=== PATIENT | female | born 1965 | race Caucasian/White ===

== ENCOUNTER → 2016-09-22 | Outpatient (CLI) | payer OTHER ==
[~2016-09-22] MED LIST: ALBU1AER9 INH; AMT50 PO; ARXIS25 SQ; ASPITAB71 PO; ATOR-54 PO; ATR25 PO; BACL20TA PO; BUSP-8 PO; CHOL100027 PO; ESCI10TA17 PO; ESCI1TAB10 PO; FERR1TAB61 PO; GARL1CAP6 PO; GLC/500 PO; GLIP2.5T11 PO; HYDC25 PO; HYDR-3126 PO; LEVO50TA PO; LEVO75TA PO; LORA-741 PO; METF1000 PO; MORP-158 PO; MULT-1027 PO; NICO2GUM7 MT; OMEG10007 PO; OMEP20CA59 PO; PANT40TA PO; PIRO20CA PO; PRED10TA PO; RISP3TAB3 PO; RISP4TAB2 PO; RXC5 PO; SENNTAB23 PO; TRIA37.5 PO; TRMO2580 TOP; ZNTT/150 PO
[2016-09-22 11:17] LABS: HEMATOCRIT 35.6 % (37-47); MEAN CELL VOLUME 83.6 fL (80-100); MEAN CORPUSCULAR HGB CONC 32.3 g/dl (32-36); PLATELET COUNT 318 K/uL (130-400); RED BLOOD COUNT 4.26 M/uL (4.2-5.4); WHITE BLOOD COUNT 6.67 K/uL (4.8-10.8)
[2016-09-22 11:19] LABS: ESTIMATED AVERAGE GLUCOSE 137 mg/dl; HA1C FLAG Normal (Normal)
[2016-09-22 11:41] LABS: BLOOD UREA NITROGEN 11 mg/dl (7-18); GLUCOSE 97 mg/dl (70-99)
[2016-09-22 11:42] LABS: ALT/SGPT 24 U/L (12-78); AST/SGOT 15 U/L (15-37); BUN/CREATININE RATIO 11.4 (10-20); CALCIUM 9.5 mg/dl (8.5-10.1); CARBON DIOXIDE 29 mmol/L (21-32); CHLORIDE 102 mmol/L (98-107); POTASSIUM 3.7 mmol/L (3.5-5.1); SODIUM 140 mmol/L (136-145)
[2016-09-22 11:52] LABS: CHOLESTEROL 147 mg/dl (0-200); CHOLESTEROL/HDL RATIO 2.8; HDL CHOLESTEROL 53 mg/dl; LDL CHOLESTEROL CALCULATED 52 mg/dl; THYROID STIMULATING HORMONE 0.815 uIu/ml (0.300-4.500); TRIGLYCERIDES 209 mg/dl (0-150); VERY LOW DENSITY LIPOPROT CALC 42 mg/dl
[2016-09-22 11:54] LABS: RATIO 6.2 mcg/mg (0-30.0)
== END | disposition home or self-care (01) ==
LOC: C.LAB1850 10:28
PROVIDERS: ATTEND Internal Medicine
DX: E11.40 Type 2 diabetes mellitus with diabetic neuropathy, unspecified (principal); E78.00 Pure hypercholesterolemia, unspecified; E55.9 Vitamin D deficiency, unspecified; R53.83 Other fatigue; E03.9 Hypothyroidism, unspecified

== ENCOUNTER → 2016-10-20 | Outpatient (CLI) | payer OTHER ==
[~2016-10-20] MED LIST changes: +AMINOPHYLLINE 25 MG/ML 20ML VIAL IV ONE; +REGADENOSON 0.4 MG/5 ML SYR ONE
--- NOTE | 2016-10-21 16:14 | MYOCARDIAL PERFUSION SCAN ---
ONE-DAY NUCLEAR MEDICINE TECHNETIUM-99M CARDIOLITE MYOCARDIAL PERFUSION SCAN CLINICAL HISTORY: The patient is experiencing exertional dyspnea and chest discomfort and has an abnormal baseline EKG. COMPARISON: None. TECHNIQUE: For the stress portion of the study, 31.7 mCi of Technetium 99 m Cardiolite IV was injected at 11:50 a.m. on 10/20/2016. Thirty minutes following the injection, imaging of the heart was performed in multiple projections. For the rest portion of the study, 10.6 mCi of Technetium 99 m Cardiolite was injected IV at 9:30 a.m. One hour following the injection, imaging of the heart was performed in the same projections. For the stress portion of the study, 0.4 mg of Lexiscan was injected intravenously as per protocol. The patient tolerated the infusion well. She did receive 125 mg of intravenous aminophylline to reverse her complaints of a headache. Following the study, the patient was hemodynamically stable without complaints. FINDINGS: The short axis, vertical long axis, and horizontal long axis images were reviewed in detail. There is uniform tracer uptake at both stress and rest. This excludes a prior myocardial infarction and stress induced myocardial ischemia. The left ventricle demonstrates hyperdynamic systolic function without wall motion abnormalities. An estimated left ventricular ejection fraction is greater than 70%. IMPRESSION: 1. No scintigraphic evidence of a myocardial infarction or stress induced myocardial ischemia. 2. No Lexiscan induced chest discomfort. 3. No Lexiscan induced EKG changes. 4. Hyperdynamic left ventricular systolic function with an ejection fraction of greater than 70%. There are no wall motion abnormalities.
== END | disposition home or self-care (01) ==
LOC: C.NUCL 08:59
PROVIDERS: ATTEND Internal Medicine
DX: R06.09 Other forms of dyspnea (principal); R07.9 Chest pain, unspecified; R94.31 Abnormal electrocardiogram [ECG] [EKG]

== ENCOUNTER → 2016-11-17 | Day surgery (SDC) | payer OTHER ==
[2016-10-28 10:51] VITALS: Ht 167.6 cm; Wt 86.4 kg
[~2016-11-17] VITALS: Ht 167.6 cm; Wt 86.4 kg
[~2016-11-17] MED LIST changes: -AMINOPHYLLINE 25 MG/ML 20ML VIAL IV ONE; -AMT50 PO; -ARXIS25 SQ; -ESCI10TA17 PO; -GLIP2.5T11 PO; -HYDC25 PO; +IOPAMIDOL INJ 61% 15 ML VIAL ONE; -LEVO50TA PO; +LIDOCAINE HCL 1% MPF 5 ML VIAL ONE; -LORA-741 PO; -METF1000 PO; -MORP-158 PO; -NICO2GUM7 MT; -OMEG10007 PO; -OMEP20CA59 PO; -REGADENOSON 0.4 MG/5 ML SYR ONE; +SODIUM CHLORIDE 0.9% INJ 10 ML VIAL ONE; -TRMO2580 TOP
--- NOTE | 2016-11-17 13:51 | History & Physical Bridge - SC ---
H&P Re-Evaluation Bridge Note: I have examined the patient, reviewed the History & Physical and in the interval since the performance of the History & Physical I have noted the following changes of clinical significance: No changes noted
--- NOTE | 2016-11-17 14:24 | Discharge Instructions ---
Discharge Instructions Date of Service Nov 17, 2016. Visit Reason for Visit: Lumbar Radiculopathy Discharge Discharge Diagnosis / Problem: Bilateral leg pain Discharge Goals Goal(s): Decrease discomfort, Improve function Activity Recommendations Activity Limitations: resume your previous activity Anesthesia . Post Anesthesia Instructions: If you have had General Anesthesia or IV Sedation: * Do not drive today. * Resume driving when surgeon permits. * Do not make important decisions or sign legal documents today. * Call surgeon for: 1. Temperature elevations greater than 101 degrees F. 2. Uncontrollable pain. 3. Excessive bleeding. 4. Persistent nausea and vomiting. 5. Medication intolerance (nausea, vomiting or rash). * For nausea and vomiting use only clear liquids such as: tea, soda, bouillon until nausea subsides, then gradually increase diet as tolerated. * If you have any concerns or questions, call your surgeon's office. If physician is unavailable and it is an emergency, call 911 or go to the nearest emergency room. . Diet Recommendations Recommended Home Diet: resume previous diet Procedures Procedures Performed: Lumbar Epidural Steroid Injection Pending Studies Studies pending at discharge: no Medical Emergencies . Who to Call and When: Medical Emergencies: If at any time you feel your situation is an emergency, please call 911 immediately. . Non-Emergent Contact Non-Emergency issues call your: Specialist . . "Provider Documentation" section prepared by Scott Rodas.
[2016-11-17 14:27] VITALS: TEMP 36.6
[2016-11-17 14:32] VITALS: BP 125/81; PULSE 75; O2SAT 95
--- NOTE | 2016-11-17 15:34 | OPERATIVE REPORT ---
DATE OF OPERATION: 11/17/2016 PREOPERATIVE DIAGNOSIS: Chronic low back pain with lumbar disk disease and chronic bilateral lower extremity radicular pain. POSTOPERATIVE DIAGNOSIS: Same. PROCEDURE: Right paramedian L5-S1 interlaminar epidural steroid injection under fluoroscopic guidance. INDICATIONS: The patient is a 51-year-old white female who returns today for an epidural steroid injection. She has received them in the distant past, more than a few years ago with very good relief; however, she has had increasing radicular pain that was related to a slip injury in which she injured both her back and her neck. She is scheduled for neck surgery Next month and presents today for an epidural injection to provide her with relief of the back and radicular complaints down the legs. PHYSICAL EXAMINATION: Pleasant female seated comfortably. She has some tenderness to palpation of her lower lumbar spine. She has no focal weakness, intact sensation. She has some pain inhibition with straight leg testing of the lower extremities. CONSENT: Verbal and written consent was obtained from the patient. Risks and benefits were reviewed. Risks include but are not limited to epidural abscess, epidural hematoma, allergic reaction, dural puncture. The patient wishes to proceed. DESCRIPTION OF PROCEDURE: The patient was taken back to the special procedures room of the [facility] where she was maintained in a prone position. Betadine x3 was then applied to the back, a dry sterile dressing was then applied. Fluoroscope was then used to identify the L5-S1 interlaminar space and overlying skin was anesthetized with 4 mL of lidocaine 1% with a 25 gauge 1.5-inch needle on the right L5-S1 paraspinal space. She then underwent placement of a 22 gauge 4-1/4 inch Tuohy needle, which was directed down towards the interlaminar space. It was advanced under lateral fluoroscopic guidance and loss of resistance was noted at a depth of 10 cm. Isovue-300 contrast 1 mL was injected and which demonstrated epidural uptake pattern which was confirmed with both AP and lateral views. She then underwent injection of 40 mg of Depo-Medrol, 4 mL of preservative-free sodium chloride which reproduced a transient pressure and a radicular sensation down the right leg. DISPOSITION: 1. The patient is taken out into the discharge recovery area where she will be discharged home once discharge criteria have been met. 2. Follow up in the [facility] office in 2-4 weeks. I attest to the content of the Intraoperative Record and any orders documented therein. Any exceptio ns are noted below.
== END | disposition home or self-care (01) ==
LOC: X.SURG 13:05
PROVIDERS: ATTEND Physical Medicine & Rehabilitation
DX: M54.16 Radiculopathy, lumbar region (principal); M50.122 Cervical disc disorder at C5-C6 level with radiculopathy

== ENCOUNTER → 2016-12-20 | Outpatient (CLI) | payer OTHER ==
[~2016-12-20] MED LIST changes: -ASPITAB71 PO; -ATR25 PO; -IOPAMIDOL INJ 61% 15 ML VIAL ONE; -LIDOCAINE HCL 1% MPF 5 ML VIAL ONE; -PIRO20CA PO; -PRED10TA PO; -SODIUM CHLORIDE 0.9% INJ 10 ML VIAL ONE
[2016-12-20 12:48] LABS: BLOOD UREA NITROGEN 12 mg/dl (7-18); BUN/CREATININE RATIO 12.2 (10-20); CALCIUM 9.6 mg/dl (8.5-10.1); CARBON DIOXIDE 27 mmol/L (21-32); CHLORIDE 97 mmol/L (98-107); CREATININE 0.98 mg/dl (0.60-1.20); GLUCOSE 96 mg/dl (70-99); POTASSIUM 4.4 mmol/L (3.5-5.1); SODIUM 132 mmol/L (136-145)
== END | disposition home or self-care (01) ==
LOC: C.LAB1850 10:40
PROVIDERS: ATTEND Internal Medicine
DX: E87.1 Hypo-osmolality and hyponatremia (principal)

== ENCOUNTER 2016-12-28 05:53 | Inpatient (IN) | payer OTHER ==
--- NOTE | 2016-12-05 14:27 | PAT Medication Instructions ---
Service Date Dec 05, 2016. Current Home Medication List Albuterol (Proair Hfa), 2 PUFFS INH Q4-6H PRN for Shortness of Breath Atorvastatin (Lipitor), 20 MG PO HS Baclofen (Lioresal), 20 MG PO TID Buspirone Hcl (Buspirone Hcl), 2 TABS PO BID Cholecalciferol (Vitamin D 1000 Unit), 1,000 INTER.UNIT PO BID Escitalopram Oxalate (Lexapro), 2 TABS PO QAM Ferrous Sulfate (Iron), 65 MG PO NOON Garlic (Garlic), 1 TAB PO HS Hydroxyzine Hcl (Atarax), 50 MG PO BID Levothyroxine Sodium (Synthroid), 75 MCG PO QAM Metformin Hcl (Glucophage), 2 TABS PO BID Multiple Vitamin (Multi Vitamin), 1 TAB PO QAM Pantoprazole (Protonix), 40 MG PO BID Ranitidine (Zantac), 150 MG PO BID Risperidone (Risperdal), 3 MG PO HS Risperidone (Risperdal), 4 MG PO QAM Triamterene/Hctz (Dyazide 37.5MG/25MG), 1 TAB PO QAM Medication Instructions For Your Scheduled Surgery - Hold the following medications 2 weeks prior to surgery: Garlic (Garlic), 1 TAB PO HS - Hold the following medications 48 hours prior to surgery: Metformin Hcl (Glucophage), 2 TABS PO BID - Hold the following medications the morning of surgery: Triamterene/Hctz (Dyazide 37.5MG/25MG), 1 TAB PO QAM Multiple Vitamin (Multi Vitamin), 1 TAB PO QAM Ferrous Sulfate (Iron), 65 MG PO NOON Cholecalciferol (Vitamin D 1000 Unit), 1,000 INTER.UNIT PO BID Baclofen (Lioresal), 20 MG PO TID - Take the following medications the morning of surgery with a sip of water: Risperidone (Risperdal), 4 MG PO QAM Pantoprazole (Protonix), 40 MG PO BID Ranitidine (Zantac), 150 MG PO BID Levothyroxine Sodium (Synthroid), 75 MCG PO QAM Hydroxyzine Hcl (Atarax), 50 MG PO BID Escitalopram Oxalate (Lexapro), 2 TABS PO QAM Buspirone Hcl (Buspirone Hcl), 2 TABS PO BID Albuterol (Proair Hfa), 2 PUFFS INH Q4-6H PRN for Shortness of Breath (bring with you to hospital on day of surgery) - Take the following medications as scheduled the night before surgery: Risperidone (Risperdal), 3 MG PO HS Pantoprazole (Protonix), 40 MG PO BID Ranitidine (Zantac), 150 MG PO BID Hydroxyzine Hcl (Atarax), 50 MG PO BID Cholecalciferol (Vitamin D 1000 Unit), 1,000 INTER.UNIT PO BID Buspirone Hcl (Buspirone Hcl), 2 TABS PO BID Baclofen (Lioresal), 20 MG PO TID Albuterol (Proair Hfa), 2 PUFFS INH Q4-6H PRN for Shortness of Breath Atorvastatin (Lipitor), 20 MG PO HS If you have any questions please call us at [phone] or [phone] ( [place]) or [phone]
[2016-12-05 14:42] LABS: BASO % 0.5 %; BASO ABS # 0.04 K/uL (0-0.2); COMPLETE YES; EOS % 1.1 %; HEMATOCRIT 32.2 % (37-47); IG% 0.2 %; LYMPH % 24.1 %; LYMPH ABS # 1.93 K/uL (1.2-3.4); MEAN CELL VOLUME 82.8 fL (80-100); MEAN CORPUSCULAR HGB CONC 33.9 g/dl (32-36); MEAN PLATELET VOLUME 9.1 fL (7.4-10.4); MONO % 6.5 %; NEUT % 67.6 %; PLATELET COUNT 327 K/uL (130-400); RED BLOOD COUNT 3.89 M/uL (4.2-5.4); WHITE BLOOD COUNT 8.01 K/uL (4.8-10.8)
--- NOTE | 2016-12-05 15:02 | DIAGNOSTIC IMAGING REPORT ---
CHEST 2 VIEWS ROUTINE CLINICAL HISTORY: Preoperative evaluation. COMPARISON STUDY: Chest radiograph November 17, 2013. FINDINGS: Lung volumes are normal. There is no pneumothorax or pleural effusion. There is no evidence of pulmonary edema. Cardiomediastinal silhouette is normal. There are left upper quadrant surgical clips. IMPRESSION: No acute cardiopulmonary findings. Electronically signed by: Mik Howard M.D. 12/05/2016 3:00 PM Dictated Date/Time: 12/05/2016 3:00 PM
[2016-12-05 15:05] LABS: URINE APPEARANCE CLEAR (CLEAR); URINE BILIRUBIN NEG (NEG); URINE COLOR YELLOW; URINE EPITHELIAL CELL AUTO 20-30 /lpf (0-5); URINE NITRITE NEG (NEG); URINE SPECIFIC GRAVITY 1.008 (1.000-1.030); UROBILINOGEN NEG (NEG)
[2016-12-05 15:19] LABS: MANUAL MICROSCOPIC REQUIRED? NO; REVIEW REQ? NO
[2016-12-05 15:36] LABS: CALCIUM 9.8 mg/dl (8.5-10.1); CREATININE 0.97 mg/dl (0.60-1.20); POTASSIUM 4.4 mmol/L (3.5-5.1)
[2016-12-28] VITALS (16 sets, daily range): BP systolic 108–130; BP diastolic 72–88; PULSE 74–89; TEMP 36.3–37.2; O2SAT 94–99; Ht 167.6 cm; Wt 84.0 kg
[~2016-12-28] VITALS: Ht 167.6 cm; Wt 84.0 kg
[~2016-12-28 05:53] MED LIST changes: -RXC5 PO; -SENNTAB23 PO
[2016-12-28] MEDS ORDERED: LACTATED RINGER'S 1000ML 1,000 ML IV SCH (06:00)
[2016-12-28] MEDS ORDERED: CEFAZOLIN 2000 MG/60 ML D5W 60 ML IV SCH (06:00)
[2016-12-28] MEDS ORDERED: BACITRACIN 50000 UNIT VIAL ONE (06:56)
[2016-12-28] MEDS ORDERED: SODIUM CHLORIDE 0.9% PF 50 ML VIAL ONE (06:56)
[2016-12-28] MEDS ORDERED: FENTANYL CITRATE INJ 50 MCG/1 ML 2 ML VIAL ONE ×3 (06:57→09:48)
[2016-12-28] MEDS ORDERED: PROPOFOL IV EMULSION 10 MG/ML 20 ML VIAL IV ONE (06:57)
[2016-12-28] MEDS ORDERED: MIDAZOLAM HCL 1 MG/ML 2ML VIAL ONE (06:57)
[2016-12-28] MEDS ORDERED: LIDOCAINE HCL 2% 2 ML VIAL (20MG/ML) ONE (06:57)
[2016-12-28] MEDS ORDERED: ROCURONIUM BROMIDE 10 MG/ML 5 ML VIAL ONE (06:57)
[2016-12-28] MEDS ORDERED: SENNTAB23 PO (07:09)
[2016-12-28] MEDS ORDERED: CLINDAMYCIN 600 MG/54 ML D5W IV ONE ×2 (07:13→08:00)
--- NOTE | 2016-12-28 07:29 | History and Physical ---
History & Physical Date December 28, 2016. Chief Complaint neck and arm pain History of Present Illness The patient is a 51 year old female with complaints of Additional History Hepatic Disease: No Endocrine Disorder: No Kidney Disease: No Hypertension: No Heart Disease: No Bleeding Tendencies: No Infectious Diseases: No Allergies Coded Allergies: Salt (Verified Allergy, Unknown, SWELLING, 12/28/16) Amoxicillin (Verified Adverse Reaction, Mild, GI UPSET, 12/28/16) Aspirin (Verified Adverse Reaction, Unknown, GI DISTRESS, 12/28/16) ALLERGIC TO ASPIRIN TABLETS, THINGS THAT CONTAIN ASPIRIN ARE OKAY Niacin (Verified Adverse Reaction, Unknown, HOT FLUSHES, 12/28/16) Home Medications Scheduled Atorvastatin (Lipitor), 20 MG PO HS Baclofen (Lioresal), 20 MG PO TID Buspirone Hcl (Buspirone Hcl), 2 TABS PO BID Cholecalciferol (Vitamin D 1000 Unit), 1,000 INTER.UNIT PO BID Escitalopram Oxalate (Lexapro), 2 TABS PO QAM Ferrous Sulfate (Iron), 65 MG PO NOON Garlic (Garlic), 1 TAB PO HS Hydroxyzine Hcl (Atarax), 50 MG PO BID Levothyroxine Sodium (Synthroid), 75 MCG PO QAM Metformin Hcl (Glucophage), 2 TABS PO BID Multiple Vitamin (Multi Vitamin), 1 TAB PO QAM Pantoprazole (Protonix), 40 MG PO BID Ranitidine (Zantac), 150 MG PO BID Risperidone (Risperdal), 3 MG PO HS Risperidone (Risperdal), 4 MG PO QAM Sennosides-Docusate Sodium (Stool Softener), PO DAILY Triamterene/Hctz (Dyazide 37.5MG/25MG), 1 TAB PO QAM Scheduled PRN Albuterol (Proair Hfa), 2 PUFFS INH Q4-6H PRN for Shortness of Breath Physical Examination Skin: warm/dry, no rash Eyes: normal inspection, EOMI, sclerae normal ENT: normal ENT inspection, pharynx normal Head: normocephalic, atraumatic Neck: supple, no adenopathy, trachea midline Respiratory/Chest: lungs clear, normal breath sounds, no respiratory distress Cardiovascular: regular rate, rhythm, no edema, no murmur Abdomen / GI: normal bowel sounds, non tender Back: normal inspection Extremities: normal inspection, normal range of motion Neurologic/Psych: no motor/sensory deficits, alert, normal reflexes, oriented x 3 Diagnosis cervical stenosis Plan of Treatment acdf c-6-7 corpectomy c5 with fusion c4-7
[2016-12-28] MEDS ORDERED: EpHEDrine SULFATE INJ 50 MG/ML AMP IV PRN (07:30)
[2016-12-28] MEDS ORDERED: PROMETHAZINE HCL INJ 6.25 MG in SODIUM CHLORIDE 0.9% 50ML 50 ML IV PRN (07:30)
[2016-12-28] MEDS ORDERED: ATROPINE SULFATE 0.1 MG/ML 5ML SYR IV PRN (07:30)
[2016-12-28] MEDS ORDERED: NURSING VERBAL MED ORDER ONE ×3 (07:30→20:15)
[2016-12-28] MEDS ORDERED: ONDANSETRON INJ 2 MG/ML 2 ML VIAL IV PRN ×2 (07:30→10:15)
[2016-12-28] MEDS ORDERED: ONDANSETRON INJ 2 MG/ML 2 ML VIAL ONE ×2 (08:32→09:48)
[2016-12-28] MEDS ORDERED: DEXAMETHASONE SOD INJ 4 MG/ML VIAL ONE (08:32)
[2016-12-28] MEDS ORDERED: GLYCOPYRROLATE INJ 0.2 MG/ML VIAL ONE ×2 (08:41→09:48)
[2016-12-28] MEDS ORDERED: NEOSTIGMINE METHYLSULFATE 1 MG/ML 10ML VIAL ONE (09:48)
[2016-12-28] MEDS ORDERED: FLOSEAL HEMOSTATIC MATRIX 5ML TOP ONE (09:51)
[2016-12-28] MEDS ORDERED: BACITRACIN 50,000 UNITS IR ONE (09:54)
--- NOTE | 2016-12-28 10:01 | [facility] Post Operative Brief Note ---
Immediate Operative Summary Operative Date December 28, 2016. Pre-Operative Diagnosis Cervical Stenosis Post-Operative Diagnosis Cervical Stenosis Procedure(s) Performed C6-C7 Anterior Cervical Discectomy and Fusion; C5 Corpectomy with use of [place] Surgeon Dr. Lua Associate Research Scientist Surgeon(s) Albina Orellana PA-C Estimated Blood Loss 100 mL Findings stenosis Specimens None per Surgeon
[2016-12-28] MEDS ORDERED: LORAZEPAM INJ 0.5 MG in SYRINGE 0.75 ML IV PRN (10:15)
[2016-12-28] MEDS ORDERED: DO NOT ADMINISTER PNEUMOCOCCAL VACCINE PRN ×2 (10:15)
[2016-12-28] MEDS ORDERED: DEXAMETHASONE INJ 8 MG in SYRINGE 0 ML IV PRN (10:15)
[2016-12-28] MEDS ORDERED: DiphenhydrAMINE HCL 50 MG/ML VIAL IV PRN (10:15)
[2016-12-28] MEDS ORDERED: NALOXONE HCL 0.4 MG/1 ML VIAL/CARP IV PRN (10:15)
[2016-12-28] MEDS ORDERED: HYDROmorphone INJ 1 MG/ML SYR IV PRN (10:15)
[2016-12-28] MEDS ORDERED: RACEPINEPHRINE 2.25% NEBU SOLN 0.5 ML VIAL INH PRN (10:15)
[2016-12-28] MEDS ORDERED: LORAZEPAM 0.5 MG TAB PO PRN (10:15)
[2016-12-28] MEDS ORDERED: DO NOT ADMINISTER FLU VACCINE PRN ×3 (10:15)
[2016-12-28] MEDS ORDERED: MAGNESIUM HYDROXIDE SUSP 30 ML UDC PO PRN (10:15)
[2016-12-28] MEDS ORDERED: ALBUTEROL HFA 8 GM INHALER INH PRN (10:15)
[2016-12-28] MEDS ORDERED: OXYCODONE HCL IR 5 MG TAB (IMMEDIATE RELEASE) PO PRN (10:15)
--- NOTE | 2016-12-28 10:16 | DIAGNOSTIC IMAGING REPORT ---
Cervical SPINE, INTRAOPERATIVE FLUOROSCOPY HISTORY: ACDF C4-C7. FLUOROSCOPY TIME: 8 seconds. FINDINGS: Intraoperative fluoroscopy was provided for the cervical spine. 2 fluoroscopic spot images were obtained. ACDF from C4 through C7 with a C5 corpectomy. The hardware is intact. IMPRESSION: Fluoroscopy provided for a C4-C7 ACDF. Electronically signed by: Montrell Solis M.D. 12/28/2016 10:15 AM Dictated Date/Time: 12/28/2016 10:14 AM
[2016-12-28] MEDS: FENTANYL CITRATE INJ 50 MCG/1 ML 2 ML VIAL IV PRN ×4 (10:28→11:09)
[2016-12-28] MEDS ORDERED: NURSING VERBAL MED ORDER SCH (11:15)
--- NOTE | 2016-12-28 11:22 | OPERATIVE REPORT ---
DATE OF OPERATION: 12/28/2016 PREOPERATIVE DIAGNOSIS: Cervical spinal stenosis with myeloradiculopathy. POSTOPERATIVE DIAGNOSIS: Same. PROCEDURE PERFORMED: 1. Anterior cervical corpectomy C5. 2. Anterior cervical discectomy C6-C7. 3. Anterior cervical arthrodesis C4-C6 and C6-C7. 4. Placement of PEEK cage 23 mm in height at C4-C6 and 8 mm in height at C6-C7. 5. Placement of locally harvested morcellized autograft combined with Ratna bone graft in interbody cages. 6. Application of Mary plate and screws from C4-C7. SURGEON: Dr. Scott Lua. PASTA PRESS OPERATOR: Due to the complex nature of the procedure, the entire surgery was performed with the information services assistant of Albina Orellana PA-C. The hair assistant, under direct supervision, was involved in the actual performance of all aspects of the surgical procedure including hemostasis, tissue retraction and incision, instrument management, patient positioning, and wound closure. ANESTHESIA: General. DISPOSITION: The patient awakened and taken to PACU in stable condition. HISTORY OF PATIENT'S PROBLEMS: This is a 51-year-old female that presents with above-mentioned diagnosis. After failing an extensive course of nonoperative care, elected to undergo the above-mentioned procedure. Risks, benefits, pros, cons, and alternatives were outlined in detail preoperatively. DESCRIPTION OF PROCEDURE: The patient was met with preoperatively, case discussed and all questions were addressed. At that point the patient was taken back to operative suite and after undergoing successful general intubation by the department of anesthesia was placed in supine position on Bean table with head in [place] automatic head sawyer. All bony prominences were well padded and the eyes were inspected to ensure there was no external pressure placed upon them. At this point the anterior cervical spine was prepped and draped in normal sterile fashion. With the assistance of fluoroscopy, we identified the C5-C6 disk space and transverse incision was placed along the right anterior aspect of the cervical spine overlying this region. Sharp dissection with the assistance of bipolar electrocautery performed down to and exposing the anterior cervical spine from C4-C7. A self-retaining retractor was placed. I then performed a complete discectomy of C4-C5 out to the uncovertebral joints bilaterally followed by C5-C6. [place] distracting pins were then placed in C4 and C6 to distract across the C5 vertebral body. A complete corpectomy was then performed including removal of all posterior annular fibers, longitudinal ligament and bilateral foraminotomies. Endplates were then burred to subcortical bleeding bone and a 23 mm PEEK cage filled with locally harvested morcellized autograft and Ratna bone grafting tapped into position. Distracting apparatus was removed and we proceeded to C6-C7. Again, complete discectomy was performed out to the uncovertebral joints bilaterally. [place] distracting pins were utilized to assist us in our visualization. I removal of all posterior annular fibers and performed bilateral foraminotomies. Endplates were then burred to subcortical bleeding bone and 8 mm PEEK cage filled with Ratna bone grafting locally harvested morcellized autograft tapped into position. Distracting apparatus was removed, all anterior osteophytes burred to a smooth cortical surface and screws applied from C4-C7. Incision was then copiously irrigated, explored to ensure there was no damage to surrounding structures or remaining bleeding and a 10 round BRISA drain inserted then closed with 2-0 Vicryl in the fascia, 4-0 Monocryl for final skin closure. Steri-Strips and sterile dressing placed. The patient was awakened and taken to PACU in stable condition. I attest to the content of the Intraoperative Record and any orders documented therein. Any exceptio ns are noted below.
[2016-12-28] MEDS ORDERED: SODIUM CHLORIDE 0.9% 1000ML 1,000 ML IV SCH (12:45)
[2016-12-28] MEDS ORDERED: SCOPOLAMINE 1.5 MG TDSY TD SCH (13:00)
[2016-12-28] MEDS ORDERED: EpHEDrine SULFATE 50MG/5ML SYR ONE (13:07)
[2016-12-28] MEDS: DEXAMETHASONE INJ 6 MG in SYRINGE 0 ML IV SCH ×2 (13:21→21:30)
[2016-12-28] MEDS: BACLOFEN TAB 20 MG TAB PO SCH ×2 (13:22→19:36)
--- NOTE | 2016-12-28 14:15 | Anesthesiology Progress Note ---
Anesthesia Post Op Note Date & Time December 28, 2016 at 14:15 Vital Signs Pain Intensity: 3.0 Vital Signs Past 12 Hours Date Time Temp Pulse Resp B/P Pulse Ox O2 Delivery O2 Flow Rate FiO2 12/28/16 13:43 82 18 99 Nasal Cannula 4.0 12/28/16 12:45 36.4 16 122/76 98 Nasal Cannula 4.0 Humidified Oxygen 12/28/16 12:15 36.6 78 18 112/79 98 Nasal Cannula 4.0 Humidified Oxygen 12/28/16 11:58 98 Nasal Cannula 4.0 12/28/16 11:45 98 Nasal Cannula 4.0 Humidified Oxygen 12/28/16 11:45 36.6 80 18 116/80 98 Nasal Cannula 4.0 Humidified Oxygen 12/28/16 11:32 72 16 12/28/16 11:32 72 16 97 12/28/16 11:31 114/64 12/28/16 11:27 74 16 97 12/28/16 11:27 73 16 12/28/16 11:26 112/66 12/28/16 11:23 36.2 12/28/16 11:22 71 16 12/28/16 11:22 71 16 96 12/28/16 11:21 108/67 12/28/16 11:17 75 16 12/28/16 11:17 74 16 98 12/28/16 11:16 110/63 12/28/16 11:12 71 16 12/28/16 11:12 70 16 95 12/28/16 11:11 109/64 12/28/16 11:07 70 16 99 12/28/16 11:07 70 16 12/28/16 11:06 118/61 12/28/16 11:02 69 16 12/28/16 11:02 70 16 95 12/28/16 11:01 117/64 12/28/16 10:57 70 16 94 12/28/16 10:57 69 16 12/28/16 10:56 125/74 12/28/16 10:52 70 16 97 12/28/16 10:52 69 16 12/28/16 10:51 129/63 12/28/16 10:47 71 16 12/28/16 10:47 70 16 98 12/28/16 10:46 126/70 12/28/16 10:45 72 13 12/28/16 10:45 72 13 99 12/28/16 10:41 120/60 12/28/16 10:40 64 16 100 12/28/16 10:40 64 16 12/28/16 10:36 118/73 12/28/16 10:35 64 12 100 12/28/16 10:35 64 12 12/28/16 10:31 133/72 12/28/16 10:30 83 15 12/28/16 10:30 83 15 100 12/28/16 10:26 138/78 12/28/16 10:25 79 16 100 12/28/16 10:25 79 16 12/28/16 10:20 36.0 85 16 143/83 100 Mask 10 12/28/16 10:20 88 16 143/83 100 12/28/16 10:20 88 16 12/28/16 06:42 36.8 74 20 109/78 94 Room Air Notes Mental Status: alert / awake / arousable, participated in evaluation Pt Amnestic to Procedure: Yes Nausea / Vomiting: adequately controlled Pain: adequately controlled Airway Patency, RR, SpO2: stable & adequate BP & HR: stable & adequate Hydration State: stable & adequate Anesthetic Complications: no major complications apparent
[2016-12-28] MEDS: CHECK SCOPOLAMINE PATCH PLACEMENT SCH ×2 (16:00→23:14)
[2016-12-28] MEDS: CLINDAMYCIN IV 600 MG in DEXTROSE 5% ADD-VANTAGE 50ML 50 ML IV SCH (19:12)
[2016-12-28] MEDS: ACETAMINOPHEN IV 100 ML IV PRN (19:35)
[2016-12-28] MEDS: DOCUSATE SODIUM 100 MG CAP PO SCH (19:36)
[2016-12-28] MEDS: PANTOprazole SOD 40 MG TAB PO SCH (19:39)
[2016-12-28] MEDS: RANITIDINE HCL 150 MG TAB PO SCH (19:39)
[2016-12-28] MEDS: hydrOXYzine HCL 25 MG TAB PO SCH (19:40)
[2016-12-28] MEDS ORDERED: COUGH DROP (SUGAR FREE) LOZ 24 LOZ/1 BOX PO PRN (20:15)
[2016-12-28] MEDS ORDERED: RISPERIDONE 3 MG TAB PO SCH (21:00)
[2016-12-28] MEDS ORDERED: ATORVASTATIN 20 MG TAB PO SCH (21:00)
[2016-12-29] VITALS (14 sets, daily range): BP systolic 102–125; BP diastolic 68–80; PULSE 61–87; TEMP 36.8–37; O2SAT 95–99
[2016-12-29] MEDS: CLINDAMYCIN IV 600 MG in DEXTROSE 5% ADD-VANTAGE 50ML 50 ML IV SCH ×2 (01:20→09:02)
[2016-12-29] MEDS: DEXAMETHASONE INJ 6 MG in SYRINGE 0 ML IV SCH (05:18)
[2016-12-29] MEDS: ACETAMINOPHEN IV 100 ML IV PRN (05:30)
[2016-12-29] MEDS ORDERED: LEVOTHYROXINE 75 MCG TAB PO SCH (06:00)
[2016-12-29] MEDS ORDERED: RXC5 PO (07:53)
--- NOTE | 2016-12-29 07:54 | Discharge Instructions ---
Discharge Instructions Date of Service December 29, 2016. Admission Reason for Admission: Cervical Spinal Stenosis Discharge Discharge Diagnosis / Problem: stenosis Discharge Goals Goal(s): Improve function Activity Recommendations Activity Limitations: per Instructions/Follow-up section . Instructions / Follow-Up Instructions / Follow-Up ACTIVITY RECOMMENDATIONS: SELF CARE INSTRUCTIONS AFTER CERVICAL FUSIONS 1. No smoking. Smoking drastically decreases the chance of a solid fusion. 2. No bending, lifting more than 5 pounds, or twisting (roll like a log when turning in bed). 3. You may shower 3 days after surgery. Thoroughly dry wound. Do not soak in the tub. 4. Cervical collar: Must be worn at all times including sleeping. You may remove the brace only to bath, eat and if you are sitting in a recliner. 5. Please walk as much as you can for exercise. Gradually increase the distance that you walk as your endurance increases. SPECIAL CARE INSTRUCTIONS: VERY IMPORTANT TO READ AND REVIEW A. Do not take any anti-inflammatory medications (i.e. Indocin, Advil, Aspirin, Naprosyn, Aleve, Motrin, etc.) as these may inhibit the chance of a solid fusion. Tylenol is okay to take. B. Your surgical incision has been closed with a cosmetic suture under the skin that will dissolve in about 6 weeks. In 14 days, you can use a pair of clean scissors and cut the suture that is left outside of the skin at the ends of your incision. C. Complications are uncommon, but please contact us if you have any signs or symptoms of: 1. wound infection (fever higher than 102.5 degrees F, redness, separation of wound, drainage, or increasing pain from the incision) 2. blood clots in legs (pain, swelling, redness and warmth in legs) 3. urinary tract infection (fever higher than 102.5 degrees, burning upon urination or increased frequency of urination) 4. nerve problems (inability to walk on your toes or heels, numbness, loss of bowel or bladder control) 5. any other symptoms that concern you. D. Please call the office at if you have any concerns or questions about your operation or recovery. MANAGING PAIN AFTER SPINAL SURGERY 1. Narcotic medication is intended for short-term use and will be provided for surgical pain. Surgical pain usually lasts for a period of 4-6 weeks. Narcotic medication includes Percocet, Vicodin, Darvocet, Tylenol #3 or Lortab. 2. Longer-term pain is more appropriately treated with non-narcotic medication such as Tylenol ES. 3. Muscle spasm is not appropriately treated with narcotics. Muscle relaxers such as Soma, Flexeril or Skelaxin can be used along with Tylenol ES. 4. Remember that we all live with some "aches and pains". This is not unusual or uncommon after an injury or as we get older. 5. We will provide appropriate medication within the normal guidelines of their prescribed use. We will also be very cautious and aware of potential abuse and extended duration of patients' medication needs. 6. Please allow 2-3 days to process refills. Prescriptions will not be mailed but must be picked up at the office. FOLLOW UP VISIT: Keep your scheduled follow-up appointment. Any questions, please call the office at . Current Hospital Diet Patient's current hospital diet: Clear Liquid Diet Discharge Diet Recommended Diet: Regular Diet Procedures Procedures Performed: C6-C7 Anterior Cervical Discectomy and Fusion; C5 Corpectomy with use of Ratna Pending Studies Studies pending at discharge: no Medical Emergencies . Who to Call and When: Medical Emergencies: If at any time you feel your situation is an emergency, please call 911 immediately. . Non-Emergent Contact Non-Emergency issues call your: Primary Care Provider . "Provider Documentation" section prepared by Scott Lua. . VTE Core Measure Inpt VTE Proph given/why not?: Krya Grossman, SCD's
--- NOTE | 2016-12-29 08:08 | Anesthesiology Progress Note ---
Anesthesia Post Op Note Date & Time December 29, 2016 at 08:07 Vital Signs Pain Intensity: 2.0 Vital Signs Past 12 Hours Date Time Temp Pulse Resp B/P Pulse Ox O2 Delivery O2 Flow Rate FiO2 12/29/16 07:23 71 95 Room Air 12/29/16 07:19 36.8 68 16 116/78 99 Room Air 12/29/16 07:12 66 12 99 Nasal Cannula 2.0 12/29/16 06:41 36.8 75 16 120/79 98 Nasal Cannula 2.0 Humidified Air 12/29/16 04:45 37.0 85 18 123/79 97 Nasal Cannula 2.0 Humidified Air 12/29/16 03:30 73 16 98 Nasal Cannula 2.0 12/29/16 02:30 36.8 79 16 119/77 97 Nasal Cannula 2.0 Humidified Air 12/29/16 00:45 36.9 87 16 125/79 98 Nasal Cannula 2.0 Humidified Air 12/29/16 00:00 Nasal Cannula 3.0 Humidified Oxygen 12/28/16 23:30 80 14 97 Nasal Cannula 2.0 12/28/16 22:45 36.7 75 18 126/81 97 Nasal Cannula 3.0 12/28/16 22:45 36.3 78 16 115/75 99 Nasal Cannula 2.0 Humidified Oxygen 12/28/16 20:45 36.7 81 16 108/72 98 Nasal Cannula 4.0 Humidified Oxygen 12/28/16 20:45 36.7 81 16 108/72 98 Nasal Cannula 3.0 Humidified Oxygen Notes Mental Status: alert / awake / arousable, participated in evaluation Pt Amnestic to Procedure: Yes Nausea / Vomiting: adequately controlled Pain: adequately controlled Airway Patency, RR, SpO2: stable & adequate BP & HR: stable & adequate Hydration State: stable & adequate Anesthetic Complications: no major complications apparent
--- NOTE | 2016-12-29 08:31 | DISCHARGE SUMMARY ---
DATE OF DISCHARGE: 12/29/2016. PRINCIPAL DIAGNOSIS: Cervical spinal stenosis. HOSPITAL COURSE FOLLOWS: On 12/28/2016 the patient underwent anterior cervical decompression and fusion, tolerated this well and taken to the orthopedic floor postoperatively. Postop day #1, she was up and ambulatory, swallowing well, arm symptoms markedly improved. No hoarseness. Subsequently discharged home. Discharge orders and instructions can be found on the chart for further review.
[2016-12-29] MEDS: CHECK SCOPOLAMINE PATCH PLACEMENT SCH (08:59)
[2016-12-29] MEDS: BACLOFEN TAB 20 MG TAB PO SCH (08:59)
[2016-12-29] MEDS ORDERED: ESCITALOPRAM OXALATE 20 MG TAB PO SCH (09:00)
[2016-12-29] MEDS ORDERED: TRIAMTERENE/HCTZ 37.5/25MG CAP PO SCH (09:00)
[2016-12-29] MEDS: PANTOprazole SOD 40 MG TAB PO SCH (09:00)
[2016-12-29] MEDS ORDERED: RISPERIDONE 2 MG TAB PO SCH (09:00)
[2016-12-29] MEDS: DOCUSATE SODIUM 100 MG CAP PO SCH (09:00)
[2016-12-29] MEDS: RANITIDINE HCL 150 MG TAB PO SCH (09:00)
[2016-12-29] MEDS: hydrOXYzine HCL 25 MG TAB PO SCH (09:02)
[2016-12-30] MEDS ORDERED: BISACODYL 10 MG SUPP PR PRN (06:00)
[2016-12-30] MEDS ORDERED: BISACODYL 5 MG TABEC PO PRN (06:00)
[2016-12-31] MEDS ORDERED: POLYETHYLENE (MIRALAX) 17 GM PACK PO SCH (09:00)
== END 2016-12-29 14:48 | disposition home or self-care (01) | DRG 472 ==
LOC: ENRESERVDT → ENRESERVTM → C.ACU 05:53 → C.3E 07:28 → CANBEDREQ 12:20
PROVIDERS: ADMIT Orthopaedic Surgery Orthopaedic Surgery of the Spine; ATTEND Orthopaedic Surgery Orthopaedic Surgery of the Spine
PROC: 0RT30ZZ Resection of Cervical Vertebral Disc, Open Approach (ICD-10-PCS; principal; 2016-12-28 07:45)
PROC: 0RG20A0 Fusion of 2 or more Cervical Vertebral Joints with Interbody Fusion Device, Anterior Approach, Anterior Column, Open Approach (ICD-10-PCS; principal; 2016-12-28 07:45)
PROC: 0RG2070 Fusion of 2 or more Cervical Vertebral Joints with Autologous Tissue Substitute, Anterior Approach, Anterior Column, Open Approach (ICD-10-PCS; principal; 2016-12-28 07:45)
DX: M48.02 Spinal stenosis, cervical region (principal); G95.9 Disease of spinal cord, unspecified; M54.12 Radiculopathy, cervical region; J45.909 Unspecified asthma, uncomplicated; E11.42 Type 2 diabetes mellitus with diabetic polyneuropathy; I10 Essential (primary) hypertension; K21.9 Gastro-esophageal reflux disease without esophagitis; K58.9 Irritable bowel syndrome, unspecified; M19.90 Unspecified osteoarthritis, unspecified site; D64.9 Anemia, unspecified; G47.33 Obstructive sleep apnea (adult) (pediatric); F41.9 Anxiety disorder, unspecified; F31.9 Bipolar disorder, unspecified; F20.9 Schizophrenia, unspecified; E66.9 Obesity, unspecified; Z68.30 Body mass index [BMI] 30.0-30.9, adult; Z98.1 Arthrodesis status; Z87.891 Personal history of nicotine dependence; Z79.84 Long term (current) use of oral hypoglycemic drugs; Z79.899 Other long term (current) drug therapy

== ENCOUNTER → 2017-01-13 | Outpatient (CLI) | payer OTHER ==
[~2017-01-13] MED LIST changes: +RXC5 PO; +SENNTAB23 PO
[2017-01-13 14:55] LABS: BLOOD UREA NITROGEN 14 mg/dl (7-18); BUN/CREATININE RATIO 12.6 (10-20); CARBON DIOXIDE 27 mmol/L (21-32); CHLORIDE 99 mmol/L (98-107); GLUCOSE 102 mg/dl (70-99); SODIUM 135 mmol/L (136-145)
[2017-01-13 15:06] LABS: CALCIUM 9.7 mg/dl (8.5-10.1)
== END | disposition home or self-care (01) ==
LOC: C.LAB1850 12:50
PROVIDERS: ATTEND Internal Medicine
DX: E87.1 Hypo-osmolality and hyponatremia (principal)

== ENCOUNTER → 2017-02-02 | Day surgery (SDC) | payer OTHER ==
[2017-01-12 14:49] VITALS: Ht 167.6 cm; Wt 84.0 kg
[~2017-02-02] VITALS: Ht 167.6 cm; Wt 84.0 kg
[~2017-02-02] MED LIST changes: +IOPAMIDOL INJ 61% 15 ML VIAL ONE; +LIDOCAINE HCL 1% MPF 5 ML VIAL ONE; +SODIUM CHLORIDE 0.9% INJ 10 ML VIAL ONE
--- NOTE | 2017-02-02 14:05 | Discharge Instructions ---
Discharge Instructions Date of Service Feb 02, 2017. Visit Reason for Visit: Lumbar Radiculopathy Discharge Discharge Diagnosis / Problem: left leg pain Discharge Goals Goal(s): Decrease discomfort, Improve function Medications Stopped Medications Name(s): no blood thinners Activity Recommendations Activity Limitations: resume your previous activity Anesthesia . Post Anesthesia Instructions: If you have had General Anesthesia or IV Sedation: * Do not drive today. * Resume driving when surgeon permits. * Do not make important decisions or sign legal documents today. * Call surgeon for: 1. Temperature elevations greater than 101 degrees F. 2. Uncontrollable pain. 3. Excessive bleeding. 4. Persistent nausea and vomiting. 5. Medication intolerance (nausea, vomiting or rash). * For nausea and vomiting use only clear liquids such as: tea, soda, bouillon until nausea subsides, then gradually increase diet as tolerated. * If you have any concerns or questions, call your surgeon's office. If physician is unavailable and it is an emergency, call 911 or go to the nearest emergency room. . Diet Recommendations Recommended Home Diet: resume previous diet Pending Studies Studies pending at discharge: no Medical Emergencies . Who to Call and When: Medical Emergencies: If at any time you feel your situation is an emergency, please call 911 immediately. . Non-Emergent Contact Non-Emergency issues call your: Specialist . . "Provider Documentation" section prepared by Scott Rodas. .
[2017-02-02 14:13] VITALS: BP 117/76; PULSE 64; O2SAT 97
--- NOTE | 2017-02-02 15:46 | OPERATIVE REPORT ---
DATE OF OPERATION: 02/02/2017 PREOPERATIVE DIAGNOSIS: Lumbar disc disease with stenosis, bilateral lower extremity radiculopathy, predominantly left sided radicular complaints. POSTOPERATIVE DIAGNOSIS: Same. PROCEDURE: Left paramedian L5-S1 intralaminar epidural steroid injection under fluoroscopic guidance. INDICATIONS: The patient is a 51-year-old white female who underwent a right epidural injection a few months ago with good relief of right-sided complaints. She reports that she is now bothered moreso by left-sided complaints and presents today for a left-sided epidural to try to relieve the discomfort. PHYSICAL EXAMINATION: Pleasant female seated comfortably. She has some sciatic notch sensitivity present on the left side. Mild limitations with forward flexion. Negative seated straight leg raises. No focal weakness. CONSENT: Verbal and written consent was obtained from the patient. Risks and benefits were reviewed. Risks include but are not limited to epidural abscess, epidural hematoma, allergic reaction, dural puncture. The patient wishes to proceed. PROCEDURE: The patient was taken back to the special procedures room in the [facility]. She was maintained in a prone position. Backside was cleansed with Betadine x3 and a dry sterile dressing was applied. Fluoroscope was used to identify the L5-S1 intralaminar space and the overlying skin on the left side was anesthetized with 4 mL of lidocaine 1% with a 25 gauge 1.5-inch needle. A 22 gauge 4-1/4 inch needle was then directed down towards intralobar space. It was advanced under lateral fluoroscopic guidance with loss of resistance at 9.5 cm. Isovue-300 contrast 1 mL was injected in which demonstrated epidural uptake pattern which was confirmed with both AP and lateral views. She then underwent injection after negative aspiration of 40 mg of Depo-Medrol, 4 mL of preservative free sodium chloride and reproduced a familiar transient radicular sensation down the leg. DISPOSITION: 1. The patient is taken out into the discharge recovery area where she will be discharged home once discharge criteria have been met. 2. Follow up in the [facility] office in 4 weeks' time. I attest to the content of the Intraoperative Record and any orders documented therein. Any exception s are noted below.
== END | disposition home or self-care (01) ==
LOC: X.SURG 12:55
PROVIDERS: ATTEND Physical Medicine & Rehabilitation
DX: M54.16 Radiculopathy, lumbar region (principal); M99.53 Intervertebral disc stenosis of neural canal of lumbar region

== ENCOUNTER → 2017-03-16 | Outpatient (CLI) | payer OTHER ==
[~2017-03-16] MED LIST changes: -IOPAMIDOL INJ 61% 15 ML VIAL ONE; -LIDOCAINE HCL 1% MPF 5 ML VIAL ONE; -SODIUM CHLORIDE 0.9% INJ 10 ML VIAL ONE
[2017-03-16 12:27] LABS: HEMATOCRIT 34.8 % (37-47); MEAN CELL VOLUME 85.7 fL (80-100); MEAN CORPUSCULAR HEMOGLOBIN 27.8 pg (25-34); MEAN CORPUSCULAR HGB CONC 32.5 g/dl (32-36); PLATELET COUNT 283 K/uL (130-400); RED BLOOD COUNT 4.06 M/uL (4.2-5.4); WHITE BLOOD COUNT 5.77 K/uL (4.8-10.8)
[2017-03-16 12:35] LABS: ALT/SGPT 28 U/L (12-78); AST/SGOT 16 U/L (15-37); BLOOD UREA NITROGEN 10 mg/dl (7-18); BUN/CREATININE RATIO 9.6 (10-20); CALCIUM 9.5 mg/dl (8.5-10.1); CARBON DIOXIDE 30 mmol/L (21-32); CHLORIDE 97 mmol/L (98-107); CHOLESTEROL 126 mg/dl (0-200); GLUCOSE 94 mg/dl (70-99); POTASSIUM 4.1 mmol/L (3.5-5.1); SODIUM 132 mmol/L (136-145)
[2017-03-16 12:43] LABS: ESTIMATED AVERAGE GLUCOSE 123 mg/dl; HA1C FLAG Normal (Normal)
[2017-03-16 12:45] LABS: CHOLESTEROL/HDL RATIO 2.8; HDL CHOLESTEROL 45 mg/dl; LDL CHOLESTEROL CALCULATED 52 mg/dl; TRIGLYCERIDES 144 mg/dl (0-150); VERY LOW DENSITY LIPOPROT CALC 29 mg/dl
== END | disposition home or self-care (01) ==
LOC: C.LABBFT 08:49
PROVIDERS: ATTEND Internal Medicine
DX: E78.00 Pure hypercholesterolemia, unspecified (principal); E03.9 Hypothyroidism, unspecified; D64.9 Anemia, unspecified; E11.40 Type 2 diabetes mellitus with diabetic neuropathy, unspecified

== ENCOUNTER → 2017-04-19 | Outpatient (CLI) | payer OTHER ==
[2017-04-19 13:13] LABS: URINE APPEARANCE CLEAR (CLEAR); URINE BILIRUBIN NEG (NEG); URINE COLOR YELLOW; URINE NITRITE NEG (NEG); URINE PH >= 9.0 (4.5-7.5); URINE SPECIFIC GRAVITY 1.018 (1.000-1.030); UROBILINOGEN NEG (NEG)
[2017-04-19 13:21] LABS: MANUAL MICROSCOPIC REQUIRED? NO; REVIEW REQ? NO
== END | disposition home or self-care (01) ==
LOC: C.LABSPEC 12:34
PROVIDERS: ATTEND Physician Assistant
DX: R39.9 Unspecified symptoms and signs involving the genitourinary system (principal)

== ENCOUNTER → 2017-04-24 | Outpatient (CLI) | payer OTHER ==
[2017-04-24 17:52] LABS: URINE APPEARANCE CLEAR (CLEAR); URINE BILIRUBIN NEG (NEG); URINE COLOR YELLOW; URINE NITRITE NEG (NEG); URINE PH 7.5 (4.5-7.5); URINE SPECIFIC GRAVITY 1.015 (1.000-1.030); UROBILINOGEN NEG (NEG)
[2017-04-24 17:57] LABS: MANUAL MICROSCOPIC REQUIRED? NO; REVIEW REQ? NO
== END | disposition home or self-care (01) ==
LOC: C.LAB1850 15:56
PROVIDERS: ATTEND Internal Medicine
DX: R39.9 Unspecified symptoms and signs involving the genitourinary system (principal)

== ENCOUNTER → 2017-06-22 | Outpatient (CLI) | payer OTHER ==
[2017-06-22 12:44] LABS: HEMATOCRIT 36.8 % (37-47); MEAN CORPUSCULAR HEMOGLOBIN 28.6 pg (25-34); MEAN CORPUSCULAR HGB CONC 32.9 g/dl (32-36); MEAN PLATELET VOLUME 10.4 fL (7.4-10.4); PLATELET COUNT 295 K/uL (130-400); RED BLOOD COUNT 4.23 M/uL (4.2-5.4); WHITE BLOOD COUNT 5.22 K/uL (4.8-10.8)
[2017-06-22 12:47] LABS: BLOOD UREA NITROGEN 12 mg/dl (7-18); BUN/CREATININE RATIO 11.6 (10-20); CARBON DIOXIDE 29 mmol/L (21-32); CHLORIDE 98 mmol/L (98-107); CREATININE 1.01 mg/dl (0.60-1.20); GLUCOSE 116 mg/dl (70-99); POTASSIUM 4.1 mmol/L (3.5-5.1); SODIUM 133 mmol/L (136-145)
[2017-06-22 13:22] LABS: ESTIMATED AVERAGE GLUCOSE 128 mg/dl; HA1C FLAG Normal (Normal)
== END | disposition home or self-care (01) ==
LOC: C.LABBFT 08:02
PROVIDERS: ATTEND Internal Medicine
DX: E03.9 Hypothyroidism, unspecified (principal); E11.40 Type 2 diabetes mellitus with diabetic neuropathy, unspecified; E55.9 Vitamin D deficiency, unspecified; E78.00 Pure hypercholesterolemia, unspecified

== ENCOUNTER → 2017-07-12 | Outpatient (CLI) | payer OTHER ==
--- NOTE | 2017-07-12 14:13 | DIAGNOSTIC IMAGING REPORT ---
RIGHT FOOT 3 VIEWS HISTORY: Right foot pain. COMPARISON: Right foot 11/11/2014. FINDINGS: There are multiple cannulated screws fusing the tibiotalar and subtalar joints. The hardware appears intact. There is mild periprosthetic lucency surrounding the 2 largest screws suggestive of mild loosening. Plantar and posterior calcaneal spurs. Focal calcification at the plantar fascia, unchanged. Punctate metallic densities surrounding the fused tibiotalar joint likely due to prior hardware removal. The bones are osteopenic. No acute fracture or dislocation. The Lisfranc joint is well aligned. Mild osteoarthritis at the first MTP joint and DIP joints. Soft tissue swelling at the right ankle. Mild osteoarthritis at the talonavicular joint, unchanged. IMPRESSION: 1. No fracture or dislocation within the right foot. 2. Postoperative changes at the ankle/hindfoot with multiple screws fusing the tibiotalar and subtalar joints. There is mild periprosthetic lucency surrounding some of the screws consistent with mild loosening. 3. Additional chronic findings as described above. Electronically signed by: Montrell Solis M.D. 07/12/2017 2:11 PM Dictated Date/Time: 07/12/2017 2:05 PM
== END | disposition home or self-care (01) ==
LOC: C.RAD1850 13:16
PROVIDERS: ATTEND Internal Medicine
DX: M79.673 Pain in unspecified foot (principal)

== ENCOUNTER → 2017-12-25 | Outpatient (CLI) | payer OTHER ==
[~2017-12-25] MED LIST changes: +RANI150T85 PO; -ZNTT/150 PO
[2017-12-25 12:45] LABS: ALT/SGPT 23 U/L (12-78); AST/SGOT 20 U/L (15-37); BLOOD UREA NITROGEN 10 mg/dl (7-18); CALCIUM 9.3 mg/dl (8.5-10.1); CARBON DIOXIDE 30 mmol/L (21-32); CHOLESTEROL 120 mg/dl (0-200); CREATININE 1.05 mg/dl (0.60-1.20); GLUCOSE 83 mg/dl (70-99); POTASSIUM 3.9 mmol/L (3.5-5.1); SODIUM 138 mmol/L (136-145)
[2017-12-25 12:47] LABS: HEMOGLOBIN A1C 5.9 % (4.5-5.6)
[2017-12-25 12:55] LABS: ALKALINE PHOSPHATASE 76 U/L (45-117); LDL CHOLESTEROL CALCULATED 50 mg/dl; TOTAL PROTEIN 7.5 gm/dl (6.4-8.2)
[2017-12-25 13:36] LABS: CREATININE RANDOM URINE 38.2 mg/dl
== END | disposition home or self-care (01) ==
LOC: C.LABBFT 07:55
PROVIDERS: ATTEND Internal Medicine
DX: Z00.00 Encounter for general adult medical examination without abnormal findings (principal); E11.40 Type 2 diabetes mellitus with diabetic neuropathy, unspecified; E03.9 Hypothyroidism, unspecified

== ENCOUNTER 2021-03-09 17:00 | Inpatient (IN) ==
[2021-03-09] MEDS ORDERED: LORazepam 1 MG TAB SL STA (17:19)
--- NOTE | 2021-03-09 17:24 | Emergency Department Note ---
History of Present Illness General Chief complaint: Mental Health Evaluation Stated complaint: MH ASSESSMENT Time Seen by Provider: 03/09/21 17:04 Source: patient and other (sample worker) Mode of arrival: EMS History of Present Illness Provider complaint: Auditory hallucinations Onset (ago): week(s) 2 Location: head Pain Consistency: + constant Quality: + other (Hearing voices in her head that follow her around) Relieved By: + none Associated symptoms: + chest pain (Lower chest and upper abdominal pain) and + other (Diarrhea); no cough, no fever/chills, no headaches, no nausea/vomiting or no shortness of breath This is a 55-year-old female sent here by the mental health pick pack worker for evaluation. The patient states that she has been hearing voices for the past 2 weeks. They are different voices and they are confusing and whispering conspiracy theories in her head. She states that when she urinates she puts her hand in the stream because of the voices. She denies feeling suicidal or homicidal. She states that she has heard voices in the past but they have just worsened over the past 2 weeks. She told me that she has bipolar disorder and schizophrenia. The pick pack worker who sent her and stated that she does not have a history of mental illness although states that she sees a psychiatrist. There is a family history of schizophrenia as well. The patient said that she talk to her psychiatrist about the symptoms when she saw him recently and states that the voices keep following her around. She denies any fever, cough or cold symptoms, headache, shortness of breath, vomiting or urinary symptoms. She denies drug or alcohol abuse. She states she is compliant with her medications. She does note on review of systems that she has had lower chest and upper abdom inal pain for the past 2 days. She describes it as a sharp pain which has been constant over the past 2 days. She does have a family history of heart disease (her mother had an NH) but states that she has had a negative stress test. She cannot remember the date of the stress test. She is a former smoker. Home Medications Medication Instructions Recorded Confirmed Type baclofen 20 mg tablet 20 mg PO TID 09/11/19 03/09/21 History escitalopram oxalate 20 mg tablet 20 mg PO QAM 09/11/19 03/09/21 History garlic 5,000 mcg tablet 5 mg PO PM 09/11/19 03/09/21 History hydroxyzine HCl 50 mg tablet 50 mg PO BID 09/11/19 03/09/21 History lidocaine 5 % topical patch 1 patch TOP HS 09/11/19 03/09/21 History multivitamin,af-hdau-dqaqodge 1 tab PO QAM 09/11/19 03/09/21 History (Complete Multivitamin) acetaminophen 500 mg tablet 1,000 mg PO BID 06/06/20 03/09/21 History (Tylenol Extra Strength) triamcinolone acetonide 0.025 % 1 applic TOP BID #80 g 09/16/20 03/09/21 Rx topical cream pantoprazole 40 mg tablet,delayed 40 mg PO BID #180 tab 12/07/20 03/09/21 Rx release docusate sodium 100 mg capsule 100 mg PO TID 02/28/21 03/09/21 History (Colace) ferrous sulfate 325 mg (65 mg 325 mg PO QAM 02/28/21 03/09/21 History iron) tablet (iron) levothyroxine 75 mcg tablet 75 mcg PO QAM 02/28/21 03/09/21 History metformin 500 mg tablet 500 mg PO AMPM 02/28/21 03/09/21 History aripiprazole 10 mg tablet 10 mg PO QAM 03/09/21 03/09/21 History Allergies Allergy/AdvReac Type Severity Reaction Status Date / Time amoxicillin AdvReac Mild GI UPSET Verified 02/28/21 16:38 niacin AdvReac Unknown HOT FLUSHES Verified 02/28/21 16:38 Salt AdvReac Unknown SWELLING Uncoded 03/09/21 23:25 Past Med/Surg History Medical History Encounter for vitamin deficiency screening Eustachian tube dysfunction Hyperlipidemia Hypertension Shingles outbreak Sleep disturbances Ventral hernia Surgical History History of ankle surgery History of hernia surgery History of laparoscopy Hx of tubal ligation Family History Mother Myocardial infarction Congestive heart failure due to high blood pressure Hypertension Diabetes Father Hypertension Diabetes Denies family history of Ovarian cancer Prostate cancer Breast cancer Colorectal cancer Social History Smoking Status: Former smoker Second Hand Exposure: No; Hx Alcohol Use: No Hx Substance Use: No Preferred Language: Nauruan Visual Impairment: No Limitations Hearing Ability: Normal Beliefs That Will Affect Care: None marital status: Current Living Situation: Significant Other current occupational status: disabled How many Children do You have: 2 How many Children do You have Comment: 2 girls Feels Safe at Home: Yes Childhood Exposure to Second-Hand Smoke: Yes during the past year weight has: remained stable Dental Care, Regularly: Yes Physical Activity Frequency: Daily Seatbelt Use: always Sunscreen Use: No Review of Systems See HPI for pertinent positives & negatives. and A total of 10 systems reviewed and were otherwise negative Physical Exam Vital Signs Vital Signs - 24 hr 03/09/21 17:17 03/09/21 19:48 03/09/21 23:31 Temperature 37.8 C H Temperature Source Oral Pulse Rate 102 H Pulse Rate [Left Finger] 78 96 H Respiratory Rate 16 16 18 Respiratory Effort / Characteristics Non-Labored Spontaneous Respiratory Depth Normal Respiratory Pattern Regular Blood Pressure 186/122 H Blood Pressure [Left Arm] 155/96 H 140/82 Blood Pressure Mean 143 Blood Pressure Mean [Left Arm] 115 101 Pulse Oximetry 96 99 96 Oxygen Delivery Method Room Air Sepsis Recent Fever Within 48 Hours No Sepsis New/Unexplained Change in Mental Status No Sepsis Action Taken by Nursing No Action Required Constitutional: Vital signs reviewed. Eyes: Pupils are equal round reactive to light. Conjunctiva are noninjected. ENT: Pharynx is clear without erythema or exudate. Mucous membranes are moist. Neck supple without meningeal signs. Respiratory: Clear to auscultation bilaterally. Breath sounds are equal bilaterally. Cardiovascular: Regular rate and rhythm. No rubs or gallops. GI: Soft, nondistended with epigastric and right upper quadrant tenderness. No Chaudhary sign. Bowel sounds are present. Musculoskeletal: No peripheral edema. No lower extremity tenderness. Integumentary: No cyanosis. or jaundice. Neurological: The patient is awake and alert. No focal deficits. Psychiatric: Tearful and very anxious. Course Administered Medications Discontinued Medications Acetaminophen (Acetaminophen 325 Mg Tab) 650 mg PO NOW STA Stop: 03/09/21 22:14 Last Admin: 03/09/21 22:17 Dose: 650 mg Documented by: [id number] Diazepam (Diazepam 5 Mg Tablet) 5 mg PO NOW ONE Stop: 03/09/21 23:35 Last Admin: 03/09/21 23:43 Dose: 5 mg Documented by: [id number] Lorazepam (Lorazepam 1 Mg Tab) 1 mg SL NOW STA Stop: 03/09/21 17:20 Last Admin: 03/09/21 17:34 Dose: 1 mg Documented by: [id number] Medical Decision Making Differential Diagnosis Mood disorder, thought disorders, schizoaffective disorder, cholelithiasis, cholecystitis, cardiac Medical Records Attestation: I reviewed the patient's medical records. I did perform a limited focused review of portions of the patient's old chart on the electronic medical record. The patient was seen here February 28 for abdominal pain and mental health issues. She was cleared by mental health and diagnosed with a possible UTI and placed on Keflex. She had a CT of her abdomen pelvis at that time which demonstrated gallstones without cholecystitis. Home Medications Current Medication List: was personally reviewed by me Laboratory Data Attestation: I reviewed the patient's lab results. Result diagrams: 03/09/21 17:49 03/09/21 17:49 Lab Results 03/09/21 03/09/21 03/09/21 Range/Units 17:49 17:49 17:49 WBC 8.39 (4.8-10.8) K/uL RBC 4.24 (4.2-5.4) M/uL Hgb 12.8 (12.0-16.0) g/dL Hct 37.3 (37-47) % MCV 88.0 (80-100) fL MCH 30.2 (25-34) pg MCHC 34.3 (32-36) g/dL RDW Std Deviation 40.4 (36.4-46.3) fL RDW Coeff of Arjun 12.7 (11.5-14.5) % Plt Count 358 (130-400) K/uL MPV 9.0 (7.4-10.4) fL Immature Gran % (Auto) 0.1 % Neut % (Auto) 61.6 % Lymph % (Auto) 29.0 % [place] % (Auto) 7.6 % Eos % (Auto) 1.2 % Baso % (Auto) 0.5 % Neut # (Auto) 5.17 (1.4-6.5) K/uL Lymph # (Auto) 2.43 (1.2-3.4) K/uL [place] # (Auto) 0.64 H (0.11-0.59) K/uL Eos # (Auto) 0.10 (0-0.5) K/uL Baso # (Auto) 0.04 (0-0.2) K/uL Immature Gran # (Auto) 0.01 (0.00-0.02) K/uL Sodium 129 L (136-145) mmol/L Potassium 3.9 (3.5-5.1) mmol/L Chloride 96 L (98-107) mmol/L Carbon Dioxide 24 (21-32) mmol/L Anion Gap 8.0 (3-11) BUN 8 (7-18) mg/dl Creatinine 0.68 (0.6-1.2) mg/dl Est Cr Clr Drug Dosing 89.6 ml/min Est GFR ( Amer) 115.7 ml/min Est GFR (Non-Af Amer) 99.9 ml/min BUN/Creatinine Ratio 11.8 (10-20) Glucose 113 H (70-99) mg/dl Calcium 9.5 (8.5-10.1) mg/dl Total Bilirubin 0.4 (0.2-1) mg/dl AST 45 H (15-37) U/L ALT 89 H (12-78) U/L Alkaline Phosphatase 82 (45-117) U/L Troponin I < 0.015 (0-0.045) ng/ml Total Protein 8.4 H (6.4-8.2) gm/dl Albumin 4.6 (3.4-5.0) gm/dl Globulin 3.8 (2.5-4.0) gm/dl Albumin/Globulin Ratio 1.2 (0.9-2) Lipase 219 (73-393) U/L TSH 4.290 (0.300-4.500) uIu/ml Urine Color Urine Appearance (Clear) Urine pH (4.5-7.5) Ur Specific [place] (1.000-1.030) Urine Protein (Negative) Urine Glucose (UA) (Negative) Urine Ketones (Negative) Urine Blood (Negative) Urine Nitrite (Negative) Urine Bilirubin (Negative) Urine Urobilinogen (Negative) Ur Leukocyte Esterase (Negative) Urine WBC (Auto) (0-5) /hpf Urine RBC (Auto) (0-4) /hpf U Hyaline Cast (Auto) (0-5) /lpf U Epithel Cells (Auto) (0-5) /lpf Urine Bacteria (Auto) (Negative) Salicylates < 1.7 L (2.8-20) mg/dl Urine Opiates Screen (Neg) Ur Methadone, Qual (Neg) Acetaminophen < 2 L (10-30) ug/ml Urine Barbiturates (Neg) Ur Phencyclidine (PCP) (Neg) U Amphetamin/Meth Scrn (Neg) MDMA (Ecstasy) Screen (Neg) U Benzodiazepines Scrn (Neg) Ur Cocaine Metabolite (Neg) U Marijuana (THC) Screen (Neg) Ethyl Alcohol mg/dL (0-3) mg/dl COVID-19 Eval Order SARS-CoV-2, RNA, NAAT (NEGATIVE) 03/09/21 03/09/21 03/09/21 Range/Units 17:49 18:00 18:00 WBC (4.8-10.8) K/uL RBC (4.2-5.4) M/uL Hgb (12.0-16.0) g/dL Hct (37-47) % MCV (80-100) fL MCH (25-34) pg MCHC (32-36) g/dL RDW Std Deviation (36.4-46.3) fL RDW Coeff of Arjun (11.5-14.5) % Plt Count (130-400) K/uL MPV (7.4-10.4) fL Immature Gran % (Auto) % Neut % (Auto) % Lymph % (Auto) % [place] % (Auto) % Eos % (Auto) % Baso % (Auto) % Neut # (Auto) (1.4-6.5) K/uL Lymph # (Auto) (1.2-3.4) K/uL [place] # (Auto) (0.11-0.59) K/uL Eos # (Auto) (0-0.5) K/uL Baso # (Auto) (0-0.2) K/uL Immature Gran # (Auto) (0.00-0.02) K/uL Sodium (136-145) mmol/L Potassium (3.5-5.1) mmol/L Chloride (98-107) mmol/L Carbon Dioxide (21-32) mmol/L Anion Gap (3-11) BUN (7-18) mg/dl Creatinine (0.6-1.2) mg/dl Est Cr Clr Drug Dosing ml/min Est GFR ( Amer) ml/min Est GFR (Non-Af Amer) ml/min BUN/Creatinine Ratio (10-20) Glucose (70-99) mg/dl Calcium (8.5-10.1) mg/dl Total Bilirubin (0.2-1) mg/dl AST (15-37) U/L ALT (12-78) U/L Alkaline Phosphatase (45-117) U/L Troponin I (0-0.045) ng/ml Total Protein (6.4-8.2) gm/dl Albumin (3.4-5.0) gm/dl Globulin (2.5-4.0) gm/dl Albumin/Globulin Ratio (0.9-2) Lipase (73-393) U/L TSH (0.300-4.500) uIu/ml Urine Color Urine Appearance (Clear) Urine pH (4.5-7.5) Ur Specific [place] (1.000-1.030) Urine Protein (Negative) Urine Glucose (UA) (Negative) Urine Ketones (Negative) Urine Blood (Negative) Urine Nitrite (Negative) Urine Bilirubin (Negative) Urine Urobilinogen (Negative) Ur Leukocyte Esterase (Negative) Urine WBC (Auto) (0-5) /hpf Urine RBC (Auto) (0-4) /hpf U Hyaline Cast (Auto) (0-5) /lpf U Epithel Cells (Auto) (0-5) /lpf Urine Bacteria (Auto) (Negative) Salicylates (2.8-20) mg/dl Urine Opiates Screen (Neg) Ur Methadone, Qual (Neg) Acetaminophen (10-30) ug/ml Urine Barbiturates (Neg) Ur Phencyclidine (PCP) (Neg) U Amphetamin/Meth Scrn (Neg) MDMA (Ecstasy) Screen (Neg) U Benzodiazepines Scrn (Neg) Ur Cocaine Metabolite (Neg) U Marijuana (THC) Screen (Neg) Ethyl Alcohol mg/dL < 3.0 (0-3) mg/dl COVID-19 Eval [email or web address] SARS-CoV-2, RNA, NAAT NEGATIVE (NEGATIVE) 03/09/21 03/09/21 Range/Units 18:10 18:10 WBC (4.8-10.8) K/uL RBC (4.2-5.4) M/uL Hgb (12.0-16.0) g/dL Hct (37-47) % MCV (80-100) fL MCH (25-34) pg MCHC (32-36) g/dL RDW Std Deviation (36.4-46.3) fL RDW Coeff of Arjun (11.5-14.5) % Plt Count (130-400) K/uL MPV (7.4-10.4) fL Immature Gran % (Auto) % Neut % (Auto) % Lymph % (Auto) % [place] % (Auto) % Eos % (Auto) % Baso % (Auto) % Neut # (Auto) (1.4-6.5) K/uL Lymph # (Auto) (1.2-3.4) K/uL [place] # (Auto) (0.11-0.59) K/uL Eos # (Auto) (0-0.5) K/uL Baso # (Auto) (0-0.2) K/uL Immature Gran # (Auto) (0.00-0.02) K/uL Sodium (136-145) mmol/L Potassium (3.5-5.1) mmol/L Chloride (98-107) mmol/L Carbon Dioxide (21-32) mmol/L Anion Gap (3-11) BUN (7-18) mg/dl Creatinine (0.6-1.2) mg/dl Est Cr Clr Drug Dosing ml/min Est GFR ( Amer) ml/min Est GFR (Non-Af Amer) ml/min BUN/Creatinine Ratio (10-20) Glucose (70-99) mg/dl Calcium (8.5-10.1) mg/dl Total Bilirubin (0.2-1) mg/dl AST (15-37) U/L ALT (12-78) U/L Alkaline Phosphatase (45-117) U/L Troponin I (0-0.045) ng/ml Total Protein (6.4-8.2) gm/dl Albumin (3.4-5.0) gm/dl Globulin (2.5-4.0) gm/dl Albumin/Globulin Ratio (0.9-2) Lipase (73-393) U/L TSH (0.300-4.500) uIu/ml Urine Color Yellow Urine Appearance Clear (Clear) Urine pH 6.0 (4.5-7.5) Ur Specific [place] 1.007 (1.000-1.030) Urine Protein Trace H (Negative) Urine Glucose (UA) Negative (Negative) Urine Ketones Trace H (Negative) Urine Blood Negative (Negative) Urine Nitrite Negative (Negative) Urine Bilirubin Negative (Negative) Urine Urobilinogen Negative (Negative) Ur Leukocyte Esterase Negative (Negative) Urine WBC (Auto) 1-5 (0-5) /hpf Urine RBC (Auto) 0-4 (0-4) /hpf U Hyaline Cast (Auto) 0 (0-5) /lpf U Epithel Cells (Auto) 20-30 H (0-5) /lpf Urine Bacteria (Auto) Negative (Negative) Salicylates (2.8-20) mg/dl Urine Opiates Screen Neg (Neg) Ur Methadone, Qual Neg (Neg) Acetaminophen (10-30) ug/ml Urine Barbiturates Neg (Neg) Ur Phencyclidine (PCP) Neg (Neg) U Amphetamin/Meth Scrn Neg (Neg) MDMA (Ecstasy) Screen Neg (Neg) U Benzodiazepines Scrn Neg (Neg) Ur Cocaine Metabolite Neg (Neg) U Marijuana (THC) Screen Neg (Neg) Ethyl Alcohol mg/dL (0-3) mg/dl COVID-19 Eval Order SARS-CoV-2, RNA, NAAT (NEGATIVE) Imaging Data Radiologist's Impression: Gallbladder Ultrasound 03/09/21 17:19 ABDOMINAL ULTRASOUND, RIGHT UPPER QUADRANT HISTORY: Right upper quadrant abdominal pain.. COMPARISON: Abdomen and pelvis CT 02/28/2021. FINDINGS: Pancreas: Obscured by overlying bowel gas. Liver: 19 cm in length. No hepatic masses. Gallbladder: There is a 2 cm stone within the gallbladder. No gallbladder wall thickening. Punctate focus with ringdown artifact at the gallbladder wall. This could represent a cholesterol deposit or a focus of adenomyomatosis. Negative sonographic Chaudhary sign. CBD: 4 mm. Right kidney: No hydronephrosis. IMPRESSION: 1. Cholelithiasis. No gallbladder wall thickening. 2. Mild hepatomegaly. ACT 112: Negative or not required by law. Electronically signed by: Montrell Solis M.D. 03/09/2021 9:[address] 03/09/21 17:[address] DOSE: 537.48 mGy.cm HISTORY: hallucinations TECHNIQUE: Multiaxial CT images of the head were performed without the use of intravenous contrast. Automated exposure control was utilized for this study. A dose lowering technique was utilized adhering to the principles of ALARA. Comparison: Head CT 11/19/2013. Findings: The paranasal sinuses and mastoid air cells are clear. The calvarium and skull base are intact. The ventricles and sulci are within normal limits. There is no mass, hematoma, midline shift, or acute infarct. Impression: No acute intracranial abnormality. ACT 112: Negative or not required by law. Electronically signed by: Montrell Solis M.D. 03/09/2021 8:15 PM Chest X-Ray 03/09/21 17:26 XR chest 1V portable HISTORY: Atypical chest pain. COMPARISON: Chest 11/17/2013. FINDINGS: No pneumothorax. No pleural effusions. The cardiac silhouette remains mildly enlarged. The lungs are clear. No no evidence for pulmonary edema. Slightly rotated study. Cervical spinal fusion hardware is partially visualized. IMPRESSION: Mild cardiomegaly. Otherwise, no acute process within the chest. ACT 112: Negative or not required by law. Electronically signed by: Montrell Solis M.D. 03/09/2021 6:37 PM ECG Data Attestation: I personally reviewed and interpreted this ECG as follows: Indication: + abdominal pain and + chest pain Rate (beats per minute): 96 ECG [place]: + Normal ECG ST segments: no ST elevation ECG Findings: no PVCs Comparison ECG Date: from (June 06, 2020) Change: no significant change MDM Narrative I did evaluate the patient as noted above. The patient was sent here by ambulance by the pick pack worker due to hearing voices. The patient states that she has heard voices throughout her life but the pick pack worker seems to think that this is a new development and has only been going on for 2 weeks. She is very distraught in the ED but denies any suicidal or homicidal ideation. She was given Ativan 1 mg sublingually to calm her down. She is complaining of upp er abdominal and lower chest pain. She has tenderness in the right upper quadrant. I did order and personally review the patient's 12-lead EKG as described above. I did order and personally reviewed the images of the patient's chest x-ray as described above. She has mild cardiomegaly without acut e process. I did order a urine analysis. She does not have a UTI. Urine tox screen is negative. I did order and review the patient's blood work as noted in the electronic medical record. CBC is unremarkable without leukocytosis or anemia. Electrolytes demonstrated sodium of 129 and chloride of 96. Last time she was here her sodium was 130. She does have a history of chronic hyponatremia. LFTs showed some minor elevation of her AST and ALT without elevation of her bilirubin. Lipase was 219. TSH was in the normal limits. Troponin was negative. I did order an ultrasound of the right upper quadrant. I did review the images myself as well as the radiology report as described above. She has gallstones but no evidence of cholecystitis. I did order a head CT which was unremarkable without acute intracranial abnormality. I did reassess the patient. She is calmer at this time and no longer crying but still quite distraught and having intermittent auditory hallucinations. She clarified further stating that when she was younger she had auditory hallucination and was on medications for some time but had been off of them and had not had auditory hallucinations until about 2 weeks ago. I did have the mental health case monitor evaluate the patient. She was referred to [facility] mental health unit who assessed her. She was accepted for inpatient psychiatric care under a voluntary 201. Impression & Plan Auditory hallucinations, Anxiety, Mood disorder, Cholelithiasis Discharge Plan Visit Data Chief Complaint: Mental Health Evaluation Stated Complaint: MH ASSESSMENT ED Provider: Enrrique Chamberlain Discharge Problem: Auditory hallucinations, Anxiety, Mood disorder, Cholelithiasis Patient Disposition: Transfer Behavioral Health Fac Forms Stand Alone Forms: My [facility], Suicide Prevention Resources Prescriptions Prescriptions: No Action triamcinolone acetonide 0.025 % cream 1 applic TOP BID Qty: 80 RF: 3 pantoprazole 40 mg tablet,delayed release (DR/EC) 40 mg PO BID Qty: 180 RF: 3 baclofen 20 mg tablet 20 mg PO TID RF: 0 escitalopram oxalate 20 mg tablet 20 mg PO QAM RF: 0 garlic 5,000 mcg tablet 5 mg PO PM RF: 0 hydroxyzine HCl 50 mg tablet 50 mg PO BID RF: 0 Complete Multivitamin Tablet 1 tab PO QAM RF: 0 lidocaine 5 % adhesive patch,medicated 1 patch TOP HS RF: 0 acetaminophen [Tylenol Extra Strength] 500 mg Tablet 1,000 mg PO BID RF: 0 aripiprazole 10 mg tablet 10 mg PO QAM RF: 0 ferrous sulfate [iron] 325 mg (65 mg iron) Tablet 325 mg PO QAM RF: 0 docusate sodium [Colace] 100 mg Capsule 100 mg PO TID RF: 0 metformin 500 mg tablet 500 mg PO AMPM RF: 0 levothyroxine 75 mcg tablet 75 mcg PO QAM RF: 0 Referrals Referrals: Patrice Newell MD [Primary Care Provider] -
[2021-03-09 18:00] LABS: Basophils # (auto) 0.04 K/uL (0-0.2); Basophils % (auto) 0.5 %; Eosinophils % (auto) 1.2 %; Hematocrit (blood only) 37.3 % (37-47); Hemoglobin 12.8 g/dL (12.0-16.0); Immature Granulocytes # (auto) 0.01 K/uL (0.00-0.02); Immature Granulocytes % (auto) 0.1 %; Lymphocytes # (auto) 2.43 K/uL (1.2-3.4); Mean Corpuscular Hemoglobin 30.2 pg (25-34); Mean Corpuscular Hgb Conc 34.3 g/dL (32-36); Monocytes # (auto) 0.64 K/uL (0.11-0.59); Monocytes % (auto) 7.6 %; Neutrophils # (auto) 5.17 K/uL (1.4-6.5); Neutrophils % (auto) 61.6 %; Platelet Count 358 K/uL (130-400); RDW Coefficient of Variation 12.7 % (11.5-14.5); RDW Standard Deviation 40.4 fL (36.4-46.3); Red Blood Count 4.24 M/uL (4.2-5.4); White Blood Count 8.39 K/uL (4.8-10.8)
[2021-03-09 18:23] LABS: Alanine Aminotransferase 89 U/L (12-78); Albumin Level 4.6 gm/dl (3.4-5.0); Aspartate Aminotransferase 45 U/L (15-37); BUN Creatinine Ratio 11.8 (10-20); Blood Urea Nitrogen 8 mg/dl (7-18); Calcium 9.5 mg/dl (8.5-10.1); Carbon Dioxide 24 mmol/L (21-32); Chloride 96 mmol/L (98-107); Creatinine Clr Calc Pharmacy 89.6 ml/min; Est GFR (African American) 115.7 ml/min; Est GFR (Non-African American) 99.9 ml/min; Glucose 113 mg/dl (70-99); Lipase 219 U/L (73-393); Potassium 3.9 mmol/L (3.5-5.1); Sodium 129 mmol/L (136-145)
[2021-03-09 18:29] LABS: Appearance Urine Clear (Clear); Bacteria Urine Automated Negative (Negative); Bilirubin Urine Negative (Negative); Blood Urine Negative (Negative); Cast Urine Automated 0 /lpf (0-5); Color Urine Yellow; Epithelial Cell Urine Auto 20-30 /lpf (0-5); Glucose Urine UA Negative (Negative); Ketones Urine Trace (Negative); Leukocyte Esterase Urine Negative (Negative); Nitrite Urine Negative (Negative); Protein Urine Trace (Negative); RBC Urine Automated 0-4 /hpf (0-4); Specific Gravity Urine 1.007 (1.000-1.030); Urobilinogen Urine Negative (Negative)
[2021-03-09 18:34] LABS: Albumin Globulin Ratio 1.2 (0.9-2); Alkaline Phosphatase 82 U/L (45-117); Bilirubin,Total 0.4 mg/dl (0.2-1); Globulin 3.8 gm/dl (2.5-4.0); Total Protein 8.4 gm/dl (6.4-8.2); Troponin I < 0.015 ng/ml (0-0.045)
[2021-03-09 18:36] LABS: Acetaminophen < 2 ug/ml (10-30); Salicylate < 1.7 mg/dl (2.8-20)
--- NOTE | 2021-03-09 18:38 | XRay Report ---
XR chest 1V portable HISTORY: Atypical chest pain. COMPARISON: Chest 11/17/2013. FINDINGS: No pneumothorax. No pleural effusions. The cardiac silhouette remains mildly enlarged. The lungs are clear. No no evidence for pulmonary edema. Slightly rotated study. Cervical spinal fusion h ardware is partially visualized. IMPRESSION: Mild cardiomegaly. Otherwise, no acute process within the chest. ACT 112: Negative or not required by law. Electronically signed by: Montrell Solis M.D. 03/09/2021 6:37 PM
[2021-03-09 19:18] LABS: Amphetamines+Metham, Urine Neg (Neg); Barbiturates, Urine Neg (Neg); Benzodiazepine, Urine Neg (Neg); Cocaine, Urine Neg (Neg); MDMA (Ecstacy), Urine Neg (Neg); Methadone, Urine Neg (Neg); Opiate, Urine Neg (Neg); Phencyclidine, Urine Neg (Neg)
--- NOTE | 2021-03-09 20:16 | CT Scan Report ---
HEAD CT NONCONTRAST CT DOSE: 537.48 mGy.cm HISTORY: hallucinations TECHNIQUE: Multiaxial CT images of the head were performed without the use of intravenous contrast. A utomated exposure control was utilized for this study. A dose lowering technique was utilized adheri ng to the principles of ALARA. Comparison: Head CT 11/19/2013. Findings: The paranasal sinuses and mastoid air cells are clear. The calvarium and skull base are int act. The ventricles and sulci are within normal limits. There is no mass, hematoma, midline shift, or acute infarct. Impression: No acute intracranial abnormality. ACT 112: Negative or not required by law. Electronically signed by: Montrell Solis M.D. 03/09/2021 8:15 PM
--- NOTE | 2021-03-09 21:08 | Ultrasound Report ---
ABDOMINAL ULTRASOUND, RIGHT UPPER QUADRANT HISTORY: Right upper quadrant abdominal pain.. COMPARISON: Abdomen and pelvis CT 02/28/2021. FINDINGS: Pancreas: Obscured by overlying bowel gas. Liver: 19 cm in length. No hepatic masses. Gallbladder: There is a 2 cm stone within the gallbladder. No gallbladder wall thickening. Punctate f ocus with ringdown artifact at the gallbladder wall. This could represent a cholesterol deposit or a focus of adenomyomatosis. Negative sonographic Chaudhary sign. CBD: 4 mm. Right kidney: No hydronephrosis. IMPRESSION: 1. Cholelithiasis. No gallbladder wall thickening. 2. Mild hepatomegaly. ACT 112: Negative or not required by law. Electronically signed by: Montrell Solis M.D. 03/09/2021 9:06 PM
[2021-03-09] MEDS ORDERED: ACETAMINOPHEN 325 MG TAB PO STA (22:13)
[2021-03-09] MEDS ORDERED: diazePAM 5 MG TABLET PO ONE (23:34)
[2021-03-10] MEDS ORDERED: SODIUM CHLORIDE 0.65% NA SOLN 45 ML (OCEAN) PRN (00:34)
[2021-03-10] MEDS ORDERED: BISMUTH SUBSALICYLATE LIQD 236 ML PO PRN (00:34)
[2021-03-10] MEDS ORDERED: ALUMINUM/MAGNESIUM SUSP 30 ML UDC PO PRN (00:34)
[2021-03-10] MEDS ORDERED: MAGNESIUM HYDROXIDE SUSP 30 ML UDC PO PRN (00:34)
[2021-03-10] MEDS ORDERED: haloperidoL 5 MG TAB PO PRN (01:00)
[2021-03-10] MEDS: ACETAMINOPHEN 325 MG TAB PO PRN ×2 (06:19→14:56)
[2021-03-10] MEDS: LEVOTHYROXINE SODIUM 75 MCG TABLET PO SCH (07:59)
--- NOTE | 2021-03-10 08:11 | Electrocardiogram Report ---
Test Reason : Blood Pressure : / mmHG Vent. Rate : 096 BPM Atrial Rate : 096 BPM P-R Int : 132 ms QRS Dur : 074 ms QT Int : 342 ms P-R-T Axes : 017 050 017 degrees QTc Int : 432 ms Normal sinus rhythm Nondiagnostic inferior Q waves Nonspecific T wave abnormality Anterior leads Abnormal ECG When compared with ECG of 06-JUN-2020 12:50, Nonspecific T wave abnormality Anterior leads now present Confirmed by Sameer Malik ([id number]) on 03/10/2021 8:10:56 AM Referred By: REFERRED SELF Confirmed By:Sameer Malik
[2021-03-10] MEDS: metFORMIN HCL 500 MG TAB PO SCH ×2 (08:14→17:12)
[2021-03-10] MEDS: FERROUS SULFATE 325 MG TAB PO SCH (08:14)
[2021-03-10] MEDS: MULTIVITAMIN CHEWABLE TAB PO SCH (08:14)
[2021-03-10] MEDS: PANTOprazole 40 MG TAB PO SCH ×2 (08:14→19:44)
[2021-03-10] MEDS: BACLOFEN 20 MG TAB PO SCH ×3 (08:14→19:43)
[2021-03-10] MEDS: DOCUSATE SODIUM 100 MG CAP PO SCH ×4 (08:14→19:48)
[2021-03-10] MEDS ORDERED: LIDOCAINE 5% 1 PATCH TD SCH (09:00)
[2021-03-10 10:45] LABS: Albumin Level 4.4 gm/dl (3.4-5.0); BUN Creatinine Ratio 7.9 (10-20); Calcium 9.8 mg/dl (8.5-10.1); Creatinine Clr Calc Pharmacy 88.3 ml/min; Est GFR (African American) 115.2 ml/min; Est GFR (Non-African American) 99.4 ml/min; Potassium 3.7 mmol/L (3.5-5.1)
[2021-03-10 10:47] LABS: Albumin Globulin Ratio 1.3 (0.9-2); Bilirubin,Total 0.6 mg/dl (0.2-1); Globulin 3.5 gm/dl (2.5-4.0); Total Protein 7.9 gm/dl (6.4-8.2)
[2021-03-10] MEDS: OLANZapine 5 MG TABLET PO SCH ×2 (12:10→19:44)
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
[2021-03-10] MEDS: LIDOCAINE 5% 1 PATCH TD PRN (16:01)
[2021-03-10] MEDS: hydrOXYzine HCl 25 MG TAB PO SCH (19:43)
[2021-03-10] MEDS ORDERED: ARIPiprazole 10 MG TAB PO SCH (22:00)
[2021-03-11] MEDS: LEVOTHYROXINE SODIUM 75 MCG TABLET PO SCH (08:04)
[2021-03-11] MEDS: FERROUS SULFATE 325 MG TAB PO SCH (08:41)
[2021-03-11] MEDS: DOCUSATE SODIUM 100 MG CAP PO SCH ×4 (08:41→19:22)
[2021-03-11] MEDS: BACLOFEN 20 MG TAB PO SCH ×3 (08:41→19:22)
[2021-03-11] MEDS: MULTIVITAMIN CHEWABLE TAB PO SCH (08:42)
[2021-03-11] MEDS: metFORMIN HCL 500 MG TAB PO SCH ×2 (08:42→18:04)
[2021-03-11] MEDS: OLANZapine 5 MG TABLET PO SCH ×2 (08:42→19:23)
[2021-03-11] MEDS: PANTOprazole 40 MG TAB PO SCH ×2 (08:42→19:23)
[2021-03-11] MEDS: hydrOXYzine HCl 25 MG TAB PO SCH ×2 (08:42→19:22)
--- NOTE | 2021-03-11 11:11 | Psychiatric Progress Note ---
Date of Service March 11, 2021 Impression / Recommendations Impression 55-year-old female who carries a past diagnosis of schizoaffective disorder presenting with complains of auditory hallucinations. Patient was prior to on Lexapro treatment, and despite her diagnosis of schizoaffective disorder denies any previous episodes of auditory hallucinations when not using illicit substances. Unclear to what extent Lexapro may been contributing to her auditory hallucinations, but what is clear is that Abilify is unable to hold the symptoms. In effort to stop her auditory hallucinations we will attempt to use a more potent antipsychotic as a substitute for Abilify as well as hold her Lexapro medication until her psychosis subsides. Patient will benefit from inpatient hospitalization for safety, stabilization, medication management. (1) Schizoaffective disorder: The patient was admitted to the [facility] ([facility]) on every 15 minute checks (behavioral with suicide precautions for safety. The patient will participate in group, recreational, and milieu therapies and will be offered additional individual and family sessions as clinically appropriate. 03/11/2021atient responding well to Olanzapine medication. Continues to have symptoms, but are lessened in intensity. 03/10/2021we will hold the patient's Lexapro. We will Stop the patient's Abilify and start the patient on olanzapine 5 mg p.o. twice daily. Protective Factors Assessment Employed: No Interval History Chief Complaint "I'm feeling better". Review of Systems Sleep Information Total Hours of Sleep: 8.25 Sleep Comments: pt given vistaril per rn. pt appeared to sleep 1.25 hrs during evening shift. pt on q-15 minute checks Meal Information Percent Meal Consumed - Breakfast: 0 Percent Meal Consumed - Lunch: 0 Percent Meal Consumed - Dinner: 75 Nutrition Comment: Pt refused lunch and did not want it saved. Subjective Subjective Patient seen, chart reviewed and case discussed with treatment team, nursing and social work. Patient reports a good night of sleep and decent appetite. Was able to eat some meals yesteerday but hasnt eaten breakfast today. No side effects reported or observed. Regarding mood, patient reports some improvement which they attribute to the medications as well as the therapy they have received on the unit. She reports less distress from the voices. She appears less paranoid. She is more easily interacting with peers. Still reports hearing some voices. I spent 30 minutes with the patient, 50% of which was dedicated to counselling and coordination of care. Physical Exam Psychiatric Orientation: alert and oriented x 3 Apperance: + disheveled Eye Contact: + fair eye contact Motor Behavior: no abnormal motor movements Speech: normal rate/rhythm/volume of speech Affect: + flat affect and + tearful affect Mood: + anxious mood Thought Process: + perseveration Thought Content: + paranoid, + persecution, + hopelessness and + self deprecation Suicidal Thoughts: denies suicidal thoughts, denies suicidal plan and denies suicidal intent Homicidal Thoughts: denies homicidal thoughts, denies homicidal plan and denies homicidal intent Hallucinations: + auditory hallucinations; no visual hallucinations Cognition: remote memory grossly intact Estimated Intelligence: consistent with education level Insight: + fair insight Judgement: + impaired judgement Vital Signs (Past 24 Hours) Last Vital Signs Temp 36.9 C 03/11/21 06:38 Pulse 78 03/11/21 06:39 Resp 16 03/11/21 06:38 BP 136/88 03/11/21 06:39 Pulse Ox 98 03/10/21 00:12 Results & Data ([facility]) Current Inpatient Medications Current Inpatient Medications: Current Inpatient Medications Acetaminophen (Acetaminophen 325 Mg Tab) 650 mg PO Q8H PRN PRN Reason: Headache or Minor Fever Stop: 04/09/21 00:33 Last Admin: 03/10/21 14:56 Dose: 650 mg Documented by: Al Hydrox/Mg Hydrox/Simethicone (Aluminum/Magnesium Susp 30 Ml Udc) 30 ml PO Q4H PRN PRN Reason: GI Upset Stop: 04/09/21 00:33 Baclofen (Baclofen 20 Mg Tab) 20 mg PO TID [facility] Stop: 04/09/21 08:59 Last Admin: 03/11/21 08:41 Dose: 20 mg Documented by: Bismuth Subsalicylate (Bismuth Subsalicylate Liqd 236 Ml) 15 ml PO PRN PRN PRN Reason: Loose Stool Stop: 04/09/21 00:33 Docusate Sodium (Docusate Sodium 100 Mg Cap) 100 mg PO TID [facility] Stop: 04/09/21 08:59 Last Admin: 03/11/21 08:46 Dose: Not Given Documented by: Ferrous Sulfate (Ferrous Sulfate 325 Mg Tab) 325 mg PO QAM [facility] Stop: 04/09/21 08:59 Last Admin: 03/11/21 08:41 Dose: 325 mg Documented by: Hydroxyzine HCl (Hydroxyzine Hcl 25 Mg Tab) 50 mg PO BID [facility] Stop: 04/09/21 20:59 Last Admin: 03/11/21 08:42 Dose: 50 mg Documented by: Levothyroxine Sodium (Levothyroxine Sodium 75 Mcg Tablet) 75 mcg PO DAILYBB [facility] Stop: 04/09/21 07:59 Last Admin: 03/11/21 08:04 Dose: 75 mcg Documented by: Lidocaine (Lidocaine 5% 1 Patch) 1 patch TD DAILY PRN PRN Reason: Pain Stop: 04/09/21 15:55 Last Admin: 03/10/21 16:01 Dose: 1 patch Documented by: Magnesium Hydroxide (Magnesium Hydroxide Susp 30 Ml Udc) 30 ml PO DAILY PRN PRN Reason: Constipation Stop: 04/09/21 00:33 Last Admin: 03/10/21 08:15 Dose: 30 ml Documented by: Metformin HCl (Metformin Hcl 500 Mg Tab) 500 mg PO BIDM [facility] Stop: 04/09/21 08:59 Last Admin: 03/11/21 08:42 Dose: 500 mg Documented by: Miscellaneous (Remove Lidoderm Patch) 1 ea N/A HS PRN PRN Reason: IF LIDODERM PATCH APPLIED Stop: 04/09/21 15:58 Multivitamins/Folic Acid/Vitamin C (Multivitamin Chewable Tab) 1 tab PO QAM [facility] Stop: 04/09/21 08:59 Last Admin: 03/11/21 08:42 Dose: 1 tab Documented by: Olanzapine (Olanzapine 5 Mg Tablet) 5 mg PO BID [facility] Stop: 04/09/21 11:59 Last Admin: 03/11/21 08:42 Dose: 5 mg Documented by: Pantoprazole Sodium (Pantoprazole 40 Mg Tab) 40 mg PO BID [facility] Stop: 04/09/21 08:59 Last Admin: 03/11/21 08:42 Dose: 40 mg Documented by: Sodium Chloride (Sodium Chloride 0.65% Na Soln 45 Ml ([place])) 1 - 2 sprays NA PRN PRN PRN Reason: Nasal Dryness/Congestion Stop: 04/09/21 00:33 Mental Health & Subst Abuse Tx Psychiatrist Name of Psychiatrist: Declan Medley Psychiatrist's Date of Appointment with Psychiatrist: 03/15/21 Time of Appointment with Psychiatrist: 11 am Psychiatric Appointment Comment: [address], [place] [address] Therapist Name of Therapist: On waiting list at [facility] Erosion Control Coordinator Name of Erosion Control Coordinator: . Post Discharge Appointments Primary Care Physician Name Of Family Doctor: JULI Gonzalez Primary Care Date of Appointment with PCP: 03/18/21 Time of Appointment with PCP: 10:30 am Provider Appointment Comment: [address], [place] [address] Contact Information Discharge Discharge Address: [facility] [address] [facility] [place] [address] Contact Information Comment: alternative phone number [phone]
[2021-03-11] MEDS: ACETAMINOPHEN 325 MG TAB PO PRN ×2 (11:15→19:26)
[2021-03-11] MEDS: LIDOCAINE 5% 1 PATCH TD PRN (18:56)
[2021-03-12] MEDS: ACETAMINOPHEN 325 MG TAB PO PRN ×2 (05:58→14:20)
[2021-03-12] MEDS: LEVOTHYROXINE SODIUM 75 MCG TABLET PO SCH (08:18)
[2021-03-12] MEDS: MULTIVITAMIN CHEWABLE TAB PO SCH (08:18)
[2021-03-12] MEDS: FERROUS SULFATE 325 MG TAB PO SCH (08:18)
[2021-03-12] MEDS: DOCUSATE SODIUM 100 MG CAP PO SCH ×2 (08:18→14:17)
[2021-03-12] MEDS: BACLOFEN 20 MG TAB PO SCH ×2 (08:18→14:16)
[2021-03-12] MEDS: metFORMIN HCL 500 MG TAB PO SCH (08:18)
[2021-03-12] MEDS: hydrOXYzine HCl 25 MG TAB PO SCH (08:18)
[2021-03-12] MEDS: OLANZapine 5 MG TABLET PO SCH (08:19)
[2021-03-12] MEDS: PANTOprazole 40 MG TAB PO SCH (08:19)
[2021-03-12] MEDS ORDERED: DESTROY THIS MEDICATION ONE (14:49)
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
== END 2021-03-12 15:00 | disposition home or self-care (01) | DRG 885 ==
LOC: ED 17:00 → 3S 23:34

== ENCOUNTER 2021-04-19 00:50 | Inpatient (IN) ==
[2021-04-19 01:52] LABS: Basophils # (auto) 0.04 K/uL (0-0.2); Basophils % (auto) 0.6 %; Eosinophils # (auto) 0.06 K/uL (0-0.5); Eosinophils % (auto) 0.8 %; Hematocrit (blood only) 37.4 % (37-47); Immature Granulocytes # (auto) 0.01 K/uL (0.00-0.02); Immature Granulocytes % (auto) 0.1 %; Lymphocytes # (auto) 1.62 K/uL (1.2-3.4); Lymphocytes % (auto) 22.6 %; Mean Corpuscular Hemoglobin 30.7 pg (25-34); Mean Corpuscular Hgb Conc 34.8 g/dL (32-36); Mean Corpuscular Volume 88.2 fL (80-100); Mean Platelet Volume 9.1 fL (7.4-10.4); Monocytes # (auto) 0.61 K/uL (0.11-0.59); Monocytes % (auto) 8.5 %; Neutrophils # (auto) 4.83 K/uL (1.4-6.5); Neutrophils % (auto) 67.4 %; Platelet Count 379 K/uL (130-400); RDW Coefficient of Variation 13.7 % (11.5-14.5); RDW Standard Deviation 44.3 fL (36.4-46.3); Red Blood Count 4.24 M/uL (4.2-5.4); White Blood Count 7.17 K/uL (4.8-10.8)
[2021-04-19 02:05] LABS: Appearance Urine Cloudy (Clear); Bacteria Urine Automated Negative (Negative); Blood Urine 3+ (Negative); Color Urine Dark Yellow; Epithelial Cell Urine Auto >30 /lpf (0-5); Glucose Urine UA Negative (Negative); Ketones Urine 3+ (Negative); Leukocyte Esterase Urine 1+ (Negative); Nitrite Urine Negative (Negative); Protein Urine 1+ (Negative); RBC Urine Automated >30 /hpf (0-4); Specific Gravity Urine 1.025 (1.000-1.030); Urobilinogen Urine Negative (Negative)
[2021-04-19 02:09] LABS: Albumin Level 4.2 gm/dl (3.4-5.0); Calcium 9.5 mg/dl (8.5-10.1); Creatinine Clr Calc Pharmacy 84.6 ml/min; Est GFR (African American) 110.8 ml/min; Est GFR (Non-African American) 95.6 ml/min; Potassium 3.6 mmol/L (3.5-5.1)
[2021-04-19 02:13] LABS: Amphetamines+Metham, Urine Neg (Neg); Barbiturates, Urine Neg (Neg); Benzodiazepine, Urine Neg (Neg); Cocaine, Urine Neg (Neg); MDMA (Ecstacy), Urine Neg (Neg); Methadone, Urine Neg (Neg); Opiate, Urine Neg (Neg); Phencyclidine, Urine Neg (Neg)
[2021-04-19 02:20] LABS: Albumin Globulin Ratio 1.1 (0.9-2); Bilirubin,Total 0.6 mg/dl (0.2-1); Globulin 3.8 gm/dl (2.5-4.0); Thyroid Stimulating Hormone 3.72 uIu/ml (0.300-4.500)
[2021-04-19 02:22] LABS: Acetaminophen < 2 ug/ml (10-30); Bilirubin Urine 2+ (Negative); Salicylate < 1.7 mg/dl (2.8-20)
[2021-04-19 03:00] LABS: Cast Urine Automated 0 /lpf (0-5)
--- NOTE | 2021-04-19 04:38 | Emergency Department Note ---
Impression & Plan Thought disorder, Noncompliance with medication regimen Admit to 3 S. ED Provider Note NAME: JERE RAZA AGE: 55 SEX: F ARRIVES VIA: Police [employer]iser INFORMANT: Patient ED PROVIDER(S): Fidelia Real DO CHIEF COMPLAINT: Hearing voices PLAN: Disposition: Admit to 3 S. Condition: Stable MEDICAL DECISION MAKING: This is a 55-year-old female patient with a schizoaffective disorder who presents to the emergency department with her auditory hallucinations. The patient called police tonight because she was hearing voices. The patient has not been taking her medications because she believed that the water was poisoned. She also tells me that she is on a fast and planned to fast for the next 40 days. The patient has only been eating crackers for the past 1 week. Patient was medically cleared here in the emergency department. She is willing to admit herself voluntarily for inpatient psychiatric care. Triage Nursing notes reviewed and agree with them. [Prior medical records reviewed Vital Signs: reviewed and remarkable for hypertension and tachycardia Differential diagnosis: Thought disorder, mood disorder, medication noncompliance Diagnostics interpreted by me: Laboratory studies: See below HPI: 55/F arrives for evaluation of hallucinations. The patient has a history of schizoaffective disorder and bipolar disorder. She has not been taking her medications for some time now because she believes that the water was poisoned. She states that she has been hearing both male and female voices and she describes a conspiracy theory and demons and spirits. The patient tells me that for christianity reasons she has not been eating anything but crackers for the past 1 week. She planned to go on a 40-day fast. She does tell me that she does not feel safe and would like to admit herself voluntarily for inpatient psychiatric care and knows that the water would be safe here. ROS: See above HPI for pertinent positives & negatives. A total of 10 systems reviewed and were otherwise negative. PAST MEDICAL HISTORY:See Below PAST SURGICAL HISTORY:See Below FAMILY HISTORY:See Below SOCIAL HISTORY:See Below HOME MEDICATIONS:Patient is not currently taking any of her medications ALLERGIES:See list VITALS:See Below PHYSICAL EXAMINATION: HEENT: Head - normocephalic and atraumatic. Pupils are equal, round, and elsy ctive to light. Extraocular eye muscles are intact, and sclera are anicteric. Nose - moist nasal mucosa without discharge. Mouth - moist buccal mucosa. Oropharynx is nonerythematous and there is no tonsillar exudate or edema noted. Neck: Supple; no cervical enthesopathy or thyromegaly Heart: Tachycardic rate and rhythm. There is a normal S1 and S2 with no murmurs, clicks, or gallops appreciated. Lungs: Clear to auscultation bilaterally with no wheezes, rales, or rhonchi. Abdomen: Soft, completely nontender, nondistended, with good bowel sounds. There are no palpable pulsatile masses or hepatosplenomegaly. There is no guarding, rigidity, or rebound noted. Extremities: No evidence of cyanosis, clubbing, or edema. There are easily palpable peripheral pulses. Skin: Pale, warm and dry with good turgor and no rashes. Psych: The patient is hearing voices although they are not telling her to do anything. She describes a male and a female voice. She states that the voices make her feel anxious and unsafe. ED COURSE: Times/Reassessments: 0135: The patient was evaluated by the medical student initially. She was evaluated by me in room A 6. A complete history and physical was performed. Laboratory studies were drawn as above. The patient was felt to be medically cleared. The patient was willing to admit herself voluntarily for inpatient psychiatric care as she states that she does not feel safe. She is also refusing to eat or drink water at times. She was evaluated by the ED psychiatric vocational case manager. Fidelia Real, Past Med/Surg History Medical History Encounter for vitamin deficiency screening Eustachian tube dysfunction Hyperlipidemia Hypertension Shingles outbreak Sleep disturbances Ventral hernia Surgical History History of ankle surgery History of hernia surgery History of laparoscopy Hx of tubal ligation Family History Mother Myocardial infarction Congestive heart failure due to high blood pressure Hypertension Diabetes Father Hypertension Diabetes Denies family history of Ovarian cancer Prostate cancer Breast cancer Colorectal cancer Social History Smoking Status: Former smoker Tobacco Type: Cigarettes Second Hand Exposure: No; Hx Alcohol Use: No Hx Substance Use: No Preferred Language: [place] Communication Ability: Effective Visual Impairment: No Limitations Hearing Ability: Normal 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 Beliefs That Will Affect Care: None marital status: Current Living Situation: Significant Other current occupational status: disabled How many Children do You have: 2 How many Children do You have Comment: 2 girls Feels Safe at Home: No Childhood Exposure to Second-Hand Smoke: Yes during the past year weight has: remained stable Dental Care, Regularly: Yes Physical Activity Frequency: Daily Seatbelt Use: always Sunscreen Use: No Assistive Devices: Contacts and Glasses Allergies Allergies Allergy/AdvReac Type Severity Reaction Status Date / Time amoxicillin AdvReac Mild GI UPSET Verified 02/28/21 16:38 niacin AdvReac Unknown HOT FLUSHES Verified 02/28/21 16:38 Salt AdvReac Unknown SWELLING Uncoded 03/09/21 23:25 Home Meds Home Medications Medication Instructions Recorded Confirmed baclofen 20 mg tablet 20 mg PO TID 09/11/19 04/19/21 garlic 5,000 mcg tablet 5 mg PO PM 09/11/19 04/19/21 hydroxyzine HCl 50 mg tablet 50 mg PO BID PRN 09/11/19 04/19/21 lidocaine 5 % topical patch 1 patch TOP HS 09/11/19 04/19/21 multivitamin,vq-txod-scedctyi 1 tab PO QAM 09/11/19 04/19/21 (Complete Multivitamin) docusate sodium 100 mg capsule 100 mg PO TID 02/28/21 04/19/21 (Colace) ferrous sulfate 325 mg (65 mg 325 mg PO QAM 02/28/21 04/19/21 iron) tablet (iron) levothyroxine 75 mcg tablet 75 mcg PO QAM 02/28/21 04/19/21 metformin 500 mg tablet 500 mg PO BIDM 02/28/21 04/19/21 aripiprazole 20 mg tablet 20 mg PO HS 04/19/21 04/19/21 buspirone 10 mg tablet 10 mg PO TID 04/19/21 04/19/21 Previous Rx's Medication Instructions Recorded pantoprazole 40 mg tablet,delayed 40 mg PO BID #180 tab 12/07/20 release triamcinolone acetonide 0.025 % 1 applic TOP BID #80 g 03/24/21 topical cream Results & Data (ED) Vital Signs Vital Signs - 24 hr 04/19/21 00:58 04/19/21 04:56 Temperature 37.1 C Temperature Source Oral Pulse Rate 118 H Pulse Rate [Finger] 96 H Respiratory Rate 18 Blood Pressure 147/94 H Blood Pressure [Left Arm] 131/89 Blood Pressure Mean 111 Blood Pressure Mean [Left Arm] 103 Pulse Oximetry 100 99 Oxygen Delivery Method Room Air Room Air Sepsis Recent Fever Within 48 Hours No Sepsis New/Unexplained Change in Mental Status No Sepsis Action Taken by Nursing No Action Required Laboratory Data Result diagrams: 04/19/21 01:15 04/19/21 01:15 Lab Results 04/19/21 04/19/21 04/19/21 Range/Units 01:15 01:15 01:15 WBC 7.17 (4.8-10.8) K/uL RBC 4.24 (4.2-5.4) M/uL Hgb 13.0 (12.0-16.0) g/dL Hct 37.4 (37-47) % MCV 88.2 (80-100) fL MCH 30.7 (25-34) pg MCHC 34.8 (32-36) g/dL RDW Std Deviation 44.3 (36.4-46.3) fL RDW Coeff of Arjun 13.7 (11.5-14.5) % Plt Count 379 (130-400) K/uL MPV 9.1 (7.4-10.4) fL Immature Gran % (Auto) 0.1 % Neut % (Auto) 67.4 % Lymph % (Auto) 22.6 % [place] % (Auto) 8.5 % Eos % (Auto) 0.8 % Baso % (Auto) 0.6 % Neut # (Auto) 4.83 (1.4-6.5) K/uL Lymph # (Auto) 1.62 (1.2-3.4) K/uL [place] # (Auto) 0.61 H (0.11-0.59) K/uL Eos # (Auto) 0.06 (0-0.5) K/uL Baso # (Auto) 0.04 (0-0.2) K/uL Immature Gran # (Auto) 0.01 (0.00-0.02) K/uL Sodium 132 L (136-145) mmol/L Potassium 3.6 (3.5-5.1) mmol/L Chloride 101 (98-107) mmol/L Carbon Dioxide 24 (21-32) mmol/L Anion Gap 7.0 (3-11) BUN 9 (7-18) mg/dl Creatinine 0.72 (0.6-1.2) mg/dl Est Cr Clr Drug Dosing 84.6 ml/min Est GFR ( Amer) 110.8 ml/min Est GFR (Non-Af Amer) 95.6 ml/min BUN/Creatinine Ratio 13.0 (10-20) Glucose 90 (70-99) mg/dl Calcium 9.5 (8.5-10.1) mg/dl Total Bilirubin 0.6 (0.2-1) mg/dl AST 23 (15-37) U/L ALT 29 (12-78) U/L Alkaline Phosphatase 68 (45-117) U/L Total Protein 8.0 (6.4-8.2) gm/dl Albumin 4.2 (3.4-5.0) gm/dl Globulin 3.8 (2.5-4.0) gm/dl Albumin/Globulin Ratio 1.1 (0.9-2) TSH 3.720 (0.300-4.500) uIu/ml Urine Color Urine Appearance (Clear) Urine pH (4.5-7.5) Ur Specific [place] (1.000-1.030) Urine Protein (Negative) Urine Glucose (UA) (Negative) Urine Ketones (Negative) Urine Blood (Negative) Urine Nitrite (Negative) Urine Bilirubin (Negative) Urine Urobilinogen (Negative) Ur Leukocyte Esterase (Negative) Urine WBC (Auto) (0-5) /hpf Urine RBC (Auto) (0-4) /hpf U Hyaline Cast (Auto) (0-5) /lpf U Epithel Cells (Auto) (0-5) /lpf Urine Bacteria (Auto) (Negative) Salicylates < 1.7 L (2.8-20) mg/dl Urine Opiates Screen (Neg) Ur Methadone, Qual (Neg) Acetaminophen < 2 L (10-30) ug/ml Urine Barbiturates (Neg) Ur Phencyclidine (PCP) (Neg) U Amphetamin/Meth Scrn (Neg) MDMA (Ecstasy) Screen (Neg) U Benzodiazepines Scrn (Neg) Ur Cocaine Metabolite (Neg) U Marijuana (THC) Screen (Neg) Ethyl Alcohol mg/dL (0-3) mg/dl COVID-19 Eval Order SARS-CoV-2 (PCR) (Negative) 04/19/21 04/19/21 04/19/21 Range/Units 01:15 01:15 01:15 WBC (4.8-10.8) K/uL RBC (4.2-5.4) M/uL Hgb (12.0-16.0) g/dL Hct (37-47) % MCV (80-100) fL MCH (25-34) pg MCHC (32-36) g/dL RDW Std Deviation (36.4-46.3) fL RDW Coeff of Arjun (11.5-14.5) % Plt Count (130-400) K/uL MPV (7.4-10.4) fL Immature Gran % (Auto) % Neut % (Auto) % Lymph % (Auto) % [place] % (Auto) % Eos % (Auto) % Baso % (Auto) % Neut # (Auto) (1.4-6.5) K/uL Lymph # (Auto) (1.2-3.4) K/uL [place] # (Auto) (0.11-0.59) K/uL Eos # (Auto) (0-0.5) K/uL Baso # (Auto) (0-0.2) K/uL Immature Gran # (Auto) (0.00-0.02) K/uL Sodium (136-145) mmol/L Potassium (3.5-5.1) mmol/L Chloride (98-107) mmol/L Carbon Dioxide (21-32) mmol/L Anion Gap (3-11) BUN (7-18) mg/dl Creatinine (0.6-1.2) mg/dl Est Cr Clr Drug Dosing ml/min Est GFR ( Amer) ml/min Est GFR (Non-Af Amer) ml/min BUN/Creatinine Ratio (10-20) Glucose (70-99) mg/dl Calcium (8.5-10.1) mg/dl Total Bilirubin (0.2-1) mg/dl AST (15-37) U/L ALT (12-78) U/L Alkaline Phosphatase (45-117) U/L Total Protein (6.4-8.2) gm/dl Albumin (3.4-5.0) gm/dl Globulin (2.5-4.0) gm/dl Albumin/Globulin Ratio (0.9-2) TSH (0.300-4.500) uIu/ml Urine Color Dark Yellow Urine Appearance Cloudy A (Clear) Urine pH 5.0 (4.5-7.5) Ur Specific [place] 1.025 (1.000-1.030) Urine Protein 1+ H (Negative) Urine Glucose (UA) Negative (Negative) Urine Ketones 3+ H (Negative) Urine Blood 3+ H (Negative) Urine Nitrite Negative (Negative) Urine Bilirubin 2+ H (Negative) Urine Urobilinogen Negative (Negative) Ur Leukocyte Esterase 1+ H (Negative) Urine WBC (Auto) 5-10 H (0-5) /hpf Urine RBC (Auto) >30 H (0-4) /hpf U Hyaline Cast (Auto) 0 (0-5) /lpf U Epithel Cells (Auto) >30 H (0-5) /lpf Urine Bacteria (Auto) Negative (Negative) Salicylates (2.8-20) mg/dl Urine Opiates Screen Neg (Neg) Ur Methadone, Qual Neg (Neg) Acetaminophen (10-30) ug/ml Urine Barbiturates Neg (Neg) Ur Phencyclidine (PCP) Neg (Neg) U Amphetamin/Meth Scrn Neg (Neg) MDMA (Ecstasy) Screen Neg (Neg) U Benzodiazepines Scrn Neg (Neg) Ur Cocaine Metabolite Neg (Neg) U Marijuana (THC) Screen Neg (Neg) Ethyl Alcohol mg/dL < 3.0 (0-3) mg/dl COVID-19 Eval Order SARS-CoV-2 (PCR) (Negative) 04/19/21 04/19/21 Range/Units 02:05 02:05 WBC (4.8-10.8) K/uL RBC (4.2-5.4) M/uL Hgb (12.0-16.0) g/dL Hct (37-47) % MCV (80-100) fL MCH (25-34) pg MCHC (32-36) g/dL RDW Std Deviation (36.4-46.3) fL RDW Coeff of Arjun (11.5-14.5) % Plt Count (130-400) K/uL MPV (7.4-10.4) fL Immature Gran % (Auto) % Neut % (Auto) % Lymph % (Auto) % [place] % (Auto) % Eos % (Auto) % Baso % (Auto) % Neut # (Auto) (1.4-6.5) K/uL Lymph # (Auto) (1.2-3.4) K/uL [place] # (Auto) (0.11-0.59) K/uL Eos # (Auto) (0-0.5) K/uL Baso # (Auto) (0-0.2) K/uL Immature Gran # (Auto) (0.00-0.02) K/uL Sodium (136-145) mmol/L Potassium (3.5-5.1) mmol/L Chloride (98-107) mmol/L Carbon Dioxide (21-32) mmol/L Anion Gap (3-11) BUN (7-18) mg/dl Creatinine (0.6-1.2) mg/dl Est Cr Clr Drug Dosing ml/min Est GFR ( Amer) ml/min Est GFR (Non-Af Amer) ml/min BUN/Creatinine Ratio (10-20) Glucose (70-99) mg/dl Calcium (8.5-10.1) mg/dl Total Bilirubin (0.2-1) mg/dl AST (15-37) U/L ALT (12-78) U/L Alkaline Phosphatase (45-117) U/L Total Protein (6.4-8.2) gm/dl Albumin (3.4-5.0) gm/dl Globulin (2.5-4.0) gm/dl Albumin/Globulin Ratio (0.9-2) TSH (0.300-4.500) uIu/ml Urine Color Urine Appearance (Clear) Urine pH (4.5-7.5) Ur Specific [place] (1.000-1.030) Urine Protein (Negative) Urine Glucose (UA) (Negative) Urine Ketones (Negative) Urine Blood (Negative) Urine Nitrite (Negative) Urine Bilirubin (Negative) Urine Urobilinogen (Negative) Ur Leukocyte Esterase (Negative) Urine WBC (Auto) (0-5) /hpf Urine RBC (Auto) (0-4) /hpf U Hyaline Cast (Auto) (0-5) /lpf U Epithel Cells (Auto) (0-5) /lpf Urine Bacteria (Auto) (Negative) Salicylates (2.8-20) mg/dl Urine Opiates Screen (Neg) Ur Methadone, Qual (Neg) Acetaminophen (10-30) ug/ml Urine Barbiturates (Neg) Ur Phencyclidine (PCP) (Neg) U Amphetamin/Meth Scrn (Neg) MDMA (Ecstasy) Screen (Neg) U Benzodiazepines Scrn (Neg) Ur Cocaine Metabolite (Neg) U Marijuana (THC) Screen (Neg) Ethyl Alcohol mg/dL (0-3) mg/dl COVID-19 Eval Order Covid19 at [facility] SARS-CoV-2 (PCR) NEGATIVE (Negative) Administered Medications Baclofen (Baclofen 20 Mg Tab) 20 mg PO TID CARLIE Stop: 05/19/21 13:59 Last Admin: 04/19/21 15:51 Dose: 20 mg Documented by: [id number] Docusate Sodium (Docusate Sodium 100 Mg Cap) 100 mg PO TID CARLIE Stop: 05/19/21 13:59 Last Admin: 04/19/21 15:54 Dose: Not Given Documented by: [id number] Discontinued Medications Olanzapine (Olanzapine 5 Mg Tablet) 5 mg PO ONE ONE Stop: 04/19/21 06:01 Last Admin: 04/19/21 05:56 Dose: 5 mg Documented by: [id number] Olanzapine (Olanzapine 5 Mg Tablet) 5 mg PO NOW STA Stop: 04/19/21 11:26 Last Admin: 04/19/21 11:52 Dose: 5 mg Documented by: [id number] Discharge Plan Visit Data Chief Complaint: Mental Health Evaluation Stated Complaint: Mental Health ED Provider: Fidelia Real Discharge Problem: Thought disorder, Noncompliance with medication regimen Patient Disposition: Admitted As Inpatient Discharge Instructions Interventions: ED Discharge Assessment Last Done: 04/19/21 05:22
[2021-04-19] MEDS ORDERED: MAGNESIUM HYDROXIDE SUSP 30 ML UDC PO PRN (05:42)
[2021-04-19] MEDS ORDERED: SODIUM CHLORIDE 0.65% NA SOLN 45 ML (OCEAN) PRN (05:42)
[2021-04-19] MEDS ORDERED: OLANZapine 5 MG TABLET PO ONE (06:00)
[2021-04-19] MEDS ORDERED: OLANZapine 5 MG TABLET PO STA (11:25)
--- NOTE | 2021-04-19 14:21 | History & Physical ---
Date of Service April 19, 2021 Impression / Recommendations Impression This is a 55-year-old woman with a history of schizoaffective illness who is presenting in a decompensated state likely secondary to medication failure and noncompliance. Patient will require inpatient hospitalization for purposes of safety, stabilization, and medication management. (1) Schizoaffective disorder: The patient was admitted to the [facility] ([facility] unit) on every 15 minute checks (behavioral with suicide precautions for safety. The patient will participate in group, recreational, and milieu therapies and will be offered additional individual and family sessions as clinically appropriate. 1patient will be restarted on Zyprexa 5 mg p.o. twice daily. We will hold her BuSpar for the time being. Protective Factors Assessment Employed: No Psychiatric History Identifying Data JERE RAZA is a 55-year-old F who currently lives in [place] with her significant other, has a history of schizoaffective disorder, and was admitted on 04/19/21 05:07 on a 201 voluntary commitment for worsening psychosis. Chief Complaint "I need medicine". History of Present Illness Per ED case management "pt presents to the ER with police after she called them due to her increase in paranoia. Pt states her voices have increased over the course of the past month due to her not taking her meds. PT states she does not take them at home because her voices her telling her that her water is poisoned. Pt does not think she is safe at home due to the poisoned water. She states she was drinking water bottles with not poisoned water. She stated she ran out of the water so she stopped taking her pills because she could not swallow the pills without water. She reports that the voices have increased significantly over the past month to the point where she had to try and seek out help. Pt stated she was going to start fasting to fight the voices from controlling her. She believes she would be able to fast anywhere from 20 to 40 days to get rid of the voices. Pt states the voices are demonic spirts who are trying to control her. Pt stated her brother told her if she prays enough the voices will go away and no longer bother her. She states the voices are both male and female and that she does not know who they are. She has started to talk back to the voices in an attempt to control them and figure out what they want. Pt thinks she is the focal point of a political conspiracy theory to help dethrone the government and that she needs to get help to before she can further investigate. She also reports an increase in confusion over the course of the past few weeks. Pt is currently seeing Dr. Medley with [facility] but has no other care team. Pt does have one prior inpatient stay at [facility]. Pt is seeking inpatient treatment and is willing to sign self in." Upon evaluation today patient confirms the above is accurate. She continues to believe that food and liquids are poisoned, but is accepting that the water here is safe. Patient is quite psychotic during the course of the interview and difficult to redirect at times. Patient is well-known from last admission, it appears that her outpatient provider attempted to take her off of the Zyprexa medication and put her on Abilify and patient decompensated and ultimately became noncompliant. She is agreeable to restarting the Zyprexa medication to regain stability. Past Psychiatric History Current Psychiatric Diagnosis: Schizoaffective D/O Allergies Allergy/AdvReac Type Severity Reaction Status Date / Time amoxicillin AdvReac Mild GI UPSET Verified 02/28/21 16:38 niacin AdvReac Unknown HOT FLUSHES Verified 02/28/21 16:38 Salt AdvReac Unknown SWELLING Uncoded 03/09/21 23:25 Home Medications Medication Instructions Recorded Confirmed Type baclofen 20 mg tablet 20 mg PO TID 09/11/19 04/19/21 History garlic 5,000 mcg tablet 5 mg PO PM 09/11/19 04/19/21 History hydroxyzine HCl 50 mg tablet 50 mg PO BID PRN 09/11/19 04/19/21 History lidocaine 5 % topical patch 1 patch TOP HS 09/11/19 04/19/21 History multivitamin,hb-[id number]-[id number] 1 tab PO QAM 09/11/19 04/19/21 History (Complete Multivitamin) pantoprazole 40 mg tablet,delayed 40 mg PO BID #180 tab 12/07/20 04/19/21 Rx release docusate sodium 100 mg capsule 100 mg PO TID 02/28/21 04/19/21 History (Colace) ferrous sulfate 325 mg (65 mg 325 mg PO QAM 02/28/21 04/19/21 History iron) tablet (iron) levothyroxine 75 mcg tablet 75 mcg PO QAM 02/28/21 04/19/21 History metformin 500 mg tablet 500 mg PO BIDM 02/28/21 04/19/21 History triamcinolone acetonide 0.025 % 1 applic TOP BID #80 g 03/24/21 04/19/21 Rx topical cream aripiprazole 20 mg tablet 20 mg PO HS 04/19/21 04/19/21 History buspirone 10 mg tablet 10 mg PO TID 04/19/21 04/19/21 History Family History Family History of: Doesn't Know Alcohol History Hx of Alcohol Use Over the Past 12 Months: No Smoking Use Have You Smoked or Used Tobacco Products in the Last 30 Days: No Smoking Status: Former smoker Substance History Hx of Prescription Med Misuse Over the Past 12 Months: No Hx of Over the Counter Med Misuse Over the Past 12 Months: No Hx of Inhalent Misuse Over the Past 12 Months: No Hx of Organic Substance Use Over the Past 12 Months: No Hx of Illegal Substances/Street Drug Use Over Past 12 Months: No Problems as a Result of Past Substance Use: None Identified Personal History Living Arrangements: Apartment Beliefs That Will Affect Care: None Patient History Medical History Encounter for vitamin deficiency screening Eustachian tube dysfunction Hyperlipidemia Hypertension Shingles outbreak Sleep disturbances Ventral hernia Surgical History History of ankle surgery History of hernia surgery History of laparoscopy Hx of tubal ligation Family History Mother Myocardial infarction Congestive heart failure due to high blood pressure Hypertension Diabetes Father Hypertension Diabetes Denies family history of Ovarian cancer Prostate cancer Breast cancer Colorectal cancer Social History Smoking Status: Former smoker Tobacco Type: Cigarettes Second Hand Exposure: No; Hx Alcohol Use: No Hx Substance Use: No Preferred Language: Luxembourgish Communication Ability: Effective Visual Impairment: No Limitations Hearing Ability: Normal Traffic Court Magistrate Required: No Beliefs That Will Affect Care: None marital status: Current Living Situation: Significant Other current occupational status: disabled How many Children do You have: 2 How many Children do You have Comment: 2 girls Feels Safe at Home: No Childhood Exposure to Second-Hand Smoke: Yes during the past year weight has: remained stable Dental Care, Regularly: Yes Physical Activity Frequency: Daily Seatbelt Use: always Sunscreen Use: No Assistive Devices: Contacts and Glasses Review of Systems Review of Systems: All systems reviewed & are unremarkable except as noted in HPI & below Physical Exam Psychiatric: Orientation: alert Apperance: appropriately dressed Eye Contact: + fair eye contact Motor Behavior: no abnormal motor movements Speech: + pressured speech Affect: + anxious affect and mood congruent with affect Mood: + anxious mood Thought Process: + circumstantial thought process, + tangential thought process, + flight of ideas and + perseveration Thought Content: + paranoid, + phobias, + delusions and + persecution Suicidal Thoughts: denies suicidal thoughts Homicidal Thoughts: denies homicidal thoughts Hallucinations: + auditory hallucinations Cognition: recent memory grossly intact Estimated Intelligence: average estimated intelligence Insight: + fair insight Judgement: + poor judgement Vital Signs (Past 24 Hours): Last Vital Signs Temp 37.1 C 04/19/21 05:44 Pulse 95 H 04/19/21 05:44 Resp 16 04/19/21 05:44 BP 131/89 04/19/21 05:44 Pulse Ox 99 04/19/21 05:44 Results & Data ([facility]) Laboratory Results Laboratory Results - last 24 hr 04/19/21 04/19/21 04/19/21 01:15 01:15 01:15 WBC 7.17 RBC 4.24 Hgb 13.0 Hct 37.4 MCV 88.2 MCH 30.7 MCHC 34.8 RDW Std Deviation 44.3 RDW Coeff of Arjun 13.7 Plt Count 379 MPV 9.1 Immature Gran % (Auto) 0.1 Neut % (Auto) 67.4 Lymph % (Auto) 22.6 [place] % (Auto) 8.5 Eos % (Auto) 0.8 Baso % (Auto) 0.6 Neut # (Auto) 4.83 Lymph # (Auto) 1.62 [place] # (Auto) 0.61 H Eos # (Auto) 0.06 Baso # (Auto) 0.04 Immature Gran # (Auto) 0.01 Sodium 132 L Potassium 3.6 Chloride 101 Carbon Dioxide 24 Anion Gap 7.0 BUN 9 Creatinine 0.72 Est Cr Clr Drug Dosing 84.6 Est GFR ( Amer) 110.8 Est GFR (Non-Af Amer) 95.6 BUN/Creatinine Ratio 13.0 Glucose 90 Calcium 9.5 Total Bilirubin 0.6 AST 23 ALT 29 Alkaline Phosphatase 68 Total Protein 8.0 Albumin 4.2 Globulin 3.8 Albumin/Globulin Ratio 1.1 TSH 3.720 Urine Color Urine Appearance Urine pH Ur Specific [place] Urine Protein Urine Glucose (UA) Urine Ketones Urine Blood Urine Nitrite Urine Bilirubin Urine Urobilinogen Ur Leukocyte Esterase Urine WBC (Auto) Urine RBC (Auto) U Hyaline Cast (Auto) U Epithel Cells (Auto) Urine Bacteria (Auto) Salicylates < 1.7 L Urine Opiates Screen Ur Methadone, Qual Acetaminophen < 2 L Urine Barbiturates Ur Phencyclidine (PCP) U Amphetamin/Meth Scrn MDMA (Ecstasy) Screen U Benzodiazepines Scrn Ur Cocaine Metabolite U Marijuana (THC) Screen Ethyl Alcohol mg/dL COVID-19 Eval Order SARS-CoV-2 (PCR) 04/19/21 04/19/21 04/19/21 01:15 01:15 01:15 WBC RBC Hgb Hct MCV MCH MCHC RDW Std Deviation RDW Coeff of Arjun Plt Count MPV Immature Gran % (Auto) Neut % (Auto) Lymph % (Auto) [place] % (Auto) Eos % (Auto) Baso % (Auto) Neut # (Auto) Lymph # (Auto) [place] # (Auto) Eos # (Auto) Baso # (Auto) Immature Gran # (Auto) Sodium Potassium Chloride Carbon Dioxide Anion Gap BUN Creatinine Est Cr Clr Drug Dosing Est GFR ( Amer) Est GFR (Non-Af Amer) BUN/Creatinine Ratio Glucose Calcium Total Bilirubin AST ALT Alkaline Phosphatase Total Protein Albumin Globulin Albumin/Globulin Ratio TSH Urine Color Dark Yellow Urine Appearance Cloudy A Urine pH 5.0 Ur Specific [place] 1.025 Urine Protein 1+ H Urine Glucose (UA) Negative Urine Ketones 3+ H Urine Blood 3+ H Urine Nitrite Negative Urine Bilirubin 2+ H Urine Urobilinogen Negative Ur Leukocyte Esterase 1+ H Urine WBC (Auto) 5-10 H Urine RBC (Auto) >30 H U Hyaline Cast (Auto) 0 U Epithel Cells (Auto) >30 H Urine Bacteria (Auto) Negative Salicylates Urine Opiates Screen Neg Ur Methadone, Qual Neg Acetaminophen Urine Barbiturates Neg Ur Phencyclidine (PCP) Neg U Amphetamin/Meth Scrn Neg MDMA (Ecstasy) Screen Neg U Benzodiazepines Scrn Neg Ur Cocaine Metabolite Neg U Marijuana (THC) Screen Neg Ethyl Alcohol mg/dL < 3.0 COVID-19 Eval Order SARS-CoV-2 (PCR) 04/19/21 04/19/21 02:05 02:05 WBC RBC Hgb Hct MCV MCH MCHC RDW Std Deviation RDW Coeff of Arjun Plt Count MPV Immature Gran % (Auto) Neut % (Auto) Lymph % (Auto) [place] % (Auto) Eos % (Auto) Baso % (Auto) Neut # (Auto) Lymph # (Auto) [place] # (Auto) Eos # (Auto) Baso # (Auto) Immature Gran # (Auto) Sodium Potassium Chloride Carbon Dioxide Anion Gap BUN Creatinine Est Cr Clr Drug Dosing Est GFR ( Amer) Est GFR (Non-Af Amer) BUN/Creatinine Ratio Glucose Calcium Total Bilirubin AST ALT Alkaline Phosphatase Total Protein Albumin Globulin Albumin/Globulin Ratio TSH Urine Color Urine Appearance Urine pH Ur Specific [place] Urine Protein Urine Glucose (UA) Urine Ketones Urine Blood Urine Nitrite Urine Bilirubin Urine Urobilinogen Ur Leukocyte Esterase Urine WBC (Auto) Urine RBC (Auto) U Hyaline Cast (Auto) U Epithel Cells (Auto) Urine Bacteria (Auto) Salicylates Urine Opiates Screen Ur Methadone, Qual Acetaminophen Urine Barbiturates Ur Phencyclidine (PCP) U Amphetamin/Meth Scrn MDMA (Ecstasy) Screen U Benzodiazepines Scrn Ur Cocaine Metabolite U Marijuana (THC) Screen Ethyl Alcohol mg/dL COVID-19 Eval Order Covid19 at [facility] SARS-CoV-2 (PCR) NEGATIVE Current Inpatient Medications Current Inpatient Medications: Current Inpatient Medications Acetaminophen (Acetaminophen 325 Mg Tab) 650 mg PO Q4H PRN PRN Reason: Headache or Minor Fever Stop: 05/19/21 05:41 Al Hydrox/Mg Hydrox/Simethicone (Aluminum/Magnesium Susp 30 Ml Udc) 30 ml PO Q4H PRN PRN Reason: GI Upset Stop: 05/19/21 05:41 Baclofen (Baclofen 20 Mg Tab) 20 mg PO TID CARLIE Stop: 05/19/21 13:59 Bismuth Subsalicylate (Bismuth Subsalicylate Liqd 236 Ml) 15 ml PO PRN PRN PRN Reason: Loose Stool Stop: 05/19/21 05:41 Docusate Sodium (Docusate Sodium 100 Mg Cap) 100 mg PO TID CARLIE Stop: 05/19/21 13:59 Hydroxyzine HCl (Hydroxyzine Hcl 25 Mg Tab) 50 mg PO HSZ PRN PRN Reason: Insomnia Stop: 05/19/21 05:41 Hydroxyzine HCl (Hydroxyzine Hcl 25 Mg Tab) 25 mg PO Q4H PRN PRN Reason: Anxiety Stop: 05/19/21 05:41 Levothyroxine Sodium (Levothyroxine Sodium 75 Mcg Tablet) 75 mcg PO QAM CARLIE Stop: 05/20/21 08:59 Magnesium Hydroxide (Magnesium Hydroxide Susp 30 Ml Udc) 30 ml PO DAILY PRN PRN Reason: Constipation Stop: 05/19/21 05:41 Metformin HCl (Metformin Hcl 500 Mg Tab) 500 mg PO BIDM CARLIE Stop: 05/19/21 17:44 Non-Formulary Medication (Ferrous Sulfate [Iron]) 325 mg PO QAM CARLIE Stop: 05/20/21 08:59 Non-Formulary Medication (Garlic) 5 mg PO PM CARLIE Stop: 05/19/21 20:59 Non-Formulary Medication (Multivitamin,[id number]-Vgpt-Lcalpxip [Complete Multivitamin]) 1 tab PO QAM CARLIE Stop: 05/20/21 08:59 Pantoprazole Sodium (Pantoprazole 40 Mg Tab) 40 mg PO BID CARLIE Stop: 05/19/21 20:59 Sodium Chloride (Sodium Chloride 0.65% Na Soln 45 Ml ([place])) 1 - 2 sprays NA PRN PRN PRN Reason: Nasal Dryness/Congestion Stop: 05/19/21 05:41
[2021-04-19] MEDS: DOCUSATE SODIUM 100 MG CAP PO SCH ×3 (15:50→20:14)
[2021-04-19] MEDS: BACLOFEN 20 MG TAB PO SCH ×2 (15:51→20:31)
[2021-04-19] MEDS: metFORMIN HCL 500 MG TAB PO SCH (17:47)
[2021-04-19] MEDS: OLANZapine 5 MG TABLET PO SCH (20:15)
[2021-04-19] MEDS: PANTOprazole 40 MG TAB PO SCH (20:15)
[2021-04-19] MEDS: hydrOXYzine HCl 25 MG TAB PO PRN (20:20)
[2021-04-19] MEDS ORDERED: GARLIC PO SCH (21:00)
[2021-04-20 07:55] LABS: Albumin Level 3.5 gm/dl (3.4-5.0); BUN Creatinine Ratio 17.5 (10-20); Bilirubin Direct 0.2 mg/dl (0-0.2); Calcium 8.8 mg/dl (8.5-10.1); Creatinine Clr Calc Pharmacy 103.2 ml/min; Est GFR (African American) 121.3 ml/min; Est GFR (Non-African American) 104.6 ml/min; Estimated Average Glucose 123 mg/dl; Hemoglobin A1C 5.9 % (4.5-5.6); Potassium 3.8 mmol/L (3.5-5.1)
[2021-04-20 07:58] LABS: Albumin Globulin Ratio 1.1 (0.9-2); Bilirubin,Total 0.7 mg/dl (0.2-1); Globulin 3.2 gm/dl (2.5-4.0); Total Protein 6.7 gm/dl (6.4-8.2)
[2021-04-20] MEDS: BACLOFEN 20 MG TAB PO SCH ×3 (09:08→20:06)
[2021-04-20] MEDS: LEVOTHYROXINE SODIUM 75 MCG TABLET PO SCH (09:08)
[2021-04-20] MEDS: PANTOprazole 40 MG TAB PO SCH ×2 (09:09→20:05)
[2021-04-20] MEDS: OLANZapine 5 MG TABLET PO SCH ×2 (09:09→20:09)
[2021-04-20] MEDS: metFORMIN HCL 500 MG TAB PO SCH ×2 (09:09→17:11)
[2021-04-20] MEDS: MULTIVITAMIN TAB PO SCH (09:09)
[2021-04-20] MEDS: FERROUS SULFATE 325 MG TAB PO SCH (09:09)
[2021-04-20] MEDS: DOCUSATE SODIUM 100 MG CAP PO SCH ×3 (09:14→20:09)
[2021-04-20] MEDS: ACETAMINOPHEN 325 MG TAB PO PRN ×2 (10:09→16:03)
--- NOTE | 2021-04-20 16:05 | Psychiatric Progress Note ---
Date of Service April 20, 2021 Impression / Recommendations Impression This is a 55-year-old woman with a history of schizoaffective illness who is presenting in a decompensated state likely secondary to medication failure and noncompliance. Patient will require inpatient hospitalization for purposes of safety, stabilization, and medication management. (1) Schizoaffective disorder: The patient was admitted to the [facility] ([facility] mental health unit) on every 15 minute checks (behavioral with suicide precautions for safety. The patient will participate in group, recreational, and milieu therapies and will be offered additional individual and family sessions as clinically appropriate. 04/19/2021atient will be restarted on Zyprexa 5 mg p.o. twice daily. We will hold her BuSpar for the time being. 04/20/2021atient will be continued on Zyprexa 5 mg p.o. twice daily. Making slow progress. Protective Factors Assessment Employed: No Interval History Chief Complaint "Good afternoon". Review of Systems Sleep Information Total Hours of Sleep: 9.5 Sleep Comments: pt given vistaril per rn. pt appeared to sleep 2.5 hrs during evening shift. pt on q-15 minute checks Meal Information Percent Meal Consumed - Breakfast: 0 Percent Meal Consumed - Lunch: 0 Percent Meal Consumed - Dinner: 0 Nutrition Comment: Pt. is drinking fluids but is refusing foods other than crackers at this time. Subjective Subjective Patient seen, chart reviewed and case discussed with treatment team, nursing and social work. Patient reports a good night of sleep but has a poor appetite. No side effects reported or observed. Regarding mood, patient reports some improvement although is still acknowledging auditory hallucinations as well as significant paranoia. Her delusions seem to be quite strong as she is still not eating well. She is calm and cooperative with care and agreeable to continue treatment. I spent 30 minutes with the patient, 50% of which was dedicated to counselling and coordination of care. Physical Exam Psychiatric Orientation: alert Apperance: appropriately dressed Eye Contact: + fair eye contact Motor Behavior: no abnormal motor movements Speech: + pressured speech Affect: + anxious affect and mood congruent with affect Mood: + anxious mood Thought Process: + circumstantial thought process, + tangential thought process, + flight of ideas and + perseveration Thought Content: + paranoid, + phobias, + delusions and + persecution Suicidal Thoughts: denies suicidal thoughts Homicidal Thoughts: denies homicidal thoughts Hallucinations: + auditory hallucinations Cognition: recent memory grossly intact Estimated Intelligence: average estimated intelligence Insight: + fair insight Judgement: + poor judgement Vital Signs (Past 24 Hours) Last Vital Signs Temp 37 C 04/20/21 06:34 Pulse 96 H 04/20/21 06:34 Resp 16 04/20/21 06:34 BP 118/79 04/20/21 06:34 Pulse Ox 99 04/19/21 05:44 [facility] & [facility] Laboratory Results Laboratory Results - last 24 hr 04/20/21 04/20/21 07:04 07:04 Sodium 136 Potassium 3.8 Chloride 104 Carbon Dioxide 21 Anion Gap 12.0 H BUN 10 Creatinine 0.59 L Est Cr Clr Drug Dosing 103.2 Est GFR ( Amer) 121.3 Est GFR (Non-Af Amer) 104.6 BUN/Creatinine Ratio 17.5 Glucose 68 L Estimat Average Glucose 123 Hemoglobin A1c 5.9 H Calcium 8.8 Total Bilirubin 0.7 Direct Bilirubin 0.2 AST 33 ALT 39 Alkaline Phosphatase 58 Total Protein 6.7 Albumin 3.5 Globulin 3.2 Albumin/Globulin Ratio 1.1 Triglycerides 80 Current Inpatient Medications Current Inpatient Medications: Current Inpatient Medications Acetaminophen (Acetaminophen 325 Mg Tab) 650 mg PO Q4H PRN PRN Reason: Headache or Minor Fever Stop: 05/19/21 05:41 Last Admin: 04/20/21 10:09 Dose: 650 mg Documented by: Al Hydrox/Mg Hydrox/Simethicone (Aluminum/Magnesium Susp 30 Ml Udc) 30 ml PO Q4H PRN PRN Reason: GI Upset Stop: 05/19/21 05:41 Baclofen (Baclofen 20 Mg Tab) 20 mg PO TID [facility] Stop: 05/19/21 13:59 Last Admin: 04/20/21 14:11 Dose: 20 mg Documented by: Bismuth Subsalicylate (Bismuth Subsalicylate Liqd 236 Ml) 15 ml PO PRN PRN PRN Reason: Loose Stool Stop: 05/19/21 05:41 Docusate Sodium (Docusate Sodium 100 Mg Cap) 100 mg PO TID CARLIE Stop: 05/19/21 13:59 Last Admin: 04/20/21 14:11 Dose: Not Given Documented by: Ferrous Sulfate (Ferrous Sulfate 325 Mg Tab) 325 mg PO QAM CARLIE Stop: 05/20/21 08:59 Last Admin: 04/20/21 09:09 Dose: 325 mg Documented by: Hydroxyzine HCl (Hydroxyzine Hcl 25 Mg Tab) 50 mg PO HSZ PRN PRN Reason: Insomnia Stop: 05/19/21 05:41 Last Admin: 04/19/21 20:20 Dose: 50 mg Documented by: Hydroxyzine HCl (Hydroxyzine Hcl 25 Mg Tab) 25 mg PO Q4H PRN PRN Reason: Anxiety Stop: 05/19/21 05:41 Levothyroxine Sodium (Levothyroxine Sodium 75 Mcg Tablet) 75 mcg PO DAILYBB [facility] Stop: 05/20/21 07:59 Last Admin: 04/20/21 09:08 Dose: 75 mcg Documented by: Magnesium Hydroxide (Magnesium Hydroxide Susp 30 Ml Udc) 30 ml PO DAILY PRN PRN Reason: Constipation Stop: 05/19/21 05:41 Metformin HCl (Metformin Hcl 500 Mg Tab) 500 mg PO BIDM [facility] Stop: 05/19/21 17:44 Last Admin: 04/20/21 09:09 Dose: Not Given Documented by: Multivitamins (Multivitamin Tab) 1 tab PO QAM CARLIE Stop: 05/20/21 08:59 Last Admin: 04/20/21 09:09 Dose: 1 tab Documented by: Olanzapine (Olanzapine 5 Mg Tablet) 5 mg PO BID CARLIE Stop: 05/19/21 20:59 Last Admin: 04/20/21 09:09 Dose: 5 mg Documented by: Pantoprazole Sodium (Pantoprazole 40 Mg Tab) 40 mg PO BID CARLIE Stop: 05/19/21 20:59 Last Admin: 04/20/21 09:09 Dose: 40 mg Documented by: Sodium Chloride (Sodium Chloride 0.65% Na Soln 45 Ml ([place])) 1 - 2 sprays NA PRN PRN PRN Reason: Nasal Dryness/Congestion Stop: 05/19/21 05:41 Mental Health & Subst Abuse Tx Therapist Name of Therapist: N/A Forming Machine Operator Name of Forming Machine Operator: N/A Post Discharge Appointments Primary Care Physician Name Of Family Doctor: Dr. Newell
[2021-04-20] MEDS: hydrOXYzine HCl 25 MG TAB PO PRN (20:05)
[2021-04-21] MEDS: ACETAMINOPHEN 325 MG TAB PO PRN ×2 (05:11→12:33)
[2021-04-21] MEDS: hydrOXYzine HCl 25 MG TAB PO PRN ×3 (05:44→20:02)
[2021-04-21] MEDS: FERROUS SULFATE 325 MG TAB PO SCH (08:21)
[2021-04-21] MEDS: LEVOTHYROXINE SODIUM 75 MCG TABLET PO SCH (08:21)
[2021-04-21] MEDS: BACLOFEN 20 MG TAB PO SCH ×3 (08:21→20:01)
[2021-04-21] MEDS: PANTOprazole 40 MG TAB PO SCH ×2 (08:22→20:01)
[2021-04-21] MEDS: OLANZapine 5 MG TABLET PO SCH (08:22)
[2021-04-21] MEDS: MULTIVITAMIN TAB PO SCH (08:22)
[2021-04-21] MEDS: DOCUSATE SODIUM 100 MG CAP PO SCH (08:26)
[2021-04-21] MEDS: metFORMIN HCL 500 MG TAB PO SCH ×2 (08:26→17:17)
--- NOTE | 2021-04-21 12:20 | Psychiatric Progress Note ---
Date of Service April 21, 2021 Impression / Recommendations Impression This is a 55-year-old woman with a history of schizoaffective illness who is presenting in a decompensated state likely secondary to medication failure and noncompliance. Patient will require inpatient hospitalization for purposes of safety, stabilization, and medication management. (1) Schizoaffective disorder: The patient was admitted to the [facility] ([facility]) on every 15 minute checks (behavioral with suicide precautions for safety. The patient will participate in group, recreational, and milieu therapies and will be offered additional individual and family sessions as clinically appropriate. 04/19/2021atient will be restarted on Zyprexa 5 mg p.o. twice daily. We will hold her BuSpar for the time being. 04/20/2021atient will be continued on Zyprexa 5 mg p.o. twice daily. Making slow progress. 04/21/2021will increase nighttime Zyprexa to 7.5 mg p.o. nightly. Will leave morning Zyprexa at 5 mg p.o. every morning. Protective Factors Assessment Employed: No Interval History Chief Complaint "I need my phone". Review of Systems Sleep Information Total Hours of Sleep: 6.25 Sleep Comments: pt given vistaril per rn. pt appeared to sleep 2.5 hrs during evening shift. pt on q-15 minute checks Meal Information Percent Meal Consumed - Breakfast: 0 Percent Meal Consumed - Lunch: 0 Percent Meal Consumed - Dinner: 0 Nutrition Comment: Pt. is drinking fluids but is refusing foods other than crackers at this time. Subjective Subjective Patient was seen & assessed and interval progress reviewed with treatment team nursing and social work Patient remains psychotic with poor judgment. Continues to be paranoid and not eat. She has been provided with sealed snacks to help reduce her suspicion of poisoned food, but continues to refuse full meals. She is compliant with medications, and does seem to be making some improvement although slow. No side effects reported or observed. I spent 30 minutes with the patient, 50% of which was dedicated to counselling and coordination of care. Physical Exam Psychiatric Orientation: alert Apperance: appropriately dressed Eye Contact: + fair eye contact Motor Behavior: no abnormal motor movements Speech: + pressured speech Affect: + anxious affect and mood congruent with affect Mood: + anxious mood Thought Process: + circumstantial thought process, + tangential thought process, + flight of ideas and + perseveration Thought Content: + paranoid, + phobias, + delusions and + persecution Suicidal Thoughts: denies suicidal thoughts Homicidal Thoughts: denies homicidal thoughts Hallucinations: + auditory hallucinations Cognition: recent memory grossly intact Estimated Intelligence: average estimated intelligence Insight: + fair insight Judgement: + poor judgement Vital Signs (Past 24 Hours) Last Vital Signs Temp 36.7 C 04/21/21 06:41 Pulse 80 04/21/21 06:41 Resp 18 04/21/21 06:41 BP 120/74 04/21/21 06:41 Pulse Ox 99 04/19/21 05:44 Results & Data (U) Current Inpatient Medications Current Inpatient Medications: Current Inpatient Medications Acetaminophen (Acetaminophen 325 Mg Tab) 650 mg PO Q4H PRN PRN Reason: Headache or Minor Fever Stop: 05/19/21 05:41 Last Admin: 04/21/21 05:11 Dose: 650 mg Documented by: Al Hydrox/Mg Hydrox/Simethicone (Aluminum/Magnesium Susp 30 Ml Udc) 30 ml PO Q4H PRN PRN Reason: GI Upset Stop: 05/19/21 05:41 Baclofen (Baclofen 20 Mg Tab) 20 mg PO TID [facility] Stop: 05/19/21 13:59 Last Admin: 04/21/21 08:21 Dose: 20 mg Documented by: Bismuth Subsalicylate (Bismuth Subsalicylate Liqd 236 Ml) 15 ml PO PRN PRN PRN Reason: Loose Stool Stop: 05/19/21 05:41 Docusate Sodium (Docusate Sodium 100 Mg Cap) 100 mg PO TID [facility] Stop: 05/19/21 13:59 Last Admin: 04/21/21 08:26 Dose: Not Given Documented by: Ferrous Sulfate (Ferrous Sulfate 325 Mg Tab) 325 mg PO QAM [facility] Stop: 05/20/21 08:59 Last Admin: 04/21/21 08:21 Dose: 325 mg Documented by: Hydroxyzine HCl (Hydroxyzine Hcl 25 Mg Tab) 50 mg PO HSZ PRN PRN Reason: Insomnia Stop: 05/19/21 05:41 Last Admin: 04/20/21 20:05 Dose: 50 mg Documented by: Hydroxyzine HCl (Hydroxyzine Hcl 25 Mg Tab) 25 mg PO Q4H PRN PRN Reason: Anxiety Stop: 05/19/21 05:41 Last Admin: 04/21/21 05:44 Dose: 25 mg Documented by: Levothyroxine Sodium (Levothyroxine Sodium 75 Mcg Tablet) 75 mcg PO DAILYBB CARLIE Stop: 05/20/21 07:59 Last Admin: 04/21/21 08:21 Dose: 75 mcg Documented by: Magnesium Hydroxide (Magnesium Hydroxide Susp 30 Ml Udc) 30 ml PO DAILY PRN PRN Reason: Constipation Stop: 05/19/21 05:41 Metformin HCl (Metformin Hcl 500 Mg Tab) 500 mg PO BIDM CARLIE Stop: 05/19/21 17:44 Last Admin: 04/21/21 08:26 Dose: Not Given Documented by: Multivitamins (Multivitamin Tab) 1 tab PO QAM CARLIE Stop: 05/20/21 08:59 Last Admin: 04/21/21 08:22 Dose: 1 tab Documented by: Olanzapine (Olanzapine 5 Mg Tablet) 5 mg PO BID CARLIE Stop: 05/19/21 20:59 Last Admin: 04/21/21 08:22 Dose: 5 mg Documented by: Pantoprazole Sodium (Pantoprazole 40 Mg Tab) 40 mg PO BID CARLIE Stop: 05/19/21 20:59 Last Admin: 04/21/21 08:22 Dose: 40 mg Documented by: Sodium Chloride (Sodium Chloride 0.65% Na Soln 45 Ml ([place])) 1 - 2 sprays NA P RN PRN PRN Reason: Nasal Dryness/Congestion Stop: 05/19/21 05:41 Mental Health & Subst Abuse Tx Therapist Name of Therapist: N/A House Calls Nurse Name of House Calls Nurse: N/A Post Discharge Appointments Primary Care Physician Name Of Family Doctor: Dr. Newell
[2021-04-21] MEDS ORDERED: DOCUSATE SODIUM 100 MG CAP PO PRN (13:44)
[2021-04-21] MEDS ORDERED: OLANZAPINE 2.5 MG TAB PO SCH (22:00)
[2021-04-22] MEDS: ACETAMINOPHEN 325 MG TAB PO PRN ×3 (05:15→19:53)
[2021-04-22] MEDS: hydrOXYzine HCl 25 MG TAB PO PRN ×3 (07:06→20:33)
[2021-04-22] MEDS: FERROUS SULFATE 325 MG TAB PO SCH (08:27)
[2021-04-22] MEDS: BACLOFEN 20 MG TAB PO SCH ×3 (08:27→20:33)
[2021-04-22] MEDS: LEVOTHYROXINE SODIUM 75 MCG TABLET PO SCH (08:27)
[2021-04-22] MEDS: PANTOprazole 40 MG TAB PO SCH ×2 (08:28→20:32)
[2021-04-22] MEDS: metFORMIN HCL 500 MG TAB PO SCH ×2 (08:28→17:23)
[2021-04-22] MEDS: MULTIVITAMIN TAB PO SCH (08:28)
[2021-04-22] MEDS ORDERED: OLANZapine 5 MG TABLET PO SCH (09:00)
--- NOTE | 2021-04-22 15:55 | Psychiatric Progress Note ---
Date of Service April 22, 2021 Impression / Recommendations Impression This is a 55-year-old woman with a history of schizoaffective illness who is presenting in a decompensated state likely secondary to medication failure and noncompliance. Patient will require inpatient hospitalization for purposes of safety, stabilization, and medication management. (1) Schizoaffective disorder: The patient was admitted to the [facility] ([facility]) on every 15 minute checks (behavioral with suicide precautions for safety. The patient will participate in group, recreational, and milieu therapies and will be offered additional individual and family sessions as clinically appropriate. 04/19/2021atient will be restarted on Zyprexa 5 mg p.o. twice daily. We will hold her BuSpar for the time being. 04/20/2021atient will be continued on Zyprexa 5 mg p.o. twice daily. Making slow progress. 04/21/2021will increase nighttime Zyprexa to 7.5 mg p.o. nightly. Will leave morning Zyprexa at 5 mg p.o. every morning. 04/22/2021we will increase Zyprexa dose to 7.5 mg p.o. twice daily. Patient still experiencing psychotic delusions. Protective Factors Assessment Employed: No Interval History Chief Complaint "I am just fasting". Review of Systems Sleep Information Total Hours of Sleep: 6.5 Sleep Comments: pt given vistaril per rn. pt appeared to sleep 2.5 hrs during evening shift. pt on q-15 minute checks Meal Information Percent Meal Consumed - Breakfast: 0 Percent Meal Consumed - Lunch: 0 Percent Meal Consumed - Dinner: 0 Nutrition Comment: pt. did fill out a menu for dinner after speaking with provider Subjective Subjective Patient was seen & assessed and interval progress reviewed with treatment team nursing and social work Patient was seen in the common area. She states that she is feeling better and that her mood is okay. When inclined as to why she submitted a 72-hour, patient says that she felt she was ready for discharge. She was questioning regarding her initial belief that the food is poisoned to which point she responds "I never said it was poisoned". When asked why patient continues to refuse eating, she states that she is fasting. But when asked why she is fasting, patient acknowledges that she is fasting in order to keep the evil spirits away. Patient was informed that this belief is likely a psychotic thought and she will need to continue to take medications as well as eat well prior to being discharged. Patient expressed her dismay but did not deny that she is questionably still experiencing psychotic symptoms. Patient is sleeping well, and at this time only continues to eat crackers. I spent 30 minutes with the patient, 50% of which was dedicated to counselling and coordination of care. Physical Exam Psychiatric Orientation: alert Apperance: appropriately dressed Eye Contact: + fair eye contact Motor Behavior: no abnormal motor movements Speech: + pressured speech Affect: + anxious affect and mood congruent with affect Mood: + anxious mood Thought Process: + circumstantial thought process, + tangential thought process, + flight of ideas and + perseveration Thought Content: + paranoid, + phobias, + delusions and + persecution Suicidal Thoughts: denies suicidal thoughts Homicidal Thoughts: denies homicidal thoughts Hallucinations: + auditory hallucinations Cognition: recent memory grossly intact Estimated Intelligence: average estimated intelligence Insight: + fair insight Judgement: + poor judgement Vital Signs (Past 24 Hours) Last Vital Signs Temp 36.7 C 04/22/21 05:17 Pulse 92 H 04/22/21 05:17 Resp 16 04/22/21 05:17 BP 124/83 04/22/21 05:17 Pulse Ox 99 04/19/21 05:44 Results & Data ([facility]) Current Inpatient Medications Current Inpatient Medications: Current Inpatient Medications Acetaminophen (Acetaminophen 325 Mg Tab) 650 mg PO Q4H PRN PRN Reason: Headache or Minor Fever Stop: 05/19/21 05:41 Last Admin: 04/22/21 12:35 Dose: 650 mg Documented by: Al Hydrox/Mg Hydrox/Simethicone (Aluminum/Magnesium Susp 30 Ml Udc) 30 ml PO Q4H PRN PRN Reason: GI Upset Stop: 05/19/21 05:41 Baclofen (Baclofen 20 Mg Tab) 20 mg PO TID CARLIE Stop: 05/19/21 13:59 Last Admin: 04/22/21 13:33 Dose: 20 mg Documented by: Bismuth Subsalicylate (Bismuth Subsalicylate Liqd 236 Ml) 15 ml PO PRN PRN PRN Reason: Loose Stool Stop: 05/19/21 05:41 Docusate Sodium (Docusate Sodium 100 Mg Cap) 100 mg PO TID PRN PRN Reason: Constipation Stop: 05/19/21 13:59 Ferrous Sulfate (Ferrous Sulfate 325 Mg Tab) 325 mg PO QAM [facility] Stop: 05/20/21 08:59 Last Admin: 04/22/21 08:27 Dose: 325 mg Documented by: Hydroxyzine HCl (Hydroxyzine Hcl 25 Mg Tab) 50 mg PO HSZ PRN PRN Reason: Insomnia Stop: 05/19/21 05:41 Last Admin: 04/21/21 20:02 Dose: 50 mg Documented by: Hydroxyzine HCl (Hydroxyzine Hcl 25 Mg Tab) 25 mg PO Q4H PRN PRN Reason: Anxiety Stop: 05/19/21 05:41 Last Admin: 04/22/21 13:35 Dose: 25 mg Documented by: Levothyroxine Sodium (Levothyroxine Sodium 75 Mcg Tablet) 75 mcg PO DAILYBB [facility] Stop: 05/20/21 07:59 Last Admin: 04/22/21 08:27 Dose: 75 mcg Documented by: Magnesium Hydroxide (Magnesium Hydroxide Susp 30 Ml Udc) 30 ml PO DAILY PRN PRN Reason: Constipation Stop: 05/19/21 05:41 Metformin HCl (Metformin Hcl 500 Mg Tab) 500 mg PO BIDM [facility] Stop: 05/19/21 17:44 Last Admin: 04/22/21 08:28 Dose: Not Given Documented by: Multivitamins ([facility]ivitamin Tab) [facility] Stop: 05/20/21 08:59 Last Admin: 04/22/21 08:28 Dose: 1 tab Documented by: Olanzapine (Olanzapine 5 Mg Tablet) [facility] Stop: 05/22/21 08:59 Last Admin: 04/22/21 08:28 Dose: 5 mg Documented by: Olanzapine (Olanzapine 2.5 Mg Tab) 7.5 mg PO HS [facility] Stop: 05/21/21 21:59 Last Admin: 04/21/21 20:01 Dose: 7.5 mg Documented by: Pantoprazole Sodium (Pantoprazole 40 Mg Tab) 40 mg PO BID CARLIE Stop: 05/19/21 20:59 Last Admin: 04/22/21 08:28 Dose: 40 mg Documented by: Sodium Chloride (Sodium Chloride 0.65% Na Soln 45 Ml ([place])) 1 - 2 sprays NA PRN PRN PRN Reason: Nasal Dryness/Congestion Stop: 05/19/21 05:41 Mental Health & Subst Abuse Tx Therapist Name of Therapist: N/A Hoop Bending Machine Operator Name of Hoop Bending Machine Operator: N/A Post Discharge Appointments Primary Care Physician Name Of Family Doctor: Dr. Newell
[2021-04-22] MEDS: OLANZAPINE 2.5 MG TAB PO SCH (20:33)
[2021-04-23] MEDS: hydrOXYzine HCl 25 MG TAB PO PRN ×4 (04:30→20:34)
[2021-04-23] MEDS: ACETAMINOPHEN 325 MG TAB PO PRN ×3 (04:31→16:50)
[2021-04-23] MEDS: BACLOFEN 20 MG TAB PO SCH ×3 (08:00→20:33)
[2021-04-23] MEDS: FERROUS SULFATE 325 MG TAB PO SCH (08:00)
[2021-04-23] MEDS: LEVOTHYROXINE SODIUM 75 MCG TABLET PO SCH (08:00)
[2021-04-23] MEDS: OLANZAPINE 2.5 MG TAB PO SCH ×2 (08:01→20:34)
[2021-04-23] MEDS: MULTIVITAMIN TAB PO SCH (08:01)
[2021-04-23] MEDS: PANTOprazole 40 MG TAB PO SCH ×2 (08:02→20:34)
[2021-04-23] MEDS: metFORMIN HCL 500 MG TAB PO SCH ×2 (12:49→17:30)
[2021-04-23] MEDS: ALUMINUM/MAGNESIUM SUSP 30 ML UDC PO PRN ×2 (13:31→20:55)
--- NOTE | 2021-04-23 13:51 | Psychiatric Progress Note ---
Date of Service April 23, 2021 Impression / Recommendations Impression This is a 55-year-old woman with a history of schizoaffective illness who is presenting in a decompensated state likely secondary to medication failure and noncompliance. Patient will require inpatient hospitalization for purposes of safety, stabilization, and medication management. (1) Schizoaffective disorder: The patient was admitted to the [facility] ([facility]) on every 15 minute checks (behavioral with suicide precautions for safety. The patient will participate in group, recreational, and milieu therapies and will be offered additional individual and family sessions as clinically appropriate. 04/19/2021atient will be restarted on Zyprexa 5 mg p.o. twice daily. We will hold her BuSpar for the time being. 04/20/2021atient will be continued on Zyprexa 5 mg p.o. twice daily. Making slow progress. 04/21/2021will increase nighttime Zyprexa to 7.5 mg p.o. nightly. Will leave morning Zyprexa at 5 mg p.o. every morning. 04/22/2021we will increase Zyprexa dose to 7.5 mg p.o. twice daily. Patient still experiencing psychotic delusions. 04/23/2021atient appears to be making good progress. We will continue with current regimen and consider discharge planning in the next coming days. Protective Factors Assessment Employed: No Interval History Chief Complaint "I am feeling better". Review of Systems Sleep Information Total Hours of Sleep: 4 Sleep Comments: pt given vistaril per rn. pt appeared to sleep 2.5 hrs during evening shift. pt on q-15 minute checks Meal Information Percent Meal Consumed - Breakfast: 25 Percent Meal Consumed - Lunch: 25 Percent Meal Consumed - Dinner: 25 Nutrition Comment: pt. had a banana and water Subjective Subjective Patient seen, chart reviewed and case discussed with treatment team, nursing and social work. Patient reports a good night of sleep. No side effects reported or observed. Regarding mood, patient reports some improvement which they attribute to the medications as well as the therapy they have received on the unit. She has been attending some groups although minimally interactive. She has begun to eat, he reports feeling much better once having done so. She no longer feels that the spirits are preventing her from eating, or that the food is poisoned. I spent 30 minutes with the patient, 50% of which was dedicated to counselling and coordination of care. Physical Exam Psychiatric Orientation: alert Apperance: appropriately dressed Eye Contact: + fair eye contact Motor Behavior: no abnormal motor movements Speech: + pressured speech Affect: + anxious affect and mood congruent with affect Mood: + anxious mood Thought Process: + circumstantial thought process, + tangential thought process, + flight of ideas and + perseveration Thought Content: + paranoid, + phobias, + delusions and + persecution Suicidal Thoughts: denies suicidal thoughts Homicidal Thoughts: denies homicidal thoughts Hallucinations: + auditory hallucinations Cognition: recent memory grossly intact Estimated Intelligence: average estimated intelligence Insight: + fair insight Judgement: + poor judgement Vital Signs (Past 24 Hours) Last Vital Signs Temp 36.8 C 04/23/21 06:26 Pulse 139 H 04/23/21 06:27 Resp 18 04/23/21 06:26 BP 104/68 04/23/21 06:27 Pulse Ox 99 04/19/21 05:44 Results & Data ([facility]) Current Inpatient Medications Current Inpatient Medications: Current Inpatient Medications Acetaminophen (Acetaminophen 325 Mg Tab) 650 mg PO Q4H PRN PRN Reason: Headache or Minor Fever Stop: 05/19/21 05:41 Last Admin: 04/23/21 10:28 Dose: 650 mg Documented by: Al Hydrox/Mg Hydrox/Simethicone (Aluminum/Magnesium Susp 30 Ml Udc) 30 ml PO Q4H PRN PRN Reason: GI Upset Stop: 05/19/21 05:41 Last Admin: 04/23/21 13:31 Dose: 30 ml Documented by: Baclofen (Baclofen 20 Mg Tab) 20 mg PO TID CARLIE Stop: 05/19/21 13:59 Last Admin: 04/23/21 13:28 Dose: 20 mg Documented by: Bismuth Subsalicylate (Bismuth Subsalicylate Liqd 236 Ml) 15 ml PO PRN PRN PRN Reason: Loose Stool Stop: 05/19/21 05:41 Docusate Sodium (Docusate Sodium 100 Mg Cap) 100 mg PO TID PRN PRN Reason: Constipation Stop: 05/19/21 13:59 Ferrous Sulfate (Ferrous Sulfate 325 Mg Tab) 325 mg PO QAM CARLIE Stop: 05/20/21 08:59 Last Admin: 04/23/21 08:00 Dose: 325 mg Documented by: Hydroxyzine HCl (Hydroxyzine Hcl 25 Mg Tab) 50 mg PO HSZ PRN PRN Reason: Insomnia Stop: 05/19/21 05:41 Last Admin: 04/22/21 20:33 Dose: 50 mg Documented by: Hydroxyzine HCl (Hydroxyzine Hcl 25 Mg Tab) 25 mg PO Q4H PRN PRN Reason: Anxiety Stop: 05/19/21 05:41 Last Admin: 04/23/21 10:28 Dose: 25 mg Documented by: Levothyroxine Sodium (Levothyroxine Sodium 75 Mcg Tablet) 75 mcg PO DAILYBB [facility] Stop: 05/20/21 07:59 Last Admin: 04/23/21 08:00 Dose: 75 mcg Documented by: Magnesium Hydroxide (Magnesium Hydroxide Susp 30 Ml Udc) 30 ml PO DAILY PRN PRN Reason: Constipation Stop: 05/19/21 05:41 Metformin HCl (Metformin Hcl 500 Mg Tab) 500 mg PO BIDM [facility] Stop: 05/19/21 17:44 Last Admin: 04/23/21 12:49 Dose: 500 mg Documented by: Multivitamins (Multivitamin Tab) 1 tab PO QAM [facility] Stop: 05/20/21 08:59 Last Admin: 04/23/21 08:01 Dose: 1 tab Documented by: Olanzapine (Olanzapine 2.5 Mg Tab) 7.5 mg PO BID [facility] Stop: 05/22/21 20:59 Last Admin: 04/23/21 08:01 Dose: 7.5 mg Documented by: Pantoprazole Sodium (Pantoprazole 40 Mg Tab) 40 mg PO BID [facility] Stop: 05/19/21 20:59 Last Admin: 04/23/21 08:02 Dose: 40 mg Documented by: Sodium Chloride (Sodium Chloride 0.65% Na Soln 45 Ml ([place])) 1 - 2 sprays NA PRN PRN PRN Reason: Nasal Dryness/Congestion Stop: 05/19/21 05:41 Mental Health & Subst Abuse Tx Psychiatrist Name of Psychiatrist: [facility] - Dr. Medley Psychiatrist's Date of Appointment with Psychiatrist: 05/03/21 Time of Appointment with Psychiatrist: 1:30 PM Psychiatric Appointment Comment: [address] [facility], [place] [id number] Therapist Name of Therapist: [facility] - currently on waitlist Seasonal Greenery Bundler Name of Seasonal Greenery Bundler: N/A Post Discharge Appointments Primary Care Physician Name Of Family Doctor: FREDY Newell Primary Care Provider Appointment Comment: Follow up as needed. Contact Information Discharge Discharge Address: [address] [place] [address], [facility], [place] [id number]
[2021-04-24] MEDS: hydrOXYzine HCl 25 MG TAB PO PRN ×4 (00:14→20:06)
[2021-04-24] MEDS: BACLOFEN 20 MG TAB PO SCH ×3 (08:18→20:10)
[2021-04-24] MEDS: LEVOTHYROXINE SODIUM 75 MCG TABLET PO SCH (08:18)
[2021-04-24] MEDS: FERROUS SULFATE 325 MG TAB PO SCH (08:18)
[2021-04-24] MEDS: OLANZAPINE 2.5 MG TAB PO SCH (08:19)
[2021-04-24] MEDS: PANTOprazole 40 MG TAB PO SCH ×2 (08:19→20:09)
[2021-04-24] MEDS: metFORMIN HCL 500 MG TAB PO SCH ×2 (08:19→17:13)
[2021-04-24] MEDS: MULTIVITAMIN TAB PO SCH (08:19)
[2021-04-24] MEDS: ALUMINUM/MAGNESIUM SUSP 30 ML UDC PO PRN (09:49)
[2021-04-24] MEDS: BISMUTH SUBSALICYLATE LIQD 236 ML PO PRN ×2 (10:24→14:25)
[2021-04-24] MEDS: ACETAMINOPHEN 325 MG TAB PO PRN ×2 (10:56→15:54)
--- NOTE | 2021-04-24 18:14 | Psychiatric Progress Note ---
Date of Service April 24, 2021 Impression / Recommendations Impression per Dr. Schaefer: This is a 55-year-old woman with a history of schizoaffective illness who is presenting in a decompensated state likely secondary to medication failure and noncompliance. Patient will require inpatient hospitalization for purposes of safety, stabilization, and medication management. 04/24/21: improving, persistent delusional beliefs around rationale for fasting but is eating more (1) Schizoaffective disorder: 04/24/21--begin shift Zyprexa to hs and titrate to target 20 mg prior to discharge. Will receive 10 mg this hs=17.5 mg total daily dose today, 20 mg hs starting tomorrow for Zyprexa. Risks/benefits/alternatives reviewed with patient, including but not limited to need for monitoring for TD and metabolic issues, HGB A1C has been relatively stable and <7 on metformin, doesn't require routine glucose monitoring. She voiced understanding. Reviewed Dr. Schaefer care in italics below: The patient was admitted to the [facility] ([facility] unit) on every 15 minute checks (behavioral with suicide precautions for safety. The patient will participate in group, recreational, and milieu therapies and will be offered additional individual and family sessions as clinically appropriate. 04/19/2021atient will be restarted on Zyprexa 5 mg p.o. twice daily. We will hold her BuSpar for the time being. 04/20/2021atient will be continued on Zyprexa 5 mg p.o. twice daily. Making slow progress. 04/21/2021will increase nighttime Zyprexa to 7.5 mg p.o. nightly. Will leave morning Zyprexa at 5 mg p.o. every morning. 04/22/2021we will increase Zyprexa dose to 7.5 mg p.o. twice daily. Patient still experiencing psychotic delusions. 04/23/2021atient appears to be making good progress. We will continue with current regimen and consider discharge planning in the next coming days. Protective Factors Assessment Employed: No Interval History Identifying Information 55 yo female with a history of schizoaffective disorder, admit 04/19 on a 201 commitment. MNPR due to psychosis. Chief Complaint "I'm eating a little more, I'd just rather be fasting to keep the demons away. Can I go home?". Review of Systems Sleep Information Total Hours of Sleep: 4.5 Meal Information Percent Meal Consumed - Breakfast: 25 Percent Meal Consumed - Lunch: 50 Percent Meal Consumed - Dinner: 20 Nutrition Comment: pt ate a banana Subjective Subjective Patient was seen & assessed and interval progress reviewed with nursing and social work. Chart reviewed. Patient's Abilify and buspar were discontinued in favor of a retrial of Zyprexa. She likes feeling calmer but had submitted a 72 hr notice as wants to return home to [facility]. Patient was not felt to be recovered or eating enough. Yesterday ate a banana for breakfast and only 25% of other meals. She readily tells me about food she likes to cook at home and is open to a meeting with her significant other. She would prefer to take her Zyprexa once a day upon discharge and was agreeable to shifting dosing to hs. Physical Exam Psychiatric Orientation: alert Apperance: appropriately dressed Eye Contact: + fair eye contact Motor Behavior: no abnormal motor movements Speech: normal rate/rhythm/volume of speech Affect: + anxious affect and mood congruent with affect Mood: + anxious mood Thought Process: + circumstantial thought process Thought Content: + delusions Suicidal Thoughts: denies suicidal thoughts Homicidal Thoughts: denies homicidal thoughts Hallucinations: no auditory hallucinations (did not appear to be responding to internal stimuli) Cognition: recent memory grossly intact Estimated Intelligence: average estimated intelligence Insight: + limited insight Judgement: + limited judgement Vital Signs (Past 24 Hours) Last Vital Signs Temp 36.7 C 04/24/21 06:35 Pulse 80 04/24/21 06:36 Resp 16 04/24/21 06:35 BP 120/80 04/24/21 06:36 Pulse Ox 99 04/19/21 05:44 Results & Data ([facility] [place]) Current Inpatient Medications Current Inpatient Medications: Current Inpatient Medications Acetaminophen (Acetaminophen 325 Mg Tab) 650 mg PO Q4H PRN PRN Reason: Headache or Minor Fever Stop: 05/19/21 05:41 Last Admin: 04/24/21 15:54 Dose: 650 mg Documented by: Al Hydrox/Mg Hydrox/Simethicone (Aluminum/Magnesium Susp 30 Ml Udc) 30 ml PO Q4H PRN PRN Reason: GI Upset Stop: 05/19/21 05:41 Last Admin: 04/24/21 09:49 Dose: 30 ml Documented by: Baclofen (Baclofen 20 Mg Tab) 20 mg PO TID CARLIE Stop: 05/19/21 13:59 Last Admin: 04/24/21 14:22 Dose: 20 mg Documented by: Bismuth Subsalicylate (Bismuth Subsalicylate Liqd 236 Ml) 15 ml PO PRN PRN PRN Reason: Loose Stool Stop: 05/19/21 05:41 Last Admin: 04/24/21 14:25 Dose: 15 ml Documented by: Docusate Sodium (Docusate Sodium 100 Mg Cap) 100 mg PO TID PRN PRN Reason: Constipation Stop: 05/19/21 13:59 Ferrous Sulfate (Ferrous Sulfate 325 Mg Tab) 325 mg PO QAM CARLIE Stop: 05/20/21 08:59 Last Admin: 04/24/21 08:18 Dose: 325 mg Documented by: Hydroxyzine HCl (Hydroxyzine Hcl 25 Mg Tab) 50 mg PO HSZ PRN PRN Reason: Insomnia Stop: 05/19/21 05:41 Last Admin: 04/24/21 00:14 Dose: 50 mg Documented by: Hydroxyzine HCl (Hydroxyzine Hcl 25 Mg Tab) 25 mg PO Q4H PRN PRN Reason: Anxiety Stop: 05/19/21 05:41 Last Admin: 04/24/21 15:55 Dose: 25 mg Documented by: Levothyroxine Sodium (Levothyroxine Sodium 75 Mcg Tablet) 75 mcg PO DAILYBB CARLIE Stop: 05/20/21 07:59 Last Admin: 04/24/21 08:18 Dose: 75 mcg Documented by: Magnesium Hydroxide (Magnesium Hydroxide Susp 30 Ml Udc) 30 ml PO DAILY PRN PRN Reason: Constipation Stop: 05/19/21 05:41 Metformin HCl (Metformin Hcl 500 Mg Tab) 500 mg PO [facility]M [facility] Stop: 05/19/21 17:44 Last Admin: 04/24/21 08:19 Dose: 500 mg Documented by: Multivitamins (Multivitamin Tab) 1 tab PO QAM CARLIE Stop: 05/20/21 08:59 Last Admin: 04/24/21 08:19 Dose: 1 tab Documented by: Olanzapine (Olanzapine 10 Mg Tab) 10 mg PO HS ONE Stop: 04/24/21 22:01 Olanzapine (Olanzapine 20 Mg Tablet) 20 mg PO HS CARLIE Stop: 05/24/21 21:59 Pantoprazole Sodium (Pantoprazole 40 Mg Tab) 40 mg PO BID CARLIE Stop: 05/19/21 20:59 Last Admin: 04/24/21 08:19 Dose: 40 mg Documented by: Sodium Chloride (Sodium Chloride 0.65% Na Soln 45 Ml ([place])) 1 - 2 sprays NA PRN PRN PRN Reason: Nasal Dryness/Congestion Stop: 05/19/21 05:41 Mental Health & Subst Abuse Tx Psychiatrist Name of Psychiatrist[facility] - Dr. Medley Psychiatrist's Date of Appointment with Psychiatrist: 05/03/21 Time of Appointment with Psychiatrist: 1:30 PM Psychiatric Appointment Comment: [facility] [address] [facility], [place] [address] Therapist Name of Therapist: [facility] - currently on waitlist Italian Teacher Name of Italian Teacher: N/A Post Discharge Appointments Primary Care Physician Name Of Family Doctor: FREDY Newell Primary Care Provider Appointment Comment: Follow up as needed. Contact Information Discharge Discharge Address: [address] [place] [address], [address] [id number]
[2021-04-24] MEDS ORDERED: OLANZapine 10 MG TAB PO ONE (22:00)
[2021-04-25] MEDS: hydrOXYzine HCl 25 MG TAB PO PRN (00:35)
[2021-04-25] MEDS: ACETAMINOPHEN 325 MG TAB PO PRN ×2 (04:26→10:46)
[2021-04-25] MEDS: LEVOTHYROXINE SODIUM 75 MCG TABLET PO SCH (08:25)
[2021-04-25] MEDS: FERROUS SULFATE 325 MG TAB PO SCH (08:25)
[2021-04-25] MEDS: BACLOFEN 20 MG TAB PO SCH (08:25)
[2021-04-25] MEDS: metFORMIN HCL 500 MG TAB PO SCH (08:26)
[2021-04-25] MEDS: PANTOprazole 40 MG TAB PO SCH (08:26)
[2021-04-25] MEDS: MULTIVITAMIN TAB PO SCH (08:26)
[2021-04-25 08:46] LABS: BUN Creatinine Ratio 5.7 (10-20); Calcium 9.4 mg/dl (8.5-10.1); Creatinine Clr Calc Pharmacy 96.7 ml/min; Est GFR (African American) 118.7 ml/min; Est GFR (Non-African American) 102.4 ml/min; Potassium 3.8 mmol/L (3.5-5.1)
[2021-04-25] MEDS: BISMUTH SUBSALICYLATE LIQD 236 ML PO PRN (09:28)
--- NOTE | 2021-04-25 10:29 | Discharge Summary ---
Date of Service April 25, 2021 History of Present Illness As per admitting psychiatrist Dr. Schaefer: Per ED case management "pt presents to the ER with police after she called them due to her increase in paranoia. Pt states her voices have increased over the course of the past month due to her not taking her meds. PT states she does not take them at home because her voices her telling her that her water is poisoned. Pt does not think she is safe at home due to the poisoned water. She states she was drinking water bottles with not poisoned water. She stated she ran out of the water so she stopped taking her pills because she could not swallow the pills without water. She reports that the voices have increased significantly over the past month to the point where she had to try and seek out help. Pt stated she was going to start fasting to fight the voices from controlling her. She believes she would be able to fast anywhere from 20 to 40 days to get rid of the voices. Pt states the voices are demonic spirts who are trying to control her. Pt stated her brother told her if she prays enough the voices will go away and no longer bother her. She states the voices are both male and female and that she does not know who they are. She has started to talk back to the voices in an attempt to control them and figure out what they want. Pt thinks she is the focal point of a political conspiracy theory to help dethrone the government and that she needs to get help to before she can further investigate. She also reports an increase in confusion over the course of the past few weeks. Pt is currently seeing Dr. Medley with [facility] but has no other care team. Pt does have one prior inpatient stay at [facility]. Pt is seeking inpatient treatment and is willing to sign self in." Upon evaluation today patient confirms the above is accurate. She continues to believe that food and liquids are poisoned, but is accepting that the water here is safe. Patient is quite psychotic during the course of the interview and difficult to redirect at times. Patient is well-known from last admission, it appears that her outpatient provider attempted to take her off of the Zyprexa medication and put her on Abilify and patient decompensated and ultimately became noncompliant. She is agreeable to restarting the Zyprexa medication to regain stability. Physical Exam Mental Examination See admission H&P and DOD summary. Vital Signs (Past 24 Hours) Last Vital Signs Temp 36.6 C 04/25/21 06:45 Pulse 98 H 04/25/21 06:45 Resp 16 04/25/21 06:45 BP 120/77 04/25/21 06:45 Pulse Ox 99 04/19/21 05:44 Principal Diagnosis schizoaffective disorder Psychiatric Data See daily stay summary. In short, safety was maintained and the patient was cooperative with care. Medication changes included discontinuation of Abilify a nd Buspar in favor of a retrial of Zyprexa by Dr. Schaefer and they tolerated this well. Dosing is shifting to bedtime for ease of administration and to minimize daytime sedation. A family session was held with her fiance and safety plan was completed prior to discharge. The patient remains preoccupied at times with the idea of fasting, at times related to her concerns about developing worsening of her diabetes and at other times to for confucianism reasons to virgen of evil spirits. These thoughts have decreased in intensity and she is now eating and drinking well. She has consistently been requesting discharge and there is no criteria for an inpatient involuntary commitment at this time. I did recheck her electrolytes and renal function prior to discharge to ensure no clinically significant abnormalities. Her sodium today is 130 which appears to be a chronic issue, likely related to antipsychotics and can be monitored outpatient. There is no evidence of polydipsia on the unit which would necessitate fluid restriction. Zyprexa dosing can be reassessed on an outpatient basis after a meaningful period of stability as minimizing dose over time would limit metabolic risks, perhaps even considering addition of an agent like Trilafon to minimize dosing requirements, of course all at the discretion of Dr. Medley. Day of Discharge Assessment Today the patient voices readiness for discharge. They note improvement in mood and deny thoughts to harm self or others. Thoughts remain concrete but organized and they are improved from admission. There is no evidence of hallucinations and although expresses false beliefs about fasting they are redirectible and not interfering with PO intake at this time. They agree to take mediations as prescribed and keep follow-up appointments. They are stable for discharge to outpatient level of care. Transition of Care Transition Of Care Record: was reviewed with the patient Advance Directives Advance Directives Information Provided: Yes Advance Directives: No Mental Health Advance Directive: No Advance Directives on File: No Living Will: No Power of Service Cleaner: No Advance Directives Reason:: Declines as Mental Health Visit. Risk Factors Assessment : Yes Do You Have Access To A Gun?: No Health Problems: Yes Mental Health Diagnoses: Yes Substance Use Disorders: No Previous Psychiatric Hospitalization: Yes Protective Factors Assessment Employed: No Stable Relationships: Yes Supportive Family: Yes Tobacco Cessation at Discharge Tobacco Cessation Medication Prescribed at Discharge: Not Applicable/Non-Smoker Total Time Total Time Spent: Greater Than 30 Minutes Total Time Includes: Examination of the patient, Discharge Planning and Medication Reconciliation Discharge Data Lab Results 04/19/21 04/19/21 04/19/21 01:15 01:15 01:15 WBC 7.17 RBC 4.24 Hgb 13.0 Hct 37.4 MCV 88.2 MCH 30.7 MCHC 34.8 RDW Std Deviation 44.3 RDW Coeff of Arjun 13.7 Plt Count 379 MPV 9.1 Immature Gran % (Auto) 0.1 Neut % (Auto) 67.4 Lymph % (Auto) 22.6 Ferry % (Auto) 8.5 Eos % (Auto) 0.8 Baso % (Auto) 0.6 Neut # (Auto) 4.83 Lymph # (Auto) 1.62 Ferry # (Auto) 0.61 H Eos # (Auto) 0.06 Baso # (Auto) 0.04 Immature Gran # (Auto) 0.01 Sodium 132 L Potassium 3.6 Chloride 101 Carbon Dioxide 24 Anion Gap 7.0 BUN 9 Creatinine 0.72 Est Cr Clr Drug Dosing 84.6 Est GFR ( Amer) 110.8 Est GFR (Non-Af Amer) 95.6 BUN/Creatinine Ratio 13.0 Glucose 90 Estimat Average Glucose Hemoglobin A1c Calcium 9.5 Total Bilirubin 0.6 Direct Bilirubin AST 23 ALT 29 Alkaline Phosphatase 68 Total Protein 8.0 Albumin 4.2 Globulin 3.8 Albumin/Globulin Ratio 1.1 Triglycerides TSH 3.720 Urine Color Urine Appearance Urine pH Ur Specific [place] Urine Protein Urine Glucose (UA) Urine Ketones Urine Blood Urine Nitrite Urine Bilirubin Urine Urobilinogen Ur Leukocyte Esterase Urine WBC (Auto) Urine RBC (Auto) U Hyaline Cast (Auto) U Epithel Cells (Auto) Urine Bacteria (Auto) Salicylates < 1.7 L Urine Opiates Screen Ur Methadone, Qual Acetaminophen < 2 L Urine Barbiturates Ur Phencyclidine (PCP) U Amphetamin/Meth Scrn MDMA (Ecstasy) Screen U Benzodiazepines Scrn Ur Cocaine Metabolite U Marijuana (THC) Screen Ethyl Alcohol mg/dL COVID-19 Eval Order SARS-CoV-2 (PCR) 04/19/21 04/19/21 04/19/21 01:15 01:15 01:15 WBC RBC Hgb Hct MCV MCH MCHC RDW Std Deviation RDW Coeff of Arjun Plt Count MPV Immature Gran % (Auto) Neut % (Auto) Lymph % (Auto) Ferry % (Auto) Eos % (Auto) Baso % (Auto) Neut # (Auto) Lymph # (Auto) Ferry # (Auto) Eos # (Auto) Baso # (Auto) Immature Gran # (Auto) Sodium Potassium Chloride Carbon Dioxide Anion Gap BUN Creatinine Est Cr Clr Drug Dosing Est GFR ( Amer) Est GFR (Non-Af Amer) BUN/Creatinine Ratio Glucose Estimat Average Glucose Hemoglobin A1c Calcium Total Bilirubin Direct Bilirubin AST ALT Alkaline Phosphatase Total Protein Albumin Globulin Albumin/Globulin Ratio Triglycerides TSH Urine Color Dark Yellow Urine Appearance Cloudy A Urine pH 5.0 Ur Specific [place] 1.025 Urine Protein 1+ H Urine Glucose (UA) Negative Urine Ketones 3+ H Urine Blood 3+ H Urine Nitrite Negative Urine Bilirubin 2+ H Urine Urobilinogen Negative Ur Leukocyte Esterase 1+ H Urine WBC (Auto) 5-10 H Urine RBC (Auto) >30 H U Hyaline Cast (Auto) 0 U Epithel Cells (Auto) >30 H Urine Bacteria (Auto) Negative Salicylates Urine Opiates Screen Neg Ur Methadone, Qual Neg Acetaminophen Urine Barbiturates Neg Ur Phencyclidine (PCP) Neg U Amphetamin/Meth Scrn Neg MDMA (Ecstasy) Screen Neg U Benzodiazepines Scrn Neg Ur Cocaine Metabolite Neg U Marijuana (THC) Screen Neg Ethyl Alcohol mg/dL < 3.0 COVID-19 Eval Order SARS-CoV-2 (PCR) 04/19/21 04/19/21 04/20/21 02:05 02:05 07:04 WBC RBC Hgb Hct MCV MCH MCHC RDW Std Deviation RDW Coeff of Arjun Plt Count MPV Immature Gran % (Auto) Neut % (Auto) Lymph % (Auto) Ferry % (Auto) Eos % (Auto) Baso % (Auto) Neut # (Auto) Lymph # (Auto) Ferry # (Auto) Eos # (Auto) Baso # (Auto) Immature Gran # (Auto) Sodium 136 Potassium 3.8 Chloride 104 Carbon Dioxide 21 Anion Gap 12.0 H BUN 10 Creatinine 0.59 L Est Cr Clr Drug Dosing 103.2 Est GFR ( Amer) 121.3 Est GFR (Non-Af Amer) 104.6 BUN/Creatinine Ratio 17.5 Glucose 68 L Estimat Average Glucose Hemoglobin A1c Calcium 8.8 Total Bilirubin 0.7 Direct Bilirubin 0.2 AST 33 ALT 39 Alkaline Phosphatase 58 Total Protein 6.7 Albumin 3.5 Globulin 3.2 Albumin/Globulin Ratio 1.1 Triglycerides 80 TSH Urine Color Urine Appearance Urine pH Ur Specific [place] Urine Protein Urine Glucose (UA) Urine Ketones Urine Blood Urine Nitrite Urine Bilirubin Urine Urobilinogen Ur Leukocyte Esterase Urine WBC (Auto) Urine RBC (Auto) U Hyaline Cast (Auto) U Epithel Cells (Auto) Urine Bacteria (Auto) Salicylates Urine Opiates Screen Ur Methadone, Qual Acetaminophen Urine Barbiturates Ur Phencyclidine (PCP) U Amphetamin/Meth Scrn MDMA (Ecstasy) Screen U Benzodiazepines Scrn Ur Cocaine Metabolite U Marijuana (THC) Screen Ethyl Alcohol mg/dL COVID-19 Eval Order Covid19 at [facility] SARS-CoV-2 (PCR) NEGATIVE 04/20/21 04/25/21 07:04 07:38 WBC RBC Hgb Hct MCV MCH MCHC RDW Std Deviation RDW Coeff of Arjun Plt Count MPV Immature Gran % (Auto) Neut % (Auto) Lymph % (Auto) Ferry % (Auto) Eos % (Auto) Baso % (Auto) Neut # (Auto) Lymph # (Auto) Ferry # (Auto) Eos # (Auto) Baso # (Auto) Immature Gran # (Auto) Sodium 130 L Potassium 3.8 Chloride 97 L Carbon Dioxide 26 Anion Gap 7.0 BUN 4 L Creatinine 0.63 Est Cr Clr Drug Dosing 96.7 Est GFR ( Amer) 118.7 Est GFR (Non-Af Amer) 102.4 BUN/Creatinine Ratio 5.7 L Glucose 80 Estimat Average Glucose 123 Hemoglobin A1c 5.9 H Calcium 9.4 Total Bilirubin Direct Bilirubin AST ALT Alkaline Phosphatase Total Protein Albumin Globulin Albumin/Globulin Ratio Triglycerides TSH Urine Color Urine Appearance Urine pH Ur Specific [place] Urine Protein Urine Glucose (UA) Urine Ketones Urine Blood Urine Nitrite Urine Bilirubin Urine Urobilinogen Ur Leukocyte Esterase Urine WBC (Auto) Urine RBC (Auto) U Hyaline Cast (Auto) U Epithel Cells (Auto) Urine Bacteria (Auto) Salicylates Urine Opiates Screen Ur Methadone, Qual Acetaminophen Urine Barbiturates Ur Phencyclidine (PCP) U Amphetamin/Meth Scrn MDMA (Ecstasy) Screen U Benzodiazepines Scrn Ur Cocaine Metabolite U Marijuana (THC) Screen Ethyl Alcohol mg/dL COVID-19 Eval Order SARS-CoV-2 (PCR) Hospital Course (1) Schizoaffective disorder: 04/24/21--begin shift Zyprexa to hs and titrate to target 20 mg prior to discharge. Will receive 10 mg this hs=17.5 mg total daily dose today, 20 mg hs starting tomorrow for Zyprexa. Risks/benefits/alternatives reviewed with patient, including but not limited to need for monitoring for TD and metabolic issues, HGB A1C has been relatively stable and <7 on metformin, doesn't require routine glucose monitoring. She voiced understanding. Reviewed Dr. Tiago baker in italics below: The patient was admitted to the [facility] ([facility] mental [facility] unit) on every 15 minute checks (behavioral with suicide precautions for safety. The patient will participate in group, recreational, and milieu therapies and will be offered additional individual and family sessions as clinically appropriate. 04/19/2021atient will be restarted on Zyprexa 5 mg p.o. twice daily. We will hold her BuSpar for the time being. 04/20/2021atient will be continued on Zyprexa 5 mg p.o. twice daily. Making slow progress. 04/21/2021will increase nighttime Zyprexa to 7.5 mg p.o. nightly. Will leave morning Zyprexa at 5 mg p.o. every morning. 04/22/2021we will increase Zyprexa dose to 7.5 mg p.o. twice daily. Patient still experiencing psychotic delusions. 04/23/2021atient appears to be making good progress. We will continue with current regimen and consider discharge planning in the next coming days. Mental Health & Subst Abuse Tx Psychiatrist Name of Psychiatrist: [facility] - Dr. Medley Psychiatrist's Date of Appointment with Psychiatrist: 05/03/21 Time of Appointment with Psychiatrist: 1:30 PM Psychiatric Appointment Comment: [address] [facility], [place] [address] Psychiatrist Release of Information: Obtained, Reviewed and Signed Therapist Name of Therapist: [facility] - currently on waitlist Roof Tile Layer Name of Roof Tile Layer: N/A Post Discharge Appointments Primary Care Physician Name Of Family Doctor: FREDY Newell [facility] Date of Appointment with PCP: 05/03/21 Time of Appointment with PCP: 10:20 AM Provider Appointment Comment: [address] [facility] [place] [address] Primary Care Release of Information: Obtained, Reviewed and Signed Smoking Cessation Counseling Tobacco Cessation Medication Prescribed at Discharge: Not Applicable/Non-Smoker Contact Information Discharge Discharge Address: [address] [place] [id number] Discharge Plan Discharge Items Patient Disposition: Home - Self-Care Reason For Visit: SCHIZOAFFECTIVE DISORDER Discharge Diagnosis: same Activity: Resume your previous activity Non-emergency contact: Primary Care Provider and Psychiatrist Call non-emergency contact if: you have any medication questions and your symptoms worsen Follow-up/Referrals: Patrice Newell MD [Primary Care Provider] - Diet: Regular Addtl Attending Provider Instructions: SPECIAL CARE INSTRUCTIONS: 1. Follow through with your scheduled aftercare appointments. If unable to keep an appointment, please call to reschedule. 2. Take your medication only as prescribed. Medication should not be changed or stopped without the approval of your doctor. In the event of worsening symptoms or concerns about side effects, contact your doctor immediately. 3. Utilize new healthy coping skills, anger management skills, and stress management skills learned during your hospitalization. Journal feelings and process them with a support person. Identify stressors or situations that may result in relapse, deterioration or inappropriate behaviors and develop a plan to deal with those issues. 4. If your coping skills are ineffective and you are in crisis, contact your outpatient providers for direction. If unable to reach your providers, please call the [facility] CRISIS LINE AT , go to the [facility] walk-in center at [address] [facility], [address], [place], or go to the closest Emergency Room. 5. Avoid alcohol and un-prescribed drugs. 6. You have been provided with the Mental Health Advance Directives Pamphlet for your review. 7. Your condition is stable for discharge to outpatient level of care, but recovery is an ongoing process. Ifthoughts to harm yourself or others return, follow the safety plan developed during your stay. Planning for a safe return home includes securing weapons. Our treatment team recommends weaponsbe removed from the home until your outpatient provider reassesses your progress. In rare cases where the items themselvescannot be removed, guns and ammunitionshould be secured separatelyand keys stored by a reliable personoutside of the home. If you were admitted on an involuntary commitment, the police or other legal authorities may be involved in this process. AFTERCARE APPOINTMENTS: * Please call your insurance company prior to your scheduled appointment to confirm your aftercare providers are covered. Take your insurance information to your appointments. WHO TO CALL AND WHEN: Medical Emergencies: For questions or emergencies related to your hospital stay, please contact the Inpatient Behavioral Health Unit at [phone]. A clinical data management director is on-call 06/03 for the Behavioral Health Unit for emergencies At any time you feel your situation is an emergency, you may also call 911 immediately. Pending Studies at Discharge: No Stand-Alone Forms: My [facility] [address], Smoking Cessation Medications and DC Order Prescriptions: New olanzapine [Zyprexa] 20 mg Tablet 20 mg PO HS 30 Days Qty: 30 RF: 0 Continued pantoprazole 40 mg tablet,delayed release (DR/EC) 40 mg PO BID Qty: 180 RF: 3 baclofen 20 mg tablet 20 mg PO TID RF: 0 hydroxyzine HCl 50 mg tablet 50 mg PO BID PRN (Reason: Anxiety) RF: 0 Complete Multivitamin Tablet 1 tab PO QAM RF: 0 ferrous sulfate [iron] 325 mg (65 mg iron) Tablet 325 mg PO QAM RF: 0 docusate sodium [Colace] 100 mg Capsule 100 mg PO TID RF: 0 metformin 500 mg tablet 500 mg PO BIDM RF: 0 levothyroxine 75 mcg tablet 75 mcg PO QAM RF: 0 Changed triamcinolone acetonide 0.025 % cream 1 applic TOP BID PRN (Reason: Allergic Symptoms) Qty: 80 RF: 3 lidocaine 5 % adhesive patch,medicated 1 patch TOP HS PRN (Reason: pain) Qty: 0 RF: 0 Discontinued garlic 5,000 mcg tablet 5 mg PO PM RF: 0 buspirone 10 mg Tablet 10 mg PO TID RF: 0 aripiprazole 20 mg Tablet 20 mg PO HS RF: 0 Discharge Orders: Discharge Order (Routine); Ordered 04/25/21 Ordered By: Fariha Mari Admission Data Admit Date/Time: 04/19/21 05:07 Attending Provider: Fariha Mari Admit Provider: Eladio Schaefer Primary Care Provider: Patrice Newell Other Interventions: PSY Interdisciplinary Discharge Planning Last Done: 04/25/21 09:51 Coding Level of Care Code 42055 D/C day mgmt > 30 min Diagnoses Schizoaffective disorder F25.9
[2021-04-25] MEDS ORDERED: OLANZapine 20 MG TABLET PO SCH (22:00)
== END 2021-04-25 12:15 | disposition home or self-care (01) | DRG 885 ==
LOC: ED 00:50 → 3S 05:07 → SUATTDRO 05:07 → ED 05:22

== ENCOUNTER 2022-10-05 23:54 | Inpatient (IN) ==
[2022-10-06] MEDS ORDERED: HYDROcodone/ACETAMINOPHEN 10/325 TAB PO STA (00:06)
--- NOTE | 2022-10-06 00:10 | Emergency Department Note ---
History of Present Illness General Chief complaint: Fall Stated complaint: Fall, Ankle Pain Time Seen by Provider: 10/06/22 00:02 History of Present Illness 57-year-old female presents emergency department with left ankle pain after she was walking to the bathroom she had a nonsyncopal slip and fall. Patient states that she has left ankle pain she did not hit her head. Patient denies neck pain chest pain shortness of breath abdominal pain nausea vomiting. Patient's had a prior history of a right trimalleolar fracture; there are no other mitigating or alleviating factors Home Medications Medication Instructions Recorded Confirmed Type baclofen 20 mg tablet 20 mg PO TID 09/11/19 10/06/22 History hydroxyzine HCl 50 mg tablet 50 mg PO BID PRN Anxiety 09/11/19 10/06/22 History ferrous sulfate 325 mg (65 mg 325 mg PO QAM 02/28/21 10/06/22 History iron) tablet (iron) lidocaine 5 % topical patch 1 patch topical HS PRN pain #0 ea 04/25/21 10/06/22 Rx docusate sodium 100 mg capsule 100 mg PO BID 11/03/21 10/06/22 History (Colace) lithium carbonate 450 mg 450 mg PO QPM 01/06/22 10/06/22 History tablet,extended release cholecalciferol (vitamin D3) 25 25 mcg PO DAILY #30 caps 05/10/22 10/06/22 Rx mcg (1,000 unit) capsule lurasidone 80 mg tablet (Latuda) 80 mg PO DAILY 05/10/22 10/06/22 History paliperidone palmitate 234 mg/1.5 234 mg IM Q30D 05/10/22 10/06/22 History mL intramuscular syringe (Invega Sustenna) triamcinolone acetonide 0.025 % 1 applic topical BID PRN Allergic 05/10/22 10/06/22 Rx topical cream Symptoms #80 grams pantoprazole 40 mg tablet,delayed 40 mg PO BID #180 tabs 07/04/22 10/06/22 Rx release levothyroxine 100 mcg tablet 100 mcg PO DAILY #90 tabs 08/01/22 10/06/22 Rx lithium carbonate 300 mg 300 mg PO QAM 10/06/22 10/06/22 History tablet,extended release trazodone 150 mg tablet 150 mg PO HS 10/06/22 10/06/22 History Allergies Allergy/AdvReac Type Severity Reaction Status Date / Time amoxicillin AdvReac Mild GI UPSET Verified 10/06/22 01:24 Past Med/Surg History Medical History Anxiety Auditory hallucinations Bipolar 1 disorder Cholelithiasis Diabetes mellitus with neuropathy Encounter for vitamin deficiency screening Endometriosis Eustachian tube dysfunction Hyperlipidemia Hypertension Hypothyroid Mood disorder Noncompliance with medication regimen Schizoaffective disorder Shingles outbreak Sleep disturbances Ventral hernia Surgical History History of ankle surgery x3 History of hernia surgery History of laparoscopy for endometriosis, prior to pregnancies Hx of tubal ligation S/P exploratory laparotomy midline vertical supraumibical - in 30s - pt pushed a paper clip through abdomen [place] teeth extracted Family History Mother Myocardial infarction Congestive heart failure due to high blood pressure Hypertension Diabetes Father Hypertension Diabetes Denies family history of Ovarian cancer Prostate cancer Breast cancer Colorectal cancer Uterine cancer Social History Smoking Status: Current every day smoker Tobacco Type: Cigarettes Second Hand Exposure: No; Hx Alcohol Use: No Hx Substance Use: No Preferred Language: Burmese Communication Ability: Effective Visual Impairment: No Limitations Hearing Ability: Normal Lint Cleaner Required: No Beliefs That Will Affect Care: None marital status: Current Living Situation: Significant Other current occupational status: disabled How many Children do You have: 2 How many Children do You have Comment: 2 girls Feels Safe at Home: Yes Childhood Exposure to Second-Hand Smoke: Yes during the past year weight has: remained stable Dental Care, Regularly: Yes Physical Activity Frequency: Daily Seatbelt Use: always Sunscreen Use: No Assistive Devices: Contacts and Glasses Review of Systems A total of 10 systems reviewed and were otherwise negative Musculoskeletal: + joint pain Physical Exam Vital Signs Vital Signs - 24 hr 10/06/22 00:12 10/06/22 00:48 Temperature 37.4 C Temperature Source Oral Pulse Rate 112 H 96 H Respiratory Rate 20 Respiratory Effort / Characteristics Non-Labored Respiratory Depth Normal Blood Pressure 175/100 H Blood Pressure Mean 125 Pulse Oximetry 96 Oxygen Delivery Method Room Air Sepsis Recent Fever Within 48 Hours No Sepsis New/Unexplained Change in Mental Status N/A Sepsis Action Taken by Nursing No Action Required GENERAL: Patient is awake alert in no acute distress patient is resting comfortably and showing no signs of anxiety EYES: The conjunctivae are clear. The pupils are round and reactive. EARS, NOSE, MOUTH AND THROAT: The nose is without any evidence of any deformity. Mucous membranes are moist. Tongue is midline. NECK: The neck is nontender and supple. RESPIRATORY: Normal respiratory effort is noted there is no evidence of wheezing rhonchi or rales CARDIOVASCULAR: Regular rate and rhythm noted there no murmurs rubs or gallops normal S1 normal S2. GASTROINTESTINAL: The abdomen is soft. Abdomen is nontender. PELVIS: The Pelvis is stable. No tenderness to palpation is noted. BACK: No midline tenderness or or step-off noted range of motion in flexion extension as well as rotation no signs of muscle spasm noted MUSCULOSKELETAL/EXTREMITIES: Left lower extremity examination the hip is nontender the knee is nontender there is abrasion to the left knee, there is obvious deformity to the left ankle there is tenderness to the medial and lateral malleoli patient is neurovascularly intact distally there is no tenderness with compression of the calcaneus there is no tenderness at the base of the fifth metatarsal SKIN: There is no obvious evidence of any rash. There are no petechiae, pallor or cyanosis noted. NEUROLOGIC: Patient is awake alert and oriented x3 strength is symmetric; GCS 15 Procedures Orthopedic Fracture Reduction Fracture #1: Time Out Performed: Yes Side: left Fracture Reduction Location: other (Ankle) Analgesia: other (Fentanyl) Technique: direct manipulation Post Reduction X-rays Demonstrate: acceptable reduction Post-reduction neuro exam: intact Post-reduction vascular exam: intact Splint Applied: Yes Patient Tolerated Procedure: well Additional Comments: Patient was given IV fentanyl, her last meal was over 24 hours ago. Patient had direct traction placed to the by mouth fracture with mortise disruption and had adequate reduction on repeat x-ray Course Reevaluation(s) Reevaluation #1: Patient was given IV pain medicines, the fracture was reduced within acceptable reduction, the case was discussed with the hospitalist for admission; patient states in 2018 she saw [facility] orthopedics for a right trimalleolar fracture Time: 01:37 Consultations Consultation #1: Case was discussed with the [facility] hospitalist for admission Time: 01:38 Administered Medications Discontinued Medications Hydrocodone Bitart/Acetaminophen (Hydrocodone/Acetaminophen 10/325 Tab) 1 tab PO NOW STA Stop: 10/06/22 00:07 Last Admin: 10/06/22 00:32 Dose: 1 tab Documented By: ALE Fentanyl Citrate (Fentanyl Citrate 100 Mcg/2 Ml Vial) 50 mcg IV NOW STA Stop: 10/06/22 01:08 Last Admin: 10/06/22 01:21 Dose: 50 mcg Documented By: GUNNER Medical Decision Making Medical Records Attestation: I reviewed the patient's medical records. Home Medications Current Medication List: was personally reviewed by me Laboratory Data Attestation: I reviewed the patient's lab results. Patient's lab work was reviewed by me and is unremarkable 10/06/22 01:00 10/06/22 01:00 Lab Results 10/06/22 10/06/22 10/06/22 Range/Units 00:50 01:00 01:00 WBC 11.37 H (4.8-10.8) K/ul RBC 4.00 L (4.20-5.40) M/uL Hgb 11.8 L (12.0-16.0) g/dl Hct 35.7 L (37.0-47.0) % MCV 89.3 (80.0-100.0) fL MCH 29.5 (25.0-34.0) pg MCHC 33.1 (32.0-36.0) g/dL RDW Std Deviation 42.0 (36.4-46.3) fL RDW Coeff of Arjun 12.9 (11.5-14.5) % Plt Count 316 (130-400) K/uL MPV 9.3 L (9.4-12.4) fL Immature Gran % (Auto) 0.3 % Neut % (Auto) 82.0 % Lymph % (Auto) 10.1 % [place] % (Auto) 6.2 % Eos % (Auto) 0.9 % Baso % (Auto) 0.5 % Neut # (Auto) 9.32 H (1.40-6.50) K/uL Lymph # (Auto) 1.15 L (1.2-3.4) K/uL [place] # (Auto) 0.71 H (0.11-0.59) K/uL Eos # (Auto) 0.10 (0-0.50) K/uL Baso # (Auto) 0.06 (0-0.2) K/uL Immature Gran # (Auto) 0.03 (0.01-0.20) K/uL PT 10.1 (9.0-12.0) Seconds INR 0.9 (0.9-1.1) APTT 24.9 (21.0-31.0) Seconds PTT Ratio 0.9 Sodium (136-145) mmol/L Potassium (3.5-5.1) mmol/L Chloride (98-107) mmol/L Carbon Dioxide (21-32) mmol/L Anion Gap (3-11) BUN (6-23) mg/dl Creatinine (0.6-1.2) mg/dl Est Cr Clr Drug Dosing ml/min Est GFR ( Amer) ml/min Est GFR (Non-Af Amer) ml/min BUN/Creatinine Ratio (10-20) Glucose (70-99(Fasting)) mg/dl Calcium (8.5-10.1) mg/dl Total Bilirubin (0.2-1.0) mg/dl AST (13-39) U/L ALT (7-52) U/L Alkaline Phosphatase (34-104) U/L Total Protein (6.0-8.3) gm/dl Albumin (3.4-5.0) gm/dl Globulin (2.5-4.0) gm/dl Albumin/Globulin Ratio (0.9-2) Urine Color Yellow Urine Appearance Clear (Clear) Urine pH 5.5 (4.5-7.5) Ur Specific [place] 1.007 (1.000-1.030) Urine Protein Negative (Negative) Urine Glucose (UA) Negative (Negative) Urine Ketones Negative (Negative) Urine Blood Negative (Negative) Urine Nitrite Negative (Negative) Urine Bilirubin Negative (Negative) Urine Urobilinogen Negative (Negative) Ur Leukocyte Esterase Negative (Negative) 10/06/22 Range/Units 01:00 WBC (4.8-10.8) K/ul RBC (4.20-5.40) M/uL Hgb (12.0-16.0) g/dl Hct (37.0-47.0) % MCV (80.0-100.0) fL MCH (25.0-34.0) pg MCHC (32.0-36.0) g/dL RDW Std Deviation (36.4-46.3) fL RDW Coeff of Arjun (11.5-14.5) % Plt Count (130-400) K/uL MPV (9.4-12.4) fL Immature Gran % (Auto) % Neut % (Auto) % Lymph % (Auto) % [place] % (Auto) % Eos % (Auto) % Baso % (Auto) % Neut # (Auto) (1.40-6.50) K/uL Lymph # (Auto) (1.2-3.4) K/uL [place] # (Auto) (0.11-0.59) K/uL Eos # (Auto) (0-0.50) K/uL Baso # (Auto) (0-0.2) K/uL Immature Gran # (Auto) (0.01-0.20) K/uL PT (9.0-12.0) Seconds INR (0.9-1.1) APTT (21.0-31.0) Seconds PTT Ratio Sodium 138 (136-145) mmol/L Potassium 3.9 (3.5-5.1) mmol/L Chloride 104 (98-107) mmol/L Carbon Dioxide 27 (21-32) mmol/L Anion Gap 7 (3-11) BUN 8 (6-23) mg/dl Creatinine 0.97 (0.6-1.2) mg/dl Est Cr Clr Drug Dosing 76.2 ml/min Est GFR ( Amer) 76.2 ml/min Est GFR (Non-Af Amer) 65.8 ml/min BUN/Creatinine Ratio 8.2 L (10-20) Glucose 158 H (70-99(Fasting)) mg/dl Calcium 9.9 (8.5-10.1) mg/dl Total Bilirubin 0.4 (0.2-1.0) mg/dl AST 14 (13-39) U/L ALT 12 (7-52) U/L Alkaline Phosphatase 76 (34-104) U/L Total Protein 7.2 (6.0-8.3) gm/dl Albumin 4.2 (3.4-5.0) gm/dl Globulin 3.0 (2.5-4.0) gm/dl Albumin/Globulin Ratio 1.4 (0.9-2) Urine Color Urine Appearance (Clear) Urine pH (4.5-7.5) Ur Specific [place] (1.000-1.030) Urine Protein (Negative) Urine Glucose (UA) (Negative) Urine Ketones (Negative) Urine Blood (Negative) Urine Nitrite (Negative) Urine Bilirubin (Negative) Urine Urobilinogen (Negative) Ur Leukocyte Esterase (Negative) Imaging Data Attestation: I personally reviewed and interpreted this imaging study as follows: My Impression: Ankle x-ray #1 interpreted by me questionable trimalleolar fracture versus bimalleolar fracture with mortise disruption Ankle x-ray #2 after joint reduction shows adequate reduction and the mortise appears to be better aligned MDM Narrative Medical decision making differential diagnosis sprain strain contusion fracture Plan is to check x-ray, give pain medicine EMS medical report was provided to me and reviewed Plan is to admit for ankle fracture Case was discussed with the [facility] hospitalist after reduction by me Impression & Plan Closed bimalleolar fracture Discharge Plan Visit Data Chief Complaint: Fall Stated Complaint: Fall, Ankle Pain ED Provider: Bacilio Chavarria Discharge Problem: Closed bimalleolar fracture Patient Disposition: Admitted As Inpatient Forms Stand Alone Forms: My [facility] Prescriptions Prescriptions: No Action triamcinolone acetonide 0.025 % cream 1 applic TOP BID PRN (Reason: Allergic Symptoms) Qty: 80 3RF Rx Instructions: 1 applic TOP sparingly to both feet and legs BID ; pantoprazole 40 mg tablet,delayed release (DR/EC) 40 mg PO BID Qty: 180 1RF levothyroxine 100 mcg tablet 100 mcg PO DAILY Qty: 90 3RF Latuda 80 mg tablet 80 mg PO DAILY Rx Instructions: must administer with food (at least 350 calories) Invega Sustenna 234 mg/1.5 mL syringe 234 mg IM Q30D cholecalciferol (vitamin D3) 25 mcg (1,000 unit) capsule 25 mcg PO DAILY Qty: 30 0RF baclofen 20 mg tablet 20 mg PO TID hydroxyzine HCl 50 mg tablet 50 mg PO BID PRN (Reason: Anxiety) lithium carbonate 450 mg tablet extended release 450 mg PO QPM Patient Comments: 300mg AM 450mg HS lithium carbonate 300 mg tablet extended release 300 mg PO QAM trazodone 150 mg tablet 150 mg PO HS ferrous sulfate [iron] 325 mg (65 mg iron) Tablet 325 mg PO QAM docusate sodium [Colace] 100 mg capsule 100 mg PO BID lidocaine 5 % adhesive patch,medicated 1 patch TOP HS PRN (Reason: pain) Qty: 0 0RF Rx Instructions: apply to back, daily, as needed, for pain Referrals Referrals: Pro,Patrice Marques MD [Primary Care Provider] -
[2022-10-06 01:01] LABS: Appearance Urine Clear (Clear); Bilirubin Urine Negative (Negative); Blood Urine Negative (Negative); Color Urine Yellow; Glucose Urine UA Negative (Negative); Ketones Urine Negative (Negative); Leukocyte Esterase Urine Negative (Negative); Nitrite Urine Negative (Negative); Protein Urine Negative (Negative); Specific Gravity Urine 1.007 (1.000-1.030); Urobilinogen Urine Negative (Negative); pH Urine 5.5 (4.5-7.5)
[2022-10-06] MEDS ORDERED: fentaNYL citrate 100 MCG/2 ML VIAL IV STA (01:07)
[2022-10-06 01:13] LABS: Basophils # (auto) 0.06 K/uL (0-0.2); Basophils % (auto) 0.5 %; Eosinophils % (auto) 0.9 %; Hematocrit (blood only) 35.7 % (37.0-47.0); Hemoglobin 11.8 g/dl (12.0-16.0); Immature Granulocytes # (auto) 0.03 K/uL (0.01-0.20); Immature Granulocytes % (auto) 0.3 %; Lymphocytes # (auto) 1.15 K/uL (1.2-3.4); Lymphocytes % (auto) 10.1 %; Mean Corpuscular Hemoglobin 29.5 pg (25.0-34.0); Mean Corpuscular Hgb Conc 33.1 g/dL (32.0-36.0); Mean Corpuscular Volume 89.3 fL (80.0-100.0); Mean Platelet Volume 9.3 fL (9.4-12.4); Monocytes # (auto) 0.71 K/uL (0.11-0.59); Monocytes % (auto) 6.2 %; Neutrophils # (auto) 9.32 K/uL (1.40-6.50); Platelet Count 316 K/uL (130-400); RDW Coefficient of Variation 12.9 % (11.5-14.5); White Blood Count 11.37 K/ul (4.8-10.8)
[2022-10-06 01:25] LABS: INR 0.9 (0.9-1.1); Partial Thromboplastin Ratio 0.9; Partial Thromboplastin Time 24.9 Seconds (21.0-31.0); Prothrombin Time 10.1 Seconds (9.0-12.0)
[2022-10-06 01:33] LABS: Albumin Globulin Ratio 1.4 (0.9-2); Albumin Level 4.2 gm/dl (3.4-5.0); BUN Creatinine Ratio 8.2 (10-20); Bilirubin,Total 0.4 mg/dl (0.2-1.0); Calcium 9.9 mg/dl (8.5-10.1); Creatinine Clr Calc Pharmacy 76.2 ml/min; Est GFR (African American) 76.2 ml/min; Est GFR (Non-African American) 65.8 ml/min; Potassium 3.9 mmol/L (3.5-5.1); Total Protein 7.2 gm/dl (6.0-8.3)
--- NOTE | 2022-10-06 01:37 | History & Physical Report ---
Date of Service October 06, 2022 Assessment & Plan (1) Closed bimalleolar fracture: Plan: Patient sustained a fall at home resulting in left ankle pain. X-ray in the ER concerning for bimalleolar fracture s/p splinting in ER. Patient now with pain in the ankle. No additional complaints. -Admit to medical -Pain control with morphine PRN -Miralax PRN -Orthopedic Surgery consultation appreciated (2) Bipolar 1 disorder: Plan: Chronic -Continue [place] -Continue Hydroxyzine PRN -Trazodone qHS (3) Schizoaffective disorder: Plan: Chronic -Continue home medications - Lurasidone (4) Diabetes mellitus with neuropathy: Plan: Patient is not currently on any diabetic medications. Last HgbA1C on 09/22/22=6.6 -Monitor (5) Hypothyroid: Plan: Chronic. -Continue Synthroid History of Present Illness Chief Complaint: fall Primary Care Provider: Patrice Newell MD Nathaly Baez is a 57 female, diabetes, hypertension, hyperlipidemia, hypothyroidism and schizoaffective disorder presenting after sustaining a fall. Patient reports that she was walking to the bathroom in her home when she slipped and fell. She had pain in her left ankle and unable to bear weight. X-ray in the ER concerning for bi-malleolar fracture. Reduced and splinted in the ER. Patient with no additional complaints at this time. ER Course: Fentanyl 50mcg Hydrocodone/Tylenol Allergies Allergy/AdvReac Type Severity Reaction Status Date / Time amoxicillin AdvReac Mild GI UPSET Verified 10/06/22 01:24 Home Medications Medication Instructions Recorded Confirmed Type baclofen 20 mg tablet 20 mg PO TID 09/11/19 10/06/22 History hydroxyzine HCl 50 mg tablet 50 mg PO BID PRN Anxiety 09/11/19 10/06/22 History ferrous sulfate 325 mg (65 mg 325 mg PO QAM 02/28/21 10/06/22 History iron) tablet (iron) lidocaine 5 % topical patch 1 patch topical HS PRN pain #0 ea 04/25/21 10/06/22 Rx docusate sodium 100 mg capsule 100 mg PO BID 11/03/21 10/06/22 History (Colace) lithium carbonate 450 mg 450 mg PO QPM 01/06/22 10/06/22 History tablet,extended release cholecalciferol (vitamin D3) 25 25 mcg PO DAILY #30 caps 05/10/22 10/06/22 Rx mcg (1,000 unit) capsule lurasidone 80 mg tablet (Latuda) 80 mg PO DAILY 05/10/22 10/06/22 History paliperidone palmitate 234 mg/1.5 234 mg IM Q30D 05/10/22 10/06/22 History mL intramuscular syringe (Invega Sustenna) triamcinolone acetonide 0.025 % 1 applic topical BID PRN Allergic 05/10/22 10/06/22 Rx topical cream Symptoms #80 grams pantoprazole 40 mg tablet,delayed 40 mg PO BID #180 tabs 07/04/22 10/06/22 Rx release levothyroxine 100 mcg tablet 100 mcg PO DAILY #90 tabs 08/01/22 10/06/22 Rx lithium carbonate 300 mg 300 mg PO QAM 10/06/22 10/06/22 History tablet,extended release trazodone 150 mg tablet 150 mg PO HS 10/06/22 10/06/22 History Past Med/Surg History Medical History Anxiety Auditory hallucinations Bipolar 1 disorder Cholelithiasis Diabetes mellitus with neuropathy Encounter for vitamin deficiency screening Endometriosis Eustachian tube dysfunction Hyperlipidemia Hypertension Hypothyroid Mood disorder Noncompliance with medication regimen Schizoaffective disorder Shingles outbreak Sleep disturbances Ventral hernia Surgical History History of ankle surgery x3 History of hernia surgery History of laparoscopy for endometriosis, prior to pregnancies Hx of tubal ligation S/P exploratory laparotomy midline vertical supraumibical - in 30s - pt pushed a paper clip through abdomen [place] teeth extracted Family History Mother Myocardial infarction Congestive heart failure due to high blood pressure Hypertension Diabetes Father Hypertension Diabetes Denies family history of Ovarian cancer Prostate cancer Breast cancer Colorectal cancer Uterine cancer Social History Smoking Status: Current every day smoker Tobacco Type: Cigarettes Second Hand Exposure: No; Hx Alcohol Use: No Hx Substance Use: No Preferred Language: Citizen Of [place] Communication Ability: Effective Visual Impairment: No Limitations Hearing Ability: Normal Certified Forklift Operator Required: No Beliefs That Will Affect Care: None marital status: Current Living Situation: Significant Other current occupational status: disabled How many Children do You have: 2 How many Children do You have Comment: 2 girls Feels Safe at Home: Yes Childhood Exposure to Second-Hand Smoke: Yes during the past year weight has: remained stable Dental Care, Regularly: Yes Physical Activity Frequency: Daily Seatbelt Use: always Sunscreen Use: No Assistive Devices: Contacts and Glasses Review of Systems Review of Systems: All systems reviewed & are unremarkable except as noted in HPI & below Physical Exam Physical Exam: General: patient resting comfortably, NAD, non-toxic in appearance, AA&O x 4 Skin: warm, dry, intact, no rashes or lesions HEENT: NC/AT, PERRL, EOMI, anicteric sclera, conjunctiva without injection, external ear normal to inspection and nontender, nares patent, moist mucus membranes, dentition intact, no oropharyngeal lesions, neck supple, trachea midline, no LAD, no thyromegaly, no JVD Heart: +S1/S2, regular, no m/r/g Lungs: equal air entry bilaterally, no rales/rhonchi/wheezes Abd: +BS, soft, NT/ND, no masses/organomegaly/ascites Ext: warm, 2+ pulses in UE/LE bilaterally, no clubbing/cyanosis or edema, LLE with splint in place Neuro: nonfocal, patient AA&O x 4, speech intact, no facial droop, moving all extremities on command with equal strength 5/5 Results & Data Results & Data ([facility]) Vital Signs (Past 12 Hours) Vital Signs Temp Pulse Resp BP Pulse Ox O2 Del Method 10/06/22 00:48 96 H 10/06/22 00:12 37.4 C 112 H 20 175/100 H 96 Room Air Laboratory Results Laboratory Results WBC 11.37 K/ul (4.8-10.8) H 10/06/22 01:00 RBC 4.00 M/uL (4.20-5.40) L 10/06/22 01:00 Hgb 11.8 g/dl (12.0-16.0) L 10/06/22 01:00 Hct 35.7 % (37.0-47.0) L 10/06/22 01:00 MCV 89.3 fL (80.0-100.0) 10/06/22 01:00 MCH 29.5 pg (25.0-34.0) 10/06/22 01:00 MCHC 33.1 g/dL (32.0-36.0) 10/06/22 01:00 RDW Std Deviation 42.0 fL (36.4-46.3) 10/06/22 01:00 RDW Coeff of Arjun 12.9 % (11.5-14.5) 10/06/22 01:00 Plt Count 316 K/uL (130-400) 10/06/22 01:00 MPV 9.3 fL (9.4-12.4) L 10/06/22 01:00 Immature Gran % (Auto) 0.3 % 10/06/22 01:00 Neut % (Auto) 82.0 % 10/06/22 01:00 Lymph % (Auto) 10.1 % 10/06/22 01:00 Day % (Auto) 6.2 % 10/06/22 01:00 Eos % (Auto) 0.9 % 10/06/22 01:00 Baso % (Auto) 0.5 % 10/06/22 01:00 Neut # (Auto) 9.32 K/uL (1.40-6.50) H 10/06/22 01:00 Lymph # (Auto) 1.15 K/uL (1.2-3.4) L 10/06/22 01:00 Day # (Auto) 0.71 K/uL (0.11-0.59) H 10/06/22 01:00 Eos # (Auto) 0.10 K/uL (0-0.50) 10/06/22 01:00 Baso # (Auto) 0.06 K/uL (0-0.2) 10/06/22 01:00 Immature Gran # (Auto) 0.03 K/uL (0.01-0.20) 10/06/22 01:00 PT 10.1 Seconds (9.0-12.0) 10/06/22 01:00 INR 0.9 (0.9-1.1) 10/06/22 01:00 APTT 24.9 Seconds (21.0-31.0) 10/06/22 01:00 PTT Ratio 0.9 10/06/22 01:00 Sodium 138 mmol/L (136-145) 10/06/22 01:00 Potassium 3.9 mmol/L (3.5-5.1) 10/06/22 01:00 Chloride 104 mmol/L (98-107) 10/06/22 01:00 Carbon Dioxide 27 mmol/L (21-32) 10/06/22 01:00 Anion Gap 7 (3-11) 10/06/22 01:00 BUN 8 mg/dl (6-23) 10/06/22 01:00 Creatinine 0.97 mg/dl (0.6-1.2) 10/06/22 01:00 Est Cr Clr Drug Dosing 76.2 ml/min 10/06/22 01:00 Est GFR ( Amer) 76.2 ml/min 10/06/22 01:00 Est GFR (Non-Af Amer) 65.8 ml/min 10/06/22 01:00 BUN/Creatinine Ratio 8.2 (10-20) L 10/06/22 01:00 Glucose 158 mg/dl (70-99(Fasting)) H 10/06/22 01:00 Calcium 9.9 mg/dl (8.5-10.1) 10/06/22 01:00 Total Bilirubin 0.4 mg/dl (0.2-1.0) 10/06/22 01:00 AST 14 U/L (13-39) 10/06/22 01:00 ALT 12 U/L (7-52) 10/06/22 01:00 Alkaline Phosphatase 76 U/L (34-104) 10/06/22 01:00 Total Protein 7.2 gm/dl (6.0-8.3) 10/06/22 01:00 Albumin 4.2 gm/dl (3.4-5.0) 10/06/22 01:00 Globulin 3.0 gm/dl (2.5-4.0) 10/06/22 01:00 Albumin/Globulin Ratio 1.4 (0.9-2) 10/06/22 01:00 Urine Color Yellow 10/06/22 00:50 Urine Appearance Clear (Clear) 10/06/22 00:50 Urine pH 5.5 (4.5-7.5) 10/06/22 00:50 Ur Specific [place] 1.007 (1.000-1.030) 10/06/22 00:50 Urine Protein Negative (Negative) 10/06/22 00:50 Urine Glucose (UA) Negative (Negative) 10/06/22 00:50 Urine Ketones Negative (Negative) 10/06/22 00:50 Urine Blood Negative (Negative) 10/06/22 00:50 Urine Nitrite Negative (Negative) 10/06/22 00:50 Urine Bilirubin Negative (Negative) 10/06/22 00:50 Urine Urobilinogen Negative (Negative) 10/06/22 00:50 Ur Leukocyte Esterase Negative (Negative) 10/06/22 00:50 SARS-CoV-2, RNA, NAAT NEGATIVE (NEGATIVE) 10/06/22 01:31 PG Care Time/CCT Total # of Minutes Spent Total Time Spent with Patient: Total time spent is greater than 50% in coordination of care (as documented) at patient's floor/unit and/or counseling patient: Coding Level of Care Code 34728 INT INP/OBS CARE 2/55MIN Diagnoses Closed bimalleolar fracture S82.843A Bipolar 1 disorder F31.9 Schizoaffective disorder F25.9 Diabetes mellitus with neuropathy E11.40 Hypothyroid E03.9
[2022-10-06] MEDS ORDERED: hydrOXYzine HCl 25 MG TAB PO PRN (04:28)
[2022-10-06] MEDS: MoRPHine SULFATE 2 MG/ML CARP IV PRN ×5 (05:20→19:39)
[2022-10-06] MEDS ORDERED: LEVOTHYROXINE SODIUM 100 MCG TABLET PO SCH (06:30)
--- NOTE | 2022-10-06 08:41 | XRay Report ---
XR ankle LT 2V CLINICAL HISTORY: ankle pain TECHNIQUE: 2 views of the left ankle were obtained. Comparison: Comparison is made to ankle radiographs 12/16/2014 FINDINGS: There are fractures of the medial and lateral malleolus with likely posterior malleolus fracture as w ell. There is dislocation of the ankle joint with lateral displacement of the foot. The talar dome i s smooth where visualized.. Soft tissue swelling is seen about the ankle. IMPRESSION: Likely trimalleolar fracture dislocation with associated soft tissue swelling. ACT 112: Negative or not required by law. Electronically signed by: Papi Dai M.D. 10/06/2022 8:39 AM
[2022-10-06] MEDS ORDERED: LITHIUM CARBONATE SLOW REL 300 MG TAB PO SCH (09:00)
[2022-10-06] MEDS ORDERED: BACLOFEN 20 MG TAB PO SCH (09:00)
[2022-10-06] MEDS ORDERED: PANTOprazole 40 MG TAB PO SCH (09:00)
[2022-10-06] MEDS ORDERED: LURASIDONE HCL 40 MG TAB PO SCH (09:00)
--- NOTE | 2022-10-06 09:01 | Hospitalist Progress Note ---
Date of Service October 06, 2022 Assessment & Plan (1) Closed bimalleolar fracture: Plan: Patient sustained a fall at home resulting in left ankle pain. X-ray in the ER concerning for bimalleolar fracture s/p splinting in ER. Patient now with pain in the ankle. No additional complaints. -Admit to medical/surgical floor -Pain control with morphine PRN -Miralax PRN -Orthopedic Surgery consultation appreciated consulted [facility] -Made NPO after midnight in case need surgery in the AM (2) Bipolar 1 disorder: Plan: Chronic -Continue [place] -Continue Hydroxyzine PRN -Trazodone qHS (3) Schizoaffective disorder: Plan: Chronic -Continue home medications - Lurasidone (4) Diabetes mellitus with neuropathy: Plan: Patient is not currently on any diabetic medications. Last HgbA1C on 09/22/22 was 6.6 -Continue to monitor (5) Hypothyroid: Plan: Chronic. -Continue Synthroid Admission and Anticipated Discharge Date Admission Date: October 06, 2022 Subjective Patient is awake in bed. She states she feel ok except for being constipated. She states her ankle feels better since being in the splint. Courtney durant was consulted and stated that patient will need surgery for the fracture, but she refused to see their practice and asked to see [facility] instead. That she has seen their group in the past. Review of Systems Review of Systems: patient denies any chest pain, SOB, dyspnea, cough, abdominal pain, nausea, vomiting, melena or hematochezia. all other ROS negative unless stated + above Physical Exam Constitutional: WD/WN, vitals as above Neck: trachea midline, no thyromegaly Respiratory: normal respiratory effort, lungs clear to auscultation Cardiovascular: Rate/Rhythm: regular rate and regular rhythm Extremities: no calf tenderness and no edema Skin: Left 2nd toe with ulcerated excoriated lesion on distal tip of toe Psychiatric: A+Ox3, euthymic affect Results & Data Results & Data ([facility]) Vital Signs (Past 12 Hours) Vital Signs Temp Pulse Pulse Resp BP BP Pulse Ox 10/06/22 07:39 36.8 C 85 16 130/79 93 10/06/22 04:19 36.8 C 104 H 18 170/84 H 95 10/06/22 04:37 10/06/22 04:00 90 15 144/81 H 92 10/06/22 03:30 87 14 136/87 93 10/06/22 03:00 88 15 126/82 96 10/06/22 01:30 101 H 20 144/96 H 93 10/06/22 00:48 96 H 10/06/22 00:12 37.4 C 112 H 20 175/100 H 96 O2 Del Method 10/06/22 07:39 Room Air 10/06/22 04:19 Room Air 10/06/22 04:37 Room Air 10/06/22 04:00 Room Air 10/06/22 03:30 Room Air 10/06/22 03:00 Room Air 10/06/22 01:30 Room Air 10/06/22 00:48 10/06/22 00:12 Room Air Laboratory Results Abnormal lab results 10/06/22 10/06/22 Range/Units 01:00 01:00 WBC 11.37 H (4.8-10.8) K/ul RBC 4.00 L (4.20-5.40) M/uL Hgb 11.8 L (12.0-16.0) g/dl Hct 35.7 L (37.0-47.0) % MPV 9.3 L (9.4-12.4) fL Neut # (Auto) 9.32 H (1.40-6.50) K/uL Lymph # (Auto) 1.15 L (1.2-3.4) K/uL [place] # (Auto) 0.71 H (0.11-0.59) K/uL BUN/Creatinine Ratio 8.2 L (10-20) Glucose 158 H (70-99(Fasting)) mg/dl Diagnostic Findings Ankle X-Ray 10/06/22 00:06 XR ankle LT 2V CLINICAL HISTORY: ankle pain TECHNIQUE: 2 views of the left ankle were obtained. Comparison: Comparison is made to ankle radiographs 12/16/2014 FINDINGS: There are fractures of the medial and lateral malleolus with likely posterior malleolus fracture as well. There is dislocation of the ankle joint with lateral displacement of the foot. The talar dome is smooth where visualized.. Soft tissue swelling is seen about the ankle. IMPRESSION: Likely trimalleolar fracture dislocation with associated soft tissue swelling. ACT 112: Negative or not required by law. Electronically signed by: Papi Dai M.D. 10/06/2022 8:39 AM PG Care Time/CCT Total # of Minutes Spent Total Time Spent with Patient: Total time spent is greater than 50% in coordination of care (as documented) at patient's floor/unit and/or counseling patient: Coding Level of Care Code 76917 SUB INP/OBS CARE 2/35MIN Diagnoses Closed bimalleolar fracture S82.843A Bipolar 1 disorder F31.9 Schizoaffective disorder F25.9 Diabetes mellitus with neuropathy E11.40 Hypothyroid E03.9
--- NOTE | 2022-10-06 09:14 | XRay Report ---
XR ankle LT 2V CLINICAL HISTORY: pain, repeat TECHNIQUE: 3 views of the left ankle were obtained. Comparison: Comparison is made to ankle radiograph 10/06/2022 FINDINGS: Trimalleolar fracture is again seen. There is interval reduction of the ankle dislocation. Soft tissu e swelling is noted and there is mild widening of the ankle mortise. IMPRESSION: Interval reduction of previously noted trimalleolar fracture dislocation. ACT 112: Negative or not required by law. Electronically signed by: Papi Dai M.D. 10/06/2022 9:13 AM
[2022-10-06] MEDS: DOCUSATE SODIUM 100 MG CAP PO SCH ×2 (10:18→21:39)
[2022-10-06] MEDS: NICOTINE 21 MG/24 HR TDSY TD SCH (10:44)
--- NOTE | 2022-10-06 11:21 | Electrocardiogram Report ---
Test Reason : Blood Pressure : / mmHG Vent. Rate : 096 BPM Atrial Rate : 096 BPM P-R Int : 166 ms QRS Dur : 072 ms QT Int : 350 ms P-R-T Axes : 045 055 012 degrees QTc Int : 442 ms Normal sinus rhythm T wave abnormality, consider anterolateral ischemia Abnormal ECG When compared with ECG of 09-MAR-2021 18:30, T wave inversion now evident in Lateral leads Confirmed by David Markham ([id number]) on 10/06/2022 11:21:35 AM Referred By: REFERRED SELF Confirmed By:Dell Markham
[2022-10-06] MEDS: LURASIDONE HCL 40 MG TAB PO SCH (12:06)
[2022-10-06] MEDS: FERROUS SULFATE 325 MG TAB PO SCH (12:06)
[2022-10-06] MEDS: BACLOFEN 20 MG TAB PO SCH ×2 (12:06→19:33)
[2022-10-06] MEDS: CHOLECALCIFEROL 1,000 UNITS 25 MCG TAB PO SCH (12:06)
--- NOTE | 2022-10-06 16:39 | Orthopedic Consultation ---
Date of Consultation October 06, 2022 Assessment & Plan (1) Closed bimalleolar fracture: NPO after midnight tonight Will contact OR for time for ORIF tomorrow around noon Continue care per primary Hospitalist service Preop orders will be placed Patient is agreeable to this plan and informed consent was signed. Present on Admission?: Yes Supervising Physician Co-Signing Physician Notes I, Dr. Rivero, saw and examined the patient and agree with the above findings and plan of care which I developed and discussed with my PA. PE: LLE splint in place. limited sensation to light touch, unchanged. BCR Great toe, 3rd-5th less than 2 sec, 2nd toe with necrotic tip (Being followed by Podiatry and wound care). Limited wiggling toes per patient unchanged. Plan OR tomorrow, NPO after midnight, Abx on-call to OR. Informed consent signed. History of Present Illness Reason for Consultation: Left ankle bimalleolar fracture Requesting Physician: Eric Rivero Attending Physician: Pete Geronimo History of Present Illness This 57 you F is seen in consultation for a left ankle bimalleolar fracture. Last night she fell while going to the bathroom sustaining an inversion injury to her ankle. She was unable to stand and was therefore transported to the ED via EMS. Patient has a fracture dislocation of the ankle that was reduced in the ED and splinted. She was admitted under the hospitalist service due to her living situation and other preexisting issues. Currently she denies CP, SOB, nausea, vomiting, fever, chills or lethargy. She does have numbness in both feet that is chronic and due to peripheral neuropathy. Allergies Allergy/AdvReac Type Severity Reaction Status Date / Time amoxicillin AdvReac Mild GI UPSET Verified 10/06/22 01:24 Home Medications Medication Instructions Recorded Confirmed Type baclofen 20 mg tablet 20 mg PO TID 09/11/19 10/06/22 History hydroxyzine HCl 50 mg tablet 50 mg PO BID PRN Anxiety 09/11/19 10/06/22 History ferrous sulfate 325 mg (65 mg 325 mg PO QAM 02/28/21 10/06/22 History iron) tablet (iron) lidocaine 5 % topical patch 1 patch topical HS PRN pain #0 ea 04/25/21 10/06/22 Rx docusate sodium 100 mg capsule 100 mg PO BID 11/03/21 10/06/22 History (Colace) lithium carbonate 450 mg 450 mg PO QPM 01/06/22 10/06/22 History tablet,extended release cholecalciferol (vitamin D3) 25 25 mcg PO DAILY #30 caps 05/10/22 10/06/22 Rx mcg (1,000 unit) capsule lurasidone 80 mg tablet (Latuda) 80 mg PO DAILY 05/10/22 10/06/22 History paliperidone palmitate 234 mg/1.5 234 mg IM Q30D 05/10/22 10/06/22 History mL intramuscular syringe (Invega Sustenna) triamcinolone acetonide 0.025 % 1 applic topical BID PRN Allergic 05/10/22 10/06/22 Rx topical cream Symptoms #80 grams pantoprazole 40 mg tablet,delayed 40 mg PO BID #180 tabs 07/04/22 10/06/22 Rx release levothyroxine 100 mcg tablet 100 mcg PO DAILY #90 tabs 08/01/22 10/06/22 Rx lithium carbonate 300 mg 300 mg PO QAM 10/06/22 10/06/22 History tablet,extended release trazodone 150 mg tablet 150 mg PO HS 10/06/22 10/06/22 History Patient History Medical History Anxiety Auditory hallucinations Bipolar 1 disorder Cholelithiasis Diabetes mellitus with neuropathy Encounter for vitamin deficiency screening Endometriosis Eustachian tube dysfunction Hyperlipidemia Hypertension Hypothyroid Mood disorder Noncompliance with medication regimen Schizoaffective disorder Shingles outbreak Sleep disturbances Ventral hernia Surgical History History of ankle surgery x3 History of hernia surgery History of laparoscopy for endometriosis, prior to pregnancies Hx of tubal ligation S/P exploratory laparotomy midline vertical supraumibical - in 30s - pt pushed a paper clip through abdomen [place] teeth extracted Family History Mother Myocardial infarction Congestive heart failure due to high blood pressure Hypertension Diabetes Father Hypertension Diabetes Denies family history of Ovarian cancer Prostate cancer Breast cancer Colorectal cancer Uterine cancer Social History Smoking Status: Current every day smoker Tobacco Type: Cigarettes Second Hand Exposure: Yes; Do You Dip or Chew Tobacco: No; Tobacco Cessation Education Requested by Patient: No Hx Alcohol Use: No Hx Substance Use: No Preferred Language: Lao Communication Ability: Effective Visual Impairment: No Limitations Hearing Ability: Normal Electrical Design Technician Required: No Beliefs That Will Affect Care: None marital status: Current Living Situation: Significant Other current occupational status: disabled How many Children do You have: 2 How many Children do You have Comment: 2 girls Other Information That Helps Us Care for You: No Feels Safe at Home: Yes Safety Concerns: Feels Safe At This Time Childhood Exposure to Second-Hand Smoke: Yes during the past year weight has: remained stable Dental Care, Regularly: Yes Physical Activity Frequency: Daily Seatbelt Use: always Sunscreen Use: No Assistive Devices: Cane and Walker Assistive Devices Comment: cargo checker Review of Systems Review of Systems: All systems reviewed & are unremarkable except as noted in Subjective Physical Exam Physical Exam: Left ankle: Splint is clean, dry, intact and kept in place. Patient is able to actively extend to 0 and flex to 90 in knee. Cap refill unable to be determined due to onychomycosis. Results & Data ([facility]) Vital Signs (Past 12 Hours) Vital Signs Temp Pulse Resp BP Pulse Ox O2 Del Method 10/06/22 15:56 37.2 C 87 16 137/81 93 Room Air 10/06/22 07:39 36.8 C 85 16 130/79 93 Room Air 10/06/22 04:37 Room Air Diagnostic Findings Laboratory Results WBC 11.37 K/ul (4.8-10.8) H 10/06/22 01:00 RBC 4.00 M/uL (4.20-5.40) L 10/06/22 01:00 Hgb 11.8 g/dl (12.0-16.0) L 10/06/22 01:00 Hct 35.7 % (37.0-47.0) L 10/06/22 01:00 MCV 89.3 fL (80.0-100.0) 10/06/22 01:00 MCH 29.5 pg (25.0-34.0) 10/06/22 01:00 MCHC 33.1 g/dL (32.0-36.0) 10/06/22 01:00 RDW Std Deviation 42.0 fL (36.4-46.3) 10/06/22 01:00 RDW Coeff of Arjun 12.9 % (11.5-14.5) 10/06/22 01:00 Plt Count 316 K/uL (130-400) 10/06/22 01:00 MPV 9.3 fL (9.4-12.4) L 10/06/22 01:00 Immature Gran % (Auto) 0.3 % 10/06/22 01:00 Neut % (Auto) 82.0 % 10/06/22 01:00 Lymph % (Auto) 10.1 % 10/06/22 01:00 [place] % (Auto) 6.2 % 10/06/22 01:00 Eos % (Auto) 0.9 % 10/06/22 01:00 Baso % (Auto) 0.5 % 10/06/22 01:00 Neut # (Auto) 9.32 K/uL (1.40-6.50) H 10/06/22 01:00 Lymph # (Auto) 1.15 K/uL (1.2-3.4) L 10/06/22 01:00 [place] # (Auto) 0.71 K/uL (0.11-0.59) H 10/06/22 01:00 Eos # (Auto) 0.10 K/uL (0-0.50) 10/06/22 01:00 Baso # (Auto) 0.06 K/uL (0-0.2) 10/06/22 01:00 Immature Gran # (Auto) 0.03 K/uL (0.01-0.20) 10/06/22 01:00 PT 10.1 Seconds (9.0-12.0) 10/06/22 01:00 INR 0.9 (0.9-1.1) 10/06/22 01:00 APTT 24.9 Seconds (21.0-31.0) 10/06/22 01:00 PTT Ratio 0.9 10/06/22 01:00 Sodium 138 mmol/L (136-145) 10/06/22 01:00 Potassium 3.9 mmol/L (3.5-5.1) 10/06/22 01:00 Chloride 104 mmol/L (98-107) 10/06/22 01:00 Carbon Dioxide 27 mmol/L (21-32) 10/06/22 01:00 Anion Gap 7 (3-11) 10/06/22 01:00 BUN 8 mg/dl (6-23) 10/06/22 01:00 Creatinine 0.97 mg/dl (0.6-1.2) 10/06/22 01:00 Est Cr Clr Drug Dosing 76.2 ml/min 10/06/22 01:00 Est GFR ( Amer) 76.2 ml/min 10/06/22 01:00 Est GFR (Non-Af Amer) 65.8 ml/min 10/06/22 01:00 BUN/Creatinine Ratio 8.2 (10-20) L 10/06/22 01:00 Glucose 158 mg/dl (70-99(Fasting)) H 10/06/22 01:00 Calcium 9.9 mg/dl (8.5-10.1) 10/06/22 01:00 Total Bilirubin 0.4 mg/dl (0.2-1.0) 10/06/22 01:00 AST 14 U/L (13-39) 10/06/22 01:00 ALT 12 U/L (7-52) 10/06/22 01:00 Alkaline Phosphatase 76 U/L (34-104) 10/06/22 01:00 Total Protein 7.2 gm/dl (6.0-8.3) 10/06/22 01:00 Albumin 4.2 gm/dl (3.4-5.0) 10/06/22 01:00 Globulin 3.0 gm/dl (2.5-4.0) 10/06/22 01:00 Albumin/Globulin Ratio 1.4 (0.9-2) 10/06/22 01:00 Urine Color Yellow 10/06/22 00:50 Urine Appearance Clear (Clear) 10/06/22 00:50 Urine pH 5.5 (4.5-7.5) 10/06/22 00:50 Ur Specific [place] 1.007 (1.000-1.030) 10/06/22 00:50 Urine Protein Negative (Negative) 10/06/22 00:50 Urine Glucose (UA) Negative (Negative) 10/06/22 00:50 Urine Ketones Negative (Negative) 10/06/22 00:50 Urine Blood Negative (Negative) 10/06/22 00:50 Urine Nitrite Negative (Negative) 10/06/22 00:50 Urine Bilirubin Negative (Negative) 10/06/22 00:50 Urine Urobilinogen Negative (Negative) 10/06/22 00:50 Ur Leukocyte Esterase Negative (Negative) 10/06/22 00:50 SARS-CoV-2, RNA, NAAT NEGATIVE (NEGATIVE) 10/06/22 01:31 Impressions Ankle X-Ray 10/06/22 01:22 XR ankle LT 2V CLINICAL HISTORY: pain, repeat TECHNIQUE: 3 views of the left ankle were obtained. Comparison: Comparison is made to ankle radiograph 10/06/2022 FINDINGS: Trimalleolar fracture is again seen. There is interval reduction of the ankle dislocation. Soft tissue swelling is noted and there is mild widening of the ankle mortise. IMPRESSION: Interval reduction of previously noted trimalleolar fracture dislocation. ACT 112: Negative or not required by law. Electronically signed by: Papi Dai M.D. 10/06/2022 9:13 AM
[2022-10-06] MEDS: traZODone HCL 50 MG TAB PO SCH (19:32)
[2022-10-06] MEDS: PANTOprazole 40 MG TAB PO SCH (19:32)
[2022-10-06] MEDS: LITHIUM CARBONATE 450 MG TABCR PO SCH (19:34)
[2022-10-06] MEDS: hydrOXYzine HCl 25 MG TAB PO SCH (19:34)
[2022-10-06] MEDS ORDERED: traZODone HCL 50 MG TAB PO SCH (21:00)
[2022-10-06] MEDS ORDERED: LITHIUM CARBONATE 450 MG TABCR PO SCH (21:00)
[2022-10-07] MEDS: MoRPHine SULFATE 2 MG/ML CARP IV PRN ×2 (01:33→09:22)
[2022-10-07] MEDS: LEVOTHYROXINE SODIUM 100 MCG TABLET PO SCH (03:54)
[2022-10-07] MEDS: BACLOFEN 20 MG TAB PO SCH ×3 (03:54→19:33)
[2022-10-07] MEDS ORDERED: ceFAZolin 2000MG 2,000 MG/15 ML SYR IV ONE (06:00)
[2022-10-07] MEDS ORDERED: ROPIVACAINE 0.5% 5 MG/ML 30 ML VIAL ONE ×2 (06:59→14:40)
[2022-10-07 07:32] LABS: Hematocrit (blood only) 33.9 % (37.0-47.0); Hemoglobin 11.3 g/dl (12.0-16.0); Mean Corpuscular Hemoglobin 29.6 pg (25.0-34.0); Mean Corpuscular Hgb Conc 33.3 g/dL (32.0-36.0); Mean Corpuscular Volume 88.7 fL (80.0-100.0); Mean Platelet Volume 9.6 fL (9.4-12.4); Platelet Count 294 K/uL (130-400); RDW Standard Deviation 42.1 fL (36.4-46.3); Red Blood Count 3.82 M/uL (4.20-5.40); White Blood Count 9.59 K/ul (4.8-10.8)
[2022-10-07 07:35] LABS: BUN Creatinine Ratio 9.7 (10-20); Calcium 9.5 mg/dl (8.5-10.1); Creatinine Clr Calc Pharmacy 78.4 ml/min; Est GFR (African American) 80.2 ml/min; Est GFR (Non-African American) 69.2 ml/min; Potassium 3.9 mmol/L (3.5-5.1)
[2022-10-07] MEDS: hydrOXYzine HCl 25 MG TAB PO SCH ×2 (09:06→19:32)
[2022-10-07] MEDS: LITHIUM CARBONATE SLOW REL 300 MG TAB PO SCH (09:06)
[2022-10-07] MEDS: DOCUSATE SODIUM 100 MG CAP PO SCH ×2 (09:08→21:21)
[2022-10-07] MEDS: PANTOprazole 40 MG TAB PO SCH ×2 (09:08→19:33)
[2022-10-07] MEDS: NICOTINE 21 MG/24 HR TDSY TD SCH (09:09)
--- NOTE | 2022-10-07 09:37 | Orthopedic Progress Note ---
Date of Service October 07, 2022 Assessment & Plan (1) Closed bimalleolar fracture: Plan: Patient has been n.p.o. since midnight last night Plan is to go ahead with an open reduction internal fixation for her left ankle fracture earlier this afternoon Continue care per primary Hospitalist service Preoperative orders have been placed Patient is agreeable to this plan and informed consent was signed yesterday and is currently in her chart. Admission and Anticipated Discharge Date Admission Date: October 06, 2022 Supervising Physician Co-Signing Physician Notes I, Dr. Rivero, saw and examined the patient and agree with the above findings and plan of care which I developed and discussed with my PA. PE: LLE splint in place. limited sensation to light touch, unchanged. BCR Great toe, 3rd-5th less than 2 sec, 2nd toe with necrotic tip (Being followed by Podiatry and wound care). Limited wiggling toes per patient unchanged. Plan OR today, has been NPO after midnight, Abx on-call to OR. Informed consent signed yesterday. Patient has no questions. Subjective This 57-year-old female seen this morning for follow-up of a left ankle bimalleolar fracture. She is scheduled to undergo surgical intervention with Dr. Rivero later today. She states that her pain is about a 7 out of 10 presently. She has no other complaints at this time. Review of Systems Review of Systems: All systems reviewed & are unremarkable except as noted in Subjective Physical Exam Physical Exam: Left ankle: Splint was partially removed so that we could visualize the ankle. Patient does have some swelling and ecchymosis over the lateral malleolus with tenderness to palpation. There is no sign of any fracture blisters present. She does have necrotic appearance of the second toe that is being followed by podiatry. There is also an abrasion to the anterior aspect of her lower leg just distal to the knee. Patient is able to actively extend to 0 and flex to 90 in knee. Able to actively move digits. Dorsalis pedis 2+. Patient is neurovascularly intact. Splint was reapplied and a new [place] bandage was placed around it to keep it in place. Results & Data ([facility]) Vital Signs (Past 12 Hours) Vital Signs Temp Pulse Resp BP Pulse Ox O2 Del Method 10/07/22 08:50 37.6 C H 105 H 18 143/87 H 93 Room Air 10/07/22 06:50 37.1 C 100 H 16 133/84 93 Room Air 10/06/22 22:22 37.3 C 90 18 119/77 93 Room Air Diagnostic Findings Laboratory Results WBC 9.59 K/ul (4.8-10.8) 10/07/22 06:48 RBC 3.82 M/uL (4.20-5.40) L 10/07/22 06:48 Hgb 11.3 g/dl (12.0-16.0) L 10/07/22 06:48 Hct 33.9 % (37.0-47.0) L 10/07/22 06:48 MCV 88.7 fL (80.0-100.0) 10/07/22 06:48 MCH 29.6 pg (25.0-34.0) 10/07/22 06:48 MCHC 33.3 g/dL (32.0-36.0) 10/07/22 06:48 RDW Std Deviation 42.1 fL (36.4-46.3) 10/07/22 06:48 RDW Coeff of Arjun 13.0 % (11.5-14.5) 10/07/22 06:48 Plt Count 294 K/uL (130-400) 10/07/22 06:48 MPV 9.6 fL (9.4-12.4) 10/07/22 06:48 Immature Gran % (Auto) 0.3 % 10/06/22 01:00 Neut % (Auto) 82.0 % 10/06/22 01:00 Lymph % (Auto) 10.1 % 10/06/22 01:00 [place] % (Auto) 6.2 % 10/06/22 01:00 Eos % (Auto) 0.9 % 10/06/22 01:00 Baso % (Auto) 0.5 % 10/06/22 01:00 Neut # (Auto) 9.32 K/uL (1.40-6.50) H 10/06/22 01:00 Lymph # (Auto) 1.15 K/uL (1.2-3.4) L 10/06/22 01:00 [place] # (Auto) 0.71 K/uL (0.11-0.59) H 10/06/22 01:00 Eos # (Auto) 0.10 K/uL (0-0.50) 10/06/22 01:00 Baso # (Auto) 0.06 K/uL (0-0.2) 10/06/22 01:00 Immature Gran # (Auto) 0.03 K/uL (0.01-0.20) 10/06/22 01:00 PT 10.1 Seconds (9.0-12.0) 10/06/22 01:00 INR 0.9 (0.9-1.1) 10/06/22 01:00 APTT 24.9 Seconds (21.0-31.0) 10/06/22 01:00 PTT Ratio 0.9 10/06/22 01:00 Sodium 137 mmol/L (136-145) 10/07/22 06:48 Potassium 3.9 mmol/L (3.5-5.1) 10/07/22 06:48 Chloride 104 mmol/L (98-107) 10/07/22 06:48 Carbon Dioxide 28 mmol/L (21-32) 10/07/22 06:48 Anion Gap 5 (3-11) 10/07/22 06:48 BUN 9 mg/dl (6-23) 10/07/22 06:48 Creatinine 0.93 mg/dl (0.6-1.2) 10/07/22 06:48 Est Cr Clr Drug Dosing 78.4 ml/min 10/07/22 06:48 Est GFR ( Amer) 80.2 ml/min 10/07/22 06:48 Est GFR (Non-Af Amer) 69.2 ml/min 10/07/22 06:48 BUN/Creatinine Ratio 9.7 (10-20) L 10/07/22 06:48 Glucose 136 mg/dl (70-99(Fasting)) H 10/07/22 06:48 Calcium 9.5 mg/dl (8.5-10.1) 10/07/22 06:48 Total Bilirubin 0.4 mg/dl (0.2-1.0) 10/06/22 01:00 AST 14 U/L (13-39) 10/06/22 01:00 ALT 12 U/L (7-52) 10/06/22 01:00 Alkaline Phosphatase 76 U/L (34-104) 10/06/22 01:00 Total Protein 7.2 gm/dl (6.0-8.3) 10/06/22 01:00 Albumin 4.2 gm/dl (3.4-5.0) 10/06/22 01:00 Globulin 3.0 gm/dl (2.5-4.0) 10/06/22 01:00 Albumin/Globulin Ratio 1.4 (0.9-2) 10/06/22 01:00 Urine Color Yellow 10/06/22 00:50 Urine Appearance Clear (Clear) 10/06/22 00:50 Urine pH 5.5 (4.5-7.5) 10/06/22 00:50 Ur Specific [place] 1.007 (1.000-1.030) 10/06/22 00:50 Urine Protein Negative (Negative) 10/06/22 00:50 Urine Glucose (UA) Negative (Negative) 10/06/22 00:50 Urine Ketones Negative (Negative) 10/06/22 00:50 Urine Blood Negative (Negative) 10/06/22 00:50 Urine Nitrite Negative (Negative) 10/06/22 00:50 Urine Bilirubin Negative (Negative) 10/06/22 00:50 Urine Urobilinogen Negative (Negative) 10/06/22 00:50 Ur Leukocyte Esterase Negative (Negative) 10/06/22 00:50 SARS-CoV-2, RNA, NAAT NEGATIVE (NEGATIVE) 10/06/22 01:31 Impressions Ankle X-Ray 10/06/22 01:22 XR ankle LT 2V CLINICAL HISTORY: pain, repeat TECHNIQUE: 3 views of the left ankle were obtained. Comparison: Comparison is made to ankle radiograph 10/06/2022 FINDINGS: Trimalleolar fracture is again seen. There is interval reduction of the ankle dislocation. Soft tissue swelling is noted and there is mild widening of the ankle mortise. IMPRESSION: Interval reduction of previously noted trimalleolar fracture dislocation. ACT 112: Negative or not required by law. Electronically signed by: Papi Dai M.D. 10/06/2022 9:13 AM
[2022-10-07] MEDS: ACETAMINOPHEN 325 MG TAB PO PRN (09:53)
--- NOTE | 2022-10-07 10:02 | Hospitalist Progress Note ---
Date of Service October 07, 2022 Assessment & Plan (1) Closed bimalleolar fracture: Plan: Patient sustained a fall at home resulting in left ankle pain. X-ray in the ER concerning for bimalleolar fracture s/p splinting in ER. Patient now with pain in the ankle. No additional complaints. -Admit to medical/surgical floor -Pain control with morphine PRN -Miralax PRN -Orthopedic Surgery- [facility] ortho following and plan for surgery today (2) Bipolar 1 disorder: Plan: Chronic -Continue [place] -Continue Hydroxyzine PRN -Trazodone qHS (3) Schizoaffective disorder: Plan: Chronic -Continue home medications - Lurasidone (4) Diabetes mellitus with neuropathy: Plan: Patient is not currently on any diabetic medications. Last HgbA1C on 09/22/22 was 6.6 -Continue to monitor (5) Hypothyroid: Plan: Chronic. -Continue Synthroid Admission and Anticipated Discharge Date Admission Date: October 06, 2022 Subjective This 57-year-old female seen this morning for follow-up of a left ankle bimalleolar fracture. She is scheduled to undergo surgical intervention with Dr. Rivero later today. She states that her pain is about a 7 out of 10 presently. She has no other complaints at this time. Review of Systems Review of Systems: patient denies any chest pain, SOB, dyspnea, cough, abdominal pain, nausea, vomiting, melena or hematochezia. all other ROS negative unless stated + above Physical Exam Constitutional: WD/WN, vitals as above Neck: trachea midline, no thyromegaly Respiratory: normal respiratory effort, lungs clear to auscultation Cardiovascular: Rate/Rhythm: regular rate and regular rhythm Extremities: no calf tenderness and no edema Psychiatric: A+Ox3, euthymic affect Results & Data Results & Data ([facility]) Vital Signs (Past 12 Hours) Vital Signs Temp Pulse Resp BP Pulse Ox O2 Del Method 10/07/22 08:50 37.6 C H 105 H 18 143/87 H 93 Room Air 10/07/22 06:50 37.1 C 100 H 16 133/84 93 Room Air 10/06/22 22:22 37.3 C 90 18 119/77 93 Room Air Laboratory Results Abnormal lab results 10/07/22 10/07/22 10/07/22 Range/Units 06:48 06:48 10:20 RBC 3.82 L (4.20-5.40) M/uL Hgb 11.3 L (12.0-16.0) g/dl Hct 33.9 L (37.0-47.0) % BUN/Creatinine Ratio 9.7 L (10-20) Glucose 136 H (70-99(Fasting)) mg/dl POC Glucose (70-99) mg/dl Urine Ketones Trace H (Negative) 10/07/22 10/07/22 Range/Units 12:09 14:52 RBC (4.20-5.40) M/uL Hgb (12.0-16.0) g/dl Hct (37.0-47.0) % BUN/Creatinine Ratio (10-20) Glucose (70-99(Fasting)) mg/dl POC Glucose 117 H 167 H (70-99) mg/dl Urine Ketones (Negative) Diagnostic Findings Ankle X-Ray 10/07/22 12:30 FL ankle LT min 3V RTN CLINICAL HISTORY: LT ORIF COMPARISON STUDY: Left ankle radiographs October 06, 2022. FLUOROSCOPY TIME: 120.7 seconds. EXPOSURE DOSE: 2.72 mGy FLUOROSCOPIC IMAGES: 3 FINDINGS: Fluoroscopy was provided during open reduction and internal fixation of the left fibular fracture with intramedullary nail. Fracture alignment has markedly improved and appears near anatomic. Ankle mortise widening has improved. Distal left tibial fracture on prior radiograph are not well- visualized by fluoroscopy. IMPRESSION: Fluoroscopy provided during operative reduction and internal fixation of the distal left fibular fracture. ACT 112: Negative or not required by law. Electronically signed by: Mik Howard M.D. 10/07/2022 3:09 PM PG Care Time/CCT Total # of Minutes Spent Total Time Spent with Patient: Total time spent is greater than 50% in coordination of care (as documented) at patient's floor/unit and/or counseling patient: Coding Level of Care Code 42991 SUB INP/OBS CARE 2/35MIN Diagnoses Closed bimalleolar fracture S82.843A Bipolar 1 disorder F31.9 Schizoaffective disorder F25.9 Diabetes mellitus with neuropathy E11.40 Hypothyroid E03.9
[2022-10-07 10:33] LABS: Appearance Urine Clear (Clear); Bilirubin Urine Negative (Negative); Blood Urine Negative (Negative); Color Urine Orange; Glucose Urine UA Negative (Negative); Ketones Urine Trace (Negative); Leukocyte Esterase Urine Negative (Negative); Nitrite Urine Negative (Negative); Protein Urine Negative (Negative); Specific Gravity Urine 1.018 (1.000-1.030); Urobilinogen Urine Negative (Negative); pH Urine 7.5 (4.5-7.5)
--- NOTE | 2022-10-07 10:44 | Anesthesiology Consultation ---
Date of Service October 07, 2022 Assessment & Plan Chart Review Chart Review: Acceptable Risk for Surgery and Patient NOT seen in Pre Admission Testing History Surgery Operation Date: 10/07/22 07:00 Proposed Procedures p Left Ankle Open Reduction Internal Fixation - Eric Gutierrez Rivero MD Height/Weight Height: 5 ft 6 in Weight: 92.6 kg Allergies Allergy/AdvReac Type Severity Reaction Status Date / Time amoxicillin AdvReac Mild GI UPSET Verified 10/06/22 01:24 Medications Home Medications Medication Instructions Recorded Confirmed Last Taken baclofen 20 mg tablet 20 mg PO TID 09/11/19 10/06/22 02/28/21 hydroxyzine HCl 50 mg tablet 50 mg PO BID PRN Anxiety 09/11/19 10/06/22 02/28/21 ferrous sulfate 325 mg (65 mg 325 mg PO QAM 02/28/21 10/06/22 02/28/21 iron) tablet (iron) lidocaine 5 % topical patch 1 patch topical HS PRN pain #0 ea 04/25/21 10/06/22 02/27/21 docusate sodium 100 mg capsule 100 mg PO BID 11/03/21 10/06/22 Unknown (Colace) lithium carbonate 450 mg 450 mg PO QPM 01/06/22 10/06/22 Unknown tablet,extended release cholecalciferol (vitamin D3) 25 25 mcg PO DAILY #30 caps 05/10/22 10/06/22 Unknown mcg (1,000 unit) capsule lurasidone 80 mg tablet (Latuda) 80 mg PO DAILY 05/10/22 10/06/22 Unknown paliperidone palmitate 234 mg/1.5 234 mg IM Q30D 05/10/22 10/06/22 10/04/22 mL intramuscular syringe (Invega Sustenna) triamcinolone acetonide 0.025 % 1 applic topical BID PRN Allergic 05/10/22 10/06/22 Unknown topical cream Symptoms #80 grams pantoprazole 40 mg tablet,delayed 40 mg PO BID #180 tabs 07/04/22 10/06/22 Unknown release levothyroxine 100 mcg tablet 100 mcg PO DAILY #90 tabs 08/01/22 10/06/22 Unknown lithium carbonate 300 mg 300 mg PO QAM 10/06/22 10/06/22 Unknown tablet,extended release trazodone 150 mg tablet 150 mg PO HS 10/06/22 10/06/22 Unknown Active Medications Generic Name Dose Route Start Last Admin Trade Name Ana Lilia PRN Reason Stop Dose Admin Acetaminophen 650 mg 10/06/22 04:28 10/07/22 09:53 Acetaminophen 325 Mg Tab PO 11/05/22 04:27 650 mg Q4H PRN Administration pain/fever Baclofen 20 mg 10/06/22 12:00 10/07/22 03:54 Baclofen 20 Mg Tab PO 11/05/22 08:59 20 mg TID@0400,1199,1999 [facility] Administration Docusate Sodium 100 mg 10/06/22 09:00 10/07/22 09:08 Docusate Sodium 100 Mg Cap PO 11/05/22 08:59 Not Given BID [facility] Ferrous Sulfate 325 mg 10/06/22 12:00 10/06/22 12:06 Ferrous Sulfate 325 Mg Tab PO 11/05/22 11:59 325 mg DAILY@1200 [facility] Administration Hydroxyzine HCl 50 mg 10/06/22 20:00 10/07/22 09:06 Hydroxyzine Hcl 25 Mg Tab PO 11/05/22 19:59 Not Given BID@08,1999 [facility] Levothyroxine Sodium 100 mcg 10/07/22 04:00 10/07/22 03:54 Levothyroxine Sodium 100 Mcg Tablet PO 11/06/22 03:59 100 mcg DAILY@0400 [facility] Administration [place] Carbonate 300 mg 10/07/22 08:00 10/07/22 09:06 [place] Carbonate Slow Rel 300 Mg Tab PO 11/06/22 07:59 Not Given DAILY@0800 [facility] [place] Carbonate 450 mg 10/06/22 20:00 10/06/22 19:34 [place] Carbonate 450 Mg Tabcr PO 11/05/22 19:59 450 mg DAILY@1999 [facility] Administration Lurasidone HCl 80 mg 10/06/22 12:00 10/06/22 12:06 Lurasidone Hcl 40 Mg Tab PO 11/05/22 11:59 80 mg DAILY@1200 [facility] Administration Miscellaneous 1 each 10/06/22 09:00 10/07/22 09:08 Remove Lidoderm Patch N/A 11/05/22 08:59 1 each DAILY@0900 [facility] Administration Miscellaneous 1 each 10/07/22 08:59 10/07/22 09:11 Remove Nicoderm Patch N/A 11/06/22 08:58 1 each DAILY@0859 [facility] Administration Morphine Sulfate 2 mg 10/06/22 04:28 10/07/22 09:22 Morphine Sulfate 2 Mg/Ml Carp IV 10/20/22 04:27 2 mg Q3H PRN Administration Pain Nicotine 21 mg 10/06/22 10:15 10/07/22 09:09 Nicotine 21 Mg/24 Hr Tdsy TD 11/05/22 10:14 21 mg QAM [facility] Administration Pantoprazole Sodium 40 mg 10/06/22 20:00 10/07/22 09:08 Pantoprazole 40 Mg Tab PO 11/05/22 19:59 40 mg BID@08,1999 [facility] Administration Trazodone HCl 150 mg 10/06/22 20:00 10/06/22 19:32 Trazodone Hcl 50 Mg Tab PO 11/05/22 19:59 150 mg DAILY@1999 [facility] Administration Vitamin D 1,000 units 10/06/22 12:00 10/06/22 12:06 Cholecalciferol 1,000 Units 25 Mcg Tab PO 11/05/22 11:59 1,000 units DAILY@1200 [facility] Administration Past Medical History Medical History Anxiety Auditory hallucinations Bipolar 1 disorder Cholelithiasis Diabetes mellitus with neuropathy Encounter for vitamin deficiency screening Endometriosis Eustachian tube dysfunction Hyperlipidemia Hypertension Hypothyroid Mood disorder Noncompliance with medication regimen Schizoaffective disorder Shingles outbreak Sleep disturbances Ventral hernia Past Family History Family History Mother Myocardial infarction Congestive heart failure due to high blood pressure Hypertension Diabetes Father Hypertension Diabetes Denies family history of Ovarian cancer Prostate cancer Breast cancer Colorectal cancer Uterine cancer Past Surgical History Surgical History History of ankle surgery x3 History of hernia surgery History of laparoscopy for endometriosis, prior to pregnancies Hx of tubal ligation S/P exploratory laparotomy midline vertical supraumibical - in 30s - pt pushed a paper clip through abdomen [place] teeth extracted Social History Smoking Status: Current every day smoker tobacco type: cigarettes Do You Dip or Chew Tobacco: No Hx Alcohol Use: No Hx Substance Use: No Physical Exam Vital Signs Last Vital Signs Temp 37.3 C 10/07/22 10:40 Pulse 92 H 10/07/22 10:40 Resp 17 10/07/22 10:40 BP 131/81 10/07/22 10:40 Pulse Ox 93 10/07/22 10:40 O2 Del Method Room Air 10/07/22 10:40 Testing Laboratory Results 10/07/22 06:48 10/07/22 06:48 PT 10.1 Seconds (9.0-12.0) 10/06/22 01:00 INR 0.9 (0.9-1.1) 10/06/22 01:00 APTT 24.9 Seconds (21.0-31.0) 10/06/22 01:00 Urine Color [place] 10/07/22 10:20 Urine Appearance Clear (Clear) 10/07/22 10:20 Urine pH 7.5 (4.5-7.5) 10/07/22 10:20 Ur Specific [place] 1.018 (1.000-1.030) 10/07/22 10:20 Urine Protein Negative (Negative) 10/07/22 10:20 Urine Glucose (UA) Negative (Negative) 10/07/22 10:20 Urine Ketones Trace (Negative) H 10/07/22 10:20 Urine Nitrite Negative (Negative) 10/07/22 10:20 Ur Leukocyte Esterase Negative (Negative) 10/07/22 10:20
[2022-10-07] MEDS ORDERED: fentaNYL citrate 100 MCG/2 ML VIAL ONE ×2 (11:45→12:44)
[2022-10-07] MEDS ORDERED: ONDANSETRON INJ 2 MG/ML 2 ML VIAL ONE ×2 (11:45→14:13)
[2022-10-07] MEDS ORDERED: MIDAZOLAM HCL 1 MG/ML 2ML VIAL ONE ×2 (11:45→11:52)
[2022-10-07] MEDS ORDERED: PROPOFOL IV EMULSION 10 MG/ML 20 ML VIAL IV ONE ×2 (11:45→14:33)
[2022-10-07] MEDS ORDERED: DEXAMETHASONE SOD INJ 4 MG/ML VIAL ONE (11:45)
[2022-10-07] MEDS: FERROUS SULFATE 325 MG TAB PO SCH (12:00)
[2022-10-07] MEDS: CHOLECALCIFEROL 1,000 UNITS 25 MCG TAB PO SCH (12:00)
[2022-10-07] MEDS: LURASIDONE HCL 40 MG TAB PO SCH (12:00)
[2022-10-07] MEDS ORDERED: SUCCINYLCHOLINE CHLORIDE 20 MG/ML 10 ML VIAL IV ONE ×2 (12:08→13:19)
[2022-10-07] MEDS ORDERED: LIDOCAINE 1%/EPINEPHRINE 1:100,000 50 ML VIAL ONE ×2 (12:18→12:19)
[2022-10-07] MEDS ORDERED: BUPIVACAINE 0.5 % 5 MG/1 ML MPF 30ML VIAL ONE (12:18)
[2022-10-07] MEDS ORDERED: ceFAZolin 2,000 MG/15 ML IV PUSH IV ONE (12:26)
[2022-10-07] MEDS ORDERED: ATROPINE SULFATE 0.1 MG/ML 10ML SYR IV PRN (12:42)
[2022-10-07] MEDS ORDERED: ONDANSETRON INJ 2 MG/ML 2 ML VIAL IV PRN ×2 (12:42→16:06)
[2022-10-07] MEDS ORDERED: ePHEDrine sulfate 50 MG/ML AMP IV PRN (12:42)
[2022-10-07] MEDS ORDERED: HYDROmorphone INJ 2 MG/ML SYR/VIAL IV PRN (12:42)
[2022-10-07] MEDS ORDERED: fentaNYL citrate 100 MCG/2 ML VIAL IV PRN (12:42)
[2022-10-07] MEDS ORDERED: ROCURONIUM BROMIDE 10 MG/ML 5 ML VIAL IV ONE (13:19)
[2022-10-07] MEDS ORDERED: SUGAMMADEX SODIUM 200 MG/2 ML VIAL IV ONE (14:13)
--- NOTE | 2022-10-07 14:20 | Post Operative Brief Note ---
Immediate Post Op Note v1 Date of Surgery October 07, 2022 Pre & Post Diagnosis Operation Date: 10/07/22 07:00 Pre-op Dx: Left ankle fracture dislocation Post-op Dx: Left ankle fracture dislocation I identified the patient and participated in the time-out.: Yes Procedure Operation Date: 10/07/22 07:00 ORIF left distal fibula with IM nail Surgeon Eric Rivero MD Mechanical Car Checker Feroz Valencia DO Estimated Blood Loss 25 Findings Consistent with Post-Op Diagnosis Fluids 1000 cc Drains Mcclain Catheter (Inserted by Pretty Morales RN. To be removed at end of procedure) Anesthesia Type General Complications none
--- NOTE | 2022-10-07 14:24 | Operative Report ---
Post Operative Report Pre & Post Diagnosis Operation Date: 10/07/22 07:00 Pre-op Dx: Left ankle fracture dislocation Post-op Dx: Left ankle fracture dislocation I identified the patient and participated in the time-out.: Yes Procedure Operation Date: 10/07/22 07:00 ORIF Left distal fibula fracture with IM nail Surgeon Eric Rivero MD Community Coordinator Feroz Valencia DO Estimated Blood Loss 25 Findings See Below Displaced comminuted left distal fibula fracture. Poor bone quality. Syndesmosis stable after fixation. Fluids 1000 cc Specimens n/a Drains Mcclain placed before and removed at the end of the case. Anesthesia Type General Complications none Indications The patient is a 57 year old female who injured their left ankle and had the fracture dislocation reduced in the ED. The patient understands the risks of surgery, which include but are not limited to: bleeding, infection, re- operation, damage to nerves and arteries, continued pain, loss of reduction, hardware failure, the need for repeat surgery, decrease level of activity, and DVT. The patient understand all of these instructions and explanations, all of their questions have been satisfactorily addressed. The patient have elected to proceed with surgery and the informed consent was signed. Description of Procedure IMPLANTS: 1) FibuLock Nail 3.0 x 130 mm, Left (Arthrex). 2) 2.7 mm x 20 mm screws. PROCEDURE: The patient was taken to the Operating Room and placed in the supine position on the operating table. After general anesthetic was administered a multidisciplinary time-out was performed identifying the patient my initials on the left limb as the correct and operative limb. Prior to the incision being made, 2 grams of intravenous Ancef were given. The left leg was prepped and draped in the standard fashion. The distal fibula was marked as well as the planned incisions centered about the distal fibula fracture and for the starting hole distal to the fibula and Fluoroscopy was used aid in the localizing the incisions. The planned incisions laterally were injected with a 50:50 mixture of 1% lidocaine and 0.5 % Marcaine with epi for a total of 10cc. The planned incision centered over the fibula fracture was made and carried down to the fibula. The fracture site was easily identified. The fracture site was debrided with copious irrigation, dental pick, and rongeur, removing any soft tissue and hematoma. Using a pointed reduction clamp the fracture was reduced. The distal incision was made and using the fluoroscopy and a guide wire was used to find the starting point on the distal fibula. The cortex was drilled. Then the joystick was used to place the guide wire down the center of the fibula. The starting drill was used followed by the canal drill to complete the preparation of the fibula. The IM carmenza with the targeting guide was placed in the standard fashion only requiring minimal light taps at the end to properly seat it within the fibula. Fluoroscopy was used to ensure proper placement. The proximal wings were deployed. A lateral to medial screw was attempted to be placed in the distal fragment through the carmenza, but pulled out due to poor bone quality. A separate screw was placed through the aiming guide from superior to posterior through the carmenza and had good bone purchase. Testing via external rotation testing and Cotton test showed the syndesmosis to be reduced and stable. An end cap was placed over guide wire into the distal tip of the carmenza in the standard fashion. The wounds were copiously irrigated. Final x-rays were obtained. The fascia over the plate was closed with 2-0 Vicryl and the subcutaneous layer were closed with 3-0 Vicryl. The skin was closed with [place]. The sponge and needle counts were correct. The wounds were covered with Xeroform, 4x4's, ABD's, Steril cast padding, and an AO splint was placed. The patient was awakened and taken to the recovery room in stable condition. Post-op Instructions: The patient finesse be re-admitted to the hospitalist service. The patient will remain NWB while in the splint. PT/OT will be consulted. D/C planning will work on placement. Once the patient is switched to a cam boot, they will be, toe- touch weightbearing. Pain medicine prescription was given pre-operatively to be taken as needed. The patient will follow up with me in 10-14 days. I attest to the content of the Intraoperative Record and any orders documented therein. Any exceptions are noted below.
--- NOTE | 2022-10-07 15:04 | Anesthesiology Progress Note ---
Date of Service October 07, 2022 Anesthesia Post Procedure Vital Signs Vital Signs: Temp Pulse Resp BP Pulse Ox O2 Del Method 10/07/22 11:51 37.3 C 90 20 131/79 91 Room Air 10/07/22 10:40 37.3 C 92 H 17 131/81 93 Room Air 10/07/22 08:50 37.6 C H 105 H 18 143/87 H 93 Room Air 10/07/22 06:50 37.1 C 100 H 16 133/84 93 Room Air 10/06/22 22:22 37.3 C 90 18 119/77 93 Room Air 10/06/22 21:32 37.2 C 89 18 108/68 93 Room Air 10/06/22 19:18 Room Air 10/06/22 15:56 37.2 C 87 16 137/81 93 Room Air Pain Intensity Left Leg: Pain Intensity: 7 Right Hip: Pain Intensity: 5 Transfer of Care Handoff Completed per policy Notes Mental Status: alert / awake / arousable and participated in evaluation Nausea / Vomiting: adequately controlled Pain: adequately controlled Airway Patency, RR, SpO2: stable & adequate BP & HR: stable & adequate Hydration State: stable & adequate Anesthetic Complications: no major complications apparent and Pt Satisfied with anesthetic care
--- NOTE | 2022-10-07 15:12 | Fluoroscopy Report ---
FL ankle LT min 3V RTN CLINICAL HISTORY: LT ORIF COMPARISON STUDY: Left ankle radiographs October 06, 2022. FLUOROSCOPY TIME: 120.7 seconds. EXPOSURE DOSE: 2.72 mGy FLUOROSCOPIC IMAGES: 3 FINDINGS: Fluoroscopy was provided during open reduction and internal fixation of the left fibular fr acture with intramedullary nail. Fracture alignment has markedly improved and appears near anatomic. Ankle mortise widening has improved. Distal left tibial fracture on prior radiograph are not well-vis ualized by fluoroscopy. IMPRESSION: Fluoroscopy provided during operative reduction and internal fixation of the distal left fibular fracture. ACT 112: Negative or not required by law. Electronically signed by: Mik Howard M.D. 10/07/2022 3:09 PM
--- NOTE | 2022-10-07 15:33 | Anesthesiology Progress Note ---
Date of Service October 07, 2022 Anesthesia Post Procedure Vital Signs Vital Signs: Temp Pulse Pulse Resp BP Pulse Ox O2 Del Method 10/07/22 15:20 103 H 18 135/78 98 Nasal Cannula 10/07/22 15:10 112 H 15 125/72 89 L Room Air 10/07/22 15:00 112 H 22 129/69 97 Oxymask 10/07/22 14:51 36.1 C L 105 H 16 134/68 96 Oxymask 10/07/22 11:51 37.3 C 90 20 131/79 91 Room Air 10/07/22 10:40 37.3 C 92 H 17 131/81 93 Room Air 10/07/22 08:50 37.6 C H 105 H 18 143/87 H 93 Room Air 10/07/22 06:50 37.1 C 100 H 16 133/84 93 Room Air 10/06/22 22:22 37.3 C 90 18 119/77 93 Room Air 10/06/22 21:32 37.2 C 89 18 108/68 93 Room Air 10/06/22 19:18 Room Air 10/06/22 15:56 37.2 C 87 16 137/81 93 Room Air O2 Flow Rate 10/07/22 15:20 2 10/07/22 15:10 10/07/22 15:00 5 10/07/22 14:51 5 10/07/22 11:51 10/07/22 10:40 10/07/22 08:50 10/07/22 06:50 10/06/22 22:22 10/06/22 21:32 10/06/22 19:18 10/06/22 15:56 Pain Intensity Left Leg: Pain Intensity: 7 Right Hip: Pain Intensity: 5 Transfer of Care Handoff Completed per policy Notes Mental Status: alert / awake / arousable Patient Amnestic to Procedure: Yes Nausea / Vomiting: adequately controlled Pain: adequately controlled Airway Patency, RR, SpO2: stable & adequate BP & HR: stable & adequate Hydration State: stable & adequate Anesthetic Complications: no major complications apparent
[2022-10-07] MEDS ORDERED: NALOXONE HCL 0.4 MG/1 ML VIAL/CARP IV PRN (16:06)
[2022-10-07] MEDS ORDERED: bisacodyL 10 MG SUPP PR PRN (16:06)
[2022-10-07] MEDS: SODIUM CHLORIDE 0.9% 1000ML 1,000 ML IV SCH (16:37)
[2022-10-07] MEDS: POLYETHYLENE (MIRALAX) 17 GM PACK PO PRN (19:27)
[2022-10-07] MEDS: LIDOCAINE 5% 1 PATCH TD PRN (19:28)
[2022-10-07] MEDS: LITHIUM CARBONATE 450 MG TABCR PO SCH (19:34)
[2022-10-07] MEDS: traZODone HCL 50 MG TAB PO SCH (21:19)
[2022-10-07] MEDS: COUGH DROP (SUGAR FREE) LOZ 24 LOZ/1 BOX BUCCAL PRN (21:20)
[2022-10-07] MEDS: ceFAZolin 2000MG 2,000 MG/15 ML SYR IV SCH (21:22)
[2022-10-08] MEDS: SODIUM CHLORIDE 0.9% 1000ML 1,000 ML IV SCH (01:53)
[2022-10-08] MEDS: BACLOFEN 20 MG TAB PO SCH ×3 (03:56→20:55)
[2022-10-08] MEDS: LEVOTHYROXINE SODIUM 100 MCG TABLET PO SCH (03:56)
[2022-10-08] MEDS: oxyCODONE HCL IR 5 MG TAB (IMMEDIATE RELEASE) PO PRN (04:00)
[2022-10-08] MEDS: ceFAZolin 2000MG 2,000 MG/15 ML SYR IV SCH (04:02)
[2022-10-08] MEDS: MoRPHine SULFATE 2 MG/ML CARP IV PRN (05:41)
[2022-10-08] MEDS ORDERED: KETOROLAC 30 MG/ML VIAL IV ONE (06:15)
--- NOTE | 2022-10-08 07:27 | Orthopedic Progress Note ---
Date of Service October 08, 2022 Assessment & Plan (1) Closed bimalleolar fracture: Plan: POD #1 s/p ORIF L distal fibula, with post-op pain. Resume diet. NWB LLE. OOB to chair. Continue pain control. DVT prophylaxis: TEDs 3 weeks, foot pumps while in hospital, ASA 81 mg BID for 6 weeks. PT/OT. D/C planning. Continue care per primary Hospitalist service Follow-up in Dr. Rivero's office in 2 weeks for Staple removal. Present on Admission?: Yes Admission and Anticipated Discharge Date Admission Date: October 06, 2022 Subjective C/O left ankle pain. Using Toradol, Morphine, Oxycodone. Physical Exam Physical Exam: Left ankle: Splint is clean, dry, intact. Cap refill < 2 sed. Calf is soft and non-tender. 2nd toe nail is blackened. Healing wound at the tip looks much improved. Results & Data ([facility]) Vital Signs (Past 12 Hours) Vital Signs Temp Pulse Resp BP Pulse Ox O2 Del Method O2 Flow Rate 10/08/22 03:28 37.1 C 102 H 18 126/80 94 Nasal Cannula 2 10/07/22 23:00 37.6 C H 98 H 18 130/85 94 Nasal Cannula 2 10/07/22 19:46 Room Air Laboratory Results Laboratory Results WBC 9.59 K/ul (4.8-10.8) 10/07/22 06:48 RBC 3.82 M/uL (4.20-5.40) L 10/07/22 06:48 Hgb 11.3 g/dl (12.0-16.0) L 10/07/22 06:48 Hct 33.9 % (37.0-47.0) L 10/07/22 06:48 MCV 88.7 fL (80.0-100.0) 10/07/22 06:48 MCH 29.6 pg (25.0-34.0) 10/07/22 06:48 MCHC 33.3 g/dL (32.0-36.0) 10/07/22 06:48 RDW Std Deviation 42.1 fL (36.4-46.3) 10/07/22 06:48 RDW Coeff of Arjun 13.0 % (11.5-14.5) 10/07/22 06:48 Plt Count 294 K/uL (130-400) 10/07/22 06:48 MPV 9.6 fL (9.4-12.4) 10/07/22 06:48 Immature Gran % (Auto) 0.3 % 10/06/22 01:00 Neut % (Auto) 82.0 % 10/06/22 01:00 Lymph % (Auto) 10.1 % 10/06/22 01:00 [place] % (Auto) 6.2 % 10/06/22 01:00 Eos % (Auto) 0.9 % 10/06/22 01:00 Baso % (Auto) 0.5 % 10/06/22 01:00 Neut # (Auto) 9.32 K/uL (1.40-6.50) H 10/06/22 01:00 Lymph # (Auto) 1.15 K/uL (1.2-3.4) L 10/06/22 01:00 [place] # (Auto) 0.71 K/uL (0.11-0.59) H 10/06/22 01:00 Eos # (Auto) 0.10 K/uL (0-0.50) 10/06/22 01:00 Baso # (Auto) 0.06 K/uL (0-0.2) 10/06/22 01:00 Immature Gran # (Auto) 0.03 K/uL (0.01-0.20) 10/06/22 01:00 PT 10.1 Seconds (9.0-12.0) 10/06/22 01:00 INR 0.9 (0.9-1.1) 10/06/22 01:00 APTT 24.9 Seconds (21.0-31.0) 10/06/22 01:00 PTT Ratio 0.9 10/06/22 01:00 Sodium 137 mmol/L (136-145) 10/07/22 06:48 Potassium 3.9 mmol/L (3.5-5.1) 10/07/22 06:48 Chloride 104 mmol/L (98-107) 10/07/22 06:48 Carbon Dioxide 28 mmol/L (21-32) 10/07/22 06:48 Anion Gap 5 (3-11) 10/07/22 06:48 BUN 9 mg/dl (6-23) 10/07/22 06:48 Creatinine 0.93 mg/dl (0.6-1.2) 10/07/22 06:48 Est Cr Clr Drug Dosing 78.4 ml/min 10/07/22 06:48 Est GFR ( Amer) 80.2 ml/min 10/07/22 06:48 Est GFR (Non-Af Amer) 69.2 ml/min 10/07/22 06:48 BUN/Creatinine Ratio 9.7 (10-20) L 10/07/22 06:48 Glucose 136 mg/dl (70-99(Fasting)) H 10/07/22 06:48 POC Glucose 167 mg/dl (70-99) H 10/07/22 14:52 Calcium 9.5 mg/dl (8.5-10.1) 10/07/22 06:48 Total Bilirubin 0.4 mg/dl (0.2-1.0) 10/06/22 01:00 AST 14 U/L (13-39) 10/06/22 01:00 ALT 12 U/L (7-52) 10/06/22 01:00 Alkaline Phosphatase 76 U/L (34-104) 10/06/22 01:00 Total Protein 7.2 gm/dl (6.0-8.3) 10/06/22 01:00 Albumin 4.2 gm/dl (3.4-5.0) 10/06/22 01:00 Globulin 3.0 gm/dl (2.5-4.0) 10/06/22 01:00 Albumin/Globulin Ratio 1.4 (0.9-2) 10/06/22 01:00 Urine Color [place] 10/07/22 10:20 Urine Appearance Clear (Clear) 10/07/22 10:20 Urine pH 7.5 (4.5-7.5) 10/07/22 10:20 Ur Specific [place] 1.018 (1.000-1.030) 10/07/22 10:20 Urine Protein Negative (Negative) 10/07/22 10:20 Urine Glucose (UA) Negative (Negative) 10/07/22 10:20 Urine Ketones Trace (Negative) H 10/07/22 10:20 Urine Blood Negative (Negative) 10/07/22 10:20 Urine Nitrite Negative (Negative) 10/07/22 10:20 Urine Bilirubin Negative (Negative) 10/07/22 10:20 Urine Urobilinogen Negative (Negative) 10/07/22 10:20 Ur Leukocyte Esterase Negative (Negative) 10/07/22 10:20 SARS-CoV-2, RNA, NAAT NEGATIVE (NEGATIVE) 10/06/22 01:31 Impressions Ankle X-Ray 10/07/22 12:30 FL ankle LT min 3V RTN CLINICAL HISTORY: LT ORIF COMPARISON STUDY: Left ankle radiographs October 06, 2022. FLUOROSCOPY TIME: 120.7 seconds. EXPOSURE DOSE: 2.72 mGy FLUOROSCOPIC IMAGES: 3 FINDINGS: Fluoroscopy was provided during open reduction and internal fixation of the left fibular fracture with intramedullary nail. Fracture alignment has markedly improved and appears near anatomic. Ankle mortise widening has improved. Distal left tibial fracture on prior radiograph are not well- visualized by fluoroscopy. IMPRESSION: Fluoroscopy provided during operative reduction and internal fixation of the distal left fibular fracture. ACT 112: Negative or not required by law. Electronically signed by: Mik Howard M.D. 10/07/2022 3:09 PM
[2022-10-08 07:32] LABS: Hematocrit (blood only) 33.4 % (37.0-47.0); Hemoglobin 10.9 g/dl (12.0-16.0); Mean Corpuscular Hemoglobin 29.6 pg (25.0-34.0); Mean Corpuscular Hgb Conc 32.6 g/dL (32.0-36.0); Mean Corpuscular Volume 90.8 fL (80.0-100.0); Mean Platelet Volume 9.8 fL (9.4-12.4); Platelet Count 285 K/uL (130-400); RDW Standard Deviation 43.2 fL (36.4-46.3); Red Blood Count 3.68 M/uL (4.20-5.40); White Blood Count 9.61 K/ul (4.8-10.8)
[2022-10-08 07:51] LABS: Anion Gap 9 (3-11); Calcium 9.1 mg/dl (8.5-10.1); Carbon Dioxide 21 mmol/L (21-32); Chloride 103 mmol/L (98-107); Sodium 133 mmol/L (136-145)
[2022-10-08 07:56] LABS: BUN Creatinine Ratio 7.4 (10-20); Blood Urea Nitrogen 8 mg/dl (6-23); Creatinine Clr Calc Pharmacy 67.5 ml/min; Est GFR (African American) 66.9 ml/min; Est GFR (Non-African American) 57.7 ml/min; Glucose 110 mg/dl (70-99(Fasting))
[2022-10-08] MEDS: hydrOXYzine HCl 25 MG TAB PO SCH ×2 (08:08→20:55)
[2022-10-08] MEDS: LITHIUM CARBONATE SLOW REL 300 MG TAB PO SCH (08:09)
[2022-10-08] MEDS: PANTOprazole 40 MG TAB PO SCH ×2 (08:09→20:53)
[2022-10-08] MEDS: MULTIVITAMIN TAB PO SCH (08:09)
[2022-10-08] MEDS: DOCUSATE SODIUM 100 MG CAP PO SCH ×2 (08:10→20:52)
[2022-10-08] MEDS: NICOTINE 21 MG/24 HR TDSY TD SCH (08:11)
--- NOTE | 2022-10-08 09:21 | Hospitalist Progress Note ---
Date of Service October 08, 2022 Assessment & Plan (1) Closed bimalleolar fracture: Plan: Patient sustained a fall at home resulting in left ankle pain. X-ray in the ER concerning for bimalleolar fracture s/p splinting in ER. Patient now with pain in the ankle. No additional complaints. -Admit to medical/surgical floor -Pain control with morphine PRN -Miralax PRN -Orthopedic Surgery- [facility] ortho following -Post op day #1 ORIF Left Distal fibula with IM nail -Started ASA 81mg BID x 6 weeks -ROBBY hose x 3 weeks -Foot pumps while in the hospital (2) Bipolar 1 disorder: Plan: Chronic -Continue [place] -Continue Hydroxyzine PRN -Trazodone qHS (3) Schizoaffective disorder: Plan: Chronic -Continue home medications - Lurasidone (4) Diabetes mellitus with neuropathy: Plan: Patient is not currently on any diabetic medications. Last HgbA1C on 09/22/22 was 6.6 -Continue to monitor (5) Hypothyroid: Plan: Chronic. -Continue Synthroid (6) Constipation: Plan: -Miralax daily as needed -Encourage OOB to the chair with PT/OT Plan -ASA 81mg BID for 6 weeks -ROBBY hose x 3 weeks -Foot pumps while in hospital -PT/OT NWB LLE -Continue incentive spirometer -PT evaluated and recommend when he is stable for discharge to transition to a rehab facility to continue with her rehab and medical care Admission and Anticipated Discharge Date Admission Date: October 06, 2022 Subjective Patient is post op day#1 ORIF Left Distal Fibula with IM nail Patient states she has had no BM x4days and she has some abdominal cramping. She denies any N/V. She is passing flatus. She is using her incentive spirometer every hour. Per nursing patient had a slight cough and elevated temp. Review of Systems Review of Systems: patient denies any chest pain, SOB, dyspnea, nausea, vomiting, melena or hematochezia. all other ROS negative unless stated + above. + constipation Physical Exam Constitutional: WD/WN, vitals as above Neck: trachea midline, no thyromegaly Respiratory: normal respiratory effort, lungs clear to auscultation Cardiovascular: Rate/Rhythm: regular rate and regular rhythm Extremities: no calf tenderness and no edema Musculoskeletal: Left leg splint clean and dry. intact sensation and good capillary refill Skin: lesion left 2nd toe Psychiatric: A+Ox3, euthymic affect Results & Data Results & Data ([facility]) Vital Signs (Past 12 Hours) Vital Signs Temp Pulse Resp BP Pulse Ox O2 Del Method O2 Flow Rate 10/08/22 09:02 37.1 C 97 H 17 111/74 94 Room Air 10/08/22 07:30 Room Air 10/08/22 07:35 37.4 C 93 H 16 110/75 93 Room Air 10/08/22 03:28 37.1 C 102 H 18 126/80 94 Nasal Cannula 2 10/07/22 23:00 37.6 C H 98 H 18 130/85 94 Nasal Cannula 2 Laboratory Results Abnormal lab results 10/07/22 10/07/22 10/07/22 Range/Units 10:20 12:09 14:52 RBC (4.20-5.40) M/uL Hgb (12.0-16.0) g/dl Hct (37.0-47.0) % Sodium (136-145) mmol/L BUN/Creatinine Ratio (10-20) Glucose (70-99(Fasting)) mg/dl POC Glucose 117 H 167 H (70-99) mg/dl Urine Ketones Trace H (Negative) 10/08/22 10/08/22 Range/Units 06:29 06:29 RBC 3.68 L (4.20-5.40) M/uL Hgb 10.9 L (12.0-16.0) g/dl Hct 33.4 L (37.0-47.0) % Sodium 133 L (136-145) mmol/L BUN/Creatinine Ratio 7.4 L (10-20) Glucose 110 H (70-99(Fasting)) mg/dl POC Glucose (70-99) mg/dl Urine Ketones (Negative) Diagnostic Findings Ankle X-Ray 10/07/22 12:30 FL ankle LT min 3V RTN CLINICAL HISTORY: LT ORIF COMPARISON STUDY: Left ankle radiographs October 06, 2022. FLUOROSCOPY TIME: 120.7 seconds. EXPOSURE DOSE: 2.72 mGy FLUOROSCOPIC IMAGES: 3 FINDINGS: Fluoroscopy was provided during open reduction and internal fixation of the left fibular fracture with intramedullary nail. Fracture alignment has m arkedly improved and appears near anatomic. Ankle mortise widening has improved. Distal left tibial fracture on prior radiograph are not well-visualized by fluoroscopy. IMPRESSION: Fluoroscopy provided during operative reduction and internal fixation of the distal left fibular fracture. ACT 112: Negative or not required by law. Electronically signed by: Mik Howard M.D. 10/07/2022 3:09 PM PG Care Time/CCT Total # of Minutes Spent Total Time Spent with Patient: Total time spent is greater than 50% in coordination of care (as documented) at patient's floor/unit and/or counseling patient: Coding Level of Care Code 45355 SUB INP/OBS CARE 2/35MIN Diagnoses Closed bimalleolar fracture S82.843A Bipolar 1 disorder F31.9 Schizoaffective disorder F25.9 Diabetes mellitus with neuropathy E11.40 Hypothyroid E03.9 Constipation K59.00
[2022-10-08] MEDS: ASPIRIN 81 MG ECTAB PO SCH ×2 (10:42→20:53)
[2022-10-08] MEDS: CHOLECALCIFEROL 1,000 UNITS 25 MCG TAB PO SCH (11:57)
[2022-10-08] MEDS: FERROUS SULFATE 325 MG TAB PO SCH (11:57)
[2022-10-08] MEDS: LURASIDONE HCL 40 MG TAB PO SCH (12:37)
[2022-10-08] MEDS: ACETAMINOPHEN 325 MG TAB PO PRN (14:59)
--- NOTE | 2022-10-08 15:47 | XRay Report ---
XR chest 2V PA/lateral CLINICAL HISTORY: Cough and fever. COMPARISON STUDY: Chest radiograph March 09, 2021. FINDINGS: Postoperative findings within the spine are incidentally noted. There is no pneumothorax. S uspected trace bilateral pleural effusions. Linear left basilar opacity favors atelectasis. No consol idation is identified to suggest pneumonia. Lung volumes are mildly diminished. This favors a hypoven tilatory study. Mild enlargement of the cardiac silhouette. No evidence for pulmonary edema. IMPRESSION: 1. Mild enlargement of the cardiac silhouette. No evidence for pulmonary edema. 2. Trace bilateral pleural effusions. 3. Left basilar opacity suggestive of atelectasis. ACT 112: Negative or not required by law. Electronically signed by: Mik Howard M.D. 10/08/2022 3:46 PM
[2022-10-08] MEDS: POLYETHYLENE (MIRALAX) 17 GM PACK PO PRN (16:08)
[2022-10-08] MEDS: LITHIUM CARBONATE 450 MG TABCR PO SCH (20:54)
[2022-10-08] MEDS: traZODone HCL 50 MG TAB PO SCH (20:55)
[2022-10-09] MEDS: LEVOTHYROXINE SODIUM 100 MCG TABLET PO SCH (04:12)
[2022-10-09] MEDS: ACETAMINOPHEN 325 MG TAB PO PRN ×2 (04:12→13:23)
[2022-10-09] MEDS: BACLOFEN 20 MG TAB PO SCH ×3 (04:12→21:14)
[2022-10-09 07:33] LABS: Hematocrit (blood only) 31.2 % (37.0-47.0); Hemoglobin 10.1 g/dl (12.0-16.0); Mean Corpuscular Hemoglobin 29.3 pg (25.0-34.0); Mean Corpuscular Hgb Conc 32.4 g/dL (32.0-36.0); Mean Corpuscular Volume 90.4 fL (80.0-100.0); Mean Platelet Volume 9.5 fL (9.4-12.4); Platelet Count 286 K/uL (130-400); RDW Coefficient of Variation 12.6 % (11.5-14.5); RDW Standard Deviation 41.5 fL (36.4-46.3); Red Blood Count 3.45 M/uL (4.20-5.40); White Blood Count 7.08 K/ul (4.8-10.8)
[2022-10-09 08:07] LABS: BUN Creatinine Ratio 13.8 (10-20); Calcium 9.5 mg/dl (8.5-10.1); Creatinine Clr Calc Pharmacy 91.1 ml/min; Est GFR (African American) 96.2 ml/min; Potassium 4.3 mmol/L (3.5-5.1)
[2022-10-09] MEDS: LITHIUM CARBONATE SLOW REL 300 MG TAB PO SCH (08:16)
[2022-10-09] MEDS: hydrOXYzine HCl 25 MG TAB PO SCH ×2 (08:17→21:14)
[2022-10-09] MEDS: MULTIVITAMIN TAB PO SCH (08:17)
[2022-10-09] MEDS: ASPIRIN 81 MG ECTAB PO SCH ×2 (08:18→21:13)
[2022-10-09] MEDS: PANTOprazole 40 MG TAB PO SCH ×2 (08:18→21:14)
[2022-10-09] MEDS: NICOTINE 21 MG/24 HR TDSY TD SCH (08:19)
[2022-10-09] MEDS: DOCUSATE SODIUM 100 MG CAP PO SCH ×2 (08:23→21:13)
--- NOTE | 2022-10-09 08:54 | Hospitalist Progress Note ---
Date of Service October 09, 2022 Assessment & Plan (1) Closed bimalleolar fracture: Plan: Patient sustained a fall at home resulting in left ankle pain. X-ray in the ER concerning for bimalleolar fracture s/p splinting in ER. Patient now with pain in the ankle. No additional complaints. -Admit to medical/surgical floor -Pain control with Tylenol prn, Oxycodone 5-10 mg q 4H prn -Discontinued the IV Morphine -Miralax and Dulcolax PRN -Orthopedic Surgery- [facility] ortho following -Post op day #2 ORIF Left Distal fibula with IM nail -Started ASA 81mg BID x 6 weeks -ROBBY hose x 3 weeks -Foot pumps while in the hospital (2) Bipolar 1 disorder: Plan: Chronic -Continue [place] -Check lithium level -Continue Hydroxyzine PRN -Trazodone qHS (3) Schizoaffective disorder: Plan: Chronic -Continue home medications - Lurasidone (4) Diabetes mellitus with neuropathy: Plan: Patient is not currently on any diabetic medications. Last HgbA1C on 09/22/22 was 6.6 -Continue to monitor (5) Hypothyroid: Plan: Chronic. -Continue Synthroid (6) Constipation: Plan: -Miralax and dulcolax daily as needed -Encourage OOB to the chair with PT/OT Plan -ASA 81mg BID for 6 weeks -ROBBY hose x 3 weeks -Foot pumps while in hospital -PT/OT NWB LLE -Continue incentive spirometer -PT evaluated and recommend when he is stable for discharge to transition to a rehab facility to continue with her rehab and medical care Admission and Anticipated Discharge Date Admission Date: October 06, 2022 Subjective Patient is post op day#2 ORIF Left Distal Fibula with IM nail She denies any N/V. She is passing flatus. She is using her incentive spirometer every hour. Patient states she did not do well with PT yesterday but feels she will be able to participate much better today. She states she is doing leg lifts and exercises in bed. She is only using Tylenol for pain. I will stop the IV pain medications. Review of Systems Review of Systems: patient denies any chest pain, SOB, dyspnea, nausea, vomiting, melena or hematochezia. all other ROS negative unless stated + above. + constipation Physical Exam Constitutional: WD/WN, vitals as above Neck: trachea midline, no thyromegaly Respiratory: normal respiratory effort, lungs clear to auscultation Cardiovascular: Rate/Rhythm: regular rate and regular rhythm Extremities: no calf tenderness and no edema Gastrointestinal (Abdomen): normal bowel sounds, soft, nontender, no hepatosplenomegaly Musculoskeletal: splint left lower leg intact and clean Normal capillary refill Psychiatric: A+Ox3, euthymic affect Results & Data Results & Data ([facility]) Vital Signs (Past 12 Hours) Vital Signs Temp Pulse Resp BP Pulse Ox O2 Del Method O2 Flow Rate 10/09/22 07:22 37.0 C 74 16 168/75 H 95 Nasal Cannula 2 10/08/22 22:00 37.2 C 80 18 131/83 97 Nasal Cannula 2 Laboratory Results Abnormal lab results 10/09/22 10/09/22 Range/Units 06:26 06:26 RBC 3.45 L (4.20-5.40) M/uL Hgb 10.1 L (12.0-16.0) g/dl Hct 31.2 L (37.0-47.0) % Sodium 134 L (136-145) mmol/L Glucose 118 H (70-99(Fasting)) mg/dl Diagnostic Findings Chest X-Ray 10/08/22 14:55 XR chest 2V PA/lateral CLINICAL HISTORY: Cough and fever. COMPARISON STUDY: Chest radiograph March 09, 2021. FINDINGS: Postoperative findings within the spine are incidentally noted. There is no pneumothorax. Suspected trace bilateral pleural effusions. Linear left basilar opacity favors atelectasis. No consolidation is identified to suggest pneumonia. Lung volumes are mildly diminished. This favors a hypoventilatory study. Mild enlargement of the cardiac silhouette. No evidence for pulmonary edema. IMPRESSION: 1. Mild enlargement of the cardiac silhouette. No evidence for pulmonary edema. 2. Trace bilateral pleural effusions. 3. Left basilar opacity suggestive of atelectasis. ACT 112: Negative or not required by law. Electronically signed by: Mik Howard M.D. 10/08/2022 3:46 PM PG Care Time/CCT Total # of Minutes Spent Total Time Spent with Patient: Total time spent is greater than 50% in coordination of care (as documented) at patient's floor/unit and/or counseling patient: Coding Level of Care Code 37334 SUB INP/OBS CARE 2/35MIN Diagnoses Closed bimalleolar fracture S82.843A Bipolar 1 disorder F31.9 Schizoaffective disorder F25.9 Diabetes mellitus with neuropathy E11.40 Hypothyroid E03.9 Constipation K59.00
[2022-10-09] MEDS: FERROUS SULFATE 325 MG TAB PO SCH (12:25)
[2022-10-09] MEDS: CHOLECALCIFEROL 1,000 UNITS 25 MCG TAB PO SCH (12:25)
[2022-10-09] MEDS: LURASIDONE HCL 40 MG TAB PO SCH (12:25)
--- NOTE | 2022-10-09 12:25 | Orthopedic Progress Note ---
Date of Service October 09, 2022 Assessment & Plan (1) Closed bimalleolar fracture: Plan: POD #2 s/p ORIF L distal fibula, doing as well as expected. Resume diet. NWB LLE. OOB to chair. Continue pain control. DVT prophylaxis: TEDs 3 weeks, foot pumps while in hospital, ASA 81 mg BID for 6 weeks. PT/OT. D/C planning. Continue care per primary Hospitalist service Follow-up in Dr. Rivero's office in 2 weeks for Staple removal. Admission and Anticipated Discharge Date Admission Date: October 06, 2022 Subjective Left ankle is feeling better. Had a good night sleep. Only using Tylenol for pain. Physical Exam Physical Exam: Left ankle: Splint is clean, dry, intact. Cap refill < 2 sec. Calf is soft and non-tender. 2nd toe nail is blackened. Healing wound at the tip looks much improved. Results & Data ([facility]) Vital Signs (Past 12 Hours) Vital Signs Temp Pulse Resp BP Pulse Ox O2 Del Method O2 Flow Rate 10/09/22 09:59 Nasal Cannula 2 10/09/22 07:22 37.0 C 74 16 168/75 H 95 Nasal Cannula 2 Laboratory Results 10/09/22 10/09/22 Range/Units 06:26 06:26 WBC 7.08 (4.8-10.8) K/ul RBC 3.45 L (4.20-5.40) M/uL Hgb 10.1 L (12.0-16.0) g/dl Hct 31.2 L (37.0-47.0) % MCV 90.4 (80.0-100.0) fL MCH 29.3 (25.0-34.0) pg MCHC 32.4 (32.0-36.0) g/dL RDW Std Deviation 41.5 (36.4-46.3) fL RDW Coeff of Arjun 12.6 (11.5-14.5) % Plt Count 286 (130-400) K/uL MPV 9.5 (9.4-12.4) fL Sodium 134 L (136-145) mmol/L Potassium 4.3 (3.5-5.1) mmol/L Chloride 101 (98-107) mmol/L Carbon Dioxide 30 (21-32) mmol/L Anion Gap 3 (3-11) BUN 11 (6-23) mg/dl Creatinine 0.80 (0.6-1.2) mg/dl Est Cr Clr Drug Dosing 91.1 ml/min Est GFR ( Amer) 96.2 ml/min Est GFR (Non-Af Amer) 83.0 ml/min BUN/Creatinine Ratio 13.8 (10-20) Glucose 118 H (70-99(Fasting)) mg/dl Calcium 9.5 (8.5-10.1) mg/dl
[2022-10-09] MEDS: oxyCODONE HCL IR 5 MG TAB (IMMEDIATE RELEASE) PO PRN ×2 (16:01→21:14)
[2022-10-09] MEDS: LIDOCAINE 5% 1 PATCH TD PRN (21:11)
[2022-10-09] MEDS: LITHIUM CARBONATE 450 MG TABCR PO SCH (21:13)
[2022-10-09] MEDS: traZODone HCL 50 MG TAB PO SCH (21:18)
[2022-10-10] MEDS: LEVOTHYROXINE SODIUM 100 MCG TABLET PO SCH (04:21)
[2022-10-10] MEDS: BACLOFEN 20 MG TAB PO SCH ×3 (04:21→20:37)
[2022-10-10 06:50] LABS: Hematocrit (blood only) 30.7 % (37.0-47.0); Hemoglobin 9.9 g/dl (12.0-16.0); Mean Corpuscular Hemoglobin 29.3 pg (25.0-34.0); Mean Corpuscular Hgb Conc 32.2 g/dL (32.0-36.0); Mean Corpuscular Volume 90.8 fL (80.0-100.0); Mean Platelet Volume 9.7 fL (9.4-12.4); Platelet Count 298 K/uL (130-400); RDW Coefficient of Variation 12.5 % (11.5-14.5); RDW Standard Deviation 41.1 fL (36.4-46.3); Red Blood Count 3.38 M/uL (4.20-5.40); White Blood Count 6.48 K/ul (4.8-10.8)
[2022-10-10 07:01] LABS: BUN Creatinine Ratio 12.2 (10-20); Calcium 9.9 mg/dl (8.5-10.1); Est GFR (African American) 83.4 ml/min; Potassium 4.4 mmol/L (3.5-5.1)
[2022-10-10] MEDS: NICOTINE 21 MG/24 HR TDSY TD SCH (08:18)
[2022-10-10] MEDS: LITHIUM CARBONATE SLOW REL 300 MG TAB PO SCH (08:18)
[2022-10-10] MEDS: DOCUSATE SODIUM 100 MG CAP PO SCH ×2 (08:18→20:38)
[2022-10-10] MEDS: oxyCODONE HCL IR 5 MG TAB (IMMEDIATE RELEASE) PO PRN (08:18)
[2022-10-10] MEDS: hydrOXYzine HCl 25 MG TAB PO SCH ×2 (08:19→20:37)
[2022-10-10] MEDS: MULTIVITAMIN TAB PO SCH (08:19)
[2022-10-10] MEDS: PANTOprazole 40 MG TAB PO SCH ×2 (08:19→20:37)
[2022-10-10] MEDS: ASPIRIN 81 MG ECTAB PO SCH ×2 (08:20→20:37)
--- NOTE | 2022-10-10 09:22 | Orthopedic Progress Note ---
Date of Service October 10, 2022 Assessment & Plan (1) Closed bimalleolar fracture: Plan: POD #3 s/p ORIF L distal fibula, doing well Resume diet. NWB LLE. OOB to chair. Continue pain control. DVT prophylaxis: TEDs 3 weeks, foot pumps while in hospital, ASA 81 mg BID for 6 weeks. PT/OT. D/C planning. Continue care per primary Hospitalist service Dr. Rivero would like pt to return to the office in one week for reassessment to transition into boot l Present on Admission?: Yes Admission and Anticipated Discharge Date Admission Date: October 06, 2022 Subjective Patient is post op day#3, s/p ORIF Left Distal Fibula with IM nail. She was seen bedside this am sitting up in bed just finished breakfast. She is in good spirts. She states her ankle feels much better. She states the pain was a 7 and now it is a 6/10. She feels her pain is controlled. She states she is doing exercises in bed. She states she has numbness in her toes, which has been ongoing prior to the fracture. She denies any Chest pain, SOB, Calf pain, fever or chills. Review of Systems Review of Systems: Please refer to HPI Physical Exam Physical Exam: General: Alert and oriented x3. Pleasant and conversive no acute distress Musculoskeletal integumentary: Skin is normal in color of the toes with the exception of second toe that has been undergoing treatment for ulceration. Negative for any drainage in the area or signs of infection. Patient is able to wiggle toes. Patient is able to do straight leg raise in bed and flex and extend knee. Left lower extremity is neurovascular intact. Results & Data ([facility]) Vital Signs (Past 12 Hours) Vital Signs Temp Pulse Resp BP Pulse Ox O2 Del Method O2 Flow Rate 10/10/22 08:31 Room Air 10/10/22 08:04 36.7 C 76 16 130/86 97 Nasal Cannula 2
--- NOTE | 2022-10-10 10:55 | Hospitalist Progress Note ---
Date of Service October 10, 2022 Assessment & Plan (1) Closed bimalleolar fracture: Plan: Patient sustained a fall at home resulting in left ankle pain. X-ray in the ER concerning for bimalleolar fracture s/p splinting in ER. Patient now with pain in the ankle. No additional complaints. -Admit to medical/surgical floor -Pain control with Tylenol prn, Oxycodone 5-10 mg q 4H prn -Discontinued the IV Morphine -Miralax and Dulcolax PRN -Orthopedic Surgery- [facility] ortho following -Post op day #3 ORIF Left Distal fibula with IM nail -Started ASA 81mg BID x 6 weeks -ROBBY hose x 3 weeks -Foot pumps while in the hospital (2) Bipolar 1 disorder: Plan: Chronic -[place] level normal 0.9 -Continue Hydroxyzine PRN -Trazodone qHS (3) Schizoaffective disorder: Plan: Chronic -Continue home medications - Lurasidone (4) Diabetes mellitus with neuropathy: Plan: Patient is not currently on any diabetic medications. Last HgbA1C on 09/22/22 was 6.6 -Continue to monitor (5) Hypothyroid: Plan: Chronic. -Continue Synthroid (6) Constipation: Plan: -Miralax and dulcolax daily as needed -Encourage OOB to the chair with PT/OT Plan -ASA 81mg BID for 6 weeks -ROBBY hose x 3 weeks -Foot pumps while in hospital -PT/OT YASMIN HARDY -Dr. Rivero (orthopedist) wants patient to return to their office in 1 week for appointment and to transition into a boot -Continue incentive spirometer -PT evaluated and recommend when he is stable for discharge to transition to a rehab facility to continue with her rehab and medical care -Patient is stable and ready to be discharged to a rehab facility Admission and Anticipated Discharge Date Admission Date: October 06, 2022 Subjective Patient is post op day#3 s/p ORIF Left Distal Fibula with IM nail. She was seen bedside this am sitting up in bed talking to her fiance. She states her ankle feels much better. She feels her pain is controlled. She states she is doing leg exercises in bed. Patient tells me that she had 3 BMs yesterday after having an enema and is feeling better since moving her bowels. She denies any hematochezia, melena. Patient seems very motivated and willing to work to regain strength and mobility. CM is working on referrals for inpatient rehab stay. Review of Systems Review of Systems: patient denies any chest pain, SOB, dyspnea, nausea, vomiting, melena or hematochezia. all other ROS negative unless stated + above. Physical Exam Constitutional: WD/WN, vitals as above Neck: trachea midline, no thyromegaly Respiratory: normal respiratory effort, lungs clear to auscultation Cardiovascular: Rate/Rhythm: regular rate and regular rhythm Extremities: no calf tenderness and no edema Gastrointestinal (Abdomen): normal bowel sounds, soft, nontender, no hepatosplenomegaly Musculoskeletal: splint and dressing LLE intact and clean and dry Good capillary refill and intact sensation to toes Psychiatric: A+Ox3, euthymic affect Results & Data Results & Data ([facility]) Vital Signs (Past 12 Hours) Vital Signs Temp Pulse Resp BP Pulse Ox O2 Del Method O2 Flow Rate 10/10/22 08:31 Room Air 10/10/22 08:04 36.7 C 76 16 130/86 97 Nasal Cannula 2 Laboratory Results Abnormal lab results 10/10/22 10/10/22 Range/Units 06:01 06:01 RBC 3.38 L (4.20-5.40) M/uL Hgb 9.9 L (12.0-16.0) g/dl Hct 30.7 L (37.0-47.0) % Carbon Dioxide 33 H (21-32) mmol/L Glucose 125 H (70-99(Fasting)) mg/dl PG Care Time/CCT Total # of Minutes Spent Total Time Spent with Patient: Total time spent is greater than 50% in coordination of care (as documented) at patient's floor/unit and/or counseling patient: Coding Level of Care Code 48270 SUB INP/OBS CARE 2/35MIN Diagnoses Closed bimalleolar fracture S82.843A Bipolar 1 disorder F31.9 Schizoaffective disorder F25.9 Diabetes mellitus with neuropathy E11.40 Hypothyroid E03.9 Constipation K59.00
[2022-10-10] MEDS: ACETAMINOPHEN 325 MG TAB PO PRN ×3 (10:59→19:28)
[2022-10-10] MEDS: LURASIDONE HCL 40 MG TAB PO SCH (12:16)
[2022-10-10] MEDS: CHOLECALCIFEROL 1,000 UNITS 25 MCG TAB PO SCH (12:16)
[2022-10-10] MEDS: FERROUS SULFATE 325 MG TAB PO SCH (12:16)
[2022-10-10] MEDS: traZODone HCL 50 MG TAB PO SCH (20:37)
[2022-10-10] MEDS: LIDOCAINE 5% 1 PATCH TD PRN (20:37)
[2022-10-10] MEDS: LITHIUM CARBONATE 450 MG TABCR PO SCH (20:37)
[2022-10-11] MEDS: LEVOTHYROXINE SODIUM 100 MCG TABLET PO SCH (04:24)
[2022-10-11] MEDS: BACLOFEN 20 MG TAB PO SCH ×3 (04:24→20:14)
[2022-10-11] MEDS: ACETAMINOPHEN 325 MG TAB PO PRN ×3 (06:36→17:44)
[2022-10-11] MEDS: ASPIRIN 81 MG ECTAB PO SCH ×2 (08:30→20:16)
[2022-10-11] MEDS: hydrOXYzine HCl 25 MG TAB PO SCH ×2 (08:30→20:15)
[2022-10-11] MEDS: PANTOprazole 40 MG TAB PO SCH ×2 (08:30→20:15)
[2022-10-11] MEDS: NICOTINE 21 MG/24 HR TDSY TD SCH (08:30)
[2022-10-11] MEDS: DOCUSATE SODIUM 100 MG CAP PO SCH ×2 (08:30→20:16)
[2022-10-11] MEDS: LITHIUM CARBONATE SLOW REL 300 MG TAB PO SCH (08:31)
[2022-10-11] MEDS: MULTIVITAMIN TAB PO SCH (08:31)
--- NOTE | 2022-10-11 09:41 | Orthopedic Progress Note ---
Date of Service October 11, 2022 Assessment & Plan (1) Closed bimalleolar fracture: Plan: POD #4 s/p ORIF L distal fibula, doing well NWB LLE. OOB to chair. Continue pain control. DVT prophylaxis: TEDs 3 weeks, foot pumps while in hospital, ASA 81 mg BID for 6 weeks. PT/OT. D/C planning to inpatient rehab pending approval. Continue care per primary Hospitalist service Dr. Rivero would like pt to return to the office in one week for reassessment to transition into [place] cam boot Present on Admission?: Yes Admission and Anticipated Discharge Date Admission Date: October 06, 2022 Subjective Patient is post op day#4 s/p ORIF Left Distal Fibula with IM nail. She was seen bedside this am. She states she is not having any pain at this time in the ankle. She denies any new paresthesia or swelling of the toes. She denies any irritation from the splint. She is aware that currently they are trying to get her placed in [facility] for rehabilitation. She denies any fever, chills, chest pain, shortness of breath or calf pain.. Review of Systems Review of Systems: Please refer to HPI Physical Exam Physical Exam: General: Alert and oriented x3. Patient is in good spirits Musculoskeletal integumentary: Skin remains unchanged and toes. Normal in temperature. No change with the ulceration of toe. Negative for any drainage in the area or signs of infection. Patient is able to wiggle toes without restriction from splint. Left lower extremity is neurovascular intact. Results & Data ([facility]) Vital Signs (Past 12 Hours) Vital Signs Temp Pulse Resp BP Pulse Ox O2 Del Method 10/11/22 08:56 Room Air 10/11/22 07:31 37.3 C 76 16 149/84 H 93 Room Air
[2022-10-11] MEDS: LURASIDONE HCL 40 MG TAB PO SCH (12:17)
[2022-10-11] MEDS: CHOLECALCIFEROL 1,000 UNITS 25 MCG TAB PO SCH (12:17)
[2022-10-11] MEDS: FERROUS SULFATE 325 MG TAB PO SCH (12:17)
[2022-10-11] MEDS: COUGH DROP (SUGAR FREE) LOZ 24 LOZ/1 BOX BUCCAL PRN (12:51)
--- NOTE | 2022-10-11 14:41 | Hospitalist Progress Note ---
Date of Service October 11, 2022 Assessment & Plan (1) Closed bimalleolar fracture: Plan: Patient sustained a fall at home resulting in left ankle pain. X-ray in the ER concerning for bimalleolar fracture s/p splinting in ER. Patient now with pain in the ankle. No additional complaints. -Admit to medical/surgical floor -Pain control with Tylenol prn, Oxycodone 5-10 mg q 4H prn -Discontinued the IV Morphine -Miralax and Dulcolax PRN -Orthopedic Surgery- [facility] ortho following -Post op day #4 ORIF Left Distal fibula with IM nail -Started ASA 81mg BID x 6 weeks -ROBBY hose x 3 weeks -Foot pumps while in the hospital (2) Bipolar 1 disorder: Plan: Chronic -[place] level normal 0.9 -Continue Hydroxyzine PRN -Trazodone qHS (3) Schizoaffective disorder: Plan: Chronic -Continue home medications - Lurasidone (4) Diabetes mellitus with neuropathy: Plan: Patient is not currently on any diabetic medications. Last HgbA1C on 09/22/22 was 6.6 -Continue to monitor (5) Hypothyroid: Plan: Chronic. -Continue Synthroid (6) Constipation: Plan: -Miralax and dulcolax daily as needed -Encourage OOB to the chair with PT/OT Plan -ASA 81mg BID for 6 weeks -ROBBY hose x 3 weeks -Foot pumps while in hospital -PT/OT YASMIN HARDY -Dr. Rivero (orthopedist) wants patient to return to their office in 1 week for appointment and to transition into a boot -Continue incentive spirometer -PT evaluated and recommend when he is stable for discharge to transition to a rehab facility to continue with her rehab and medical care -Patient is stable and ready to be discharged to a rehab facility Admission and Anticipated Discharge Date Admission Date: October 06, 2022 Subjective Patient is post op day#4 s/p ORIF Left Distal Fibula with IM nail. She was seen bedside this am. She states she is not having any pain at this time in the ankle. She denies any new paresthesia or swelling of the toes. She denies any irritation from the splint. She is currently elevating her feet and using ice. She denies any fever, chills, chest pain, shortness of breath or calf pain. She continues to work with PT/OT. Patient was denied for [facility] and will need a P2P Review of Systems Review of Systems: patient denies any chest pain, SOB, dyspnea, nausea, vomiting, melena or hematochezia. all other ROS negative unless stated + above. Physical Exam Constitutional: WD/WN, vitals as above Neck: trachea midline, no thyromegaly Respiratory: normal respiratory effort, lungs clear to auscultation Cardiovascular: Rate/Rhythm: regular rate and regular rhythm Extremities: no calf tenderness and no edema Gastrointestinal (Abdomen): normal bowel sounds, soft, nontender, no hepatosplenomegaly Musculoskeletal: Splint and dressing left ankle clean and dry Neurologic: PERRL, EOMI, accommodation nl, no face palsy, no dysarthria intact sensation to bilateral toes, intact capillary refill toes Psychiatric: A+Ox3, euthymic affect Results & Data Results & Data ([facility]) Vital Signs (Past 12 Hours) Vital Signs Temp Pulse Resp BP Pulse Ox O2 Del Method 10/11/22 14:19 37.0 C 88 16 147/86 H 95 Room Air 10/11/22 08:56 Room Air 10/11/22 07:31 37.3 C 76 16 149/84 H 93 Room Air PG Care Time/CCT Total # of Minutes Spent Total Time Spent with Patient: Total time spent is greater than 50% in coordination of care (as documented) at patient's floor/unit and/or counseling patient: Coding Level of Care Code 14878 SUB INP/OBS CARE 2/35MIN Diagnoses Closed bimalleolar fracture S82.843A Bipolar 1 disorder F31.9 Schizoaffective disorder F25.9 Diabetes mellitus with neuropathy E11.40 Hypothyroid E03.9 Constipation K59.00
[2022-10-11] MEDS: LIDOCAINE 5% 1 PATCH TD PRN (20:13)
[2022-10-11] MEDS: LITHIUM CARBONATE 450 MG TABCR PO SCH (20:14)
[2022-10-11] MEDS: traZODone HCL 50 MG TAB PO SCH (20:18)
[2022-10-11] MEDS: oxyCODONE HCL IR 5 MG TAB (IMMEDIATE RELEASE) PO PRN (23:43)
[2022-10-12] MEDS: BACLOFEN 20 MG TAB PO SCH ×3 (03:39→19:31)
[2022-10-12] MEDS: LEVOTHYROXINE SODIUM 100 MCG TABLET PO SCH (03:39)
[2022-10-12] MEDS: ACETAMINOPHEN 325 MG TAB PO PRN ×4 (03:44→16:59)
[2022-10-12] MEDS: NICOTINE 21 MG/24 HR TDSY TD SCH (08:21)
[2022-10-12] MEDS: LITHIUM CARBONATE SLOW REL 300 MG TAB PO SCH (08:22)
[2022-10-12] MEDS: ASPIRIN 81 MG ECTAB PO SCH ×2 (08:22→19:31)
[2022-10-12] MEDS: MULTIVITAMIN TAB PO SCH (08:22)
[2022-10-12] MEDS: DOCUSATE SODIUM 100 MG CAP PO SCH ×2 (08:22→19:32)
[2022-10-12] MEDS: hydrOXYzine HCl 25 MG TAB PO SCH ×2 (08:22→19:31)
[2022-10-12] MEDS: PANTOprazole 40 MG TAB PO SCH ×2 (08:22→19:31)
--- NOTE | 2022-10-12 09:57 | Hospitalist Progress Note ---
Date of Service October 12, 2022 Assessment & Plan (1) Closed bimalleolar fracture: Plan: Patient sustained a fall at home resulting in left ankle pain. X-ray in the ER concerning for bimalleolar fracture s/p splinting in ER. Patient now with pain in the ankle. No additional complaints. -Admit to medical/surgical floor -Pain control with Tylenol prn, Oxycodone 5-10 mg q 4H prn -Discontinued the IV Morphine -Miralax and Dulcolax PRN -Orthopedic Surgery- [facility] ortho following -Post op day #4 ORIF Left Distal fibula with IM nail -Started ASA 81mg BID x 6 weeks -ROBBY hose x 3 weeks -Foot pumps while in the hospital (2) Bipolar 1 disorder: Plan: Chronic -[place] level normal 0.9 -Continue Hydroxyzine PRN -Trazodone qHS (3) Schizoaffective disorder: Plan: Chronic -Continue home medications - Lurasidone (4) Diabetes mellitus with neuropathy: Plan: Patient is not currently on any diabetic medications. Last HgbA1C on 09/22/22 was 6.6 -Continue to monitor (5) Hypothyroid: Plan: Chronic. -Continue Synthroid (6) Constipation: Plan: -Miralax and dulcolax daily as needed -Encourage OOB to the chair with PT/OT Plan -ASA 81mg BID for 6 weeks -ROBBY hose x 3 weeks -Foot pumps while in hospital -PT/OT YASMIN HARDY -Dr. Rivero (orthopedist) wants patient to return to their office in 1 week for appointment and to transition into a boot (has appt tomorrow) -Continue incentive spirometer -Patient is stable and ready to be discharged to a SNF for further rehab -Patient is stable and ready to be discharged to a rehab facility Admission and Anticipated Discharge Date Admission Date: October 06, 2022 Subjective Patient is post op day #5 s/p ORIF Left Distal Fibula with IM nail. She was seen bedside this am. She states she is not having any pain at this time in the ankle. She denies any new paresthesia or swelling of the toes. She denies any irritation from the splint. She is currently elevating her feet and using ice. She denies any fever, chills, chest pain, shortness of breath or calf pain. She continues to work with PT/OT. Patient was denied for [facility] and will need a P2P Per Dr Ta, patient only qualifies for SNF rehab. CM working on placement Review of Systems Review of Systems: patient denies any chest pain, SOB, dyspnea, nausea, vomiting, melena or hematochezia. all other ROS negative unless stated + above. Physical Exam Constitutional: WD/WN, vitals as above Neck: trachea midline, no thyromegaly Respiratory: normal respiratory effort, lungs clear to auscultation Cardiovascular: Rate/Rhythm: regular rate and regular rhythm Extremities: no calf tenderness and no edema Gastrointestinal (Abdomen): normal bowel sounds, soft, nontender, no hepatosplenomegaly Musculoskeletal: Splint and dressing left leg clean and dry, intact sensation and good capillary refill toes Neurologic: PERRL, EOMI, accommodation nl, no face palsy, no dysarthria Psychiatric: A+Ox3, euthymic affect Results & Data Results & Data ([facility]) Vital Signs (Past 12 Hours) Vital Signs Temp Pulse Resp BP Pulse Ox O2 Del Method 10/12/22 08:00 Room Air 10/12/22 07:24 37.1 C 83 18 153/94 H 96 Room Air 10/11/22 22:10 37.1 C 74 18 136/84 96 Room Air PG Care Time/CCT Total # of Minutes Spent Total Time Spent with Patient: Total time spent is greater than 50% in coordination of care (as documented) at patient's floor/unit and/or counseling patient: Coding Level of Care Code 05851 SUB INP/OBS CARE 2/35MIN Diagnoses Closed bimalleolar fracture S82.843A Bipolar 1 disorder F31.9 Schizoaffective disorder F25.9 Diabetes mellitus with neuropathy E11.40 Hypothyroid E03.9 Constipation K59.00
[2022-10-12] MEDS: LURASIDONE HCL 40 MG TAB PO SCH (12:35)
[2022-10-12] MEDS: CHOLECALCIFEROL 1,000 UNITS 25 MCG TAB PO SCH (12:36)
[2022-10-12] MEDS: FERROUS SULFATE 325 MG TAB PO SCH (12:36)
[2022-10-12] MEDS: oxyCODONE HCL IR 5 MG TAB (IMMEDIATE RELEASE) PO PRN (19:30)
[2022-10-12] MEDS: traZODone HCL 50 MG TAB PO SCH (19:32)
[2022-10-12] MEDS: LITHIUM CARBONATE 450 MG TABCR PO SCH (19:32)
[2022-10-12] MEDS: LIDOCAINE 5% 1 PATCH TD PRN (19:32)
[2022-10-13] MEDS: LEVOTHYROXINE SODIUM 100 MCG TABLET PO SCH (05:00)
[2022-10-13] MEDS: BACLOFEN 20 MG TAB PO SCH ×3 (05:00→20:24)
[2022-10-13] MEDS: NICOTINE 21 MG/24 HR TDSY TD SCH (07:26)
[2022-10-13] MEDS: ACETAMINOPHEN 325 MG TAB PO PRN ×3 (07:26→17:58)
[2022-10-13] MEDS: hydrOXYzine HCl 25 MG TAB PO SCH ×2 (07:27→20:23)
[2022-10-13] MEDS: MULTIVITAMIN TAB PO SCH (07:27)
[2022-10-13] MEDS: ASPIRIN 81 MG ECTAB PO SCH ×2 (07:27→20:24)
[2022-10-13] MEDS: DOCUSATE SODIUM 100 MG CAP PO SCH ×2 (07:27→20:24)
[2022-10-13] MEDS: LITHIUM CARBONATE SLOW REL 300 MG TAB PO SCH (07:27)
[2022-10-13] MEDS: PANTOprazole 40 MG TAB PO SCH ×2 (07:27→20:24)
[2022-10-13] MEDS: oxyCODONE HCL IR 5 MG TAB (IMMEDIATE RELEASE) PO PRN ×2 (08:56→19:30)
--- NOTE | 2022-10-13 09:30 | Hospitalist Progress Note ---
Date of Service October 13, 2022 Assessment & Plan (1) Closed bimalleolar fracture: Plan: Acute significant injury patient sustained a fall at home resulting in left ankle pain. X-ray in the ER concerning for bimalleolar fracture s/p splinting in ER. Patient now with pain in the ankle. No additional complaints. 10/07/2022 left ankle open reduction internal fixation by Dr. Rivero -Pain control with Tylenol prn, Oxycodone 5-10 mg q 4H prn -Miralax and Dulcolax PRN -Started ASA 81mg BID x 6 weeks -ROBBY hose x 3 weeks -Foot pumps while in the hospital -PT/OT [facility] LLE (2) Bipolar 1 disorder: Plan: Chronic stable -[place] level normal 0.9 -Continue Hydroxyzine PRN -Trazodone qHS (3) Schizoaffective disorder: Plan: Chronic stable -Continue home medications - Lurasidone (4) Diabetes mellitus with neuropathy: Plan: Chronic and stable on no medications Last HgbA1C on 09/22/22 was 6.6 -Continue to monitor (5) Hypothyroid: Plan: Chronic. -Continue Synthroid (6) Constipation: Plan: -Miralax and dulcolax daily as needed -Encourage OOB to the chair with PT/OT Plan -Dr. Rivero (orthopedist) wants patient to return to their office in 1 week for appointment and to transition into a boot (has appt tomorrow) - Admission and Anticipated Discharge Date Admission Date: October 06, 2022 Subjective Patient is nonweightbearing. She is concerned about going to rehab due to the amount of work requires. She is considering going home although her help at home is from her wheelchair bound significant other. She states her weight is in good control Physical Exam Physical Exam: Physical exam her heart is regular her lungs are clear she has distal extr emities that are intact Results & Data Results & Data ([facility]) Vital Signs (Past 12 Hours) Vital Signs Temp Pulse Resp BP Pulse Ox O2 Del Method 10/13/22 07:13 99.1 F 77 14 150/95 H 95 Room Air PG Care Time/CCT Total # of Minutes Spent Total Time Spent with Patient: Total time spent is greater than 50% in coordination of care (as documented) at patient's floor/unit and/or counseling patient: Coding Level of Care Code 53633 SUB INP/OBS CARE 2/35MIN Diagnoses Closed bimalleolar fracture S82.843A Bipolar 1 disorder F31.9 Schizoaffective disorder F25.9 Diabetes mellitus with neuropathy E11.40 Hypothyroid E03.9 Constipation K59.00
--- NOTE | 2022-10-13 09:41 | Orthopedic Progress Note ---
Date of Service October 13, 2022 Assessment & Plan (1) Status post ORIF of fracture of ankle: Plan: Patient was educated regarding today's findings. I did recommend that she continue with wiggling her toes. Ice and elevate frequently to reduce pain and swelling. Toe-touch weightbearing with the boot on. Continue oral pain medication as needed. Continue DVT prophylaxis. Okay for discharge from an orthopedic standpoint when a half-way bed is available for her. Follow- up in the office in 2 weeks for suture removal. Admission and Anticipated Discharge Date Admission Date: October 06, 2022 Subjective Patient was seen in her room this morning. She was sleeping upon my entering. She states she did not sleep well last night due to increased ankle pain. She remains nonweightbearing. No other complaints. Physical Exam Physical Exam: General: Well-developed middle-aged female, in no acute distress. Sleeping. Conversive. Alert and oriented. Skin: With good turgor. Postsurgical dressing is in place on the left ankle. There is no bleeding through the dressing. Expected postoperative edema in the toes. Musculoskeletal: Patient has intact motor function of her hip, knee, and toes. Ankle motion was not assessed. Neurologic: Gross sensation is intact across the toes by soft touch. Results & Data ([facility]) Vital Signs (Past 12 Hours) Vital Signs Temp Pulse Resp BP Pulse Ox O2 Del Method 10/13/22 07:13 37.3 C 77 14 150/95 H 95 Room Air
[2022-10-13] MEDS: FERROUS SULFATE 325 MG TAB PO SCH (12:40)
[2022-10-13] MEDS: CHOLECALCIFEROL 1,000 UNITS 25 MCG TAB PO SCH (12:40)
[2022-10-13] MEDS: LURASIDONE HCL 40 MG TAB PO SCH (12:40)
[2022-10-13] MEDS: LIDOCAINE 5% 1 PATCH TD PRN (20:22)
[2022-10-13] MEDS: traZODone HCL 50 MG TAB PO SCH (20:23)
[2022-10-13] MEDS: LITHIUM CARBONATE 450 MG TABCR PO SCH (20:23)
[2022-10-14] MEDS: oxyCODONE HCL IR 5 MG TAB (IMMEDIATE RELEASE) PO PRN ×4 (00:34→20:10)
[2022-10-14] MEDS: BACLOFEN 20 MG TAB PO SCH ×3 (04:18→20:12)
[2022-10-14] MEDS: LEVOTHYROXINE SODIUM 100 MCG TABLET PO SCH (04:18)
[2022-10-14] MEDS: ACETAMINOPHEN 325 MG TAB PO PRN ×2 (07:52→15:08)
[2022-10-14] MEDS: LITHIUM CARBONATE SLOW REL 300 MG TAB PO SCH (07:55)
[2022-10-14] MEDS: PANTOprazole 40 MG TAB PO SCH ×2 (07:55→20:11)
[2022-10-14] MEDS: ASPIRIN 81 MG ECTAB PO SCH ×2 (07:55→20:11)
[2022-10-14] MEDS: hydrOXYzine HCl 25 MG TAB PO SCH ×2 (07:55→20:15)
[2022-10-14] MEDS: DOCUSATE SODIUM 100 MG CAP PO SCH ×2 (07:56→20:11)
[2022-10-14] MEDS: MULTIVITAMIN TAB PO SCH (07:56)
[2022-10-14] MEDS: POLYETHYLENE (MIRALAX) 17 GM PACK PO PRN (08:08)
[2022-10-14] MEDS: NICOTINE 21 MG/24 HR TDSY TD SCH (08:29)
[2022-10-14] MEDS: CHOLECALCIFEROL 1,000 UNITS 25 MCG TAB PO SCH (12:16)
[2022-10-14] MEDS: FERROUS SULFATE 325 MG TAB PO SCH (12:16)
[2022-10-14] MEDS: LURASIDONE HCL 40 MG TAB PO SCH (12:17)
--- NOTE | 2022-10-14 17:10 | Hospitalist Progress Note ---
Date of Service October 14, 2022 Assessment & Plan (1) Closed bimalleolar fracture: Plan: Acute significant injury patient sustained a fall at home resulting in left ankle pain. X-ray in the ER concerning for bimalleolar fracture s/p splinting in ER. Patient now with pain in the ankle. No additional complaints. 10/07/2022 left ankle open reduction internal fixation by Dr. Mat Rivero recommends nonweightbearing on the left ankle. She has previously had a fusion on her right ankle which makes ambulating even with a walker difficult. Patient subsequently will require a wheelchair and a bedside commode. -Pain control with Tylenol prn, Oxycodone 5-10 mg q 4H prn -Miralax and Dulcolax PRN -Started ASA 81mg BID x 6 weeks -ROBBY hose x 3 weeks -Foot pumps while in the hospital -PT/OT [facility] LLE (2) Bipolar 1 disorder: Plan: Chronic stable -[place] level normal 0.9 -Continue Hydroxyzine PRN -Trazodone qHS (3) Schizoaffective disorder: Plan: Chronic stable -Continue home medications - Lurasidone (4) Diabetes mellitus with neuropathy: Plan: Chronic and stable on no medications Last HgbA1C on 09/22/22 was 6.6 -Continue to monitor (5) Hypothyroid: Plan: Chronic. -Continue Synthroid (6) Constipation: Plan: -Miralax and dulcolax daily as needed -Encourage OOB to the chair with PT/OT Plan -Dr. Rivero (orthopedist) wants patient to return to their office in 1 week for appointment and to transition into a boot (has appt tomorrow) - Admission and Anticipated Discharge Date Admission Date: October 06, 2022 Subjective Patient is nonweightbearing. Because of repair of her trimalleolar fracture on the left and previous ankle fusion on the right. She is now nonweightbearing on the left and cannot hop around on her fused left ankle. To this end however she is willing to go home with her significant other providing care although he is wheelchair-bound. Patient is significantly limited with ambulation and does require a wheelchair at home due to the fact that she cannot weight-bear on her fused left ankle she will also benefit from a bedside commode Patient states that her pain is in good control Physical Exam Physical Exam: Physical exam her heart is regular her lungs are clear she has distal extremities that are intact Results & Data Results & Data ([facility]) Vital Signs (Past 12 Hours) Vital Signs Temp Pulse Resp BP Pulse Ox O2 Del Method 10/14/22 14:07 99.1 F 89 16 146/86 H 95 Room Air 10/14/22 06:55 98.4 F 81 16 130/79 93 Room Air PG Care Time/CCT Total # of Minutes Spent Total Time Spent with Patient: Total time spent is greater than 50% in coordination of care (as documented) at patient's floor/unit and/or counseling patient: Coding Level of Care Code 17990 SUB INP/OBS CARE 09/07MIN Diagnoses Closed bimalleolar fracture S82.843A Bipolar 1 disorder F31.9 Schizoaffective disorder F25.9 Diabetes mellitus with neuropathy E11.40 Hypothyroid E03.9 Constipation K59.00
[2022-10-14] MEDS: LITHIUM CARBONATE 450 MG TABCR PO SCH (20:11)
[2022-10-14] MEDS: traZODone HCL 50 MG TAB PO SCH (20:12)
[2022-10-14] MEDS: LIDOCAINE 5% 1 PATCH TD PRN (21:36)
[2022-10-15] MEDS: oxyCODONE HCL IR 5 MG TAB (IMMEDIATE RELEASE) PO PRN ×5 (00:15→19:44)
[2022-10-15] MEDS: LEVOTHYROXINE SODIUM 100 MCG TABLET PO SCH (04:04)
[2022-10-15] MEDS: BACLOFEN 20 MG TAB PO SCH ×3 (04:04→19:48)
[2022-10-15] MEDS: ACETAMINOPHEN 325 MG TAB PO PRN ×2 (08:19→12:52)
[2022-10-15] MEDS: NICOTINE 21 MG/24 HR TDSY TD SCH (08:20)
[2022-10-15] MEDS: ASPIRIN 81 MG ECTAB PO SCH ×2 (08:21→19:50)
[2022-10-15] MEDS: hydrOXYzine HCl 25 MG TAB PO SCH ×2 (08:21→19:46)
[2022-10-15] MEDS: MULTIVITAMIN TAB PO SCH (08:21)
[2022-10-15] MEDS: DOCUSATE SODIUM 100 MG CAP PO SCH ×2 (08:22→19:50)
[2022-10-15] MEDS: LITHIUM CARBONATE SLOW REL 300 MG TAB PO SCH (08:22)
[2022-10-15] MEDS: PANTOprazole 40 MG TAB PO SCH ×2 (08:22→19:47)
[2022-10-15] MEDS: CHOLECALCIFEROL 1,000 UNITS 25 MCG TAB PO SCH (12:42)
[2022-10-15] MEDS: FERROUS SULFATE 325 MG TAB PO SCH (12:42)
[2022-10-15] MEDS: LURASIDONE HCL 40 MG TAB PO SCH (12:42)
--- NOTE | 2022-10-15 13:43 | Hospitalist Progress Note ---
Date of Service October 15, 2022 Assessment & Plan (1) Closed bimalleolar fracture: Plan: Acute significant injury patient sustained a fall at home resulting in left ankle pain. X-ray in the ER concerning for bimalleolar fracture s/p splinting in ER. Patient now with pain in the ankle. No additional complaints. 10/07/2022 left ankle open reduction internal fixation by Dr. Mat Rivero recommends nonweightbearing on the left ankle. She has previously had a fusion on her right ankle which makes ambulating even with a walker difficult. Patient subsequently will require a wheelchair and a bedside commode. Due to toileting issues will require adult incontinent briefs -Pain control with Tylenol prn, Oxycodone 5-10 mg q 4H prn -Miralax and Dulcolax PRN -Started ASA 81mg BID x 6 weeks -ROBBY hose x 3 weeks -Foot pumps while in the hospital -PT/OT [facility] LLE (2) Bipolar 1 disorder: Plan: Chronic stable -[place] level normal 0.9 -Continue Hydroxyzine PRN -Trazodone qHS (3) Schizoaffective disorder: Plan: Chronic stable -Continue home medications - Lurasidone (4) Diabetes mellitus with neuropathy: Plan: Chronic and stable on no medications Last HgbA1C on 09/22/22 was 6.6 -Continue to monitor (5) Hypothyroid: Plan: Chronic. -Continue Synthroid (6) Constipation: Plan: -Miralax and dulcolax daily as needed -Encourage OOB to the chair with PT/OT Plan -Dr. Rivero (orthopedist) wants patient to return to their office in 1 week for appointment and to transition into a boot (has appt tomorrow) - Admission and Anticipated Discharge Date Admission Date: October 06, 2022 Subjective Patient is nonweightbearing. Because of repair of her trimalleolar fracture on the left and previous ankle fusion on the right. She is now nonweightbearing on the left and cannot hop around on her fused left ankle. To this end however she is willing to go home with her significant other providing care although he is wheelchair-bound. Patient is significantly limited with ambulation and does require a wheelchair at home due to the fact that she cannot weight-bear on her fused left ankle she will also benefit from a bedside commode Patient states that her pain slightly worsened on 10/15/2022 inspected leg with dressing in place took splint off make sure there is no folded wrap with inside brace. If this does not help we will completely undressed leg on 10/16/2022 Physical Exam Physical Exam: Physical exam her heart is regular her lungs are clear she has distal extremities that are intact Results & Data Results & Data ([facility]) Vital Signs (Past 12 Hours) Vital Signs Temp Pulse Resp BP Pulse Ox O2 Del Method 10/15/22 07:04 98.4 F 63 16 123/78 95 Room Air PG Care Time/CCT Total # of Minutes Spent Total Time Spent with Patient: Total time spent is greater than 50% in coordination of care (as documented) at patient's floor/unit and/or counseling patient: Coding Level of Care Code 84884 SUB INP/OBS CARE 09/07MIN Diagnoses Closed bimalleolar fracture S82.843A Bipolar 1 disorder F31.9 Schizoaffective disorder F25.9 Diabetes mellitus with neuropathy E11.40 Hypothyroid E03.9 Constipation K59.00
[2022-10-15] MEDS: traZODone HCL 50 MG TAB PO SCH (19:47)
[2022-10-15] MEDS: LITHIUM CARBONATE 450 MG TABCR PO SCH (19:47)
[2022-10-15] MEDS: LIDOCAINE 5% 1 PATCH TD PRN (19:48)
[2022-10-16] MEDS: BACLOFEN 20 MG TAB PO SCH ×3 (03:29→20:10)
[2022-10-16] MEDS: LEVOTHYROXINE SODIUM 100 MCG TABLET PO SCH (03:29)
[2022-10-16] MEDS: oxyCODONE HCL IR 5 MG TAB (IMMEDIATE RELEASE) PO PRN ×2 (03:29→12:06)
[2022-10-16] MEDS: ACETAMINOPHEN 325 MG TAB PO PRN ×3 (08:20→20:10)
[2022-10-16] MEDS: DOCUSATE SODIUM 100 MG CAP PO SCH ×2 (08:49→20:10)
[2022-10-16] MEDS: NICOTINE 21 MG/24 HR TDSY TD SCH (08:50)
[2022-10-16] MEDS: LITHIUM CARBONATE SLOW REL 300 MG TAB PO SCH (08:50)
[2022-10-16] MEDS: hydrOXYzine HCl 25 MG TAB PO SCH ×2 (08:50→20:10)
[2022-10-16] MEDS: MULTIVITAMIN TAB PO SCH (08:50)
[2022-10-16] MEDS: ASPIRIN 81 MG ECTAB PO SCH ×2 (08:50→20:10)
[2022-10-16] MEDS: PANTOprazole 40 MG TAB PO SCH ×2 (08:50→20:10)
[2022-10-16] MEDS: CHOLECALCIFEROL 1,000 UNITS 25 MCG TAB PO SCH (12:51)
[2022-10-16] MEDS: LURASIDONE HCL 40 MG TAB PO SCH (12:51)
[2022-10-16] MEDS: FERROUS SULFATE 325 MG TAB PO SCH (12:52)
--- NOTE | 2022-10-16 16:05 | Hospitalist Progress Note ---
Date of Service October 16, 2022 Assessment & Plan (1) Closed bimalleolar fracture: Plan: Acute significant injury now repaired patient sustained a fall at home resulting in left ankle pain. X-ray in the ER concerning for bimalleolar fracture s/p splinting in ER. Patient now with pain in the ankle. No additional complaints. 10/07/2022 left ankle open reduction internal fixation by Dr. Mat Rivero recommends nonweightbearing on the left ankle. She has previously had a fusion on her right ankle which makes ambulating even with a walker difficult. Patient subsequently will require a wheelchair and a bedside commode. Due to toileting issues will require adult incontinent briefs -Pain control with Tylenol prn, Oxycodone 5-10 mg q 4H prn -Miralax and Dulcolax PRN -Started ASA 81mg BID x 6 weeks -ROBBY hose x 3 weeks -Foot pumps while in the hospital -PT/OT [facility] LLE (2) Bipolar 1 disorder: Plan: Chronic stable -[place] level normal 0.9 -Continue Hydroxyzine PRN -Trazodone qHS (3) Schizoaffective disorder: Plan: Chronic stable -Continue home medications - Lurasidone (4) Diabetes mellitus with neuropathy: Plan: Chronic and stable on no medications Last HgbA1C on 09/22/22 was 6.6 -Continue to monitor (5) Hypothyroid: Plan: Chronic. -Continue Synthroid (6) Constipation: Plan: -Miralax and dulcolax daily as needed -Encourage OOB to the chair with PT/OT Plan -Dr. Rivero (orthopedist) wants patient to return to their office in 1 week for appointment and to transition into a boot (has appt tomorrow) - Admission and Anticipated Discharge Date Admission Date: October 06, 2022 Subjective Patient is nonweightbearing. Because of repair of her trimalleolar fracture on the left and previous ankle fusion on the right. She is now nonweightbearing on the left and cannot hop around on her fused left ankle. To this end however she is willing to go home with her significant other providing care although he is wheelchair-bound. Patient is significantly limited with ambulation and does require a wheelchair at home due to the fact that she cannot weight-bear on her fused left ankle she will also benefit from a bedside commode Patient states that her pain slightly worsened on 10/16/2022 removed boot and dressing, surgical site is clean and dry, re dressed, hopeful to reduce pressure on wound and pain Physical Exam Physical Exam: Physical exam her heart is regular her lungs are clear pt leg is with only minimal bruising at surgical site no redness or warmth Results & Data Results & Data ([facility]) Vital Signs (Past 12 Hours) Vital Signs Temp Pulse Resp BP Pulse Ox O2 Del Method 10/16/22 15:17 98.1 F 82 16 116/81 93 Room Air 10/16/22 12:25 97.7 F 77 17 116/76 96 Room Air 10/16/22 08:00 98.2 F 86 18 134/84 97 Nasal Cannula PG Care Time/CCT Total # of Minutes Spent Total Time Spent with Patient: Total time spent is greater than 50% in coordination of care (as documented) at patient's floor/unit and/or counseling patient: Coding Level of Care Code 90790 SUB INP/OBS CARE 2/35MIN Diagnoses Closed bimalleolar fracture S82.843A Bipolar 1 disorder F31.9 Schizoaffective disorder F25.9 Diabetes mellitus with neuropathy E11.40 Hypothyroid E03.9 Constipation K59.00
[2022-10-16] MEDS: LITHIUM CARBONATE 450 MG TABCR PO SCH (20:09)
[2022-10-16] MEDS: traZODone HCL 50 MG TAB PO SCH (20:10)
[2022-10-17] MEDS: BACLOFEN 20 MG TAB PO SCH ×2 (03:24→12:17)
[2022-10-17] MEDS: LEVOTHYROXINE SODIUM 100 MCG TABLET PO SCH (03:24)
[2022-10-17] MEDS: ACETAMINOPHEN 325 MG TAB PO PRN ×2 (03:28→12:22)
[2022-10-17] MEDS: LITHIUM CARBONATE SLOW REL 300 MG TAB PO SCH (08:41)
[2022-10-17] MEDS: NICOTINE 21 MG/24 HR TDSY TD SCH (08:41)
[2022-10-17] MEDS: DOCUSATE SODIUM 100 MG CAP PO SCH (08:41)
[2022-10-17] MEDS: PANTOprazole 40 MG TAB PO SCH (08:41)
[2022-10-17] MEDS: MULTIVITAMIN TAB PO SCH (08:41)
[2022-10-17] MEDS: hydrOXYzine HCl 25 MG TAB PO SCH (08:42)
[2022-10-17] MEDS: ASPIRIN 81 MG ECTAB PO SCH (09:17)
[2022-10-17] MEDS: POLYETHYLENE (MIRALAX) 17 GM PACK PO PRN (11:02)
[2022-10-17] MEDS: FERROUS SULFATE 325 MG TAB PO SCH (12:17)
[2022-10-17] MEDS: LURASIDONE HCL 40 MG TAB PO SCH (12:17)
[2022-10-17] MEDS: CHOLECALCIFEROL 1,000 UNITS 25 MCG TAB PO SCH (12:17)
--- NOTE | 2022-10-17 15:24 | Discharge Summary ---
Date of Service October 17, 2022 Admission HPI Per Admitting Provider Nathaly Baez is a 57 female, diabetes, hypertension, hyperlipidemia, hypothyroidism and schizoaffective disorder presenting after sustaining a fall. Patient reports that she was walking to the bathroom in her home when she slipped and fell. She had pain in her left ankle and unable to bear weight. X-ray in the ER concerning for bi-malleolar fracture. Reduced and splinted in the ER. Patient with no additional complaints at this time. ER Course: Fentanyl 50mcg Hydrocodone/Tylenol Principal Diagnosis timalleolar ankle fracture with repair, ORIF 10/07/22 Dr Rivero Discharge Exam Patient is awake and alert has no complaints or problems her boot is in place her foot is less painful Discharge Data Allergies Allergy/AdvReac Type Severity Reaction Status Date / Time amoxicillin AdvReac Mild GI UPSET Verified 10/06/22 01:24 Consultations 10/06/22 01:21 ED Decision to Admit Stat 10/06/22 04:28 Consult Orthopedic Surgery Routine 10/06/22 15:21 Consult Orthopedic Surgery Routine Procedures Performed Operation Date: 10/07/22 07:00 Actual Procedures p Left Ankle Open Reduction Internal Fixation(Left) - Eric Gutierrez Rivero MD Ordered Studies 10/07/22 12:30 FL ankle LT min 3V RTN Routine Hospital Course (1) Closed bimalleolar fracture: Acute significant injury now repaired patient sustained a fall at home resulting in left ankle pain. X-ray in the ER concerning for bimalleolar fracture s/p splinting in ER. Patient now with pain in the ankle. No additional complaints. 10/07/2022 left ankle open reduction internal fixation by Dr. Mat Rivero recommends nonweightbearing on the left ankle. She has previously had a fusion on her right ankle which makes ambulating even with a walker difficult. Patient subsequently will require a wheelchair and a bedside commode. Due to toileting issues will require adult incontinent briefs -Miralax and Dulcolax PRN -Started ASA 81mg BID x 6 weeks -ROBBY hose after discharge -Follow-up with Dr. Rivero -PT/OT NWB LLE (2) Bipolar 1 disorder: Chronic stable -[place] level normal 0.9 -Continue Hydroxyzine PRN -Trazodone qHS (3) Schizoaffective disorder: Chronic stable -Continue home medications - Lurasidone (4) Diabetes mellitus with neuropathy: Chronic and stable on no medications Last HgbA1C on 09/22/22 was 6.6 - (5) Hypothyroid: Chronic. -Continue Synthroid (6) Constipation: -Miralax and dulcolax daily as needed -Encourage OOB to the chair with PT/OT Plan -Dr. Rivero (orthopedist) wants patient to return to their office patient was transition to boot while in hospital will recommend outpatient follow-up in approximately 4 weeks - Total Time Total Time Spent Total Time Spent (In Minutes): It required greater than 30 minutes to prepare this patient for discharge Discharge Plan Discharge Items Patient Disposition: Home - Home Health Services Reason For Visit: LEFT ANKLE FRACTURE Discharge Diagnosis: Left ankle fracture, ORIF 10/07/22 Activity: Per Instructions section Activity Comment: non weight bearing until released by ortho Weightbearing: Left toe touch Weightbearing Comment: if boot in place; NWB if splint in place Non-emergency contact: Surgeon Call non-emergency contact if: you have any medication questions, your pain is not controlled, your temperature is above 101, your wound has increased redness and your wound has increased drainage Follow-up/Referrals: Patrice Newell MD [Primary Care Provider] - 10/26/22 3:00 pm (Will be seen by LAURE Wang at the [facility]) Kosta Lackey PA-C [Physician Visitor Use Assistant] - 10/25/22 2:15 pm Diet: Regular Addtl Attending Provider Instructions: . Addtl Gr[employer] 6 [employer] 8 Teacher Provider Instructions: May toe touch weight bear left lower extremity with boot on. Continue use of the walker at all times when out of bed. May remove the boot to do gentle range of motion to left ankle. May remove the boot to shower, do not get incision wet. Elevate the left leg and wiggle toes daily Ice 20-30 minutes at a time as needed for pain/swelling. May remove boot to ice. Continue with pain analgesics as directed. Boot on at all times when out of bed. Pending Studies at Discharge: No Stand-Alone Forms: My [employer], Pain - Opioid Pain Management, Smoking Cessation Medications and DC Order Prescriptions: New aspirin 81 mg Tablet,Delayed Release (Dr/Ec) 81 mg PO BID Qty: 60 0RF oxycodone 5 mg Tablet 5 - 10 mg PO Q4H PRN (Reason: pain) Qty: 20 0RF multivitamin with folic acid [Daily-Nirav (with folic acid)] 400 mcg Tablet 1 tab PO QAM Qty: 30 0RF cholecalciferol (vitamin D3) 25 mcg (1,000 unit) Capsule 1,000 unit PO DAILY@1200 Qty: 30 0RF Continued triamcinolone acetonide 0.025 % cream 1 applic TOP BID PRN (Reason: Allergic Symptoms) Qty: 80 3RF Rx Instructions: 1 applic TOP sparingly to both feet and legs BID ; pantoprazole 40 mg tablet,delayed release (DR/EC) 40 mg PO BID Qty: 180 1RF levothyroxine 100 mcg tablet 100 mcg PO DAILY Qty: 90 3RF Latuda 80 mg tablet 80 mg PO DAILY Rx Instructions: must administer with food (at least 350 calories) Invega Sustenna 234 mg/1.5 mL syringe 234 mg IM Q30D cholecalciferol (vitamin D3) 25 mcg (1,000 unit) capsule 25 mcg PO DAILY Qty: 30 0RF baclofen 20 mg tablet 20 mg PO TID hydroxyzine HCl 50 mg tablet 50 mg PO BID PRN (Reason: Anxiety) lithium carbonate 450 mg tablet extended release 450 mg PO QPM Patient Comments: 300mg AM 450mg HS lithium carbonate 300 mg tablet extended release 300 mg PO QAM trazodone 150 mg tablet 150 mg PO HS ferrous sulfate [iron] 325 mg (65 mg iron) Tablet 325 mg PO QAM docusate sodium [Colace] 100 mg capsule 100 mg PO BID lidocaine 5 % adhesive patch,medicated 1 patch TOP HS PRN (Reason: pain) Qty: 0 0RF Rx Instructions: apply to back, daily, as needed, for pain Discharge Orders: Discharge Order (Routine); Ordered 10/17/22 Ordered By: Enrrique Rendon/Other Patient Handouts: Preventing Deep Vein Thrombosis Admission Data Admit Date/Time: 10/06/22 01:36 Attending Provider: Enrrique Rodarte Admit Provider: Pina Bowser Primary Care Provider: Patrice Newell Other Providers: Pina Bowser ; Manuel Simons ; Eric Rivero ; Jacoby Merritt ; Kosta Lackey ; Lorraine Oneal ; Clary Hooks ; Kevin Santos ; Efraín Pichardo ; Eladio Barajas ; Eladio Prado ; Minda Kennedy ; Allison Ren ; Parisa Chinchilla ; Alvarado Merlos ; Loly Pressley ; Damaris Stone ; Jeremy Valencia ; Fabiano Alvares ; Mauro Qureshi ; [facility] ; [place],[facility] ; [facility] ; [facility] Other Interventions: Discharge Summary Assessment (RN) Last Done: 10/17/22 10:41 Coding Level of Care Code 80368 INP/OBS DISCH >30 MIN Diagnoses Closed bimalleolar fracture S82.843A Bipolar 1 disorder F31.9 Schizoaffective disorder F25.9 Diabetes mellitus with neuropathy E11.40 Hypothyroid E03.9 Constipation K59.00
== END 2022-10-17 13:01 | disposition home health service (06) | DRG 494 ==
LOC: ED 23:54 → 3W 10-06 01:36 → SUATTDRO 10-06 01:36 → 3W 10-06 04:04

== ENCOUNTER 2023-06-16 14:53 | Inpatient (IN) ==
--- NOTE | 2023-06-16 15:53 | CT Scan Report ---
CT head/brain wo con CLINICAL HISTORY: 57 years-old Female with Neuro deficit, acute, stroke suspected. Acute stroke like symptoms TECHNIQUE: Multiple axial CT images of the head were obtained without contrast. A dose lowering tech nique was utilized adhering to the principles of ALARA. CT DOSE: 625.8 mGy.cm COMPARISON: 03/09/2021. FINDINGS: No acute intracranial hemorrhage, midline shift, intracranial mass, hydrocephalus, territorial ischem ia or abnormal extra-axial collection. Unchanged mild patchy white matter hypodensities. The calvarium is intact. Hyperostosis frontalis interna. The paranasal sinuses, mastoid air cells, an d middle ear cavities are clear. IMPRESSION: No acute intracranial abnormality. ACT 112: Negative or not required by law. The above report was generated using voice recognition software. It may contain grammatical, syntax o r spelling errors. Electronically signed by: Jonah Mark M.D. 06/16/2023 3:50 PM
--- NOTE | 2023-06-16 16:13 | Emergency Department Note ---
Impression & Plan Recurrent falls, Weakness ED Provider Note NAME: JERE RAZA AGE: 57 SEX: F : 1965 ARRIVES VIA: Walk-In INFORMANT: Patient ED PROVIDER(S): Austin Lockhart DO CHIEF COMPLAINT: Recurrent falls HPI: Patient is a 57-year-old female who presents to the ER with a past medical history of depression, suicidal ideations, auditory hallucinations, bipolar disorder for dizziness. She notes that she is fallen 3 times in the past 3 to 5 days. Admits to a mild headache. No shortness of breath but does have some pain over her sternum following the fall. Pain is reproducible. She has some pain in her right second toe as well following a fall. She also notes some pain in her lower back and mid thoracic spine. ADDITIONAL HISTORY OBTAINED: Per HPI Chronic Medical/Social Conditions Affecting Care: Per HPI PAST MEDICAL HISTORY:See Below PAST SURGICAL HISTORY:See Below FAMILY HISTORY:See Below SOCIAL HISTORY:See Below HOME MEDICATIONS:See Below ALLERGIES:See Below VITALS:See Below PHYSICAL EXAMINATION: GENERAL: Sitting up in bed, alert, well appearing, well nourished, no distress, non-toxic HEAD: NC/AT EYE EXAM: normal conjunctiva. PERRL and EOM's grossly intact. OROPHARYNX: no exudate, no erythema, lips, buccal mucosa, and tongue normal and mucous membranes are moist NECK: supple, no nuchal rigidity, no adenopathy, non-tender LUNGS: Clear to auscultation. Normal chest wall mechanics HEART: no murmurs, S1 normal and S2 normal ABDOMEN: abdomen soft, non-tender, normo-active bowel sounds, no masses, no rebound or guarding. BACK: Back is symmetrical on inspection and there is no deformity, mild midline tenderness in the mid thoracic and lower lumbar spine, no CVA tenderness. UPPER EXTREMITIES: upper extremities are grossly normal. LOWER EXTREMITIES: No pitting edema. NEURO EXAM: Normal sensorium, cranial nerves II-XII grossly intact, normal speech, no gross weakness of arms, no gross weakness of legs. No drift. Finger to nose intact. Gross sensation intact. MEDICAL DECISION MAKING: Patient is a 57-year-old female who presents ER following recurrent falls over the past 3 days. IV was established blood work was obtained. Labs show no significant leukocytosis or anemia. INR unremarkable. BMP with mild hypokalemia at 3.3. LFTs bilirubin was unremarkable. Troponin was negative. UA clean. Patient is complete neurologically intact. CT of the head showed no acute pathology. X-rays of the thoracic and lumbar spine as well as the foot, chest x-ray were unremarkable. Patient was updated at bedside at and discussed with the hospitalist due to recurrent falls for further evaluation management treatment. External Records Reviewed: Saw PCP on 1030 for depression Consults/Care Managements Discussions: Per [facility] Triage Nursing notes reviewed. Limited review of prior medical records performed Vital Signs: reviewed and remarkable for HTN and tachy Differential diagnosis: Differential diagnosis includes etiologies such as benign positional vertigo, dehydration, hypovolemia, anemia, tumor, infection, hypoglycemia, electrolyte abnormalities, cardiac sources, intracerebral event, toxicologic, neurological, as well as others were entertained. ER treatment provided: See below Diagnostics interpreted by me include EKG and cardiac monitoring as listed below: -Cardiac Monitoring: An order was placed for continuous cardiac monitoring. The monitor shows a rate of 92 with sinus rhythm. -ECG: Sinus rhythm rate of 98 Normal axis No PVCs QTc 446 T wave inversion in the inferior leads -Laboratory studies:[Interpreted by me as stated above in MDM and shown below.] Imaging studies: Xrays: As interpreted by me: 2 views of the chest showed no pneumonia or infiltrate X-ray of the foot thoracic and lumbar spine show no acute fractures CTs show: CT of the head was negative Procedures:none Critical Care: None Past Med/Surg History Medical History Anxiety Auditory hallucinations Bipolar 1 disorder Cholelithiasis Diabetes mellitus with neuropathy Encounter for vitamin deficiency screening Endometriosis Eustachian tube dysfunction Hyperlipidemia Hypertension Hypothyroid Mood disorder Noncompliance with medication regimen Schizoaffective disorder Shingles outbreak Sleep disturbances Ventral hernia Surgical History History of ankle surgery History of hernia surgery History of laparoscopy Hx of tubal ligation S/P exploratory laparotomy [place] teeth extracted Family History Mother Myocardial infarction Congestive heart failure due to high blood pressure Hypertension Diabetes Father Hypertension Diabetes Denies family history of Ovarian cancer Prostate cancer Breast cancer Colorectal cancer Uterine cancer Social History (Reviewed 06/12/23 @ 11:40 by SAMI Wooten Smoking Status: Current every day smoker Tobacco Type: Cigarettes Second Hand Exposure: Yes; Do You Dip or Chew Tobacco: No; Hx Alcohol Use: No Hx Substance Use: No Preferred Language: Spanish Communication Ability: Effective Visual Impairment: Limited Hearing Ability: Normal Information Systems Architect Required: No Beliefs That Will Affect Care: None marital status: Current Living Situation: Significant Other current occupational status: disabled How many Children do You have: 2 How many Children do You have Comment: 2 girls Feels Safe at Home: Yes Childhood Exposure to Second-Hand Smoke: Yes Diet: regular caffeine: Yes during the past year weight has: remained stable Dental Care, Regularly: Yes Physical Activity Frequency: Daily Seatbelt Use: always Sunscreen Use: No Gender Identity: Female Assistive Devices: Cane and Glasses Allergies Allergies Allergy/AdvReac Type Severity Reaction Status Date / Time amoxicillin AdvReac Mild GI UPSET Verified 06/16/23 17:51 Home Meds Home Medications Medication Instructions Recorded Confirmed baclofen 20 mg tablet 20 mg PO TID 09/11/19 06/16/23 hydroxyzine HCl 50 mg tablet 50 mg PO BID Anxiety 09/11/19 06/16/23 ferrous sulfate 325 mg (65 mg 325 mg PO QAM 02/28/21 06/16/23 iron) tablet (iron) lithium carbonate 450 mg 450 mg PO QPM 01/06/22 06/16/23 tablet,extended release lurasidone 80 mg tablet (Latuda) 80 mg PO DAILY 05/10/22 06/16/23 paliperidone palmitate 234 mg/1.5 234 mg IM Q30D 05/10/22 06/16/23 mL intramuscular syringe (Invega Sustenna) lithium carbonate 300 mg 300 mg PO QAM 10/06/22 06/16/23 tablet,extended release docusate sodium 100 mg capsule 100 mg PO DAILY 03/03/23 06/16/23 (Colace) cranberry fruit concentrate 250 mg 500 mg PO DAILY 04/10/23 06/16/23 chewable tablet (Azo Cranberry) benztropine 1 mg tablet 1 mg PO BID 06/01/23 06/16/23 lorazepam 1 mg tablet 1 mg PO BID Anxiety 06/01/23 06/16/23 trazodone 100 mg tablet 200 mg PO HS 06/16/23 06/16/23 Previous Rx's Medication Instructions Recorded lidocaine 5 % topical patch 1 patch topical HS PRN pain #0 ea 04/25/21 cholecalciferol (vitamin D3) 25 25 mcg PO DAILY #30 caps 05/10/22 mcg (1,000 unit) capsule triamcinolone acetonide 0.025 % 1 applic topical BID PRN Allergic 05/10/22 topical cream Symptoms #80 grams levothyroxine 100 mcg tablet 100 mcg PO DAILY #90 tabs 08/01/22 diaper,brief,adult,disposable #60 ea 10/31/22 incontinence pad, liner, disp #20 ea 10/31/22 pantoprazole 40 mg tablet,delayed 40 mg PO BID #180 tabs 12/29/22 release furosemide 20 mg tablet 20 mg PO DAILY #90 tabs 06/12/23 lisinopril 10 mg tablet 10 mg PO DAILY #90 tabs 06/12/23 metformin 500 mg tablet,extended 500 mg PO DAILY #90 tabs 06/12/23 release 24 hr Results & Data (ED) Vital Signs Vital Signs - 24 hr 06/16/23 15:07 06/16/23 15:12 06/16/23 15:46 Temperature 36.7 C Temperature Source Temporal Artery Scan Pulse Rate 99 H 99 H Respiratory Rate 19 Respiratory Effort / Characteristics Non-Labored Respiratory Depth Normal Blood Pressure 151/90 H Blood Pressure Mean 110 Pulse Oximetry 98 Oxygen Delivery Method Room Air Room Air Sepsis Recent Fever Within 48 Hours No Sepsis New/Unexplained Change in Mental Status No Sepsis Action Taken by Nursing No Action Required Laboratory Data 06/16/23 15:24 06/16/23 15:24 Lab Results 06/16/23 06/16/23 Range/Units 15:24 16:00 WBC 10.53 (4.8-10.8) K/ul RBC 4.41 (4.20-5.40) M/uL Hgb 12.9 (12.0-16.0) g/dl Hct 40.4 (37.0-47.0) % MCV 91.6 (80.0-100.0) fL MCH 29.3 (25.0-34.0) pg MCHC 31.9 L (32.0-36.0) g/dL RDW Std Deviation 45.1 (36.4-46.3) fL RDW Coeff of Arjun 13.4 (11.5-14.5) % Plt Count 347 (130-400) K/uL MPV 10.5 (9.4-12.4) fL PT 10.4 (9.0-12.0) Seconds INR 0.9 (0.9-1.1) APTT 26.6 (21.0-31.0) Seconds PTT Ratio 0.9 Sodium 135 L (136-145) mmol/L Potassium 3.3 L (3.5-5.1) mmol/L Chloride 100 (98-107) mmol/L Carbon Dioxide 24 (21-32) mmol/L Anion Gap 11 (3-11) BUN 8 (6-23) mg/dl Creatinine 1.29 H (0.6-1.2) mg/dl Est Cr Clr Drug Dosing 55.7 ml/min Est GFR ( Amer) 54.0 ml/min Est GFR (Non-Af Amer) 46.6 ml/min BUN/Creatinine Ratio 6.2 L (10-20) Glucose 182 H (70-99(Fasting)) mg/dl Calcium 10.1 (8.6-10.3) mg/dl Magnesium 1.9 (1.7-2.4) mg/dl Total Bilirubin 0.3 (0.2-1.0) mg/dl AST 15 (13-39) U/L ALT 16 (7-52) U/L Alkaline Phosphatase 87 (34-104) U/L Troponin I High Sens 3.4 (0-14) pg/ml Total Protein 8.1 (6.0-8.3) gm/dl Albumin 4.5 (3.4-5.0) gm/dl Globulin 3.6 (2.5-4.0) gm/dl Albumin/Globulin Ratio 1.3 (0.9-2) Urine Color Yellow Urine Appearance Clear (Clear) Urine pH 7.0 (4.5-7.5) Ur Specific [place] 1.007 (1.000-1.030) Urine Protein Negative (Negative) Urine Glucose (UA) Negative (Negative) Urine Ketones Negative (Negative) Urine Blood Negative (Negative) Urine Nitrite Negative (Negative) Urine Bilirubin Negative (Negative) Urine Urobilinogen Negative (Negative) Ur Leukocyte Esterase Negative (Negative) Administered Medications Discontinued Medications Sodium Chloride (Nss) 500 mls @ 999 mls/hr IV .Q31M ONE Stop: 06/16/23 19:21 Last Admin: 06/16/23 19:51 Dose: 999 mls/hr Documented By: ROC Meclizine HCl (Meclizine Hcl 25 Mg Tab) 25 mg PO NOW STA Stop: 06/16/23 18:52 Last Admin: 06/16/23 19:51 Dose: 25 mg Documented By: ROC Imaging Data Radiologist's Impression: Head CT 06/16/23 15:12 CT head/brain wo con CLINICAL HISTORY: 57 years-old Female with Neuro deficit, acute, stroke suspected. Acute stroke like symptoms TECHNIQUE: Multiple axial CT images of the head were obtained without contrast. A dose lowering technique was utilized adhering to the principles of ALARA. CT DOSE: 625.8 mGy.cm COMPARISON: 03/09/2021. FINDINGS: No acute intracranial hemorrhage, midline shift, intracranial mass, hydrocephalus, territorial ischemia or abnormal extra-axial collection. Unchanged mild patchy white matter hypodensities. The calvarium is intact. Hyperostosis frontalis interna. The paranasal sinuses, mastoid air cells, and middle ear cavities are clear. IMPRESSION: No acute intracranial abnormality. ACT 112: Negative or not required by law. The above report was generated using voice recognition software. It may contain grammatical, syntax or spelling errors. Electronically signed by: Jonah Mark M.D. 06/16/2023 3:50 PM Chest X-Ray 06/16/23 16:07 XR chest 2V PA/lateral HISTORY: 57 years-old Female fall acute chest pain status post fall COMPARISON: 10/08/2022 TECHNIQUE: AP and lateral views of the chest FINDINGS: Cardiac silhouette is mildly enlarged. No pneumothorax, pleural effusion or airspace consolidation. Bones appear grossly intact. Surgical clips of the upper abdomen. Spinal fusion hardware. IMPRESSION: No acute process of the chest. ACT 112: Negative or not required by law. The above report was generated using voice recognition software. It may contain grammatical, syntax or spelling errors. Electronically signed by: Jonah Mark M.D. 06/16/2023 5:49 PM Foot X-Ray 06/16/23 16:07 XR foot RT min 3V routine HISTORY: 57 years-old Female r foot acute right foot pain with fall COMPARISON: Right ankle radiographs 12/05/2022 TECHNIQUE: 3 views of the right foot FINDINGS: Postoperative changes of the hindfoot and ankle with triple arthrodesis and prior distal fibular resection. Demineralized appearance of the bones. Moderate osteoarthritis. No acute fracture or dislocation. Diffuse soft tissue swelling. Corticated ossifications noted within the region of the plantar fascia. Punctate metallic density foci surround the ankle, unchanged. IMPRESSION: Chronic findings as above. No acute fracture or dislocation identified. ACT 112: Negative or not required by law. The above report was generated using voice recognition software. It may contain grammatical, syntax or spelling errors. Electronically signed by: Jonah Mark M.D. 06/16/2023 5:52 PM Lumbar Spine X-Ray 06/16/23 16:07 XR lumbar spine 2-3V, XR thoracic spine 3V routine HISTORY: 57 years-old Female fall acute low back pain status post fall COMPARISON: CT abdomen and pelvis 02/28/2021 TECHNIQUE: 3 views of the thoracic spine with 3 views of the lumbar spine FINDINGS: THORACIC: Cervical spinal fusion hardware. The lung greenberg appear clear. Moderate multilevel intervertebral disc space narrowing, spondylotic spurring and facet arthrosis. No acute fracture or subluxation. LUMBAR: Mild to moderate spondylitic spurring with moderate facet arthrosis. Multilevel intervertebral disc space narrowing is moderate at L4-L5 and L5-S1. No acute fracture or subluxation. IMPRESSION: No acute fracture or subluxation. ACT 112: Negative or not required by law. The above report was generated using voice recognition software. It may contain grammatical, syntax or spelling errors. Electronically signed by: Jonah Mark M.D. 06/16/2023 5:37 PM Thoracic Spine X-Ray 06/16/23 16:07 XR lumbar spine 2-3V, XR thoracic spine 3V routine HISTORY: 57 years-old Female fall acute low back pain status post fall COMPARISON: CT abdomen and pelvis 02/28/2021 TECHNIQUE: 3 views of the thoracic spine with 3 views of the lumbar spine FINDINGS: THORACIC: Cervical spinal fusion hardware. The lung greenberg appear clear. Moderate multilevel intervertebral disc space narrowing, spondylotic spurring and facet arthrosis. No acute fracture or subluxation. LUMBAR: Mild to moderate spondylitic spurring with moderate facet arthrosis. Multilevel intervertebral disc space narrowing is moderate at L4-L5 and L5-S1. No acute fracture or subluxation. IMPRESSION: No acute fracture or subluxation. ACT 112: Negative or not required by law. The above report was generated using voice recognition software. It may contain grammatical, syntax or spelling errors. Electronically signed by: Jonah Mark M.D. 06/16/2023 5:37 PM Discharge Plan Visit Data Chief Complaint: Dizziness Stated Complaint: HEAD SPINNING, FALL, HIT HEAD, GENERALIZED PAIN ED Provider: Austin Lockhart Discharge Problem: Recurrent falls, Weakness Discharge Instructions Interventions: ED Discharge Assessment Last Done: 06/16/23 21:20
[2023-06-16 16:14] LABS: Hematocrit (blood only) 40.4 % (37.0-47.0); Hemoglobin 12.9 g/dl (12.0-16.0); Mean Corpuscular Hemoglobin 29.3 pg (25.0-34.0); Mean Corpuscular Hgb Conc 31.9 g/dL (32.0-36.0); Mean Corpuscular Volume 91.6 fL (80.0-100.0); Mean Platelet Volume 10.5 fL (9.4-12.4); Platelet Count 347 K/uL (130-400); RDW Coefficient of Variation 13.4 % (11.5-14.5); RDW Standard Deviation 45.1 fL (36.4-46.3); Red Blood Count 4.41 M/uL (4.20-5.40); White Blood Count 10.53 K/ul (4.8-10.8)
[2023-06-16 16:21] LABS: Albumin Globulin Ratio 1.3 (0.9-2); Albumin Level 4.5 gm/dl (3.4-5.0); BUN Creatinine Ratio 6.2 (10-20); Bilirubin,Total 0.3 mg/dl (0.2-1.0); Calcium 10.1 mg/dl (8.6-10.3); Creatinine Clr Calc Pharmacy 55.7 ml/min; Est GFR (Non-African American) 46.6 ml/min; Globulin 3.6 gm/dl (2.5-4.0); Magnesium 1.9 mg/dl (1.7-2.4); Potassium 3.3 mmol/L (3.5-5.1); Total Protein 8.1 gm/dl (6.0-8.3)
[2023-06-16 16:38] LABS: INR 0.9 (0.9-1.1); Partial Thromboplastin Ratio 0.9; Partial Thromboplastin Time 26.6 Seconds (21.0-31.0); Prothrombin Time 10.4 Seconds (9.0-12.0)
[2023-06-16 16:48] LABS: Appearance Urine Clear (Clear); Bilirubin Urine Negative (Negative); Blood Urine Negative (Negative); Color Urine Yellow; Glucose Urine UA Negative (Negative); Ketones Urine Negative (Negative); Leukocyte Esterase Urine Negative (Negative); Nitrite Urine Negative (Negative); Protein Urine Negative (Negative); Specific Gravity Urine 1.007 (1.000-1.030); Urobilinogen Urine Negative (Negative)
[2023-06-16 17:08] LABS: Troponin I High Sensitivity 3.4 pg/ml (0-14)
--- NOTE | 2023-06-16 17:38 | XRay Report ---
XR lumbar spine 2-3V, XR thoracic spine 3V routine HISTORY: 57 years-old Female fall acute low back pain status post fall COMPARISON: CT abdomen and pelvis 02/28/2021 TECHNIQUE: 3 views of the thoracic spine with 3 views of the lumbar spine FINDINGS: THORACIC: Cervical spinal fusion hardware. The lung greenberg appear clear. Moderate multilevel intervertebral dis c space narrowing, spondylotic spurring and facet arthrosis. No acute fracture or subluxation. LUMBAR: Mild to moderate spondylitic spurring with moderate facet arthrosis. Multilevel intervertebral disc s pace narrowing is moderate at L4-L5 and L5-S1. No acute fracture or subluxation. IMPRESSION: No acute fracture or subluxation. ACT 112: Negative or not required by law. The above report was generated using voice recognition software. It may contain grammatical, syntax o r spelling errors. Electronically signed by: Jonah Mark M.D. 06/16/2023 5:37 PM
--- NOTE | 2023-06-16 17:51 | XRay Report ---
XR chest 2V PA/lateral HISTORY: 57 years-old Female fall acute chest pain status post fall COMPARISON: 10/08/2022 TECHNIQUE: AP and lateral views of the chest FINDINGS: Cardiac silhouette is mildly enlarged. No pneumothorax, pleural effusion or airspace consolidation. B ones appear grossly intact. Surgical clips of the upper abdomen. Spinal fusion hardware. IMPRESSION: No acute process of the chest. ACT 112: Negative or not required by law. The above report was generated using voice recognition software. It may contain grammatical, syntax o r spelling errors. Electronically signed by: Jonah Mark M.D. 06/16/2023 5:49 PM
--- NOTE | 2023-06-16 17:53 | XRay Report ---
XR foot RT min 3V routine HISTORY: 57 years-old Female r foot acute right foot pain with fall COMPARISON: Right ankle radiographs 12/05/2022 TECHNIQUE: 3 views of the right foot FINDINGS: Postoperative changes of the hindfoot and ankle with triple arthrodesis and prior distal fibular rese ction. Demineralized appearance of the bones. Moderate osteoarthritis. No acute fracture or dislocati on. Diffuse soft tissue swelling. Corticated ossifications noted within the region of the plantar fas tricia. Punctate metallic density foci surround the ankle, unchanged. IMPRESSION: Chronic findings as above. No acute fracture or dislocation identified. ACT 112: Negative or not required by law. The above report was generated using voice recognition software. It may contain grammatical, syntax o r spelling errors. Electronically signed by: Jonah Mark M.D. 06/16/2023 5:52 PM
[2023-06-16] MEDS ORDERED: SODIUM CHLORIDE 0.9% 500 ML IV ONE (18:51)
[2023-06-16] MEDS ORDERED: MECLIZINE HCL 25 MG TAB PO STA (18:51)
--- NOTE | 2023-06-16 19:42 | History & Physical Report ---
Date of Service June 16, 2023 Assessment & Plan (1) Weakness: Plan: Likely multifactorial. Patient reports recent diarrhea. She appears dry on physical exam - also with increased Cr from baseline (Cr 0.88 --> 1.29). She was also taking Lasix which is a new prescription for her. Slightly elevated lithium dosing in the setting of renal compromise - [employer] level=1.5, supratherapeutic. Could account for some of her symptoms- dehydration and fatigue. Per record review, she has been on lithium carbonate ER 450mg qHS and 300mg qAM since 2020. Suspect her dehydration in setting of volume loss/diarrhea/lasix contributing to elevated level. -Admit to medical -Continue IVF - LR at 125mL/hr x 2L -Check stool PCR and C.diff -Hold [employer] for now and repeat level in the AM after hydration -PT/OT evaluation (2) Bipolar 1 disorder: Plan: Chronic. -Holding [employer] due to slightly elevated level possibly contributing to her presenting symptoms -Continue Trazodone -Continue Vistaril and Hydroxyzine (3) Schizoaffective disorder: Plan: Chronic. Stable. -Continue Lurasidone -Continue Benztropine -She is on Invega monthly injection as well (4) Diabetes mellitus with neuropathy: Plan: Chronic. Stable. Patient is on Metformin at home. Last PbkB2L=9.4 on 03/13/23 -Hold Metformin -ISS -Goal blood sugar 110 - 140 (5) Hypothyroid: Plan: Chronic. Stable. TSH=1.961 on 06/01/23 -Continue Synthroid History of Present Illness Chief Complaint: weakness, dizziness and frequent falls Primary Care Provider: Patrice Newell MD Nathaly Baez is a 57yo female with history of HTN, HLP, DM, Bipolar and schizoaffective disorder presenting from home with dizziness, gait instability and falls. Patient was seen in the ER on 06/01/23 with suicidal ideation and plan to overdose on her medications. She was ultimately discharged to [facility] on 06/02/23. She was treated there for 5 days and ultimately discharged home. She reports being started on Lasix after discharge (20mg po daily x 2 days?) Since returning home from rehab she has been unsteady on her feet. She becomes dizzy and has episodes of lightheadedness and near syncope. She also feels that the room is spinning. Her symptoms are made worse by standing up and moving around. She reports falling x 3 over the last several days. She has bumped her head but not lost consciousness. No report of chest pain or palpitations. She denies fever, chills, chest pain, palpitations, cough, SOB, abdominal pain, nausea, vomiting, diarrhea or constipation. Denies tinnitus, hearing loss. She does report some generalized weakness as well as 5-6 episodes daily of watery, non-bloody diarrhea for the last several days. In the ER she is afebrile, HD stable. ER Course: Meclizine NSS Allergies Allergy/AdvReac Type Severity Reaction Status Date / Time amoxicillin AdvReac Mild GI UPSET Verified 06/16/23 17:51 Home Medications Medication Instructions Recorded Confirmed Type baclofen 20 mg tablet 20 mg PO TID 09/11/19 06/16/23 History hydroxyzine HCl 50 mg tablet 50 mg PO BID Anxiety 09/11/19 06/16/23 History ferrous sulfate 325 mg (65 mg 325 mg PO QAM 02/28/21 06/16/23 History iron) tablet (iron) lidocaine 5 % topical patch 1 patch topical HS PRN pain #0 ea 04/25/21 06/16/23 Rx lithium carbonate 450 mg 450 mg PO QPM 01/06/22 06/16/23 History tablet,extended release cholecalciferol (vitamin D3) 25 25 mcg PO DAILY #30 caps 05/10/22 06/16/23 Rx mcg (1,000 unit) capsule lurasidone 80 mg tablet (Latuda) 80 mg PO DAILY 05/10/22 06/16/23 History paliperidone palmitate 234 mg/1.5 234 mg IM Q30D 05/10/22 06/16/23 History mL intramuscular syringe (Invega Sustenna) triamcinolone acetonide 0.025 % 1 applic topical BID PRN Allergic 05/10/22 06/16/23 Rx topical cream Symptoms #80 grams levothyroxine 100 mcg tablet 100 mcg PO DAILY #90 tabs 08/01/22 06/16/23 Rx lithium carbonate 300 mg 300 mg PO QAM 10/06/22 06/16/23 History tablet,extended release diaper,brief,adult,disposable #60 ea 10/31/22 06/12/23 Rx incontinence pad, liner, disp #20 ea 10/31/22 06/12/23 Rx pantoprazole 40 mg tablet,delayed 40 mg PO BID #180 tabs 12/29/22 06/16/23 Rx release docusate sodium 100 mg capsule 100 mg PO DAILY 03/03/23 06/16/23 History (Colace) cranberry fruit concentrate 250 mg 500 mg PO DAILY 04/10/23 06/16/23 History chewable tablet (Azo Cranberry) benztropine 1 mg tablet 1 mg PO BID 06/01/23 06/16/23 History lorazepam 1 mg tablet 1 mg PO BID Anxiety 06/01/23 06/16/23 History furosemide 20 mg tablet 20 mg PO DAILY #90 tabs 06/12/23 06/16/23 Rx lisinopril 10 mg tablet 10 mg PO DAILY #90 tabs 06/12/23 06/16/23 Rx metformin 500 mg tablet,extended 500 mg PO DAILY #90 tabs 06/12/23 06/16/23 Rx release 24 hr trazodone 100 mg tablet 200 mg PO HS 06/16/23 06/16/23 History Past Med/Surg History Medical History Endometriosis Noncompliance with medication regimen Schizoaffective disorder Cholelithiasis Mood disorder Anxiety Auditory hallucinations Hypertension Sleep disturbances Encounter for vitamin deficiency screening Ventral hernia Shingles outbreak Hypothyroid Hyperlipidemia Eustachian tube dysfunction Diabetes mellitus with neuropathy Bipolar 1 disorder Surgical History S/P exploratory laparotomy midline vertical supraumibical - in 30s - pt pushed a paper clip through abdomen [place] teeth extracted Hx of tubal ligation History of laparoscopy for endometriosis, prior to pregnancies History of hernia surgery History of ankle surgery x3 Family History Mother Myocardial infarction Congestive heart failure due to high blood pressure Hypertension Diabetes Father Hypertension Diabetes Denies family history of Ovarian cancer Prostate cancer Breast cancer Colorectal cancer Uterine cancer Social History Smoking Status: Current every day smoker Tobacco Type: Cigarettes Second Hand Exposure: Yes; Do You Dip or Chew Tobacco: No; Hx Alcohol Use: No Hx Substance Use: No Preferred Language: Hebrew Communication Ability: Effective Visual Impairment: Limited Hearing Ability: Normal Acid Leveler Required: No Beliefs That Will Affect Care: None marital status: Current Living Situation: Significant Other current occupational status: disabled How many Children do You have: 2 How many Children do You have Comment: 2 girls Feels Safe at Home: Yes Childhood Exposure to Second-Hand Smoke: Yes Diet: regular caffeine: Yes during the past year weight has: remained stable Dental Care, Regularly: Yes Physical Activity Frequency: Daily Seatbelt Use: always Sunscreen Use: No Gender Identity: Female Assistive Devices: Cane and Glasses Review of Systems Review of Systems: All systems reviewed & are unremarkable except as noted in HPI & below Physical Exam Physical Exam: General: patient resting comfortably, NAD, non-toxic in appearance, AA&O x 4 Skin: warm, dry, intact, no rashes or lesions HEENT: NC/AT, PERRL, EOMI, no nystagmus, anicteric sclera, conjunctiva without injection, external ear normal to inspection and nontender, nares patent, dry lips and mucus membranes, poor dentition, no oropharyngeal lesions, neck supple, trachea midline, no LAD, no thyromegaly, no JVD Heart: +S1/S2, regular, no m/r/g Lungs: equal air entry bilaterally, no rales/rhonchi/wheezes Abd: +BS, soft, NT/ND, no masses/organomegaly/ascites Ext: warm, 2+ pulses in UE/LE bilaterally, no clubbing/cyanosis, trace edema, walking boot present on LLE Neuro: nonfocal, patient AA&O x 4, speech intact, no facial droop, moving all extremities on command with equal strength 5/5 Results & Data Results & Data Vital Signs (Past 12 Hours) Vital Signs Temp Pulse Resp BP Pulse Ox O2 Del Method 06/16/23 15:46 99 H 06/16/23 15:12 Room Air 06/16/23 15:07 36.7 C 99 H 19 151/90 H 98 Room Air Laboratory Results Laboratory Results WBC 10.53 K/ul (4.8-10.8) 06/16/23 15:24 RBC 4.41 M/uL (4.20-5.40) 06/16/23 15:24 Hgb 12.9 g/dl (12.0-16.0) 06/16/23 15:24 Hct 40.4 % (37.0-47.0) 06/16/23 15:24 MCV 91.6 fL (80.0-100.0) 06/16/23 15:24 MCH 29.3 pg (25.0-34.0) 06/16/23 15:24 MCHC 31.9 g/dL (32.0-36.0) L 06/16/23 15:24 RDW Std Deviation 45.1 fL (36.4-46.3) 06/16/23 15:24 RDW Coeff of Arjun 13.4 % (11.5-14.5) 06/16/23 15:24 Plt Count 347 K/uL (130-400) 06/16/23 15:24 MPV 10.5 fL (9.4-12.4) 06/16/23 15:24 PT 10.4 Seconds (9.0-12.0) 06/16/23 15:24 INR 0.9 (0.9-1.1) 06/16/23 15:24 APTT 26.6 Seconds (21.0-31.0) 06/16/23 15:24 PTT Ratio 0.9 06/16/23 15:24 Sodium 135 mmol/L (136-145) L 06/16/23 15:24 Potassium 3.3 mmol/L (3.5-5.1) L 06/16/23 15:24 Chloride 100 mmol/L (98-107) 06/16/23 15:24 Carbon Dioxide 24 mmol/L (21-32) 06/16/23 15:24 Anion Gap 11 (3-11) 06/16/23 15:24 BUN 8 mg/dl (6-23) 06/16/23 15:24 Creatinine 1.29 mg/dl (0.6-1.2) H 06/16/23 15:24 Est Cr Clr Drug Dosing 55.7 ml/min 06/16/23 15:24 Est GFR ( Amer) 54.0 ml/min 06/16/23 15:24 Est GFR (Non-Af Amer) 46.6 ml/min 06/16/23 15:24 BUN/Creatinine Ratio 6.2 (10-20) L 06/16/23 15:24 Glucose 182 mg/dl (70-99(Fasting)) H 06/16/23 15:24 POC Glucose 114 mg/dl (70-99) H 06/16/23 22:35 Calcium 10.1 mg/dl (8.6-10.3) 06/16/23 15:24 Phosphorus 3.4 mg/dl (2.5-4.9) 06/16/23 15:24 Magnesium 1.9 mg/dl (1.7-2.4) 06/16/23 15:24 Total Bilirubin 0.3 mg/dl (0.2-1.0) 06/16/23 15:24 AST 15 U/L (13-39) 06/16/23 15:24 ALT 16 U/L (7-52) 06/16/23 15:24 Alkaline Phosphatase 87 U/L (34-104) 06/16/23 15:24 Troponin I High Sens 3.4 pg/ml (0-14) 06/16/23 15:24 Total Protein 8.1 gm/dl (6.0-8.3) 06/16/23 15:24 Albumin 4.5 gm/dl (3.4-5.0) 06/16/23 15:24 Globulin 3.6 gm/dl (2.5-4.0) 06/16/23 15:24 Albumin/Globulin Ratio 1.3 (0.9-2) 06/16/23 15:24 Urine Color Yellow 06/16/23 16:00 Urine Appearance Clear (Clear) 06/16/23 16:00 Urine pH 7.0 (4.5-7.5) 06/16/23 16:00 Ur Specific [place] 1.007 (1.000-1.030) 06/16/23 16:00 Urine Protein Negative (Negative) 06/16/23 16:00 Urine Glucose (UA) Negative (Negative) 06/16/23 16:00 Urine Ketones Negative (Negative) 06/16/23 16:00 Urine Blood Negative (Negative) 06/16/23 16:00 Urine Nitrite Negative (Negative) 06/16/23 16:00 Urine Bilirubin Negative (Negative) 06/16/23 16:00 Urine Urobilinogen Negative (Negative) 06/16/23 16:00 Ur Leukocyte Esterase Negative (Negative) 06/16/23 16:00 [employer] 1.5 mmol/L (0.6-1.2) H 06/16/23 21:[address] 06/16/23 15:12 CT head/brain wo con CLINICAL HISTORY: 57 years-old Female with Neuro deficit, acute, stroke suspected. Acute stroke like symptoms TECHNIQUE: Multiple axial CT images of the head were obtained without contrast. A dose lowering technique was utilized adhering to the principles of ALARA. CT DOSE: 625.8 mGy.cm COMPARISON: 03/09/2021. FINDINGS: No acute intracranial hemorrhage, midline shift, intracranial mass, hydrocephalus, territorial ischemia or abnormal extra-axial collection. Unchanged mild patchy white matter hypodensities. The calvarium is intact. Hyperostosis frontalis interna. The paranasal sinuses, mastoid air cells, and middle ear cavities are clear. IMPRESSION: No acute intracranial abnormality. ACT 112: Negative or not required by law. The above report was generated using voice recognition software. It may contain grammatical, syntax or spelling errors. Electronically signed by: Jonah Mark M.D. 06/16/2023 3:50 PM Chest X-Ray 06/16/23 16:07 XR chest 2V PA/lateral HISTORY: 57 years-old Female fall acute chest pain status post fall COMPARISON: 10/08/2022 TECHNIQUE: AP and lateral views of the chest FINDINGS: Cardiac silhouette is mildly enlarged. No pneumothorax, pleural effusion or airspace consolidation. Bones appear grossly intact. Surgical clips of the upper abdomen. Spinal fusion hardware. IMPRESSION: No acute process of the chest. ACT 112: Negative or not required by law. The above report was generated using voice recognition software. It may contain grammatical, syntax or spelling errors. Electronically signed by: Jonah Mark M.D. 06/16/2023 5:49 PM Foot X-Ray 06/16/23 16:07 XR foot RT min 3V routine HISTORY: 57 years-old Female r foot acute right foot pain with fall COMPARISON: Right ankle radiographs 12/05/2022 TECHNIQUE: 3 views of the right foot FINDINGS: Postoperative changes of the hindfoot and ankle with triple arthrodesis and prior distal fibular resection. Demineralized appearance of the bones. Moderate osteoarthritis. No acute fracture or dislocation. Diffuse soft tissue swelling. Corticated ossifications noted within the region of the plantar fascia. Punctate metallic density foci surround the ankle, unchanged. IMPRESSION: Chronic findings as above. No acute fracture or dislocation identified. ACT 112: Negative or not required by law. The above report was generated using voice recognition software. It may contain grammatical, syntax or spelling errors. Electronically signed by: Jonah Mark M.D. 06/16/2023 5:52 PM Lumbar Spine X-Ray 06/16/23 16:07 XR lumbar spine 2-3V, XR thoracic spine 3V routine HISTORY: 57 years-old Female fall acute low back pain status post fall COMPARISON: CT abdomen and pelvis 02/28/2021 TECHNIQUE: 3 views of the thoracic spine with 3 views of the lumbar spine FINDINGS: THORACIC: Cervical spinal fusion hardware. The lung greenberg appear clear. Moderate multilevel intervertebral disc space narrowing, spondylotic spurring and facet arthrosis. No acute fracture or subluxation. LUMBAR: Mild to moderate spondylitic spurring with moderate facet arthrosis. Multilevel intervertebral disc space narrowing is moderate at L4-L5 and L5-S1. No acute fracture or subluxation. IMPRESSION: No acute fracture or subluxation. ACT 112: Negative or not required by law. The above report was generated using voice recognition software. It may contain grammatical, syntax or spelling errors. Electronically signed by: Jonah Mark M.D. 06/16/2023 5:37 PM === Thoracic Spine X-Ray 06/16/23 16:07 XR lumbar spine 2-3V, XR thoracic spine 3V routine HISTORY: 57 years-old Female fall acute low back pain status post fall COMPARISON: CT abdomen and pelvis 02/28/2021 TECHNIQUE: 3 views of the thoracic spine with 3 views of the lumbar spine FINDINGS: THORACIC: Cervical spinal fusion hardware. The lung greenberg appear clear. Moderate multilevel intervertebral disc space narrowing, spondylotic spurring and facet arthrosis. No acute fracture or subluxation. LUMBAR: Mild to moderate spondylitic spurring with moderate facet arthrosis. Multilevel intervertebral disc space narrowing is moderate at L4-L5 and L5-S1. No acute fracture or subluxation. IMPRESSION: No acute fracture or subluxation. ACT 112: Negative or not required by law. The above report was generated using voice recognition software. It may contain grammatical, syntax or spelling errors. Electronically signed by: Jonah Mark M.D. 06/16/2023 5:37 PM ECG Additional Comments: DICTATED BY: David Markham MD Test Reason : Blood Pressure : / mmHG Vent. Rate : 098 BPM Atrial Rate : 098 BPM P-R Int : 158 ms QRS Dur : 082 ms QT Int : 350 ms P-R-T Axes : 033 029 -74 degrees QTc Int : 446 ms Normal sinus rhythm T wave abnormality, consider lateral ischemia Abnormal ECG When compared with ECG of 06-OCT-2022 00:44, Inverted T waves have replaced nonspecific T wave abnormality in Inferior leads Confirmed by David Markham ([id number] on 06/16/2023 8:38:32 PM Referred By: REFERRED SELF Confirmed By:Dell Markham Code Status & VTE Plan VTE Prophylaxis Plan VTE Prophylaxis will be ordered: No PG Care Time/CCT Total # of Minutes Spent Total Time Spent with Patient: Total time spent is greater than 50% in coordination of care (as documented) at patient's floor/unit and/or counseling patient: Coding Level of Care Code 24449 INT INP/OBS CARE 3/75MIN Diagnoses Weakness R53.1 Bipolar 1 disorder F31.9 Schizoaffective disorder F25.9 Diabetes mellitus with neuropathy E11.40 Hypothyroid E03.9
--- NOTE | 2023-06-16 20:38 | Electrocardiogram Report ---
Test Reason : Blood Pressure : / mmHG Vent. Rate : 098 BPM Atrial Rate : 098 BPM P-R Int : 158 ms QRS Dur : 082 ms QT Int : 350 ms P-R-T Axes : 033 029 -74 degrees QTc Int : 446 ms Normal sinus rhythm T wave abnormality, consider lateral ischemia Abnormal ECG When compared with ECG of 06-OCT-2022 00:44, Inverted T waves have replaced nonspecific T wave abnormality in Inferior leads Confirmed by David Markham ([id number] on 06/16/2023 8:38:32 PM Referred By: REFERRED SELF Confirmed By:Dell Markham
[2023-06-16] MEDS ORDERED: ACETAMINOPHEN 325 MG TAB PO PRN (21:20)
[2023-06-16] MEDS ORDERED: ONDANSETRON INJ 2 MG/ML 2 ML VIAL IV PRN (21:20)
[2023-06-16] MEDS ORDERED: POTASSIUM CHLORIDE CRTAB 20 MEQ TABCR PO STA (21:20)
[2023-06-16] MEDS ORDERED: GLUCAGON FOR INJ 1 MG VIAL SQ PRN (21:20)
[2023-06-16] MEDS ORDERED: GLUCOSE 10 TAB/TUBE PO PRN (21:20)
[2023-06-16] MEDS ORDERED: DEXTROSE 50% 50 ML SYRINGE IV PRN (21:20)
[2023-06-16] MEDS ORDERED: GLUCOSE 40% GEL 15 GM TUBE PO PRN (21:20)
[2023-06-16] MEDS ORDERED: CARBOHYDRATES FOR HYPOGLYCEMIA PO PRN (21:20)
[2023-06-16] MEDS ORDERED: LITHIUM CARBONATE 450 MG TABCR PO SCH (21:30)
[2023-06-16] MEDS ORDERED: MECLIZINE HCL 25 MG TAB PO SCH (21:30)
[2023-06-16 21:38] LABS: Phosphorus 3.4 mg/dl (2.5-4.9)
[2023-06-16] MEDS: LORazepam 1 MG TAB PO SCH (22:39)
[2023-06-16] MEDS: LACTATED RINGER'S 1,000 ML IV SCH (22:39)
[2023-06-16] MEDS: BACLOFEN 20 MG TAB PO SCH (22:40)
[2023-06-16] MEDS: BENZTROPINE MESYLATE 1 MG TAB PO SCH (22:40)
[2023-06-16] MEDS: traZODone HCL 100 MG TAB PO SCH (22:40)
[2023-06-16] MEDS: hydrOXYzine HCl 25 MG TAB PO SCH (22:42)
[2023-06-16] MEDS: PANTOprazole 40 MG TAB PO SCH (22:42)
[2023-06-16] MEDS: INSULIN ASPART PER UNIT CHARGE SC SCH (22:43)
[2023-06-16] MEDS ORDERED: MECLIZINE HCL 25 MG TAB PO PRN (22:52)
[2023-06-17 05:33] LABS: Hematocrit (blood only) 35.5 % (37.0-47.0); Hemoglobin 11.5 g/dl (12.0-16.0); Mean Corpuscular Hemoglobin 29.6 pg (25.0-34.0); Mean Corpuscular Hgb Conc 32.4 g/dL (32.0-36.0); Mean Corpuscular Volume 91.3 fL (80.0-100.0); Mean Platelet Volume 10.3 fL (9.4-12.4); Platelet Count 282 K/uL (130-400); RDW Coefficient of Variation 13.4 % (11.5-14.5); RDW Standard Deviation 45.1 fL (36.4-46.3); Red Blood Count 3.89 M/uL (4.20-5.40); White Blood Count 8.66 K/ul (4.8-10.8)
[2023-06-17] MEDS: LACTATED RINGER'S 1,000 ML IV SCH (06:18)
[2023-06-17 06:43] LABS: BUN Creatinine Ratio 8.3 (10-20); Calcium 9.6 mg/dl (8.6-10.3); Creatinine Clr Calc Pharmacy 65.9 ml/min; Est GFR (African American) 66.2 ml/min; Est GFR (Non-African American) 57.1 ml/min; Potassium 4.1 mmol/L (3.5-5.1)
[2023-06-17] MEDS: LEVOTHYROXINE SODIUM 100 MCG TABLET PO SCH (08:04)
[2023-06-17] MEDS ORDERED: LITHIUM CARBONATE SLOW REL 300 MG TAB PO SCH (09:00)
[2023-06-17] MEDS: DOCUSATE SODIUM 100 MG CAP PO SCH (09:01)
[2023-06-17] MEDS: PANTOprazole 40 MG TAB PO SCH ×2 (09:01→21:16)
[2023-06-17] MEDS: BENZTROPINE MESYLATE 1 MG TAB PO SCH ×2 (09:02→21:16)
[2023-06-17] MEDS: BACLOFEN 20 MG TAB PO SCH ×3 (09:02→21:16)
[2023-06-17] MEDS: hydrOXYzine HCl 25 MG TAB PO SCH ×2 (09:02→21:16)
[2023-06-17] MEDS: NICOTINE 21 MG/24 HR TDSY TD SCH (09:02)
[2023-06-17] MEDS: INSULIN ASPART PER UNIT CHARGE SC SCH ×4 (09:03→23:02)
[2023-06-17] MEDS: ENOXAPARIN INJ 40 MG/0.4 ML SYR SQ SCH (09:04)
[2023-06-17] MEDS: LORazepam 1 MG TAB PO SCH ×2 (09:06→21:16)
--- NOTE | 2023-06-17 11:46 | Hospitalist Progress Note ---
Date of Service June 17, 2023 Assessment & Plan (1) Enteritis: Plan: Suspected viral etiology. IV fluid rehydration. Stool BioFire negative (2) Weakness: Plan: Generalized. Most likely related to volume depletion and enteritis. Should improve with IV fluid rehydration. OT and PT assessments requested. (3) Acute kidney injury: Plan: IV fluids. Monitor intake and output. Serial labs (4) Elevated lithium level: Plan: Hold lithium until levels return to normal. Daily lab (5) Bipolar 1 disorder: Plan: Pierre currently on hold. Supportive care (6) Schizoaffective disorder: Plan: Stable. Continue current medical management with Lurasidone, Benztropine. She is on Invega monthly injection as well (7) Diabetes mellitus with neuropathy: Plan: ADA diet. Sliding scale coverage as needed. Metformin is on hold (8) Hypothyroid: Plan: Stable. Continue thyroid replacement therapy Plan Hopeful discharge back to home within the next day or 2 Admission and Anticipated Discharge Date Admission Date: June 16, 2023 Subjective Awake. Flat affect. No distress. IV fluids underway. Pierre level slightly better but still high at 1.4. Thyroid profile normal. Hopefully she can go home tomorrow, June 18 Review of Systems 2 Review of Systems: Constitutional-no fever or chills ENT-no blurred vision, no double vision, no epistaxis, no sore throat Respiratory-no cough, no wheezing, no shortness of breath Cardiac-no palpitations, no chest pain, no syncope GI-no nausea, vomiting, melena, hematochezia. Watery diarrhea for several days -no urinary retention, no urinary incontinence, no dysuria, no hematuria Musculoskeletal-no joint pain, no muscle tenderness Skin-no bruising, no rashes, no pruritus Neuro-generalized weakness Psych-depression Physical Exam 2 Physical Exam: General-alert and oriented x3, no fevers, no chills HEENT-head atraumatic and normocephalic, pupils equal and reactive to light, extraocular muscles intact Neck-no lymphadenopathy or thyromegaly, trachea midline Chest-clear to auscultation percussion. No rales wheezing or rhonchi Cardiac-regular rate and rhythm, normal S1 and S2, no murmurs Abdomen-normal bowel sounds, nontender, no hepatosplenomegaly Extremities-no cyanosis, clubbing, or edema Neuro-cranial nerves II through XII intact, motor and sensory function within normal limits, strength symmetrical with generalized weakness, no focal deficits Psych-flat affect Results & Data Results & Data Vital Signs (Past 12 Hours) Vital Signs Temp Pulse Resp BP Pulse Ox O2 Del Method 06/17/23 09:14 37.0 C 79 18 144/82 H 94 Room Air 06/17/23 06:19 77 13 142/81 H 93 Room Air Laboratory Results 06/17/23 04:45 06/17/23 04:45 PG Care Time/CCT Total # of Minutes Spent Total Time Spent with Patient: Total time spent is greater than 50% in coordination of care (as documented) at patient's floor/unit and/or counseling patient: Coding Level of Care Code 49025 SUB INP/OBS CARE 3/50MIN Diagnoses Enteritis K52.9 Weakness R53.1 Acute kidney injury N17.9 Elevated lithium level R79.89 Bipolar 1 disorder F31.9 Schizoaffective disorder F25.9 Diabetes mellitus with neuropathy E11.40 Hypothyroid E03.9
[2023-06-17] MEDS: LURASIDONE HCL 20 MG TAB PO SCH (13:18)
[2023-06-17] MEDS: traZODone HCL 100 MG TAB PO SCH (21:16)
[2023-06-18] MEDS: LEVOTHYROXINE SODIUM 100 MCG TABLET PO SCH (05:37)
[2023-06-18 07:03] LABS: Basophils # (auto) 0.05 K/uL (0.00-0.20); Basophils % (auto) 0.6 %; Eosinophils % (auto) 2.3 %; Hematocrit (blood only) 34.9 % (37.0-47.0); Hemoglobin 11.2 g/dl (12.0-16.0); Immature Granulocytes # (auto) 0.03 K/uL (0.01-0.20); Immature Granulocytes % (auto) 0.4 %; Lymphocytes # (auto) 1.71 K/uL (1.20-3.40); Mean Corpuscular Hemoglobin 29.1 pg (25.0-34.0); Mean Corpuscular Hgb Conc 32.1 g/dL (32.0-36.0); Mean Corpuscular Volume 90.6 fL (80.0-100.0); Mean Platelet Volume 10.3 fL (9.4-12.4); Monocytes # (auto) 0.51 K/uL (0.11-0.59); Neutrophils # (auto) 6.04 K/uL (1.40-6.50); Neutrophils % (auto) 70.7 %; Platelet Count 295 K/uL (130-400); RDW Coefficient of Variation 13.2 % (11.5-14.5); RDW Standard Deviation 43.8 fL (36.4-46.3); Red Blood Count 3.85 M/uL (4.20-5.40); White Blood Count 8.54 K/ul (4.8-10.8)
[2023-06-18 08:05] LABS: Anion Gap 4 (3-11); BUN Creatinine Ratio 10.2 (10-20); Blood Urea Nitrogen 10 mg/dl (6-23); Calcium 9.1 mg/dl (8.6-10.3); Carbon Dioxide 25 mmol/L (21-32); Chloride 107 mmol/L (98-107); Creatinine Clr Calc Pharmacy 73.3 ml/min; Est GFR (African American) 75.3 ml/min; Est GFR (Non-African American) 64.9 ml/min; Glucose 113 mg/dl (70-99(Fasting)); Sodium 136 mmol/L (136-145)
[2023-06-18] MEDS: PANTOprazole 40 MG TAB PO SCH ×2 (09:09→20:14)
[2023-06-18] MEDS: BACLOFEN 20 MG TAB PO SCH ×3 (09:09→20:15)
[2023-06-18] MEDS: LORazepam 1 MG TAB PO SCH ×2 (09:09→20:13)
[2023-06-18] MEDS: BENZTROPINE MESYLATE 1 MG TAB PO SCH ×2 (09:09→20:15)
[2023-06-18] MEDS: hydrOXYzine HCl 25 MG TAB PO SCH ×2 (09:09→20:13)
[2023-06-18] MEDS: DOCUSATE SODIUM 100 MG CAP PO SCH (09:09)
[2023-06-18] MEDS: NICOTINE 21 MG/24 HR TDSY TD SCH (09:10)
[2023-06-18] MEDS: ENOXAPARIN INJ 40 MG/0.4 ML SYR SQ SCH (09:10)
[2023-06-18] MEDS: INSULIN ASPART PER UNIT CHARGE SC SCH ×4 (09:14→21:00)
[2023-06-18] MEDS: LURASIDONE HCL 20 MG TAB PO SCH (11:16)
--- NOTE | 2023-06-18 12:06 | Hospitalist Progress Note ---
Date of Service June 18, 2023 Assessment & Plan (1) Enteritis: Plan: Suspected viral etiology. IV fluid rehydration. Stool BioFire negative (2) Weakness: Plan: Generalized. Most likely related to volume depletion and enteritis. Should improve with IV fluid rehydration and OT and PT (3) Acute kidney injury: Plan: Resolved with IV fluids. Monitor intake and output. Serial labs (4) Elevated lithium level: Plan: Now normal. [place] has been restarted. Daily lab (5) Bipolar 1 disorder: Plan: [place] will be restarted today, June 18. Supportive care (6) Schizoaffective disorder: Plan: Stable. Continue current medical management with Lurasidone, Benztropine. She is on Invega monthly injection as well (7) Diabetes mellitus with neuropathy: Plan: ADA diet. Sliding scale coverage as needed. Metformin has been restarted (8) Hypothyroid: Plan: Stable. Continue thyroid replacement therapy Plan To be determined by PT and OT assessments. Admission and Anticipated Discharge Date Admission Date: June 16, 2023 Subjective Awake and alert. She does not appear to be very well motivated to help herself. Creatinine improved to 0.9. [place] level is now normal and has been restarted Review of Systems 2 Review of Systems: Constitutional-no fever or chills ENT-no blurred vision, no double vision, no epistaxis, no sore throat Respiratory-no cough, no wheezing, no shortness of breath Cardiac-no palpitations, no chest pain, no syncope GI-no nausea, vomiting, melena, hematochezia. Watery diarrhea for several days -no urinary retention, no urinary incontinence, no dysuria, no hematuria Musculoskeletal-no joint pain, no muscle tenderness Skin-no bruising, no rashes, no pruritus Neuro-generalized weakness Psych-depression Physical Exam 2 Physical Exam: General-alert and oriented x3, no fevers, no chills HEENT-head atraumatic and normocephalic, pupils equal and reactive to light, extraocular muscles intact Neck-no lymphadenopathy or thyromegaly, trachea midline Chest-clear to auscultation percussion. No rales wheezing or rhonchi Cardiac-regular rate and rhythm, normal S1 and S2, no murmurs Abdomen-normal bowel sounds, nontender, no hepatosplenomegaly Extremities-no cyanosis, clubbing, or edema Neuro-cranial nerves II through XII intact, motor and sensory function within normal limits, strength symmetrical with generalized weakness, no focal deficits Psych-flat affect Results & Data Results & Data Vital Signs (Past 12 Hours) Vital Signs Temp Pulse Resp BP Pulse Ox O2 Del Method 06/18/23 08:59 36.8 C 91 H 18 157/110 H 95 Room Air 06/18/23 07:45 Room Air Laboratory Results 06/18/23 06:08 06/18/23 08:11 PG Care Time/CCT Total # of Minutes Spent Total Time Spent with Patient: Total time spent is greater than 50% in coordination of care (as documented) at patient's floor/unit and/or counseling patient: Coding Level of Care Code 48049 SUB INP/OBS CARE 3/50MIN Diagnoses Enteritis K52.9 Weakness R53.1 Acute kidney injury N17.9 Elevated lithium level R79.89 Bipolar 1 disorder F31.9 Schizoaffective disorder F25.9 Diabetes mellitus with neuropathy E11.40 Hypothyroid E03.9
[2023-06-18] MEDS: LITHIUM CARBONATE 300 MG TAB PO SCH (14:00)
[2023-06-18] MEDS: metFORMIN HCL ER 500 MG TABCR PO SCH (14:01)
[2023-06-18] MEDS: traZODone HCL 100 MG TAB PO SCH (20:16)
[2023-06-18] MEDS: LITHIUM CARBONATE 450 MG TABCR PO SCH (20:16)
[2023-06-18] MEDS ORDERED: LIDOCAINE 5% 1 PATCH TD STA (20:45)
[2023-06-19] MEDS: LEVOTHYROXINE SODIUM 100 MCG TABLET PO SCH (05:46)
[2023-06-19 07:39] LABS: Basophils # (auto) 0.05 K/uL (0.00-0.20); Basophils % (auto) 0.7 %; Eosinophils # (auto) 0.19 K/uL (0.00-0.50); Eosinophils % (auto) 2.6 %; Hematocrit (blood only) 39.3 % (37.0-47.0); Hemoglobin 12.7 g/dl (12.0-16.0); Immature Granulocytes # (auto) 0.03 K/uL (0.01-0.20); Immature Granulocytes % (auto) 0.4 %; Lymphocytes % (auto) 19.1 %; Mean Corpuscular Hemoglobin 29.1 pg (25.0-34.0); Mean Corpuscular Hgb Conc 32.3 g/dL (32.0-36.0); Mean Corpuscular Volume 89.9 fL (80.0-100.0); Mean Platelet Volume 9.7 fL (9.4-12.4); Monocytes # (auto) 0.41 K/uL (0.11-0.59); Monocytes % (auto) 5.6 %; Neutrophils # (auto) 5.26 K/uL (1.40-6.50); Neutrophils % (auto) 71.6 %; Platelet Count 304 K/uL (130-400); RDW Coefficient of Variation 12.8 % (11.5-14.5); RDW Standard Deviation 42.5 fL (36.4-46.3); Red Blood Count 4.37 M/uL (4.20-5.40); White Blood Count 7.34 K/ul (4.8-10.8)
[2023-06-19 07:58] LABS: Calcium 10.1 mg/dl (8.6-10.3); Creatinine Clr Calc Pharmacy 71.8 ml/min; Est GFR (African American) 73.5 ml/min; Est GFR (Non-African American) 63.4 ml/min; Potassium 3.9 mmol/L (3.5-5.1)
[2023-06-19] MEDS: INSULIN ASPART PER UNIT CHARGE SC SCH ×4 (09:01→21:00)
[2023-06-19] MEDS: LITHIUM CARBONATE 300 MG TAB PO SCH (09:02)
[2023-06-19] MEDS: metFORMIN HCL ER 500 MG TABCR PO SCH (09:02)
[2023-06-19] MEDS: PANTOprazole 40 MG TAB PO SCH ×2 (09:02→20:51)
[2023-06-19] MEDS: BENZTROPINE MESYLATE 1 MG TAB PO SCH ×2 (09:03→20:52)
[2023-06-19] MEDS: ENOXAPARIN INJ 40 MG/0.4 ML SYR SQ SCH (09:03)
[2023-06-19] MEDS: BACLOFEN 20 MG TAB PO SCH ×3 (09:03→20:53)
[2023-06-19] MEDS: NICOTINE 21 MG/24 HR TDSY TD SCH (09:05)
[2023-06-19] MEDS: hydrOXYzine HCl 25 MG TAB PO SCH ×2 (09:13→20:51)
[2023-06-19] MEDS: LORazepam 1 MG TAB PO SCH ×2 (09:13→20:51)
[2023-06-19] MEDS: DOCUSATE SODIUM 100 MG CAP PO SCH (09:14)
[2023-06-19] MEDS: LURASIDONE HCL 20 MG TAB PO SCH (11:59)
[2023-06-19] MEDS: traZODone HCL 100 MG TAB PO SCH (20:52)
[2023-06-19] MEDS: LITHIUM CARBONATE 450 MG TABCR PO SCH (20:52)
--- NOTE | 2023-06-19 21:49 | Hospitalist Progress Note ---
Date of Service June 19, 2023 Assessment & Plan (1) Enteritis: Plan: Suspected viral etiology. IV fluid rehydration. Stool BioFire negative (2) Weakness: Plan: Generalized. Most likely related to volume depletion and enteritis. Should improve with IV fluid rehydration and OT and PT (3) Acute kidney injury: Plan: Resolved with IV fluids. Monitor intake and output. Serial labs (4) Elevated lithium level: Plan: Now normal. [place] has been restarted. Daily lab (5) Bipolar 1 disorder: Plan: [place] will be restarted today, June 18. Supportive care (6) Schizoaffective disorder: Plan: Stable. Continue current medical management with Lurasidone, Benztropine. She is on Invega monthly injection as well (7) Diabetes mellitus with neuropathy: Plan: ADA diet. Sliding scale coverage as needed. Metformin has been restarted (8) Hypothyroid: Plan: Stable. Continue thyroid replacement therapy Plan requires rehab. Admission and Anticipated Discharge Date Admission Date: June 16, 2023 Subjective 57 yo female reports no new symptoms. Review of Systems Review of Systems: All systems reviewed & are unremarkable except as noted in HPI & below Physical Exam Physical Exam: General-alert and oriented x3, no fevers, no chills HEENT-head atraumatic and normocephalic, pupils equal and reactive to light, extraocular muscles intact Neck-no lymphadenopathy or thyromegaly, trachea midline Chest-clear to auscultation percussion. No rales wheezing or rhonchi Cardiac-regular rate and rhythm, normal S1 and S2, no murmurs Abdomen-normal bowel sounds, nontender, no hepatosplenomegaly Extremities-no cyanosis, clubbing, or edema Neuro-cranial nerves II through XII intact, motor and sensory function within normal limits, strength symmetrical with generalized weakness, no focal deficits Psych-flat affect Results & Data Results & Data Vital Signs (Past 12 Hours) Vital Signs Temp Pulse Resp BP Pulse Ox O2 Del Method 06/19/23 20:40 Room Air 06/19/23 20:26 37.3 C 80 18 158/93 H 93 Room Air 06/19/23 15:25 36.7 C 81 17 146/92 H 94 Room Air 06/19/23 11:55 36.7 C 82 20 162/96 H 94 Room Air PG Care Time/CCT Total # of Minutes Spent Total Time Spent with Patient: Total time spent is greater than 50% in coordination of care (as documented) at patient's floor/unit and/or counseling patient: Coding Level of Care Code 59225 SUB INP/OBS CARE 2/35MIN Diagnoses Enteritis K52.9 Weakness R53.1 Acute kidney injury N17.9 Elevated lithium level R79.89 Bipolar 1 disorder F31.9 Schizoaffective disorder F25.9 Diabetes mellitus with neuropathy E11.40 Hypothyroid E03.9
[2023-06-20] MEDS: LEVOTHYROXINE SODIUM 100 MCG TABLET PO SCH (06:21)
[2023-06-20 06:38] LABS: Basophils # (auto) 0.05 K/uL (0.00-0.20); Basophils % (auto) 0.7 %; Eosinophils # (auto) 0.17 K/uL (0.00-0.50); Eosinophils % (auto) 2.3 %; Hematocrit (blood only) 34.6 % (37.0-47.0); Hemoglobin 11.3 g/dl (12.0-16.0); Immature Granulocytes # (auto) 0.02 K/uL (0.01-0.20); Immature Granulocytes % (auto) 0.3 %; Lymphocytes # (auto) 1.74 K/uL (1.20-3.40); Lymphocytes % (auto) 23.1 %; Mean Corpuscular Hemoglobin 28.9 pg (25.0-34.0); Mean Corpuscular Hgb Conc 32.7 g/dL (32.0-36.0); Mean Corpuscular Volume 88.5 fL (80.0-100.0); Mean Platelet Volume 9.9 fL (9.4-12.4); Monocytes # (auto) 0.44 K/uL (0.11-0.59); Monocytes % (auto) 5.9 %; Neutrophils % (auto) 67.7 %; Platelet Count 288 K/uL (130-400); RDW Coefficient of Variation 12.9 % (11.5-14.5); RDW Standard Deviation 41.9 fL (36.4-46.3); Red Blood Count 3.91 M/uL (4.20-5.40); White Blood Count 7.52 K/ul (4.8-10.8)
[2023-06-20 06:52] LABS: BUN Creatinine Ratio 9.8 (10-20); Calcium 9.5 mg/dl (8.6-10.3); Creatinine Clr Calc Pharmacy 70.4 ml/min; Est GFR (African American) 71.7 ml/min; Est GFR (Non-African American) 61.9 ml/min; Potassium 4.1 mmol/L (3.5-5.1)
[2023-06-20] MEDS: INSULIN ASPART PER UNIT CHARGE SC SCH ×4 (08:16→21:00)
[2023-06-20] MEDS: metFORMIN HCL ER 500 MG TABCR PO SCH (08:18)
[2023-06-20] MEDS: PANTOprazole 40 MG TAB PO SCH ×2 (08:18→21:28)
[2023-06-20] MEDS: LITHIUM CARBONATE 300 MG TAB PO SCH (08:18)
[2023-06-20] MEDS: BACLOFEN 20 MG TAB PO SCH ×3 (08:18→21:29)
[2023-06-20] MEDS: NICOTINE 21 MG/24 HR TDSY TD SCH (08:19)
[2023-06-20] MEDS: BENZTROPINE MESYLATE 1 MG TAB PO SCH ×2 (08:19→21:28)
[2023-06-20] MEDS: ENOXAPARIN INJ 40 MG/0.4 ML SYR SQ SCH (08:19)
[2023-06-20] MEDS: DOCUSATE SODIUM 100 MG CAP PO SCH (08:23)
[2023-06-20] MEDS: LORazepam 1 MG TAB PO SCH ×2 (08:24→21:27)
[2023-06-20] MEDS: hydrOXYzine HCl 25 MG TAB PO SCH ×2 (08:24→21:27)
[2023-06-20] MEDS: LURASIDONE HCL 20 MG TAB PO SCH (12:10)
[2023-06-20] MEDS: traZODone HCL 100 MG TAB PO SCH (21:28)
[2023-06-20] MEDS: LITHIUM CARBONATE 450 MG TABCR PO SCH (21:29)
--- NOTE | 2023-06-20 21:43 | Hospitalist Progress Note ---
Date of Service June 20, 2023 Assessment & Plan (1) Enteritis: Plan: Suspected viral etiology. IV fluid rehydration. Stool BioFire negative (2) Weakness: Plan: Generalized. Most likely related to volume depletion and enteritis. Should improve with IV fluid rehydration and OT and PT Awaiting placement (3) Acute kidney injury: Plan: Resolved with IV fluids. Monitor intake and output. Serial labs (4) Elevated lithium level: Plan: Now normal. [place] has been restarted. Daily lab (5) Bipolar 1 disorder: Plan: resumed (6) Schizoaffective disorder: Plan: Stable. Continue current medical management with Lurasidone, Benztropine. She is on Invega monthly injection as well (7) Diabetes mellitus with neuropathy: Plan: ADA diet. Sliding scale coverage as needed. Metformin has been restarted (8) Hypothyroid: Plan: Stable. Continue thyroid replacement therapy Plan requires rehab. Admission and Anticipated Discharge Date Admission Date: June 16, 2023 Subjective 57 yo female reports no new symptoms. Review of Systems Review of Systems: All systems reviewed & are unremarkable except as noted in HPI & below Physical Exam Physical Exam: General-alert and oriented x3, no fevers, no chills HEENT-head atraumatic and normocephalic, pupils equal and reactive to light, extraocular muscles intact Neck-no lymphadenopathy or thyromegaly, trachea midline Chest-clear to auscultation percussion. No rales wheezing or rhonchi Cardiac-regular rate and rhythm, normal S1 and S2, no murmurs Abdomen-normal bowel sounds, nontender, no hepatosplenomegaly Extremities-no cyanosis, clubbing, or edema Neuro-cranial nerves II through XII intact Results & Data Results & Data Vital Signs (Past 12 Hours) Vital Signs Temp Pulse Resp BP Pulse Ox O2 Del Method 06/20/23 21:34 Room Air 06/20/23 15:46 36.9 C 77 16 117/78 94 Room Air PG Care Time/CCT Total # of Minutes Spent Total Time Spent with Patient: Total time spent is greater than 50% in coordination of care (as documented) at patient's floor/unit and/or counseling patient: Coding Level of Care Code 11230 SUB INP/OBS CARE 2/35MIN Diagnoses Enteritis K52.9 Weakness R53.1 Acute kidney injury N17.9 Elevated lithium level R79.89 Bipolar 1 disorder F31.9 Schizoaffective disorder F25.9 Diabetes mellitus with neuropathy E11.40 Hypothyroid E03.9
[2023-06-21] MEDS: LEVOTHYROXINE SODIUM 100 MCG TABLET PO SCH (05:44)
[2023-06-21] MEDS: INSULIN ASPART PER UNIT CHARGE SC SCH ×4 (07:54→21:00)
[2023-06-21] MEDS: DOCUSATE SODIUM 100 MG CAP PO SCH (08:39)
[2023-06-21] MEDS: NICOTINE 21 MG/24 HR TDSY TD SCH (08:39)
[2023-06-21] MEDS: ENOXAPARIN INJ 40 MG/0.4 ML SYR SQ SCH (08:39)
[2023-06-21] MEDS: LORazepam 1 MG TAB PO SCH ×2 (08:39→22:10)
[2023-06-21] MEDS: LITHIUM CARBONATE 300 MG TAB PO SCH (08:40)
[2023-06-21] MEDS: BACLOFEN 20 MG TAB PO SCH ×3 (08:40→22:03)
[2023-06-21] MEDS: PANTOprazole 40 MG TAB PO SCH ×2 (08:40→22:01)
[2023-06-21] MEDS: metFORMIN HCL ER 500 MG TABCR PO SCH (08:41)
[2023-06-21] MEDS: BENZTROPINE MESYLATE 1 MG TAB PO SCH ×2 (08:41→22:02)
[2023-06-21] MEDS: hydrOXYzine HCl 25 MG TAB PO SCH ×2 (08:48→22:09)
[2023-06-21] MEDS: LURASIDONE HCL 20 MG TAB PO SCH (12:18)
--- NOTE | 2023-06-21 19:34 | Hospitalist Progress Note ---
Date of Service June 21, 2023 Assessment & Plan (1) Enteritis: Plan: Suspected viral etiology. IV fluid rehydration. Stool BioFire negative (2) Weakness: Plan: Generalized. Most likely related to volume depletion and enteritis. could be lithium toxicity, toxic encephalopathy now resolved Should improve with IV fluid rehydration and OT and PT Awaiting placement (3) Acute kidney injury: Plan: Resolved with IV fluids. Monitor intake and output. Serial labs (4) Elevated lithium level: Plan: Now normal. [place] has been restarted but now refused by the pt (5) Bipolar 1 disorder: Plan: resumed trazadone, latuda, refused lithium (6) Schizoaffective disorder: Plan: Stable. Continue current medical management with Lurasidone, Benztropine. She is on Invega monthly injection as well (7) Diabetes mellitus with neuropathy: Plan: ADA diet. Sliding scale coverage as needed. Metformin has been restarted (8) Hypothyroid: Plan: Stable. Continue thyroid replacement therapy Plan requires rehab. Admission and Anticipated Discharge Date Admission Date: June 16, 2023 Subjective patient is lethargic and nonconversant according to nurses has refused her lithium and subcutaneous enoxaparin injections she would not disclose to me why she is refusing medications as below Physical Exam Physical Exam: patient is awakens but I think feigns sleeping earlier she was in the bathroom when I arrived to see her cardiac exam is regular lungs sound clear Results & Data Results & Data Vital Signs (Past 12 Hours) Vital Signs Temp Pulse Resp BP BP Pulse Ox O2 Del Method 06/21/23 15:51 97.9 F 92 H 16 161/89 H 94 Room Air 06/21/23 07:58 97.7 F 77 16 149/91 H 92 Room Air PG Care Time/CCT Total # of Minutes Spent Total Time Spent with Patient: Total time spent is greater than 50% in coordination of care (as documented) at patient's floor/unit and/or counseling patient: Coding Level of Care Code 76893 SUB INP/OBS CARE 2/35MIN Diagnoses Enteritis K52.9 Weakness R53.1 Acute kidney injury N17.9 Elevated lithium level R79.89 Bipolar 1 disorder F31.9 Schizoaffective disorder F25.9 Diabetes mellitus with neuropathy E11.40 Hypothyroid E03.9
[2023-06-21] MEDS: LITHIUM CARBONATE 450 MG TABCR PO SCH (21:00)
[2023-06-21] MEDS: traZODone HCL 100 MG TAB PO SCH (22:02)
--- NOTE | 2023-06-21 22:32 | Hospitalist Progress Note ---
Date of Service June 21, 2023 Assessment & Plan (1) Enteritis: Plan: Suspected viral etiology. IV fluid rehydration. Stool BioFire negative (2) Weakness: Plan: Generalized. Most likely related to volume depletion and enteritis. Despite IV fluid, patient will require rehab No tremors noted on 06/21 Awaiting placement (3) Acute kidney injury: Plan: Resolved with IV fluids. Monitor intake and output. Serial labs (4) Elevated lithium level: Plan: Now normal. [place] has been restarted. Daily lab will recheck in AM on 06/22 (5) Bipolar 1 disorder: Plan: resumed (6) Schizoaffective disorder: Plan: Stable. Continue current medical management with Lurasidone, Benztropine. She is on Invega monthly injection as well (7) Diabetes mellitus with neuropathy: Plan: ADA diet. Sliding scale coverage as needed. Metformin has been restarted (8) Hypothyroid: Plan: Stable. Continue thyroid replacement therapy Plan requires rehab. Admission and Anticipated Discharge Date Admission Date: June 16, 2023 Subjective Patient reports she is still having tremors. She is also requesting to stop lithium, but she is unable to explain why. Review of Systems Review of Systems: All systems reviewed & are unremarkable except as noted in HPI & below Physical Exam Physical Exam: General-alert and oriented x3, no fevers, no chills HEENT-head atraumatic and normocephalic Neck-, trachea midline Extremities-no cyanosis, clubbing, or edema Neuro-no tremors noted on exam. Results & Data Results & Data Vital Signs (Past 12 Hours) Vital Signs Temp Pulse Resp BP Pulse Ox O2 Del Method 06/21/23 20:18 37.2 C 77 16 142/89 H 96 Room Air 06/21/23 15:51 36.6 C 92 H 16 161/89 H 94 Room Air PG Care Time/CCT Total # of Minutes Spent Total Time Spent with Patient: Total time spent is greater than 50% in coordination of care (as documented) at patient's floor/unit and/or counseling patient: Coding Level of Care Code 74645 SUB INP/OBS CARE 2/35MIN Diagnoses Enteritis K52.9 Weakness R53.1 Acute kidney injury N17.9 Elevated lithium level R79.89 Bipolar 1 disorder F31.9 Schizoaffective disorder F25.9 Diabetes mellitus with neuropathy E11.40 Hypothyroid E03.9
[2023-06-22] MEDS: LEVOTHYROXINE SODIUM 100 MCG TABLET PO SCH (05:28)
[2023-06-22] MEDS: hydrOXYzine HCl 25 MG TAB PO SCH ×2 (09:02→20:15)
[2023-06-22] MEDS: LORazepam 1 MG TAB PO SCH ×2 (09:02→20:15)
[2023-06-22] MEDS: DOCUSATE SODIUM 100 MG CAP PO SCH (09:02)
[2023-06-22] MEDS: NICOTINE 21 MG/24 HR TDSY TD SCH (09:02)
[2023-06-22] MEDS: ENOXAPARIN INJ 40 MG/0.4 ML SYR SQ SCH (09:03)
[2023-06-22] MEDS: BACLOFEN 20 MG TAB PO SCH ×3 (09:03→20:12)
[2023-06-22] MEDS: PANTOprazole 40 MG TAB PO SCH ×2 (09:03→20:13)
[2023-06-22] MEDS: metFORMIN HCL ER 500 MG TABCR PO SCH (09:03)
[2023-06-22] MEDS: BENZTROPINE MESYLATE 1 MG TAB PO SCH ×2 (09:03→20:12)
[2023-06-22] MEDS: LITHIUM CARBONATE 300 MG TAB PO SCH (09:08)
[2023-06-22] MEDS: INSULIN ASPART PER UNIT CHARGE SC SCH ×4 (09:25→20:20)
[2023-06-22] MEDS: LURASIDONE HCL 20 MG TAB PO SCH (12:21)
[2023-06-22] MEDS: LITHIUM CARBONATE 450 MG TABCR PO SCH (20:13)
[2023-06-22] MEDS: traZODone HCL 100 MG TAB PO SCH (20:14)
[2023-06-23] MEDS: LEVOTHYROXINE SODIUM 100 MCG TABLET PO SCH (06:16)
[2023-06-23] MEDS: BACLOFEN 20 MG TAB PO SCH ×3 (07:35→20:32)
[2023-06-23] MEDS: PANTOprazole 40 MG TAB PO SCH ×2 (07:36→20:34)
[2023-06-23] MEDS: metFORMIN HCL ER 500 MG TABCR PO SCH (07:36)
[2023-06-23] MEDS: NICOTINE 21 MG/24 HR TDSY TD SCH (07:36)
[2023-06-23] MEDS: BENZTROPINE MESYLATE 1 MG TAB PO SCH ×2 (07:36→20:33)
[2023-06-23] MEDS: LITHIUM CARBONATE 300 MG TAB PO SCH (07:37)
[2023-06-23] MEDS: hydrOXYzine HCl 25 MG TAB PO SCH ×2 (07:39→20:36)
[2023-06-23] MEDS: DOCUSATE SODIUM 100 MG CAP PO SCH (07:40)
[2023-06-23] MEDS: LORazepam 1 MG TAB PO SCH ×2 (07:40→20:36)
[2023-06-23] MEDS: INSULIN ASPART PER UNIT CHARGE SC SCH (08:17)
[2023-06-23] MEDS: LURASIDONE HCL 20 MG TAB PO SCH (12:37)
[2023-06-23] MEDS ORDERED: PALIPERIDONE PALMITATE 234 MG/1.5 ML SYR IM ONE ×2 (14:00→15:00)
[2023-06-23] MEDS ORDERED: lisinopril 5 MG TAB PO ONE (16:27)
--- NOTE | 2023-06-23 16:29 | Hospitalist Progress Note ---
Date of Service June 22, 2023 Assessment & Plan (1) Enteritis: Plan: Suspected viral etiology. IV fluid rehydration. Stool BioFire negative (2) Weakness: Plan: Generalized. Most likely related to volume depletion and enteritis. could be lithium toxicity, toxic encephalopathy now resolved Should improve with IV fluid rehydration and OT and PT Awaiting placement (3) Acute kidney injury: Plan: Resolved with IV fluids. Monitor intake and output. Serial labs (4) Elevated lithium level: Plan: Now normal. [place] has been restarted but now refused by the pt (5) Bipolar 1 disorder: Plan: resumed trazadone, latuda, refused lithium (6) Schizoaffective disorder: Plan: Stable. Continue current medical management with Lurasidone, Benztropine. She is on Invega monthly injection as well (7) Diabetes mellitus with neuropathy: Plan: ADA diet. Sliding scale coverage as needed. Metformin has been restarted (8) Hypothyroid: Plan: Stable. Continue thyroid replacement therapy Plan requires rehab. Admission and Anticipated Discharge Date Admission Date: June 16, 2023 Subjective patient is lethargic and nonconversant according to nurses has refused her lithium and subcutaneous enoxaparin injections she would not disclose to me why she is refusing medications as below Physical Exam Physical Exam: patient is awakens but I think feigns sleeping earlier she was in the bathroom when I arrived to see her cardiac exam is regular lungs sound clear Results & Data Results & Data Vital Signs (Past 12 Hours) Vital Signs Temp Pulse Resp BP Pulse Ox O2 Del Method 06/23/23 15:36 98.8 F 75 16 147/90 H 96 Room Air 06/23/23 07:09 98.8 F 82 18 150/85 H 95 Room Air PG Care Time/CCT Total # of Minutes Spent Total Time Spent with Patient: Total time spent is greater than 50% in coordination of care (as documented) at patient's floor/unit and/or counseling patient: Coding Level of Care Code 99966 SUB INP/OBS CARE 2/35MIN Diagnoses Enteritis K52.9 Weakness R53.1 Acute kidney injury N17.9 Elevated lithium level R79.89 Bipolar 1 disorder F31.9 Schizoaffective disorder F25.9 Diabetes mellitus with neuropathy E11.40 Hypothyroid E03.9
--- NOTE | 2023-06-23 16:34 | Hospitalist Progress Note ---
Date of Service June 23, 2023 Assessment & Plan (1) Enteritis: Plan: Suspected viral etiology. IV fluid rehydration. Stool BioFire negative resolved (2) Weakness: Plan: Generalized. Most likely related to volume depletion and enteritis. could be lithium toxicity, toxic encephalopathy now resolved rehab recommended by OT and PT Awaiting placement, likely next week to snf (3) Acute kidney injury: Plan: Resolved with IV fluids. Monitor intake and output. Serial labs for hypertension restart lisinpril (4) Elevated lithium level: Plan: Now normal. [place] has been restarted but now refused by the pt (5) Bipolar 1 disorder: Plan: resumed trazadone, latuda, refused lithium (6) Schizoaffective disorder: Plan: Stable. Continue current medical management with Lurasidone, Benztropine. She is on Invega monthly injection as well (7) Diabetes mellitus with neuropathy: Plan: ADA diet. Pt refused Sliding scale . Metformin has been restarted (8) Hypothyroid: Plan: Stable. Continue thyroid replacement therapy Plan requires rehab. Admission and Anticipated Discharge Date Admission Date: June 16, 2023 Subjective pt is much more awake and alert, cooperative, does not want to restart lithium with recent toxicity, unclear if tried to stop it at home she also does not want to take insulin and asks for her IM Invega as it is her monthly time Physical Exam Physical Exam: pt is awake and alert and conversant cardiac exam is regular lungs are clear Results & Data Results & Data Vital Signs (Past 12 Hours) Vital Signs Temp Pulse Resp BP Pulse Ox O2 Del Method 06/23/23 15:36 98.8 F 75 16 147/90 H 96 Room Air 06/23/23 07:09 98.8 F 82 18 150/85 H 95 Room Air Laboratory Results reviewed poc glucoses, reasonable control stop insluin PG Care Time/CCT Total # of Minutes Spent Total Time Spent with Patient: Total time spent is greater than 50% in coordination of care (as documented) at patient's floor/unit and/or counseling patient: Coding Level of Care Code 91632 SUB INP/OBS CARE 2/35MIN Diagnoses Enteritis K52.9 Weakness R53.1 Acute kidney injury N17.9 Elevated lithium level R79.89 Bipolar 1 disorder F31.9 Schizoaffective disorder F25.9 Diabetes mellitus with neuropathy E11.40 Hypothyroid E03.9
[2023-06-23] MEDS ORDERED: ALUMINUM/MAGNESIUM SUSP 30 ML UDC PO PRN (18:12)
[2023-06-23] MEDS ORDERED: POLYETHYLENE (MIRALAX) 17 GM PACK PO ONE (18:19)
[2023-06-23] MEDS: traZODone HCL 100 MG TAB PO SCH (20:34)
[2023-06-23] MEDS: LITHIUM CARBONATE 450 MG TABCR PO SCH (20:34)
[2023-06-24] MEDS: LEVOTHYROXINE SODIUM 100 MCG TABLET PO SCH (05:11)
[2023-06-24] MEDS: BACLOFEN 20 MG TAB PO SCH ×3 (08:55→21:00)
[2023-06-24] MEDS: BENZTROPINE MESYLATE 1 MG TAB PO SCH ×2 (08:56→21:00)
[2023-06-24] MEDS: LITHIUM CARBONATE 300 MG TAB PO SCH (08:56)
[2023-06-24] MEDS: lisinopril 5 MG TAB PO SCH (08:56)
[2023-06-24] MEDS: NICOTINE 21 MG/24 HR TDSY TD SCH (08:56)
[2023-06-24] MEDS: PANTOprazole 40 MG TAB PO SCH ×2 (08:56→21:01)
[2023-06-24] MEDS: metFORMIN HCL ER 500 MG TABCR PO SCH (08:57)
[2023-06-24] MEDS: LORazepam 1 MG TAB PO SCH ×2 (09:04→21:01)
[2023-06-24] MEDS: POLYETHYLENE (MIRALAX) 17 GM PACK PO PRN (09:10)
[2023-06-24] MEDS: DOCUSATE SODIUM 100 MG CAP PO SCH (09:10)
[2023-06-24] MEDS: hydrOXYzine HCl 25 MG TAB PO SCH ×2 (09:10→21:01)
[2023-06-24] MEDS: LURASIDONE HCL 20 MG TAB PO SCH (12:39)
--- NOTE | 2023-06-24 12:42 | Hospitalist Progress Note ---
Date of Service June 24, 2023 Assessment & Plan (1) Enteritis: Plan: resolved Suspected viral etiology. IV fluid rehydration. Stool BioFire negative (2) Weakness: Plan: Generalized. Most likely related to volume depletion and enteritis. lithium toxicity, toxic encephalopathy now resolved rehab recommended by OT and PT Awaiting placement, likely next week to snf (3) Acute kidney injury: Plan: Resolved with IV fluids. Monitor intake and output. for hypertension restarted lisinopril (4) Elevated lithium level: Plan: Now normal. [place] has been restarted but now refused by the pt (5) Bipolar 1 disorder: Plan: resumed trazadone, latuda, refused lithium subsequently discontinued (6) Schizoaffective disorder: Plan: Stable. Continue current medical management with Lurasidone, Benztropine. She is on Invega monthly injection administered 06/23/2023 (7) Diabetes mellitus with neuropathy: Plan: ADA diet. Pt refused Sliding scale . Metformin has been restarted (8) Hypothyroid: Plan: Stable. Continue thyroid replacement therapy Plan requires rehab. Admission and Anticipated Discharge Date Admission Date: June 16, 2023 Subjective patient awake seems like mental status is clearing patient relates that she was in the behavioral health unit [place] where she was taken off of her lithium then she returned home to restart her lithium and subsequently presented with lithium toxicity and this is why she does not wish to restart her lithium as she feels she was doing well without it. Patient is still agreeable to short-term subacute rehab hopefully pending this week Physical Exam Physical Exam: awake alert appropriate. No focal complaints. Cardiac exam is regular lungs are clear Results & Data Results & Data Vital Signs (Past 12 Hours) Vital Signs Temp Pulse Resp BP Pulse Ox O2 Del Method 06/24/23 07:52 98.6 F 71 16 123/86 94 Room Air PG Care Time/CCT Total # of Minutes Spent Total Time Spent with Patient: Total time spent is greater than 50% in coordination of care (as documented) at patient's floor/unit and/or counseling patient: Coding Level of Care Code 63116 SUB INP/OBS CARE 2/35MIN Diagnoses Enteritis K52.9 Weakness R53.1 Acute kidney injury N17.9 Elevated lithium level R79.89 Bipolar 1 disorder F31.9 Schizoaffective disorder F25.9 Diabetes mellitus with neuropathy E11.40 Hypothyroid E03.9
[2023-06-24] MEDS ORDERED: LIDOCAINE 5% 1 PATCH TD STA (20:36)
[2023-06-24] MEDS: LITHIUM CARBONATE 450 MG TABCR PO SCH (21:01)
[2023-06-24] MEDS: traZODone HCL 100 MG TAB PO SCH (21:02)
[2023-06-25] MEDS: LEVOTHYROXINE SODIUM 100 MCG TABLET PO SCH (05:05)
[2023-06-25 06:37] LABS: BUN Creatinine Ratio 18.2 (10-20); Calcium 9.9 mg/dl (8.6-10.3); Creatinine Clr Calc Pharmacy 81.6 ml/min; Est GFR (African American) 85.7 ml/min; Potassium 4.1 mmol/L (3.5-5.1)
[2023-06-25] MEDS: metFORMIN HCL ER 500 MG TABCR PO SCH (08:23)
[2023-06-25] MEDS: NICOTINE 21 MG/24 HR TDSY TD SCH (08:23)
[2023-06-25] MEDS: lisinopril 5 MG TAB PO SCH (08:23)
[2023-06-25] MEDS: BENZTROPINE MESYLATE 1 MG TAB PO SCH ×2 (08:24→20:00)
[2023-06-25] MEDS: PANTOprazole 40 MG TAB PO SCH ×2 (08:24→20:00)
[2023-06-25] MEDS: BACLOFEN 20 MG TAB PO SCH ×3 (08:24→20:00)
[2023-06-25] MEDS: LITHIUM CARBONATE 300 MG TAB PO SCH (08:24)
[2023-06-25] MEDS: LORazepam 1 MG TAB PO SCH ×2 (08:26→20:00)
[2023-06-25] MEDS: DOCUSATE SODIUM 100 MG CAP PO SCH (08:26)
[2023-06-25] MEDS: hydrOXYzine HCl 25 MG TAB PO SCH ×2 (08:26→20:00)
[2023-06-25] MEDS: POLYETHYLENE (MIRALAX) 17 GM PACK PO PRN (11:01)
[2023-06-25] MEDS: LURASIDONE HCL 20 MG TAB PO SCH (13:02)
--- NOTE | 2023-06-25 15:39 | Hospitalist Progress Note ---
Date of Service June 25, 2023 Assessment & Plan (1) Enteritis: Plan: resolved Suspected viral etiology. IV fluid rehydration. Stool BioFire negative (2) Weakness: Plan: Generalized. Most likely related to volume depletion and enteritis. lithium toxicity, toxic encephalopathy now resolved rehab recommended by OT and PT Awaiting placement, likely next week to snf (3) Acute kidney injury: Plan: Resolved with IV fluids. Monitor intake and output. for hypertension restarted lisinopril, restart Lasix 06/26/2023 (4) Elevated lithium level: Plan: Now normal. [place] has been restarted but now refused by the pt (5) Bipolar 1 disorder: Plan: resumed trazadone, latuda, refused lithium subsequently discontinued (6) Schizoaffective disorder: Plan: Stable. Continue current medical management with Lurasidone, Benztropine. She is on Invega monthly injection administered 06/23/2023 (7) Diabetes mellitus with neuropathy: Plan: ADA diet. Pt refused Sliding scale . Metformin has been restarted (8) Hypothyroid: Plan: Stable. Continue thyroid replacement therapy Plan requires rehab. Admission and Anticipated Discharge Date Admission Date: June 16, 2023 Subjective patient awake seems more mentally clear each day. patient relates that she was in the behavioral health unit [place] where she was taken off of her lithium then she returned home to restart her lithium and subsequently presented with lithium toxicity and this is why she does not wish to restart her lithium as she feels she was doing well without it. Patient is still agreeable to short-term subacute rehab hopefully pending this week Physical Exam Physical Exam: awake alert appropriate. No focal complaints. Cardiac exam is regular lungs are clear Results & Data Results & Data Vital Signs (Past 12 Hours) Vital Signs Temp Pulse Resp BP BP Pulse Ox O2 Del Method 06/25/23 14:52 97.9 F 71 16 118/75 95 Room Air 06/25/23 11:07 96 Room Air 06/25/23 08:20 97.9 F 87 16 139/86 Room Air Laboratory Results Reviewed chemistry restart Lasix on 06/26/2023 PG Care Time/CCT Total # of Minutes Spent Total Time Spent with Patient: Total time spent is greater than 50% in coordination of care (as documented) at patient's floor/unit and/or counseling patient: Coding Level of Care Code 47378 SUB INP/OBS CARE MIN Diagnoses Enteritis K52.9 Weakness R53.1 Acute kidney injury N17.9 Elevated lithium level R79.89 Bipolar 1 disorder F31.9 Schizoaffective disorder F25.9 Diabetes mellitus with neuropathy E11.40 Hypothyroid E03.9
[2023-06-25] MEDS: traZODone HCL 100 MG TAB PO SCH (20:00)
[2023-06-25] MEDS: LITHIUM CARBONATE 450 MG TABCR PO SCH (20:01)
[2023-06-26] MEDS: LEVOTHYROXINE SODIUM 100 MCG TABLET PO SCH (05:34)
[2023-06-26] MEDS: BACLOFEN 20 MG TAB PO SCH ×3 (08:38→20:49)
[2023-06-26] MEDS: BENZTROPINE MESYLATE 1 MG TAB PO SCH ×2 (08:39→20:50)
[2023-06-26] MEDS: metFORMIN HCL ER 500 MG TABCR PO SCH (08:39)
[2023-06-26] MEDS: PANTOprazole 40 MG TAB PO SCH ×2 (08:39→20:50)
[2023-06-26] MEDS: FUROSEMIDE 20 MG TAB PO SCH (08:39)
[2023-06-26] MEDS: lisinopril 5 MG TAB PO SCH (08:40)
[2023-06-26] MEDS: NICOTINE 21 MG/24 HR TDSY TD SCH (08:43)
[2023-06-26] MEDS: LITHIUM CARBONATE 300 MG TAB PO SCH (08:44)
[2023-06-26] MEDS: hydrOXYzine HCl 25 MG TAB PO SCH ×2 (08:47→20:50)
[2023-06-26] MEDS: POLYETHYLENE (MIRALAX) 17 GM PACK PO PRN (08:47)
[2023-06-26] MEDS: DOCUSATE SODIUM 100 MG CAP PO SCH (08:48)
[2023-06-26] MEDS: LORazepam 1 MG TAB PO SCH ×2 (08:52→20:50)
[2023-06-26] MEDS: LURASIDONE HCL 20 MG TAB PO SCH (11:00)
--- NOTE | 2023-06-26 18:59 | Hospitalist Progress Note ---
Date of Service June 26, 2023 Assessment & Plan (1) Enteritis: Plan: resolved Suspected viral etiology. Stool BioFire negative (2) Weakness: Plan: Generalized. Most likely related to volume depletion and enteritis. lithium toxicity, toxic encephalopathy now resolved rehab recommended by OT and PT Awaiting placement, likely next week to snf (3) Acute kidney injury: Plan: Resolved with IV fluids. Monitor intake and output. for hypertension restarted lisinopril, restart Lasix 06/26/2023 (4) Elevated lithium level: Plan: Now normal. [place] has been restarted but now refused by the pt (5) Bipolar 1 disorder: Plan: resumed trazadone, latuda, refused lithium subsequently discontinued (6) Schizoaffective disorder: Plan: Stable. Continue current medical management with Lurasidone, Benztropine. She is on Invega monthly injection administered 06/23/2023 (7) Diabetes mellitus with neuropathy: Plan: ADA diet. Pt refused Sliding scale . Metformin has been restarted (8) Hypothyroid: Plan: Stable. Continue thyroid replacement therapy Plan requires rehab. Admission and Anticipated Discharge Date Admission Date: June 16, 2023 Subjective patient awake seems more mentally clear each day., now accepting to [facility] rehab patient relates that she was in the behavioral health unit [place] where she was taken off of her lithium then she returned home to restart her lithium and subsequently presented with lithium toxicity and this is why she does not wish to restart her lithium as she feels she was doing well without it. Physical Exam Physical Exam: awake alert appropriate. No focal complaints. Cardiac exam is regular lungs are clear Results & Data Results & Data Vital Signs (Past 12 Hours) Vital Signs Temp Pulse Resp BP BP Pulse Ox O2 Del Method 06/26/23 14:16 98.8 F 76 18 144/85 H 95 Room Air 06/26/23 07:07 98.2 F 71 16 130/86 95 Room Air PG Care Time/CCT Total # of Minutes Spent Total Time Spent with Patient: Total time spent is greater than 50% in coordination of care (as documented) at patient's floor/unit and/or counseling patient: Coding Level of Care Code 19339 SUB INP/OBS CARE 125MIN Diagnoses Enteritis K52.9 Weakness R53.1 Acute kidney injury N17.9 Elevated lithium level R79.89 Bipolar 1 disorder F31.9 Schizoaffective disorder F25.9 Diabetes mellitus with neuropathy E11.40 Hypothyroid E03.9
[2023-06-26] MEDS: traZODone HCL 100 MG TAB PO SCH (20:51)
[2023-06-27] MEDS: LEVOTHYROXINE SODIUM 100 MCG TABLET PO SCH (06:18)
[2023-06-27] MEDS: FUROSEMIDE 20 MG TAB PO SCH (08:55)
[2023-06-27] MEDS: lisinopril 5 MG TAB PO SCH (08:55)
[2023-06-27] MEDS: metFORMIN HCL ER 500 MG TABCR PO SCH (08:56)
[2023-06-27] MEDS: NICOTINE 21 MG/24 HR TDSY TD SCH (08:56)
[2023-06-27] MEDS: BACLOFEN 20 MG TAB PO SCH ×3 (08:56→21:10)
[2023-06-27] MEDS: PANTOprazole 40 MG TAB PO SCH ×2 (08:56→21:10)
[2023-06-27] MEDS: BENZTROPINE MESYLATE 1 MG TAB PO SCH ×2 (08:57→21:10)
[2023-06-27] MEDS: hydrOXYzine HCl 25 MG TAB PO SCH ×2 (08:58→21:09)
[2023-06-27] MEDS: DOCUSATE SODIUM 100 MG CAP PO SCH (08:58)
[2023-06-27] MEDS: LORazepam 1 MG TAB PO SCH ×2 (08:58→21:06)
[2023-06-27] MEDS: POLYETHYLENE (MIRALAX) 17 GM PACK PO PRN (09:17)
[2023-06-27] MEDS: LURASIDONE HCL 20 MG TAB PO SCH (12:26)
--- NOTE | 2023-06-27 19:19 | Hospitalist Progress Note ---
Date of Service June 27, 2023 Assessment & Plan (1) Enteritis: Plan: resolved Suspected viral etiology. Stool BioFire negative (2) Weakness: Plan: Generalized. Most likely related to volume depletion and enteritis. lithium toxicity, toxic encephalopathy now resolved rehab recommended by OT and PT, insurance denied, pt will not permit home health but considering outpt PT will need to coordinate ride (3) Acute kidney injury: Plan: Resolved with IV fluids. Monitor intake and output. for hypertension restarted lisinopril, restart Lasix 06/26/2023 (4) Elevated lithium level: Plan: Now normal. [place] has been restarted but now refused by the pt (5) Bipolar 1 disorder: Plan: resumed trazadone, latuda, refused lithium subsequently discontinued (6) Schizoaffective disorder: Plan: Stable. Continue current medical management with Lurasidone, Benztropine. She is on Invega monthly injection administered 06/23/2023 (7) Diabetes mellitus with neuropathy: Plan: ADA diet. Pt refused Sliding scale . Metformin has been restarted (8) Hypothyroid: Plan: Stable. Continue thyroid replacement therapy Plan requires rehab. Admission and Anticipated Discharge Date Admission Date: June 16, 2023 Subjective patient awake seems more mentally clear each day., was denied insurance for snf due to improved performance status patient relates that she was in the behavioral health unit [place] where she was taken off of her lithium then she returned home to restart her lithium and subsequently presented with lithium toxicity and this is why she does not wish to restart her lithium as she feels she was doing well without it. Physical Exam Physical Exam: awake alert appropriate. No focal complaints. Cardiac exam is regular lungs are clear Results & Data Results & Data Vital Signs (Past 12 Hours) Vital Signs Temp Pulse Resp BP Pulse Ox O2 Del Method 06/27/23 14:47 98.1 F 69 20 114/76 94 Room Air 06/27/23 09:00 Room Air 06/27/23 07:54 98.2 F 75 18 133/84 95 Room Air PG Care Time/CCT Total # of Minutes Spent Total Time Spent with Patient: Total time spent is greater than 50% in coordination of care (as documented) at patient's floor/unit and/or counseling patient: Coding Level of Care Code 31616 SUB INP/OBS CARE 1/25MIN Diagnoses Enteritis K52.9 Weakness R53.1 Acute kidney injury N17.9 Elevated lithium level R79.89 Bipolar 1 disorder F31.9 Schizoaffective disorder F25.9 Diabetes mellitus with neuropathy E11.40 Hypothyroid E03.9
[2023-06-27] MEDS: traZODone HCL 100 MG TAB PO SCH (21:10)
[2023-06-28] MEDS: LEVOTHYROXINE SODIUM 100 MCG TABLET PO SCH (05:49)
[2023-06-28] MEDS: lisinopril 5 MG TAB PO SCH (09:04)
[2023-06-28] MEDS: BENZTROPINE MESYLATE 1 MG TAB PO SCH (09:04)
[2023-06-28] MEDS: PANTOprazole 40 MG TAB PO SCH (09:04)
[2023-06-28] MEDS: FUROSEMIDE 20 MG TAB PO SCH (09:04)
[2023-06-28] MEDS: BACLOFEN 20 MG TAB PO SCH (09:04)
[2023-06-28] MEDS: metFORMIN HCL ER 500 MG TABCR PO SCH (09:05)
[2023-06-28] MEDS: hydrOXYzine HCl 25 MG TAB PO SCH (09:08)
[2023-06-28] MEDS: DOCUSATE SODIUM 100 MG CAP PO SCH (09:08)
[2023-06-28] MEDS: LORazepam 1 MG TAB PO SCH (09:08)
[2023-06-28] MEDS: NICOTINE 21 MG/24 HR TDSY TD SCH (09:09)
[2023-06-28] MEDS: LURASIDONE HCL 20 MG TAB PO SCH (11:53)
--- NOTE | 2023-06-28 18:08 | Discharge Summary ---
Date of Service June 28, 2023 Admission HPI Per Admitting Provider Nathaly Baez is a 57yo female with history of HTN, HLP, DM, Bipolar and schizoaffective disorder presenting from home with dizziness, gait instability and falls. Patient was seen in the ER on 06/01/23 with suicidal ideation and plan to overdose on her medications. She was ultimately discharged to [facility] on 06/02/23. She was treated there for 5 days and ultimately discharged home. She reports being started on Lasix after discharge (20mg po daily x 2 days?) Since returning home from rehab she has been unsteady on her feet. She becomes dizzy and has episodes of lightheadedness and near syncope. She also feels that the room is spinning. Her symptoms are made worse by standing up and moving around. She reports falling x 3 over the last several days. She has bumped her head but not lost consciousness. No report of chest pain or palpitations. She denies fever, chills, chest pain, palpitations, cough, SOB, abdominal pain, nausea, vomiting, diarrhea or constipation. Denies tinnitus, hearing loss. She does report some generalized weakness as well as 5-6 episodes daily of watery, non-bloody diarrhea for the last several days. In the ER she is afebrile, HD stable. ER Course: Meclizine NSS Principal Diagnosis toxic encephalopathy from lithium toxicity bipolar disorder schizoaffective disorder Discharge Exam awake alert and conversant Discharge Data Allergies Allergy/AdvReac Type Severity Reaction Status Date / Time amoxicillin AdvReac Mild GI UPSET Verified 06/16/23 17:51 Consultations 06/16/23 19:16 ED Decision to Admit Stat Ordered Studies 06/16/23 15:12 CT head/brain wo con Stat Hospital Course (1) Enteritis: resolved Suspected viral etiology. Stool BioFire negative (2) Weakness: Generalized. Most likely related to volume depletion and enteritis. lithium toxicity, toxic encephalopathy now resolved rehab recommended by OT and PT, insurance denied, pt will not permit home health but considering outpt PT will need to coordinate ride Rx given at dis charge (3) Acute kidney injury: Resolved with IV fluids. Monitor intake and output. for hypertension restarted lisinopril, restart Lasix 06/26/2023 (4) Elevated lithium level: Now normal. [place] has been restarted but now refused by the pt (5) Bipolar 1 disorder: resumed trazadone, latuda, refused lithium subsequently discontinued (6) Schizoaffective disorder: Stable. Continue current medical management with Lurasidone, Benztropine. She is on Invega monthly injection administered 06/23/2023 (7) Diabetes mellitus with neuropathy: ADA diet. Pt refused Sliding scale . Metformin has been restarted (8) Hypothyroid: Stable. Continue thyroid replacement therapy Plan pt wishes to do outpt rehab Total Time Total Time Spent Total Time Spent (In Minutes): It required greater than 30 minutes to prepare this patient for discharge Discharge Plan Discharge Items Patient Disposition: Home - Self-Care Reason For Visit: FALLS Discharge Diagnosis: lithium toxicity gi enteritis resolved acute kidney injury resolved diabetes Activity: Per Instructions section Activity Comment: Please participate in outpatient physical therapy as given pr escription for Non-emergency contact: Primary Care Provider Call non-emergency contact if: your symptoms worsen Follow-up/Referrals: Patrice Newell MD [Primary Care Provider] - 07/04/23 12:00 pm Diet: Carb Consistent or DM2 Addtl Attending Provider Instructions: your issues with elevated lithium level this has been discontinued at the time of discharge. Continue other medication treatment for your bipolar disorder including trazodone Latuda and the Invega of which she had an inpatient inject ion additionally the lurasidone and benztropine. For diabetes resume her metformin and have a carbohydrate conservative diet. He did have some kidney distress to be important you keep well-hydrated while an outpatient. And have an appointment with outpatient physical therapy and get a ride to see them a few times a week until you are back to your baseline physical functioning please stop smoking and consider using a nicotine patch [id number] your lisinopril was reduced by 50% take 1/2 tablet a day follow-up Dr. Newell for further advice and your blood pressure medication Pending Studies at Discharge: No Stand-Alone Forms: My [id number], Smoking Cessation Medications and DC Order Prescriptions: Continued triamcinolone acetonide 0.025 % cream 1 applic TOP BID PRN (Reason: Allergic Symptoms) Qty: 80 3RF Rx Instructions: 1 applic TOP sparingly to both feet and legs BID ; levothyroxine 100 mcg tablet 100 mcg PO DAILY Qty: 90 3RF (DME) diaper,brief,adult,disposable Misc See Rx Instructions .Route Qty: 60 11RF Rx Instructions: Uses two daily DX: R32 (DME) incontinence pad, liner, disp Pad See Rx Instructions .Route Qty: 20 11RF Rx Instructions: As directed DX:R32 pantoprazole 40 mg tablet,delayed release (DR/EC) 40 mg PO BID Qty: 180 1RF Latuda 80 mg tablet 80 mg PO DAILY Rx Instructions: must administer with food (at least 350 calories), pt takes in afternoon Invega Sustenna 234 mg/1.5 mL syringe 234 mg IM Q30D cholecalciferol (vitamin D3) 25 mcg (1,000 unit) capsule 25 mcg PO DAILY Qty: 30 0RF furosemide 20 mg tablet 20 mg PO DAILY Qty: 90 1RF metformin 500 mg tablet extended release 24 hr 500 mg PO DAILY Qty: 90 1RF baclofen 20 mg tablet 20 mg PO TID hydroxyzine HCl 50 mg tablet 50 mg PO BID Rx Instructions: Pt takes daily 2/day morning and night lorazepam 1 mg tablet 1 mg PO BID Rx Instructions: Pt takes everyday morning and night benztropine 1 mg tablet 1 mg PO BID trazodone 100 mg tablet 200 mg PO HS ferrous sulfate [iron] 325 mg (65 mg iron) Tablet 325 mg PO QAM docusate sodium [Colace] 100 mg capsule 100 mg PO DAILY Changed lisinopril 10 mg tablet 5 mg PO DAILY Qty: 90 1RF Discontinued lithium carbonate 450 mg tablet extended release 450 mg PO QPM Patient Comments: 300mg AM 450mg HS Azo Cranberry 250 mg tablet,chewable 500 mg PO DAILY lithium carbonate 300 mg tablet extended release 300 mg PO QAM lidocaine 5 % adhesive patch,medicated 1 patch TOP HS PRN (Reason: pain) Qty: 0 0RF Rx Instructions: apply to back, daily, as needed, for pain Discharge Orders: Discharge Order (Routine); Ordered 06/28/23 Ordered By: Enrrique Rodarte Admission Data Admit Date/Time: 06/16/23 19:41 Attending Provider: Enrrique Rodarte Admit Provider: Pina Bowser Primary Care Provider: Patrice Newell Other Providers: Pina Bowser; [facility]; [place]; Miryam Lawson at [place] Other Interventions: Discharge Summary Assessment (RN) Last Done: 06/28/23 12:03 Coding Level of Care Code 96053 INP/OBS DISCH >30 MIN Diagnoses Enteritis K52.9 Weakness R53.1 Acute kidney injury N17.9 Elevated lithium level R79.89 Bipolar 1 disorder F31.9 Schizoaffective disorder F25.9 Diabetes mellitus with neuropathy E11.40 Hypothyroid E03.9
== END 2023-06-28 12:40 | disposition home or self-care (01) | DRG 391 ==
LOC: ED 14:53 → EDINP 19:41 → SUATTDRO 19:41 → 3E 21:20
DX: N17.9 Acute kidney failure, unspecified; E86.0 Dehydration; Y92.009 Unspecified place in unspecified non-institutional (private) residence as the place of occurrence of the external cause; R78.89 Finding of other specified substances, not normally found in blood; R42 Dizziness and giddiness; E03.9 Hypothyroidism, unspecified; F32.A Depression, unspecified; Z83.3 Family history of diabetes mellitus; A08.4 Viral intestinal infection, unspecified; E11.40 Type 2 diabetes mellitus with diabetic neuropathy, unspecified; E87.6 Hypokalemia; Z88.1 Allergy status to other antibiotic agents; R29.6 Repeated falls; F17.210 Nicotine dependence, cigarettes, uncomplicated; F31.9 Bipolar disorder, unspecified; G92.8 Other toxic encephalopathy; T43.8X5A Adverse effect of other psychotropic drugs, initial encounter